=== PATIENT | male | born 1960 | race Caucasian/White ===

== ENCOUNTER 2024-07-09 08:08 | Inpatient (IN) ==
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
[2024-07-09 08:24] LABS: Base Excess VBG -9.4 mEq/L; HCO3 VBG 19 mmol/L; Oxygen Saturation VBG < 60.0 %; PCO2 VBG 50 mmHg (38-50); PO2 VBG 32 mmHg; pH VBG 7.18 (7.36-7.41)
[2024-07-09] MEDS: PIPERACILLIN/TAZOBACTAM 4.5 GM/100 ML BAG IV ONE (08:39)
[2024-07-09] MEDS: SODIUM CHLORIDE 0.9% 1,000 ML IV SCH (08:40)
--- OUTSIDE RECORDS SUMMARY | 2024-07-09 08:41 | External Medical Summary | Continuity of Care Document ---
Author Name Unknown Organization [facility] Address [address] [place] [address] JOSIE ANDERSON [phone] Care Team Providers Care Transformer Maker Name Role Phone Samra Soni Primary Care Physician [phone] Encounter [facility] [id number] Date(s): 07/02/24 - 07/02/24 [facility] [id number], [place] [address]- [phone] Encounter Diagnosis Primary colorectal adenocarcinoma(Discharge Diagnosis) - 07/02/24 Metastasis to liver(Discharge Diagnosis) - 07/02/24 Hypertension(Discharge Diagnosis) - 07/02/24 Metastatic colon cancer to liver(Discharge Diagnosis) - 07/02/24 Discharge Disposition: Home or Self Care Attending Physician: MD Kitchen Raymond J Referring Physician: MD Soni Ravishankar E Encounter Type: [facility] [place] Allergies, Adverse Reactions, Alerts Substance Criticality Severity Reaction Reaction Severity Status Percodan Rash Active Assessment and Plan Extracted from: Title:Oncology Office Visit Note Author:MD Kitchen Raymond J Date:07/02/24 63 y/o male with metastatic colon cancer on palliative chemotherapy with capecitabine and Panitumumab 1. Metastatic colon cancer - Multifocal pulmonary metastasis. Omental metastasis. Hepatic metastasis. Abdominal and retroperitoneal guevara metastasis. - Caris result showed K-joe and NRAS mutation not detected. This suggests that cetuximab or panitumumab may be of use. - On 07/26/22, 1st cycle of bevacizumab ( AVSTIN) was started. - On 12/20/22, 1st cetuximab ( ERBITUX) was started - repeat CT C/A/P in 3 months after starting cetuximab- done on 02/10/23 with mixed response- continue current tx. - On 04/12/23- due to severe hand foot syndrome, the patient has asked for further dose reduction of capecitapine- from 1650 mg to 1000 mg po BID 14 days on/ 1 week off on a 3 week cycle. - On 05/02/23, capecitabine- from 1000 mg to 500 mg po BID 14 days on/ 1 week off on a 3 week cycle. - on 05/23/23 stop Cetuximab completely at patient request due to intolerance ( he had 7 cycles) . - stable to proceed monotherapy bevacizumab. -His restaging CT scans demonstrate enlargement of his right lower lobe subpleural mass which is now measuring 5.6 x 2.7 cm when compared with his last CT which measured 5.2 x 1.6 cm. -His CEA today was 1200, which has continued to rise over the last several months and is his baseline. - 01/05/24 [facility] at [facility]- per patient show disease progression. -Will hold Avastin therapy given elevated protein urea; - Started Panitumumab as additional agent given disease progression. - S/p first dose on 02/06/24, presents for dose #7 today.Tolerating well so far. - CT scan again reviewed with patient. Discussed small increasing pulmonary nodules. Recommend continuing treatment as planned as patient does not wish to have traditional chemotherapy due to side effects. - CEA decreasing - reviewed with patient. Will proceed with treatment today and plan for again in 2 weeks. - 06/18/24: CEA 808.1 - 07/02/24: CEA 607.9 - We will continue treatment with Capecitabine 500 mg BID 2 weeks on, 1 week off and Panitumumab Infusions q2 weeks. - We will assess CEA again at next followup - Willobtain re-imaging in July 2024. 2. Shortness of breath concerning for Pneumonia Patient had an episode of SOB and Fatigue, given Doxycyline (5 days) and Amoxcilllin 7 day course at the ED. First dose was 06/29/24. - Continue Antibiotics as directed. 3. Multifocal pulmonary metastasis/ chronic smoker -Upon review of his CT chest as noted above he will plan to continue with his treatment as planned. -He was encouraged to make efforts in smoking cessation. 4. Hypothyroidism -Continue on Synthroid 125 mcg 5. Anemia -Continue to monitor labs per chemotherapy protocol -His hemoglobin remains stable for him and he remains asymptomatic 6. 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 -He was encouraged to continue with monitoring his blood sugars as he is. 7. Recurrent gross hematuria/ Bilateral hydroureteronephrosis - Cystoscopy, bilateral retrograde pyelograms with radiographic interpretation, bilateral ureteral stent exchange. - f/u urologist, Dr John Matson. Had stents changed 05/04/24. - urine cx on 04/07/23 was negative. - Intermittent bladder spasm in the setting of renal stent-on baclofen prn - FU with Urology as needed. 8. Hand/foot syndrome from chemo- minimal - Dry skin of hand and feet. - rec Goldbond lotion 9.Hypomagnesemia-OTC supplements -Patient does not wish to stay for IV Magnesium infusion. - Continue PO Mag. 10. Hypokalemia and hypocalcemia: -Improving. - Continue PO K+. 11. Proteinuria and BLE edma -Likely secondary to Avastin and amlodipine. Patienthas since d/c Amlodipine andcontinues on the Lisinopril 10 mg Daily - Lisinopril changed to 5 mg BID given concerns for hypotension (lightheadedness). - PT evaluation for lymphedema - Resume lisinopril for HTN and d/c amlodipine per nephro. - 24 hour creatinine clearance results reviewedand improving. 12. Acneform rash to face- stable - Continue with benzyl peroxideointment. - Can consider derm referral if ongoing. Dispo:Patient will return in2 weeks timefor labs, treatment and OV to monitor swelling and rash. Next visit, will move OV to every 4 weeks unless needing to see more frequently [2] Immunizations Given and Recorded Vaccine Date Status Refusal Reason SARS-CoV-2 (COVID-19) mRNA BNT-162b2 vax 12/10/20 Recorded SARS-CoV-2 (COVID-19) mRNA BNT-162b2 vax 11/09/20 Recorded Medications Albuterol (Eqv-ProAir HFA) 90 mcg/inh inhalation aerosol Start: 07/02/24 8:26:00 AM EDT, 2 inh, inhaled, q4h, PRN: as needed for shortness of breath or wheezing Start Date: 07/02/24 Status: Ordered Repeat number: 1 Augmentin 875 mg-125 mg oral tablet Start: 07/02/24 8:26:00 AM EDT, amoxicillin, PO, bid Start Date: 07/02/24 Status: Ordered Repeat number: 1 capecitabine 500 mg oral tablet Start: 05/08/24 2:44:00 PM EST, 1 tab, PO, bid, Disp# 28 tab, Refills: 5, for 14 days, followed by 7days off of each 21 day cycle., Pharmacy: [facility] Start Date: 05/08/24 Status: Ordered Quantity: 28.0 Unit: tab Repeat number: 6 doxycycline Start: 07/02/24 8:26:00 AM EDT, 100 mg =, PO, bid Start Date: 07/02/24 Status: Ordered Repeat number: 1 Gold Gutierrez Medicated Maximum Strength Pain and Itch 4% topical cream Start: 04/07/23 12:16:00 PM EST, See Instructions, Disp# 133 g, Refills: 0, not to exceed 3 applications in 24 hours, Note to Pharmacy: use twice a day for 30 days, Pharmacy: [id number] Start Date: 04/07/23 Status: Ordered Quantity: 133.0 Unit: g Repeat number: 1 lisinopril 5 mg oral tablet Start: 07/02/24 9:16:00 AM EDT, 1 tab, PO, bid, Disp# 60 tab, Refills: 1, Pharmacy: [id number] Start Date: 07/02/24 Status: Ordered Quantity: 60.0 Unit: tab Repeat number: 2 Medical Marijuana Start: 06/28/22 11:57:00 AM EDT, 1 inh, inhaled Start Date: 06/28/22 Status: Ordered Repeat number: 1 morphine Start: 05/18/22 1:26:00 PM EST, 60 mg =, PO, q12h, Refills: 0 Start Date: 05/18/22 Status: Ordered Repeat number: 1 morphine 30 mg (24 HR) oral capsule, extended release Start: 03/07/23 3:42:00 PM EST, 1 cap, PO, bid, Refills: 0, prn, PRN: pain Start Date: 03/07/23 Status: Ordered Repeat number: 1 Normal Saline Flush 0.9% injectable solution Start: 05/28/24 11:15:00 AM EST, See Instructions, Disp# 1 kit, Refills: 3, Use 1 x 10 mL syringe toflush right nephrostomy tube daily and as needed (if decreased drainage is noted), Note to Pharmacy: 1 kit aka box = 60 syringes x refills x 3, Pharmacy: [facility] Start Date: 05/28/24 Status: Ordered Quantity: 1.0 Unit: kit Repeat number: 4 Indication: Other artificial openings of urinary tract status NovoLOG 100 units/mL injectable solution Start: 03/12/24 11:19:00 AM EST, See Instructions, Disp# 30 mL, Refills: 4, USE 1 UNIT PER 15 GRAMS OF CARBS, INJECTING UP TO 6 TIMES PER DAY NEEDED - using 30 units per day - 90 day supply, Pharmacy: [facility] Start Date: 03/12/24 Status: Ordered Quantity: 30.0 Unit: mL Repeat number: 5 One Touch Delica Plus (33G) Lancets Start: 05/07/22 8:18:00 AM EST, See Instructions, Disp# 100 each, Refills: 3, use for blood glucose testing up to 8x/day, Pharmacy: [facility] Start Date: 05/07/22 Status: Ordered Quantity: 100.0 Unit: each Repeat number: 4 Indication: Type 1 diabetes mellitus with unspecified complications One Touch Verio Flex Glucose Monitor Start: 08/24/23 7:58:00 AM EDT, See Instructions, Disp# 1 each, Refills: 0, test up to 8x/daily as directed for Type 1 DM, Note to Pharmacy: Pt aware insurance may not cover since it was replaced 2022. He would pay out of pocket if cheap enough, Pharmacy: [facility] Start Date: 08/24/23 Status: Ordered Quantity: 1.0 Unit: each Repeat number: 1 Indication: Type 1 diabetes mellitus with unspecified complications One Touch Verio Test Strips Start: 03/14/24 8:02:00 AM EST, See Instructions, Disp# 800 each, Refills: 3, test up to 8x/day as needed for Type 1 DM, Pharmacy: [facility] Start Date: 03/14/24 Status: Ordered Quantity: 800.0 Unit: each Repeat number: 4 Indication: Type 1 diabetes mellitus with unspecified complications ONETOUCH VERIO TEST STRIP Start: 06/07/24 8:48:00 AM EST, ONETOUCH VERIO TEST STRIP, See Instructions, Disp# 800 strip, Refills: 0, TEST UP TO 8 TIMES DAILY NEEDED, Pharmacy [facility] Start Date: 06/07/24 Status: Ordered Quantity: 800.0 Unit: Repeat number: 1 ONETOUCH VERIO TEST STRIP Start: 03/14/24 8:05:00 AM EST, ONETOUCH VERIO TEST STRIP, See Instructions, Disp# 800 strip, Refills: 0, TEST UP TO 8 TIMES DAILY NEEDED, Pharmacy [facility] Start Date: 03/14/24 Status: Ordered Quantity: 800.0 Unit: Repeat number: 1 Potassium Chloride (Eqv-K-Tab) 20 mEq oral tablet, extended release Start: 04/16/24 2:24:00 PM EST, 1 tab, PO, Daily, Disp# 30 tab, Refills: 0, Pharmacy: [id number] Start Date: 04/16/24 Status: Ordered Quantity: 30.0 Unit: tab Repeat number: 1 Pyridium 200 mg oral tablet Start: 05/04/24 3:01:00 PM EST, 1 tab, PO, tid, Disp# 6 tab, PRN: as needed for urinary discomfort, Pharmacy: [facility] Start Date: 05/04/24 Stop Date: 05/06/24 Status: Ordered Quantity: 6.0 Unit: tab Repeat number: 1 Semglee (Vial) 100 units/mL subcutaneous solution Start: 03/12/24 11:19:00 AM EST, 20 unit =, subQ, Daily, Disp# 30 mL, Refills: 3, Pharmacy: [facility] Start Date: 03/12/24 Stop Date: 03/07/25 Status: Ordered Quantity: 30.0 Unit: mL Repeat number: 4 Senna Start: 07/26/22 12:43:00 PM EDT, 8.6 mg =, PO, 2 tabs by mouth daily, PRN: as needed for constipation Start Date: 07/26/22 Status: Ordered Repeat number: 1 Slow-Mag 71.5 mg-119 mg oral delayed release tablet Start: 06/28/24 12:57:00 PM EDT, 2 tab, PO, bid, Disp# 120 tab, Refills: 3, Pharmacy: [id number] Start Date: 06/28/24 Stop Date: 10/26/24 Status: Ordered Quantity: 120.0 Unit: tab Repeat number: 4 Synthroid 125 mcg (0.125 mg) oral tablet Start: 03/12/24 11:19:00 AM EST, 1 tab, PO, Daily, Disp# 90 tab, Refills: 3, Pharmacy: [facility] Start Date: 03/12/24 Status: Ordered Quantity: 90.0 Unit: tab Repeat number: 4 Syringe MIS 0.3/31gauge Start: 03/12/24 11:19:00 AM EST, Syringe MIS 0.3/31gauge, eRx Product Type: Supply, See Instructions, Disp# 500 each, Refills: 3, Pt uses 6 syringes daily. E11.9, Pharmacy [facility] Start Date: 03/12/24 Status: Ordered Quantity: 500.0 Unit: each Repeat number: 4 Syringe MIS 0.3/31gauge Start: 01/01/22 10:03:00 AM EDT, Syringe MIS 0.3/31gauge, eRx Product Type: Supply, See Instructions, Disp# 500 each, Refills: 3, Pt uses 6 syringes daily. E11.9, Pharmacy [facility] Start Date: 01/01/22 Status: Ordered Quantity: 500.0 Unit: each Repeat number: 4 Vitamin B12 1000 mcg oral tablet Start: 10/24/23 10:35:00 AM EDT, 1 tab, PO, Daily, Disp# 90 tab, Refills: 0, Pharmacy: [facility] Start Date: 10/24/23 Stop Date: 01/22/24 Status: Ordered Quantity: 90.0 Unit: tab Repeat number: 1 ZyrTEC Start: 02/06/24 8:29:00 AM EDT, PO, Daily Start Date: 02/06/24 Status: Ordered Repeat number: 1 Mental Status 07/02/24 Barriers to Learning one year None evide nt Mandatory Health Literacy Documentation Yes Health Literacy Communication Barriers N ever Primary Language Cuban Problem List Condition Confirmation Course Effective Dates Status H ealth Status Informant Hand foot syndrome Confirmed Active Primary colorectal adenocarcinoma Confirmed Active Colon cancer screening declined Confirmed Active Gross hematuria Confirmed Active Hypertension Confirmed Active Hypothyroidism Confirmed Active Metastasis to liver Confirmed Active Bilateral ureteral obstruction. 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 Confirmed Active Vitamin D deficiency Confirmed Active Weight disorder Confirmed Active Diagnosis Diagnosis Type Effective Dates Health Status Clinical Service Informant Primary colorectal adenocarcinoma Discharge Diagnosis 07/02/24 Metastatic colon cancer to liver Discharge Diagnosis 07/02/24 Non-Specified Hypertension Discharge Diagnosis 07/02/24 Metastasis to liver Discharge Diagnosis 07/02/24 Procedures Procedure Date Related Diagnosis Body Site Status Cystoscopy 1 10/04/22 Completed Stent replacement 10/04/22 Complet ed Cystoscopy 2 04/22/22 Completed Colonoscopy and tattooing 3 02/03/22 Completed Abdominal 4 01/25/22 Completed Shave biopsy and cauterization of skin 04/09/21 Completed Examination of eye 5 05/04/17 Comp leted Amputation finger-complicated 1998 Completed Knee meniscus 1997 Completed Vitrectomy, mechanical, pars plana approach; with endolaser panretinal photocoagulation 1983 Completed Hernia repair 1981 Completed Cystoscopy and retrograde py elography 7 Completed Cystoscopy, bilateral retrog rade pyelograms with radiographic interpretation, bilateral ureteral stent exchange Completed 1Cystoscopy, retrograde pyelogram, ureteral stent exchange, bilateral. 2BIlateral Retrograde Pyelogram, Bilateral Ureteral Stent exchange. 3Impression- malignant partially obstructing tumor at the hepatic flexure. biopsied, tattooed. Three7 to 11 mm polyps in the rectum and in the transverse colon, removed with hot snare. resected and retrieved. Localized moderate inflammation was found in the sigmoid colon secondary to colitis. Biopsied. non bleeding internal hemmorrhoids.. Recommendations- continue with present meds. repeat colonoscopy for surveillance based on pathologyresults. Refer to a surgeon at appointment to be scheduled. 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 7pelvic mass, hydropnephrosis- ureteral stent exchange- bilateral Results Laboratory List Name Date Carcinoembryonic Antigen (CEA) 07/02/24 Complete Blood Count w Differential (CBC ,DIFFH) 07/02/24 Comprehensive Metabolic Panel (COMP META B PANEL) 07/02/24 Magnesium Level (MAGNESIUM) 07/02/24 Most recent to oldest [Reference Range]: 1 eGFR CKD-EPI [>60 mL/min/1.73 m2] 85 mL/ min/1.73 m2 (07/02/24 7:40 AM) Estimated CrCl 66.44 mL/min (07/02/24 8:31 AM) MPV [9.0-12.2 fL] 10.2 fL (07/02/24 7:40 AM) Immature Gran% 0.3 % (07/02/24 7:40 AM) Neut% 75.1 % (07/02/24 7:40 AM) Lymph% 11.1 % (07/02/24 7:40 AM) Rowan% 7.8 % (07/02/24 7:40 AM) Baso% 0.2 % (07/02/24 7:40 AM) Eos% 5.5 % (07/02/24 7:40 AM) Immat Gran, Abs [0-0.4 K/uL] 0.03 K/uL (07/02/24 7:40 AM) Neut, Abs [2.0-7.7 K/uL] 7.99 K/uL *HI* (07/02/24 7:40 AM) Lymph, Abs [1.0-3.4 K/uL] 1.18 K/uL (07/02/24 7:40 AM) Rowan, Abs [0-1.0 K/uL] 0.83 K/uL (07/02/24 7:40 AM) Baso, Abs [0-0.1 K/uL] 0.02 K/uL (07/02/24 7:40 AM) Eos, Abs [0-0.5 K/uL] 0.58 K/uL *HI* (07/02/24 7:40 AM) Type of Diff: AUTO *Unknown* (07/02/24 7:40 AM) RDW [11.5-14.2 %] 15.1 % *HI* (07/02/24 7:40 AM) Anion Gap [5-14 mmol/L] 9 mmol/L (07/02/24 7:40 AM) Alb [3.5-5.2 g/dL] 2.8 g/dL *LOW* (07/02/24 7:40 AM) Alk Phos [40-130 unit/L] 121 unit/L 1 (07/02/24 7:40 AM) ALT [0-41 unit/L] 10 unit/L (07/02/24 7:40 AM) AST [0-40 unit/L] 17 unit/L (07/02/24 7:40 AM) BUN [6-23 mg/dL] 16 mg/dL (07/02/24 7:40 AM) Ca [8.4-10.2 mg/dL] 7.4 mg/dL *LOW* (07/02/24 7:40 AM) CEA [<4.8 ng/mL] 607.9 ng/mL 2 *HI* (07/02/24 7:40 AM) Cl- [98-107 mmol/L] 102 mmol/L (07/02/24 7:40 AM) HCO3 [22-29 mmol/L] 25 mmol/L (07/02/24 7:40 AM) Cret [0.70-1.30 mg/dL] 0.99 mg/dL (07/02/24 7:40 AM) Glu [74-109 mg/dL] 137 mg/dL 3 *HI* (07/02/24 7:40 AM) Hct [39-48 %] 28.3 % *LOW* (07/02/24 7:40 AM) Hgb [13.0-17.0 g/dL] 8.9 g/dL *LOW* (07/02/24 7:40 AM) K [3.5-5.1 mmol/L] 4.5 mmol/L (07/02/24 7:40 AM) MCH [28-33 pg] 26.0 pg *LOW* (07/02/24 7:40 AM) MCHC [32-36 g/dL] 31.4 g/dL *LOW* (07/02/24 7:40 AM) MCV [81-96 fL] 82.7 fL (07/02/24 7:40 AM) Mg [1.6-2.6 mg/dL] 0.6 mg/dL *LOW* (07/02/24 7:40 AM) Na [136-145 mmol/L] 136 mmol/L (07/02/24 7:40 AM) Plts [150-350 K/uL] 304 K/uL (07/02/24 7:40 AM) RBC [4.40-5.60 M/uL] 3.42 M/uL *LOW* (07/02/24 7:40 AM) T Bili [0.0-1.2 mg/dL] 0.5 mg/dL (07/02/24 7:40 AM) Prot [6.4-8.3 g/dL] 6.3 g/dL *LOW* (07/02/24 7:40 AM) WBC [4.0-10.4 K/uL] 10.63 K/uL *HI* (07/02/24 7:40 AM) 1Result Comment: Low levels of ALKP may indicate a deficiency in zinc, magnesium, or malnutritionbutcan also be an indicator of a rare genetic disease hypophosphatasia (HPP). 2Result Comment: NON-SMOKERS (PAST/NEVER SMOKERS) 20-69 (YEARS) 3.8 NG/ML (95TH PERCENTILE) 40-69 (YEARS) 5.0 NG/ML (95TH PERCENTILE) SMOKERS (CURRENT) 20-69 (YEARS) 5.5 NG/ML (95TH PERCENTILE) 40-69 (YEARS) 6.5 NG/ML (95TH PERCENTILE) "Methodology: Jonny Elecsys CEA assay performed on the krystal e 601/602 analyzerutilizing electrochemiluminescence immunoassay technology (ECLIA). Results obtained with different assay methods or kitscannot be used interchangeably." 3Result Comment: ADA recommendation for FASTING Serum/Plasma Glucose: Normal: 70-100 mg/dL Prediabetes: 100-125 mg/dL Diabetes: 126 mg/dL or higher Vital Signs Most recent to oldest [Reference Range]: 1 Patient Weight 61.5 kg 1 (07/02/24 8:28 AM) Temperature [36.5-37.9 DegC] 37.1 DegC (07/02/24 8:28 AM) Heart Rate 70 bpm (07/02/24 8: AM) Respiratory Rate 16 br/min (07/02/24 8:28 AM) Blood Pressure 108/60mmHg (07/02/24 8:28 AM) Mean Blood Pressure 72 mmHg (07/02/24 8:28 AM) Cuff Pulse Pressure 48 mmHg (07/02/24 8:28 AM) BP Location # 1 Left Arm (07/02/24 8:28 AM) 1Result Comment: with shoes-pt refused Social History Social History Type Response Tobacco Cigarettes 1 Smoking Status Current some day lig ht smoker Sex Male Sex Representation Male (finding) 11 ppd Implantable Device List Procedure Provider Procedure Date Device Type Site Unknown Unknown 05/04/24 Unknown Unknown Device Identifier Serial Number Lot or Batch Number Manufacturing Date Expiration Date Distinct Identification Code MRI Safety Implantable Status Assigning Authority Unknown Unknown [id number] Unknown 06/15/26 Unknown Unknown Active Unknown Procedure Provider Procedure Date Device Type Site Unknown Unknown 01/03/24 Unknown Unknown Device Identifier Serial Number Lot or Batch Number Manufacturing Date Expiration Date Distinct Identification Code MRI Safety Implantable Status Assigning Authority Unknown Unknown [id number] Unknown 09/16/26 Unknown Unknown Active Unknown Unknown Unknown [id number] Unknown 09/28/25 Unknown Unknown Active Unknown Procedure Provider Procedure Date Device Type Site Unknown Unknown 09/02/23 Unknown Unknown Device Identifier Serial Number Lot or Batch Number Manufacturing Date Expiration Date Distinct Identification Code MRI Safety Implantable Status Assigning Authority Unknown Unknown [id number] Unknown 10/29/24 Unknown Unknown Active Unknown Unknown Unknown [id number] Unknown 09/28/25 Unknown Unknown Active Unknown Procedure Provider Procedure Date Device Type Site Unknown Unknown 03/16/23 Unknown Unknown Device Identifier Serial Number Lot or Batch Number Manufacturing Date Expiration Date Distinct Identification Code MRI Safety Implantable Status Assigning Authority Unknown Unknown [id number] Unknown 01/14/25 Unknown Unknown Active Unknown Unknown Unknown [id number] Unknown 09/02/25 Unknown Unknown Active Unknown Hematology/Oncology Outpt Note * MD Kitchen Raymond J: PERFORM MD Kitchen Raymond J: PERFORM, MODIFY Delano Mejía: MODIFY Event Display: Hematology/Oncology Outpt Note Authored Date: [id number] Chief Complaint f/u visit History of Present Illness 63-year-old gentleman, chronic smoker, DM-1 since age [address] Kitchen clinic on 04/08/2022 for evaluation of a hepatic flexure mass in the setting of known metastases. He has had escalating symptoms over the summer of right and left-sided abdominal pain as well as some flank pain. He was having fairly liquid bowel movements over the summer during this time without significant bleeding, although now they are more solid and soft in consistency. He was initially presumed to have diverticular disease and treated with antibiotics with some improvement in his symptoms. As part of his evaluation for his pain, he underwent a CT scan of the abdomen and pelvis which showed severalmasses, including a apple core lesion of the hepatic flexure, several liver lesions, and hydronephrosis related to a solid mass within the pelvis. He underwent a colonoscopy which noted a solid tumor at the hepatic flexure which was biopsied. Biopsies were consistent with at least high-grade dys plasia but no definitive cancer. This lesion was tattooed. They were unable to traverse this lesion. Multiple other tubular adenomas were noted in the transverse colon and rectum, 3 in total. A liver biopsy was then obtained which confirmed metastatic adenocarcinoma which was CK20 and CDX2 positive and consistent with colonic origin. No microsatellite instability was noted. 03/18/2022 CT Abdomen and Pelvis Consult Multifocal pulmonary metastasis. Omental metastasis.Hepatic metastasis. Abdominal and retroperitoneal guevara metastasis. Bilateral hydroureteronephrosis, right worse than left, secondary to cul-de-sac metastasis tethering the distal ureters bilaterally. 03/22/2022: Diagnosis(Verified) A.Colon, hepatic flexure, biopsy ([id number] 02/03/22):- Colonic mucosa with focal high-grade dysplasia. B.Colon, transverse, polypectomy ( -[id number] 02/03/22):- Tubular adenoma. C. Colon, sigmoid, biopsy sigmoid colitis ([id number] 02/03/22):- No pathological ulceration. D. Rectum, polypectomy (-9435-[id number] 02/03/22)":- Fragments of tubular adenoma. 2Liver, side unspecified (core needle biopsy) ([id number] 02/18/22): - Metastatic moderately differentiated adenocarcinoma. - Focal dystrophic calcification. COMMENT: Immunostain shows tumor cells positive for CK20, CDX2, Negative for CK7, TTF1 consistentwith colonic origin.MMR intact in part A. 07/19/2022: Interpretation(Verified) 1Liver, Right, Fine Needle Aspiration: Positive for malignant cells consistent with metastatic colorectal adenocarcinoma. 2Liver, Right, Cores: Positive for malignant cells consistent with metastatic colorectal adenocarcinoma. Comment: Immunostains were performed on a prior specimen. Abundant tumor is available in block 2Afor molecular testing if clinically requested. He was initially seen by Dr. Sparks in a [facility] who recommended surgical bypass because of the risk of obstruction. Hewas not interested in standard chemotherapy butwas interested in immunotherapy. Initially, we had recommended the addition of a Avastin to capecitabinehowever the patient was incredibly reluctant chemo treated with a Avastin. He cites multiple cardiovascular events andimmediate family membersandwas concerned of thethrombotic and hemorrhagic complications. We then did discuss the possibility of giving himoxaliplatin himalong with the capecitabine. Hewasagreeable to Avastin along with capecitabine 1800 mg BID 14 days on/ 1 week off ona3 week cycle. On 07/26/22, 1st cycle of bevacizumab ( AVSTIN) was started. On 12/20/22, 1st cetuximab ( ERBITUX) was started Caris resultshowed K-rasand NRAS mutation not detected. This suggests that cetuximab or panitumumab may beof use. 02/10/2023 CT Chest/ Abdomen and Pelvis w/ Contrast: 1. Mixed disease response within the thorax, with some lesions demonstrating enlargement, some interval decrease in size, and some cavitary evolution. 2. Unchanged thoracic guevara disease. 3. Essentially unchanged retroperitoneal disease. 4. Limited assessment for interval change in hepatic metastatic burden given phasicity of timing and poor contrast bolus enhancement. Overall, some of the hepatic lesions have resolved or improved while others demonstrate minimal if any interval decrease in size. 03/16/2023:Cystoscopy, bilateral retrograde pyelograms with radiographic interpretation, bilateralureteral stent exchange. 06/13/23 CT C/A/P CHEST Pleura and Lungs: Innumerable bilateral spiculated pulmonary metastatic nodules, not significantly changed compared to 02/10/2023. Some of the pulmonary nodules straight central cavitation. No pleuraleffusion. Central airways: Clear Lymph nodes: Enlarged bilateral upper paratracheal lymph nodes, right greater than left, with the right measuring 2.1 x 1.9 cm, decreased from 2.3 x 2.3 cm on 02/10/2023 and the left measuring 1.7 x 1.1 cm, decreased from 1.7 x 1.3 cm. Lower paratracheal and subaortic lymph nodes are also minimally decreased in size. Thyroid and Mediastinum: Visualized thyroid is normal. Normal esophagus. Heart and Great vessels: Atherosclerotic calcification of the coronary arteries. Common origin of the innominate and left common carotid arteries. ABDOMEN Liver, Gallbladder \\T\\ bile ducts: Multiple hypodense lesions, some of which are minimally decreased in size compared to 02/10/2023, for example, hepatic segment 8 measuring 1.4 x 1.4 cm, previously 1.7 x 1.9 cm. Partially calcified lesions within the right inferior hepatic lobe, also minimally decreased in size for example, the more superior lesion in hepatic segment 6 measuring 2.8 x 4.4 cm previously measured 2.9 x 5.0 cm. No new lesions. Normal gallbladder. Pancreas: Atrophic Spleen: Normal Adrenals: Normal Kidneys, collecting system and ureters: Bilateral nephroureteral drains. No hydronephrosis. Bilateral periureteral fat stranding, left greater than right, unchanged. Retroperitoneum, lymph nodes, and vessels: Numerous calcified retroperitoneal lymph nodes, mildly decreased in size compared to 06/02/1992. Atherosclerotic calcification of the aorta. Bowel \\T\\ Mesentery: Mild thickening of the peritoneum in the pelvis, decreased. No bowel obstruction. PELVIS Bladder: Normal Reproductive organs: Normal Extraperitoneal, lymph nodes, vessels: Atherosclerotic calcification of the bilateral iliofemoral arteries. Right external iliac lymph node measuring 0.9 cm in short axis, unchanged. Osseous and body wall: Multilevel degenerative changes of the spine. IMPRESSION: 1. Multifocal metastatic lung nodules are unchanged compared to 02/10/2023. 2. Mild decrease in size of thoracic and retroperitoneal lymphadenopathy. 3. Multifocal metastatic hepatic lesions are mildly decreased in size. [1] Interval History 07/02/2024 63 y/o male with metastatic colon cancer on palliative chemotherapy with capecitabine and Panitumumab Capecitabine is starting 2 week on and 1 week off at 500 mg BID, and the Panitumumab every two weeks as well for infusions. Patient has been feeling some side effects from the chemo. He's been getting itching and a rash on his nape. His teeth and hair seem to be falling apart. His symptoms comes and goes. It was worsewhenhe was previously on cristina Avastin with the Cepecitabine (and the cetuximab). THey stopped the cetuximab and eased downon the cepecitabine. 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 He was previously also on Avastin which could contribute to nephrotic syndrome. He is back on Lisinopril 10 mg daily, [facility] he does feel some lightheadedness when he takes it. He requested changing dose to 5 mg BID. Patient continues to feel fatigue, he's frustrated with his lack of ability to be active as he wants. Patient also had a recent infection (flu) around 3 weeks ago and had an episode last week withsommeshortness of breath and fatigue. was sent to the ED for concern of pneumonia. Hes on an antibiotic Amoxicillin, and Doxycycline started , and will be contiuing the course Doxy 5 days and Amoxicillin 7 days. THe antibiotics has been helping with his symptoms. Appetite has not been really good, but feels like its starting to come back. He thinks it might be the antibiotics. Intermittent Diarrhea / Constipation, does not see blood in stool. Does see blood in urine (Ureteric stents Kidneys to Bladder (the edema was closing the veins off and tumor). Urologist. Review of Systems A complete 14 point review of systems was performed and was negative exceptive as noted above in HPI. Physical Exam Vital Signs and Measurements This Visit - Last 24 Hours T:37.1C HR:70(Monitored) RR:16 BP:108/60 WT:61.500kg(Dosing) WT:61.5kg General:Well appearing in no apparent acute distress. HEENT:Head normocephalic, atraumatic, sclera clear, conjunctiva pink. Cardiac:Regular Rate and Rhythm, no murmurs, rubs or gallops. 2+ pulses bilaterally in upper and lower extremity. Lungs:Clear to auscultation bilaterally, no wheezes, rales, or rhonchi, Abdomen:Normoactive bowel sounds,firm, diffusely tender topalpation in all four quadrants. Extremities:2+ Pitting Edema in bilateral lower extremities. Neuro:Alert and oriented to person, time, place and situation. Skin:Warm and dry, with no apparent discoloration or rashes. Performance Scales and Status ECOG Performance Status: 1 (06/18/24) Pain Score:3 Patient Declined Assessment on:05/07/2024 08:29 Distress Inventory Not Completed Reason: [ _ ]Medical Contraindication:_ [ _ ]Functional Capacity [ _ ]Patient Refusal [ _ ]Other:_ Oncology Regimens Oncology Chemo Regimens: Regimen:ONCR panitumumab (2 weeks) Colorectal Adult (</= 165 kg) (Started) Intent of Therapy:Advanced/palliative Line of Therapy:Third Order Dt/Tm:01/16/24 11:54 Assessment/Plan 63 y/o male with metastatic colon cancer on palliative chemotherapy with capecitabine and Panitumumab 1. Metastatic colon cancer - Multifocal pulmonary metastasis. Omental metastasis. Hepatic metastasis. Abdominal and retroperitoneal guevara metastasis. - Caris result showed K-joe and NRAS mutation not detected. This suggests that cetuximab or panitumumab may be of use. - On 07/26/22, 1st cycle of bevacizumab ( AVSTIN) was started. - On 12/20/22, 1st cetuximab ( ERBITUX) was started - repeat CT C/A/P in 3 months after starting cetuximab- done on 02/10/23 with mixed response- continue current tx. - On 04/12/23- due to severe hand foot syndrome, the patient has asked for further dose reduction of capecitapine- from 1650 mg to 1000 mg po BID 14 days on/ 1 week off on a 3 week cycle. - On 05/02/23, capecitabine- from 1000 mg to 500 mg po BID 14 days on/ 1 week off on a 3 week cycle. - on 05/23/23 stop Cetuximab completely at patient request due to intolerance ( he had 7 cycles) . - stable to proceed monotherapy bevacizumab. -His restaging CT scans demonstrate enlargement of his right lower lobe subpleural mass which is now measuring 5.6 x 2.7 cm when compared with his last CT which measured 5.2 x 1.6 cm. -His CEA today was 1200, which has continued to rise over the last several months and is his baseline. - 01/05/24 [facility]- per patient show disease progression. -Will hold Avastin therapy given elevated protein urea; - Started Panitumumab as additional agent given disease progression. - S/p first dose on 02/06/24, presents for dose #7 today.Tolerating well so far. - CT scan again reviewed with patient. Discussed small increasing pulmonary nodules. Recommend continuing treatment as planned as patient does not wish to have traditional chemotherapy due to side effects. - CEA decreasing - reviewed with patient. Will proceed with treatment today and plan for again in 2weeks. - 06/18/24: CEA 808.1 - 07/02/24: CEA 607.9 - We will continue treatment with Capecitabine 500 mg BID 2 weeks on, 1 week off and Panitumumab Infusions q2 weeks. - We will assess CEA again at next followup - Willobtain re-imaging in July 2024. 2. Shortness of breath concerning for Pneumonia Patient had an episode of SOB and Fatigue, given Doxycyline (5 days) and Amoxcilllin 7 day course at the ED. First dose was 06/29/24. - Continue Antibiotics as directed. 3. Multifocal pulmonary metastasis/ chronic smoker -Upon review of his CT chest as noted above he will plan to continue with his treatment as planned. -He was encouraged to make efforts in smoking cessation. 4. Hypothyroidism -Continue on Synthroid 125 mcg 5. Anemia -Continue to monitor labs per chemotherapy protocol -His hemoglobin remains stable for him and he remains asymptomatic 6. 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 -He was encouraged to continue with monitoring his blood sugars as he is. 7. Recurrent gross hematuria/ Bilateral hydroureteronephrosis - Cystoscopy, bilateral retrograde pyelograms with radiographic interpretation, bilateral ureteral stent exchange. - f/u urologist, Dr John Matson. Had stents changed 05/04/24. - urine cx on 04/07/23 was negative. - Intermittent bladder spasm in the setting of renal stent-on baclofen prn - FU with Urology as needed. 8. Hand/foot syndrome from chemo- minimal - Dry skin of hand and feet. - rec Goldbond lotion 9.Hypomagnesemia-OTC supplements -Patient does not wish to stay for IV Magnesium infusion. - Continue PO Mag. 10. Hypokalemia and hypocalcemia: -Improving. - Continue PO K+. 11. Proteinuria and BLE edma -Likely secondary to Avastin and amlodipine. Patienthas since d/c Amlodipine andcontinues on the Lisinopril 10 mg Daily - Lisinopril changed to 5 mg BID given concerns for hypotension (lightheadedness). - PT evaluation for lymphedema - Resume lisinopril for HTN and d/c amlodipine per nephro. - 24 hour creatinine clearance results reviewedand improving. 12. Acneform rash to face- stable - Continue with benzyl peroxideointment. - Can consider derm referral if ongoing. Dispo:Patient will return in2 weeks timefor labs, treatment and OV to monitor swelling andrash. Next visit, will move OV to every 4 weeks unless needing to see more frequently [2] Staging Information No information available Problem List/Past Medical History Ongoing Bilateral ureteral obstruction. 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 Vitamin D deficiency Weight disorder Resolved Routine adult health maintenance Procedure/Surgical History Stent replacement| Service Date: 10/04/2022ystoscopy| Service Date: 10/04/2022ystoscopy|Service Date: 04/22/2022olonoscopy and tattooing| Service Date: 02/03/2022bdominal| ServiceDate: 01/25/2022have biopsy and cauterization of skin| Service Date: 04/09/2021xamination of eye| Service Date: 05/04/2017Amputation finger-complicated| Service Date: 1998Knee meniscus|Service Date: 1997Vitrectomy, mechanical, pars plana approach; with endolaser panretinal photocoagulation| Service Date: 1983Hernia repair| Service Date: 1981Cystoscopy and retrograde pyelographyCystoscopy, bilateral retrograde pyelograms with radiographic interpretation, bilateral ureteral stent exchange Medications albuterol(Albuterol (Eqv-ProAir HFA) 90 mcg/inh inhalation aerosol), 2 inh, inhaled, q4h, PRN amoxicillin-clavulanate(Augmentin 875 mg-125 mg oral tablet), PO, bid calcium carbonate-magnesium chloride(Slow-Mag 71.5 mg-119 mg oral delayed release tablet), 2 tab, PO, bid, 3 refills cannabis(Medical Marijuana), 1 inh, inhaled capecitabine(capecitabine 500 mg oral tablet), 500 mg= 1 tab, PO, bid, 5 refills cetirizine(ZyrTEC), PO, Daily cyanocobalamin(Vitamin B12 1000 mcg oral tablet), 1000 mcg= 1 tab, PO, Daily diabetes supplies(One Touch Verio Test Strips), See Instructions, 3 refills diabetes supplies(One Touch Verio Flex Glucose Monitor), See Instructions diabetes supplies(One Touch Delica Plus (33G) Lancets), See Instructions, 3 refills doxycycline, 100 mg, PO, bid insulin aspart(NovoLOG 100 units/mL injectable solution), See Instructions, 4 refills insulin glargine(Semglee (Vial) 100 units/mL subcutaneous solution), 20 unit, subQ, Daily, 3 refills levothyroxine(Synthroid 125 mcg (0.125 mg) oral tablet), 125 mcg= 1 tab, PO, Daily, 3 refills lidocaine topical(Gold Gutierrez Medicated Maximum Strength Pain and Itch 4% topical cream), See Instructions lisinopril(lisinopril 5 mg oral tablet), 10 mg= 2 tab, PO, Daily, 1 refills morphine, 60 mg, PO, q12h morphine(morphine 30 mg (24 HR) oral capsule, extended release), 30 mg= 1 cap, PO, bid, PRN phenazopyridine(Pyridium 200 mg oral tablet), 200 mg= 1 tab, PO, tid, PRN potassium chloride(Potassium Chloride (Eqv-K-Tab) 20 mEq oral tablet, extended release), 20 mEq= 1 tab, PO, Daily senna(Senna), 8.6 mg, PO, PRN sodium chloride(Normal Saline Flush 0.9% injectable solution), See Instructions, 3 refills unlisted medication(Syringe MIS 0.3/31gauge), See Instructions, 3 refills unlisted medication(Syringe MIS 0.3/31gauge), See Instructions, 3 refills unlisted medication(ONETOUCH VERIO TEST STRIP), See Instructions unlisted medication(ONETOUCH VERIO TEST STRIP), See Instructions Allergies PercodanRash Social History Smoking Status Current some day light smoker Alcohol - Low Risk - Comments: USAUDIT-C score = 6; no interest in changing Employment/School - Medium Risk Status:Retired Substance Abuse - Denies Substance Abuse Tobacco Type:Cigarettes - Comments: 1 ppd Family History Family history is negative Immunizations Vaccine Date Status SARS-CoV-2 (COVID-19) mRNA BNT-162b2 vax 12/10/2020 Recorded SARS-CoV-2 (COVID-19) mRNA BNT-162b2 vax 11/09/2020 Recorded Labs Na: 136 mmol/L (07/02/24 07:40:00) K: 4.5 mmol/L (07/02/24 07:40:00) Cl-: 102 mmol/L (07/02/24 07:40:00) BUN: 16 mg/dL (07/02/24 07:40:00) Cret: 0.99 mg/dL (07/02/24 07:40:00) Glu:137 mg/dLHigh (07/02/24 07:40:00) Ca:7.4 mg/dLLow (07/02/24 07:40:00) M.6 mg/dLLow (07/02/24 07:40:00) WBC:10.63 K/uLHigh (07/02/24 07:40:00) Hgb:8.9 g/dLLow (07/02/24 07:40:00) Hct:28.3 %Low (07/02/24 07:40:00) MCV: 82.7 fL (07/02/24 07:40:00) Plts: 304 K/uL (07/02/24 07:40:00) Neut%: 75.1 % (07/02/24 07:40:00) Baso%: 0.2 % (07/02/24 07:40:00) Neut, Abs:7.99 K/uLHigh (07/02/24 07:40:00) Lymph, Abs: 1.18 K/uL (07/02/24 07:40:00) ALT: 10 unit/L (07/02/24 07:40:00) T Bili: 0.5 mg/dL (07/02/24 07:40:00) Alk Phos: 121 unit/L (07/02/24 07:40:00) AST: 17 unit/L (07/02/24 07:40:00) [1]Oncology Office Visit Note; CASIE Woodall Annie 06/18/2024 07:58 EDT [2]Oncology Office Visit Note; CASIE Woodall Annie 06/18/2024 07:58 EDT Electronic Signature on File Electronically Reviewed/Signed by: Bronson Kitchen MD Author Signature Dt/Tm:07/02/2024 12:40 PM Division of Hematology Oncology [facility] Patient Care team information Care Team Personnel Name: Constantin Del Toro Kimberly Position: Pharmacist BCMA Member Role: Pharmacy - Lifetime Address: [address] [address] [place] Name: MD Kitchen Raymond J Position: Physician - Hem/Onc Member Role: Lifetime Relationship [address]: [address] [place] [id number] [place] Telecom: [phone] Name: Constantin Ferreira Matthew Position: Pharmacist Member Role: Pharmacy - Lifetime Name: Mame Perez RPh, William Position: Pharmacist Member Role: Pharmacy - Lifetime Name: MD Zachariah, Samra Cano Position: Physician Member Role: Primary Care Provider Address: [address] [place] [address] Telecom: [phone] Care Team Related Persons Name: BRUNO YOO Insurance Providers Guarantor name: BERNY Justice RUBIO Health Plan Information #: 1 Payer: [employer] Member Number: [id number] Policy Number: NA Group Number: [id number] Health Plan Information #: 2 Payer: [employer] Member Number: [id number] Policy Number: NA Group Number: NA Health Plan Information #: 3 Payer: [employer] PCP ONLY Member Number: NA Policy Number: NA Group Number: NA
--- OUTSIDE RECORDS SUMMARY | 2024-07-09 08:42 | External Medical Summary | Continuity of Care Document ---
Author Name Unknown Organization [facility] [address] Address [address] [place], [place] [id number] Care Team Providers Care Actuarial Associate Name Role Phone Samra Soni Primary Care Physician [phone] Encounter [facility] [id number] Date(s): 06/27/24 - 06/27/24 [facility] [address] [facility] [address] [place] [address] [phone] Encounter Diagnosis Protein in urine(Discharge Diagnosis) - 06/27/24 Hypomagnesemia(Discharge Diagnosis) - 06/28/24 Hypocalcemia(Discharge Diagnosis) - 06/28/24 CKD (chronic kidney disease)(Discharge Diagnosis) - 06/28/24 Volume overload(Discharge Diagnosis) - 06/28/24 Medication nonadherence due to intolerance(Discharge Diagnosis) - 06/28/24 Discharge Disposition: Home or Self Care Attending Physician: MD Levy, Nilsaqar H Encounter Type: Clinic [place] Allergies, Adverse Reactions, Alerts Substance Criticality Severity Reaction Reaction Severity Status Percodan Rash Active Assessment and Plan Extracted from: Title:Neph Office Visit Note Author:MD Levy, Va qar H Date:06/27/24 Protein in urine 63 y/o M with hx of Type 1 DM withdiabetes retinopathy s/p laser surgery and 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 1) CKD I/A3 with nephrotic range proteinuria ? related to VGEF inh(Avastin) and Diabetes, in the setting of b/l hydronephrosis. - SCr0.7 on 05/28 with most of the reading are 0.9's - UA has 2 + protein and 1+ blood with positive nitrite (Has Rt Neph tube), no symptoms of UTI, will treat onlyif he has symptoms of UTI - UPCR 4.7 g/g (06/18) <--- 3.8 gm/gm (05/28) <--- 4.5 gm/gm -Urine Protein 24 hrs is 4.9 gm on01/20/24 - CT abd/Pelvis with contrast on 04/16/24 revealed mod to severe Rt hydro and Mild left hydro due to malignancy obstruction at the distil ureter b/l, He has b/l internal J stents placed by Urology, concern for malfunctioning s/p Left ureteral exchange and Rt PCN with bag placement on 05/04/24 by Urology. -f/u urologist, Dr John Matson. - US kidney with Doppler's, 9 cm and 11 cm, no JAH noted - last visit, we decided against kidney bx for proteinuria due to limited Rx options given his advance kidney dz, patient agreed with the plan. - He was initially started on Lisinopril 20 mg once daily but did not tolerate well and was reduced down to 5 mg once daily (He has not had any issues with the reduced dose) Plan: - Will increase Lisinopril to 10 mg once daily (BP stable), He agreed to increase the dose and to hold if has any hemodynamic issues. - No SGLT 2 inh at this time due to Rt PCN with bag and increase risk of UTI 2) HTN: BP acceptable. - Edema has improved significantly after stopping Norvasc - As mentioned above, will increase his SHARLA inh 3) NAGMA (improved): ? related to Diarrhea 4) Hypocalcemia likely related to Hypomagnesemia ? due to chemo/immuno - Will give a trial of Slow mag instead of mag ox. (Patient notified) - Has refused to go to ED for IV Mag in the past due to diarrhea - Repeat Serum mag level next week 5) Hypokalemia (improved) He was counselled again about smoking, understand the health risks Follow up in 8-12 weeks Labs next week to assess chemistry following increasing Lisinoprilas well as to follow up on Serum Mag level Immunizations Given and Recorded Vaccine Date Status Refusal Reason SARS-CoV-2 (COVID-19) mRNA BNT-162b2 vax 12/10/20 Recorded SARS-CoV-2 (COVID-19) mRNA BNT-162b2 vax 11/09/20 Recorded Medications capecitabine 500 mg oral tablet Start: 05/08/24 2:44:00 PM EST, 1 tab, PO, bid, Disp# 28 tab, Refills: 5, for 14 days, followed by 7days off of each 21 day cycle., Pharmacy: [facility] Start Date: 05/08/24 Status: Ordered Quantity: 28.0 Unit: tab Repeat number: 6 folic acid 1 mg oral tablet Start: 06/18/24 9:47:00 AM EDT, 1 tab, PO, Daily Start Date: 06/18/24 Status: Ordered Repeat number: 1 Gold Gutierrez Medicated Maximum Strength Pain and Itch 4% topical cream Start: 04/07/23 12:16:00 PM EST, See Instructions, Disp# 133 g, Refills: 0, not to exceed 3 applications in 24 hours, Note to Pharmacy: use twice a day for 30 days, Pharmacy: [id number] Start Date: 04/07/23 Status: Ordered Quantity: 133.0 Unit: g Repeat number: 1 lisinopril 5 mg oral tablet Start: 05/28/24 10:39:00 AM EST, 2 tab, PO, Daily, Disp# 30 tab, Refills: 1, Pharmacy: [id number] Start Date: 05/28/24 Status: Ordered Quantity: 30.0 Unit: tab Repeat number: 2 Medical Marijuana [...] 60 syringes x refills x 3, Pharmacy: [facility] [place] Start Date: 05/28/24 Status: Ordered Quantity: 1.0 [...] per day - 90 day supply, Pharmacy: [facility] Start Date: 03/12/24 Status: Ordered Quantity: 30.0 Unit: mL Repeat number: 5 One Touch Delica Plus (33G) Lancets Start: 05/07/22 8:18:00 AM EST, See Instructions, Disp# 100 each, Refills: 3, use for blood glucose testing up to 8x/day, Pharmacy: [facility] Start Date: 05/07/22 Status: Ordered Quantity: [...] out of pocket if cheap enough, Pharmacy: [facility] Start Date: 08/24/23 Status: Ordered Quantity: 1.0 Unit: each Repeat number: 1 Indication: Type 1 diabetes mellitus with unspecified complications One Touch Verio Test Strips Start: 03/14/24 8:02:00 AM EST, See Instructions, Disp# 800 each, Refills: 3, test up to 8x/day as needed for Type 1 DM, Pharmacy: [facility] Start Date: 03/14/24 Status: Ordered Quantity: 800.0 Unit: each Repeat number: 4 Indication: Type 1 diabetes mellitus with unspecified complications ONETOUCH VERIO TEST STRIP Start: 06/07/24 8:48:00 AM EST, ONETOUCH VERIO TEST STRIP, See Instructions, Disp# 800 strip, Refills: 0, TEST UP TO 8 TIMES DAILY NEEDED, Pharmacy [facility] Start Date: 06/07/24 Status: Ordered Quantity: 800.0 Unit: Repeat number: 1 ONETOUCH VERIO TEST STRIP Start: 03/14/24 8:05:00 AM EST, ONETOUCH VERIO TEST STRIP, See Instructions, Disp# 800 strip, Refills: 0, TEST UP TO 8 TIMES DAILY NEEDED, Pharmacy [facility] Start Date: 03/14/24 Status: Ordered Quantity: 800.0 Unit: Repeat number: 1 Potassium Chloride (Eqv-K-Tab) 20 mEq oral tablet, extended release Start: 04/16/24 2:24:00 PM EST, 1 tab, PO, Daily, Disp# 30 tab, Refills: 0, Pharmacy: [id number] Start Date: 04/16/24 Status: Ordered Quantity: 30.0 Unit: tab Repeat number: 1 Pyridium 200 mg oral tablet Start: 05/04/24 3:01:00 PM EST, 1 tab, PO, tid, Disp# 6 tab, PRN: as needed for urinary discomfort, Pharmacy: [facility] [place] Start Date: 05/04/24 Stop Date: 05/06/24 Status: Ordered Quantity: 6.0 Unit: tab Repeat number: 1 Semglee (Vial) 100 units/mL subcutaneous solution Start: 03/12/24 11:19:00 AM EST, 20 unit =, subQ, Daily, Disp# 30 mL, Refills: 3, Pharmacy: [facility] Start Date: 03/12/24 Stop Date: 03/07/25 [...] bid, Disp# 120 tab, Refills: 3, Pharmacy: [id number] Start Date: 06/28/24 Stop Date: 10/26/24 Status: Ordered Quantity: 120.0 Unit: tab Repeat number: 4 Synthroid 125 mcg (0.125 mg) oral tablet Start: 03/12/24 11:19:00 AM EST, 1 tab, PO, Daily, Disp# 90 tab, Refills: 3, Pharmacy: [facility] Start Date: 03/12/24 Status: Ordered Quantity: 90.0 Unit: tab Repeat number: 4 Syringe MIS 0.3/31gauge Start: 03/12/24 11:19:00 AM EST, Syringe MIS 0.3/31gauge, eRx Product Type: Supply, See Instructions, Disp# 500 each, Refills: 3, Pt uses 6 syringes daily. E11.9, Pharmacy [facility] Start Date: 03/12/24 Status: Ordered Quantity: 500.0 Unit: each Repeat number: 4 Syringe MIS 0.3/31gauge Start: 01/01/22 10:03:00 AM EDT, Syringe MIS 0.3/31gauge, eRx Product Type: Supply, See Instructions, Disp# 500 each, Refills: 3, Pt uses 6 syringes daily. E11.9, Pharmacy [facility] Start Date: 01/01/22 Status: Ordered Quantity: 500.0 Unit: each Repeat number: 4 Vitamin B12 1000 mcg oral tablet Start: 10/24/23 10:35:00 AM EDT, 1 tab, PO, Daily, Disp# 90 tab, Refills: 0, Pharmacy: [facility] Start Date: 10/24/23 Stop Date: 01/22/24 Status: Ordered Quantity: 90.0 Unit: tab Repeat number: 1 ZyrTEC Start: 02/06/24 8:29:00 AM EDT, PO, Daily Start Date: 02/06/24 Status: Ordered Repeat number: 1 Mental Status 06/27/24 Barriers to Learning one year None evide nt Mandatory Health Literacy Documentation Yes Health Literacy Communication Barriers N ever Primary Language Hebrew Problem List Condition Confirmation Course Effective Dates [...] Effective Dates Health Status Clinical Service Informant Protein in urine Discharge Diagnosis 06/27/24 Non-Specified Hypomagnesemia Discharge Diagnosis 06/28/24 Non-Specified Volume overload Discharge Diagnosis 06/28/24 Non-Specified Medication nonadherence due to intolerance Discharge Diagnosis 06/28/24 Non-Specified Hypocalcemia Discharge Diagnosis 06/28/24 Non-Specified CKD (chronic kidney disease) Discharge Diagnosis 06/28/24 Non-Specified Procedures Procedure Date Related Diagnosis Body Site [...] 7pelvic mass, hydropnephrosis- ureteral stent exchange- bilateral Vital Signs Most recent to oldest [Reference Range]: 1 Patient Weight 63.4 kg (06/27/24 2:18 PM) Temperature [36.5-37.9 DegC] 36.7 DegC (06/27/24 2:18 PM) Heart Rate 70 bpm (06/27/24 2:18 PM) Respiratory Rate 16 br/min (06/27/24 2:18 PM) Blood Pressure 139/62mmHg (06/27/24 2:18 PM) Cuff Pulse Pressure 77 mmHg (06/27/24 2:18 PM) Social History Social History Type Response Tobacco Cigarettes 1 Smoking Status Current every day he shay smoker Sex Male Sex Representation Male (finding) 11 ppd Implantable Device List Procedure Provider Procedure Date Device Type Site Unknown Unknown 05/04/24 Unknown Unknown Device Identifier Serial Number Lot or Batch Number Manufacturing Date Expiration Date Distinct Identification Code MRI Safety Implantable Status Assigning Authority Unknown Unknown [id number] Unknown 06/15/26 Unknown Unknown Active Unknown Procedure Provider Procedure Date Device Type Site Unknown Unknown 01/03/24 Unknown Unknown Device Identifier Serial Number Lot or Batch Number Manufacturing Date Expiration Date Distinct Identification Code MRI Safety Implantable Status Assigning Authority Unknown Unknown [id number] Unknown 09/16/26 Unknown Unknown Active Unknown Unknown Unknown [id number] Unknown 09/28/25 Unknown Unknown Active Unknown Procedure Provider Procedure Date Device Type Site Unknown Unknown 09/02/23 Unknown Unknown Device Identifier Serial Number Lot or Batch Number Manufacturing Date Expiration Date Distinct Identification Code MRI Safety Implantable Status Assigning Authority Unknown Unknown [id number] Unknown 10/29/24 Unknown Unknown Active Unknown Unknown Unknown [id number] Unknown 09/28/25 Unknown Unknown Active Unknown Procedure Provider Procedure Date Device Type Site Unknown Unknown 03/16/23 Unknown Unknown Device Identifier Serial Number Lot or Batch Number Manufacturing Date Expiration Date Distinct Identification Code MRI Safety Implantable Status Assigning Authority Unknown Unknown [id number] Unknown 01/14/25 Unknown Unknown Active Unknown Unknown Unknown [id number] Unknown 09/02/25 Unknown Unknown Active Unknown Nephrology Outpatient Note * MD Levy, Vaqar H: PERFORM, MODIFY, MODIFY Event Display: Nephrology Outpt Note Authored Date: [id number] Chief Complaint F/U History of Present Illness 63 y/o M with hx of Type 1 DM and 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 He has been takingLisinopril 5 mg once daily and feeling fineotherthan chronic pain for which he has been started on Dilaudid. Continue to have intermittent diarrhea which is significant but currently denies. Denies nausea or vomiting or fever. Stated he is urinating well without any issues, also has Rt PCN He has not been taking his Magnesium pills but agreed to take it now. He is s/p Left ureteral exchange and Rt PCN with nephrostomy bag (Could not internalize Rt ureteralstent retrograde or anterograde), getting IR PCN exchange, next in July 2024 Colon Cancer hx: Heinitiallypresentedto Dr Kitchen clinic on 04/08/2022 for evaluation of a hepatic flexure mass in the setting of known metastases. CT scan of the abdomen and pelvis which showed several masses,including a apple core lesion of the hepatic flexure, several liver lesions, and hydronephrosis related to a solid mass within the pelvis. He underwent a colonoscopy which noted a solid tumor at the hepatic flexure which was biopsied. Biopsies were consistent with at least high-grade dysplasia.They were unable to traverse this lesion. A liver biopsy was then obtained which confirmed metastatic adenocarcinoma which was CK20 and CDX2 positive and consistent with colonic origin. - Caris result showed K-jah and NRAS mutation not detected. This suggests [...] cycle. - on 05/23/23 stop Cetuximab completely stoppedat patient request due to intolerance ( he had 7 cycles) -His restaging CT scans demonstrate enlargement of his right lower lobe subpleural mass which is now measuring 5.6 x 2.7 cm when compared with his last CT which measured 5.2 x 1.6 cm.. - 01/05/24 scans at [facility]- per patient show disease progression. -Will hold Avastin therapy given elevated protein urea; - Started Panitumumab as additional agent given disease progression. - S/p first dose on .Tolerating well so far. -CT scan from 04/16 again showed worsening of metastatic disease but CEA seems to trending down - CEAfrom 06/18/24 [id number] seems to be rising from prior Physical Exam Vitals & Measurements T:36.7C HR:70(Monitored) RR:16 BP:139/62 WT:63.4kg WT:63.400kg(Dosing) General:Not in acute distress, AT/NC, cachectic HEENT: No JVD, No deformity noted, EOMI Lungs: CTA b/l, no chest tenderness CVS: S1 and S2 normal, RRR, no murmur Abd: Soft, Non tender, Rt flank PCN tube with bag Ext: No gross deformity, trace edema notedb/l legs (chronic), Rt hand fingers amputation Neuro: No FND, Alert and oriented Diagnostic Results labs reviewed Assessment/Plan Protein in urine 63 y/o M with hx of Type 1 DM withdiabetes retinopathy s/p laser surgery and 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 1) CKD I/A3 with nephrotic range proteinuria ? related to VGEF inh(Avastin) and Diabetes, in the setting of b/l hydronephrosis. - SCr0.7 on 05/28 with most of the reading are 0.9's -UA has 2 + protein and 1+ blood with positive nitrite (Has Rt Neph tube), no symptoms of UTI, will treat onlyif he has symptoms of UTI - UPCR 4.7 g/g (06/18) <--- 3.8 gm/gm (05/28) <--- 4.5 gm/gm -Urine Protein 24 hrs is 4.9 gm on01/20/24 - CT abd/Pelvis with contrast on 04/16/24 revealed mod to severe Rt hydro and Mild left hydro due to malignancy obstruction at the distil ureter b/l, He has b/l internal J stents placed by Urology, concern for malfunctioning s/p Left ureteral exchange and Rt PCN with bag placement on 05/04/24 by Urology. -f/u urologist, Dr John Matson. - US kidney with Doppler's, 9 cm and 11 cm, no JAH noted - last visit, we decided against kidney bx for proteinuria due to limited Rx options given his advance kidney dz, patient agreed with the plan. - He was initially started on Lisinopril 20 mg once daily but did not tolerate well and was reduceddown to 5 mg once daily (He has not had any issues with the reduced dose) Plan: - Will increase Lisinopril to 10 mg once daily (BP stable), He agreed to increase the dose and to hold if has any hemodynamic issues. - No SGLT 2 inh at this time due to Rt PCN with bag and increase risk of UTI 2) HTN: BP acceptable. - Edema has improved significantly after stopping Norvasc - As mentioned above, will increase his SHARLA inh 3) NAGMA (improved): ? related to Diarrhea 4) Hypocalcemia likely related to Hypomagnesemia ? due to chemo/immuno - Will give a trial of Slow mag instead of mag ox. (Patient notified) - Has refused to go to ED for IV Mag in the past due to diarrhea - Repeat Serum mag level next week 5) Hypokalemia (improved) He was counselled again about smoking, understand the health risks Follow up in 8-12 weeks Labs next week to assess chemistry following increasing Lisinoprilas well as to follow up on Serum Mag level Problem List/Past Medical History Ongoing Bilateral ureteral [...] radiographic interpretation, bilateral ureteral stent exchange Medications amLODIPine, See Instructions cannabis(Medical Marijuana), 1 inh, inhaled capecitabine(capecitabine 500 mg oral tablet), 500 mg= 1 tab, PO, bid, 5 refills cetirizine(ZyrTEC), PO, Daily cyanocobalamin(Vitamin B12 1000 mcg oral tablet), 1000 mcg= 1 tab, PO, Daily diabetes supplies(One Touch Verio Test Strips), See Instructions, 3 refills diabetes supplies(One Touch Verio Flex Glucose Monitor), See Instructions diabetes supplies(One Touch Delica Plus (33G) Lancets), See Instructions, 3 refills folic acid(folic acid 1 mg oral tablet), 1 mg= 1 tab, PO, Daily insulin aspart(NovoLOG 100 units/mL injectable solution), See Instructions, 4 refills insulin glargine(Semglee (Vial) 100 units/mL subcutaneous solution), 20 unit, subQ, Daily, 3 refills levothyroxine(Synthroid 125 mcg (0.125 mg) oral tablet), 125 mcg= 1 tab, PO, Daily, 3 refills lidocaine topical(Gold Gutierrez Medicated Maximum Strength Pain and Itch 4% topical cream), See Instructions lisinopril(lisinopril 5 mg oral tablet), 5 mg= 1 tab, PO, Daily, 1 refills magnesium oxide(magnesium oxide 500 mg oral capsule), 500 mg= 1 cap, PO, bid, 1 refills morphine, 60 mg, PO, q12h [...] Allergies PercodanRash Social History Smoking Status Current every day heavy smoker Alcohol - Low Risk - Comments: USAUDIT-C score = 6; no interest in changing Employment/School - Medium Risk Status:Retired Substance Abuse - Denies Substance Abuse Tobacco Type:Cigarettes - Comments: 1 ppd Intake (IView) Smoking History Cigarette smoker: Current every day heavy smoker Tobacco Product Use: Never used other tobacco products How many total years have you smoked: 40 Total pack years: 40 What is avg daily use when smokin pk (20 cigarettes) SHX E-Cigarette Use: Never Family History Family history is negative Immunizations Vaccine Date Status SARS-CoV-2 (COVID-19) mRNA BNT-162b2 vax 12/10/2020 Recorded SARS-CoV-2 (COVID-19) mRNA BNT-162b2 vax 11/09/2020 Recorded Recommendations Health Maintenance Pending(in the next year) OverDue Lipid Screening due06/06/18and every 1826day Diabetic Eye Exam due05/12/19and every 366day Diabetes Management A1c due06/15/23and every 366day Adult Influenza Vaccine due10/10/23and every 1year Due Adult Social Determinants of Health Screening due06/28/24Unknown Frequency Adult Tdap/Td Vaccine due06/28/24Unknown Frequency Pneumococcal Vaccine Adults and Adolescents with Chronic Illness due06/28/24One-time only Seasonal COVID 19 Vaccine due06/28/24Unknown Frequency Shingles Vaccine due06/28/24One-time only Satisfied(in the past 1 year) Satisfied Body Mass Index on05/04/24.Satisfied by KARL Roth, [facility] Evaluation on06/18/24.Satisfied by Contributor_system, [employer] Electronic Signature on File CC: Bronson Kitchen MD [address] [facility] [id number] CC: Samra Soni MD [address] [address] Electronically Reviewed/Signed by: Missy Lockett MD Author Signature Dt/Tm:06/28/2024 02:59 PM Division of Nephrology [facility] Patient Care team information Care Team Personnel Name: Constantin Del Toro Kimberly Position: Pharmacist BCMA Member Role: Pharmacy - Lifetime Address: [address] Name: MD Kitchen Raymond J Position: Physician - Hem/Onc Member Role: Lifetime Relationship Address: [address] [place] [address] Telecom: [phone] Name: Constantin Ferreira Matthew Position: Pharmacist Member Role: Pharmacy - Lifetime Name: Mame Perez RPh, William Position: Pharmacist Member Role: Pharmacy - Lifetime Name: MD Zachariah, Samra Cano Position: Physician Member Role: Primary Care Provider Address: [address] [place] [address] Telecom: [phone] Care Team Related Persons Name: BRUNO YOO Insurance Providers Guarantor name: BERNY RUBIO Health Plan Information #: 1 Payer: [employer] Member Number: [id number] Policy Number: NA Group Number: [id number] Health Plan Information #: 2 Payer: [employer] Member Number: [id number] Policy Number: NA Group Number: NA Health Plan Information #: 3 Payer: [employer] PCP ONLY Member Number: NA Policy Number: NA Group Number: NA"
--- OUTSIDE RECORDS SUMMARY | 2024-07-09 08:42 | External Medical Summary | Continuity of Care Document ---
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 Name Role Phone SoniLenoracass Rachael Primary Care Physician [phone] [facility]counter [facility] [id number] Date(s): 05/17/24 - 05/17/[address] [phone] Discharge Disposition: Home or Self Care Attending Physician: MD Lockett Vaqar H Referring Physician: MD Lockett Vaqar H Allergies, Adverse Reactions, Alerts Substance Criticality Severity Reaction Reaction Severity Status Percodan Rash Active Immunizations Given and Recorded Vaccine Date Status Refusal Reason SARS-CoV-2 (COVID-19) mRNA BNT-162b2 vax 12/10/20 Recorded SARS-CoV-2 (COVID-19) mRNA BNT-162b2 vax 11/09/20 Recorded Medications capecitabine 500 mg oral tablet Start: 05/08/24 2:44:00 PM EST, 1 tab, PO, bid, Disp# 28 tab, Refills: 5, for 14 days, followed by 7days off of each 21 day cycle., Pharmacy: [facility] Start Date: 05/08/24 Status: Ordered Gold Gutierrez Medicated Maximum Strength Pain and Itch 4% topical cream Start: 04/07/23 12:16:00 PM EST, See Instructions, Disp# 133 g, Refills: 0, not to exceed 3 applications in 24 hours, Note to Pharmacy: use twice a day for 30 days, Pharmacy: [id number] Start Date: 04/07/23 Status: Ordered lisinopril 20 mg oral tablet Start: 05/07/24 9:23:00 AM EST, 1 tab, PO, Daily, Disp# 30 tab, Refills: 1, Pharmacy: [id number] Start Date: 05/07/24 Stop Date: 07/06/24 Status: Ordered magnesium oxide 500 mg oral capsule Start: 05/02/24 2:46:00 PM EST, 1 cap, PO, bid, Disp# 60 cap, Refills: 1, pt states he takes irregularly, Pharmacy: [id number] Start Date: 05/02/24 Stop Date: 07/01/24 Status: Ordered Medical Marijuana Start: 06/28/22 11:57:00 AM EDT, 1 inh, inhaled Start Date: 06/28/22 Status: Ordered morphine Start: 05/18/22 1:26:00 PM EST, 60 mg =, PO, q12h, Refills: 0 Start Date: 05/18/22 Status: Ordered morphine 30 mg (24 HR) oral capsule, extended release Start: 03/07/23 3:42:00 PM EST, 1 cap, PO, bid, Refills: 0, prn, PRN: pain Start Date: 03/07/23 Status: Ordered Norvasc 10 mg oral tablet Start: 02/20/24 4:19:00 PM EST, 1 tab, PO, Daily, Disp# 90 tab, Refills: 0, Pharmacy: [facility] Start Date: 02/20/24 Stop Date: 05/20/24 Status: Ordered NovoLOG 100 units/mL injectable solution Start: 03/12/24 11:19:00 AM EST, See Instructions, Disp# 30 mL, Refills: 4, USE 1 UNIT PER 15 GRAMS OF CARBS, INJECTING UP TO 6 TIMES PER DAY NEEDED - using 30 units per day - 90 day supply, Pharmacy: [facility] Start Date: 03/12/24 Status: Ordered One Touch Delica Plus (33G) Lancets Start: 05/07/22 8:18:00 AM EST, See Instructions, Disp# 100 each, Refills: 3, use for blood glucose testing up to 8x/day, Pharmacy: [facility] Start Date: 05/07/22 Status: Ordered One Touch Verio Flex Glucose Monitor Start: 08/24/23 7:58:00 AM EDT, See Instructions, Disp# 1 each, Refills: 0, test up to 8x/daily as directed for Type 1 DM, Note to Pharmacy: Pt aware insurance may not cover since it was replaced 2022. He would pay out of pocket if cheap enough, Pharmacy: [facility] Start Date: 08/24/23 Status: Ordered One Touch Verio Test Strips Start: 03/14/24 8:02:00 AM EST, See Instructions, Disp# 800 each, Refills: 3, test up to 8x/day as needed for Type 1 DM, Pharmacy: [facility] Start Date: 03/14/24 Status: Ordered ONETOUCH VERIO TEST STRIP Start: 03/14/24 8:05:00 AM EST, ONETOUCH VERIO TEST STRIP, See Instructions, Disp# 800 strip, Refills: 0, TEST UP TO 8 TIMES DAILY NEEDED, Pharmacy [facility] Start Date: 03/14/24 Status: Ordered Potassium Chloride (Eqv-K-Tab) 20 mEq oral tablet, extended release Start: 04/16/24 2:24:00 PM EST, 1 tab, PO, Daily, Disp# 30 tab, Refills: 0, Pharmacy: [id number] Start Date: 04/16/24 Status: Ordered Pyridium 200 mg oral tablet Start: 05/04/24 3:01:00 PM EST, 1 tab, PO, tid, Disp# 6 tab, PRN: as needed for urinary discomfort, Pharmacy: [facility] [place] Start Date: 05/04/24 Stop Date: 05/06/24 Status: Ordered Semglee (Vial) 100 units/mL subcutaneous solution Start: 03/12/24 11:19:00 AM EST, 20 unit =, subQ, Daily, Disp# 30 mL, Refills: 3, Pharmacy: [facility] Start Date: 03/12/24 Stop Date: 03/07/25 Status: Ordered Senna Start: 07/26/22 12:43:00 PM EDT, 8.6 mg =, PO, 2 tabs by mouth daily, PRN: as needed for constipation Start Date: 07/26/22 Status: Ordered Synthroid 125 mcg (0.125 mg) oral tablet Start: 03/12/24 11:19:00 AM EST, 1 tab, PO, Daily, Disp# 90 tab, Refills: 3, Pharmacy: [facility] Start Date: 03/12/24 Status: Ordered Syringe MIS 0.3/31gauge Start: 03/12/24 11:19:00 AM EST, Syringe MIS 0.3/31gauge, eRx Product Type: Supply, See Instructions, Disp# 500 each, Refills: 3, Pt uses 6 syringes daily. E11.9, Pharmacy [facility] Start Date: 03/12/24 Status: Ordered Syringe MIS 0.3/31gauge Start: 01/01/22 10:03:00 AM EDT, Syringe MIS 0.3/31gauge, eRx Product Type: Supply, See Instructions, Disp# 500 each, Refills: 3, Pt uses 6 syringes daily. E11.9, Pharmacy [facility] Start Date: 01/01/22 Status: Ordered Vitamin B12 1000 mcg oral tablet Start: 10/24/23 10:35:00 AM EDT, 1 tab, PO, Daily, Disp# 90 tab, Refills: 0, Pharmacy: [facility] Start Date: 10/24/23 Stop Date: 01/22/24 Status: Ordered ZyrTEC Start: 02/06/24 8:29:00 AM EDT, PO, Daily Start Date: 02/06/24 Status: Ordered Problem List Condition Confirmation Course Effective Dates [...] deficiency Confirmed Active Weight disorder Confirmed Active Procedures Procedure Date Related Diagnosis Body Site [...] mass, hydropnephrosis- ureteral stent exchange- bilateral Results Radiology Reports * Exam Date Time Procedure Performing Provider Status 05/17/24 10:43 AM VL Renal Artery Duplex Bilateral Rikki Wells; Final Notes: (VL Renal Artery Duplex Bilateral) Reason For Exam: b/l hydronephrosis VL Renal Artery Duplex Bilateral [facility] FINAL REPORT Name: BERNY RUBIO : 1960 Visit: [id number] Date: 17 May 2024 TYPE OF TEST: Visceral Arterial Duplex REASON FOR TEST b/l hydronephrosis INTERPRETATION/FINDINGS Duplex exam of the renovascular system reveals: 1. The suprarenal and juxtarenal abdominal aorta measures within normal limits, no aneurysm or stenosis identified. 2. No significant stenosis identified within the bilateral renal arteries; however, limited visualization of the bilateral renal artery origins due to overlying bowel gas. 3. Patent bilateral renal veins with normal flow. 4. The right kidney measures 9.5cm and the left kidney measures 11.0cm. Limited visualization of the right kidney due to catheter line and patient positioning; measurement may be underestimated. 5. End diastolic ratio suggests intrinsic/medical renal disease in the bilateral kidneys. *No prior exam available for comparison. IMPRESSION/COMMENTS I have personally reviewed the data relevant to the interpretation of this study. TECHNOLOGIST: Rikki Wells, ELOY, RVT PHYSICIAN: Susan Ewing M.D. Signed: 05/17/2024 08:01 PM Final Dictated by:MD Ewing Kristine L Dictated DT/TM:05/17/2024 8:01 Signed by:MD Ewing Kristine L Signed (Electronic Signature):05/17/2024 8:01 p Transcribed by:KLS Social History Social History Type Response Tobacco Cigarettes 1 Smoking Status Current every day he shay smoker Sex Male Sex Representation Male (finding) 11 ppd Implantable Device List Procedure Provider Procedure Date Device Type Site Unknown Unknown 05/04/24 Unknown Unknown Device Identifier Serial Number Lot or Batch Number Manufacturing Date Expiration Date Distinct Identification Code MRI Safety Implantable Status Assigning Authority Unknown Unknown [id number] Unknown 06/15/26 Unknown Unknown Active Unknown Procedure Provider Procedure Date Device Type Site Unknown Unknown 01/03/24 Unknown Unknown Device Identifier Serial Number Lot or Batch Number Manufacturing Date Expiration Date Distinct Identification Code MRI Safety Implantable Status Assigning Authority Unknown Unknown [id number] Unknown 09/16/26 Unknown Unknown Active Unknown Unknown Unknown [id number] Unknown 09/28/25 Unknown Unknown Active Unknown Procedure Provider Procedure Date Device Type Site Unknown Unknown 09/02/23 Unknown Unknown Device Identifier Serial Number Lot or Batch Number Manufacturing Date Expiration Date Distinct Identification Code MRI Safety Implantable Status Assigning Authority Unknown Unknown [id number] Unknown 10/29/24 Unknown Unknown Active Unknown Unknown Unknown [id number] Unknown 09/28/25 Unknown Unknown Active Unknown Procedure Provider Procedure Date Device Type Site Unknown Unknown 03/16/23 Unknown Unknown Device Identifier Serial Number Lot or Batch Number Manufacturing Date Expiration Date Distinct Identification Code MRI Safety Implantable Status Assigning Authority Unknown Unknown [id number] Unknown 01/14/25 Unknown Unknown Active Unknown Unknown Unknown [id number] Unknown 09/02/25 Unknown Unknown Active Unknown Patient Care team information Care Team Personnel Name: Constantin Del Toro Kimberly Position: Pharmacist BCMA Member Role: Pharmacy - Lifetime Address: [place] [address] [place] Name: MD Kitchen Raymond J Position: Physician - Hem/Onc Member Role: Lifetime Relationship Address: [address] [place] [address] [place] Name: Constantin Ferreira Matthew Position: Pharmacist Member Role: Pharmacy - Lifetime Name: Mame Perez RPh, William Position: Pharmacist Member Role: Pharmacy - Lifetime Name: MD Zachariah, Samra Cano Position: Physician Member Role: Primary Care Provider Address: [address] [place] [address] [place] Care Team Related Persons Name: BRUNO YOO
--- OUTSIDE RECORDS SUMMARY | 2024-07-09 08:42 | External Medical Summary | Continuity of Care Document ---
Author Name Unknown Organization [facility] [address] [place] [id number] Care Team Providers Care Roller Staker Name Role Phone Samra Soni Primary Care Physician [phone] Encounter [facility] JERZ[facility] [id number] Date(s): 05/30/24 - 05/30/24 [facility] [address] [facility] [address] [place] [address] [phone] Encounter Diagnosis Proteinuria(Discharge Diagnosis) - 05/30/24 CKD (chronic kidney disease)(Discharge Diagnosis) - 05/30/24 HTN (hypertension)(Discharge Diagnosis) - 05/30/24 Volume excess(Discharge Diagnosis) - 05/30/24 Electrolyte imbalance(Discharge Diagnosis) - 05/30/24 Metastatic colon cancer to liver(Discharge Diagnosis) - 05/30/24 Discharge Disposition: Home or Self Care Attending Physician: MD Levy, Missy Leslie Encounter Type: Clinic Off [place] Allergies, Adverse Reactions, Alerts Substance Criticality Severity Reaction Reaction Severity Status Percodan Rash Active Assessment and Plan Extracted from: Title:Nephro Office Visit Note Author:MD Levy, Missy H Date:05/30/24 Proteinuria 63 y/o M with hx of Type 1 DM withdiabetes retinopathy s/p laser surgery and Metastatic Colon ca to lung, liver, omentum and retroperitoneal currently on palliative chemo with Capecitabine comes to the clinic for follow up on CKD andNephrotic rangeProteinuria. 1) CKD I/A3 with nephrotic range proteinuria ? related to VGEF inh(Avastin) and/or Diabetes and in the setting of b/l hydronephrosis. - SCr0.7 on 05/28 with most of the reading are 0.9's - UPCR down to 3.8 gm/gm (05/28) <--- 4.5 gm/gm and Urine Protein 24 hrs is 4.9 gm on01/20/24 (serum Alb 2.1) - CT abd/Pelvis with contrast on 04/16/24 revealed mod to severe Rt hydro and Mild left hydro due to malignancy obstruction at the distil ureter b/l, He has b/l internal J stents placed by Urology, concern for malfunctioning s/p Left ureteral exchange and Rt PCN with bag placement on 05/04/24 by Urology. -f/u urologist, Dr John Matson. Pendinginterventional radiology for right PCN exchange - US kidney with dopplers, 9 cm and 11 cm, no JAH noted - last visit, we decided against kidney bx for proteinuria due to limited Rx options given his advance kidney dz, patient agreed with the plan. - He was started on Lisinopril 20 mg once daily but did not tolerate well and was reduced down to 5 mg once daily (He has not yet start taking it) Plan: - Will start lisinopril 5 mg once dailyand monitor - Will hold off on SGLT 2 inh at this time due to Rt PCN with bag and increase risk of UTI 2) HTN: BP acceptable. - Edema improved significantly after stopping Norvasc - On Lisinopril 5 mg once daily - Would not start lasix at this time due to Diarrheaand Electrolyte imbalance 3) NAGMA (improved): ? related to Diarrhea 4) Hypocalcemia likely related to Hypomagnesemia ? due to chemo/immuno - Mag ox 500 mg bid (taking intermittently), if diarrhea worsen will switch to Slow mag. He does not want IV mag inf due to diarrhea 5) Hypokalemia better: ? Diarrhea and/or Hypomag - Continue Potassium supplements. would avoid Lasix for now He was counselled again about smoking, he stated he is working on it and is currently bring it down to few cig a day Follow up in 4- 6 weeks Immunizations Given and Recorded Vaccine Date Status Refusal Reason SARS-CoV-2 (COVID-19) mRNA BNT-162b2 vax 12/10/20 Recorded SARS-CoV-2 (COVID-19) mRNA BNT-162b2 vax 11/09/20 Recorded Medications capecitabine 500 mg oral tablet Start: 05/08/24 2:44:00 PM EST, 1 tab, PO, bid, Disp# 28 tab, Refills: 5, for 14 days, followed by 7days off of each 21 day cycle., [facility] Start Date: 05/08/24 Status: Ordered Quantity: 28.0 Unit: tab Repeat number: 6 Gold Gutierrez Medicated Maximum Strength Pain and Itch 4% topical cream Start: 04/07/23 12:16:00 PM EST, See Instructions, Disp# 133 g, Refills: 0, not to exceed 3 applications in 24 hours, Note to Pharmacy: use twice a day for 30 days, Pharmacy: [id number] Start Date: 04/07/23 Status: Ordered Quantity: 133.0 Unit: g Repeat number: 1 lisinopril 5 mg oral tablet Start: 05/28/24 10:39:00 AM EST, 1 tab, PO, Daily, Disp# 30 tab, Refills: 1, Pharmacy: [id number] Start Date: 05/28/24 Status: Ordered Quantity: 30.0 Unit: tab Repeat number: 2 magnesium oxide 500 mg oral capsule Start: 05/02/24 2:46:00 PM EST, 1 cap, PO, bid, Disp# 60 cap, Refills: 1, pt states he takes irregularly, Pharmacy: [id number] Start Date: 05/02/24 Stop Date: 07/01/24 Status: Ordered Quantity: 60.0 Unit: cap Repeat number: 2 Medical Marijuana Start: 06/28/22 [...] 60 syringes x refills x 3, Pharmacy: [facility] [place] Start Date: 05/28/24 Status: Ordered Quantity: 1.0 [...] per day - 90 day supply, Pharmacy: [facility] Start Date: 03/12/24 Status: Ordered Quantity: 30.0 Unit: mL Repeat number: 5 One Touch Delica Plus (33G) Lancets Start: 05/07/22 8:18:00 AM EST, See Instructions, Disp# 100 each, Refills: 3, use for blood glucose testing up to 8x/day, Pharmacy: [facility] Start Date: 05/07/22 Status: Ordered [...] out of pocket if cheap enough, Pharmacy: [facility] Start Date: 08/24/23 Status: Ordered Quantity: 1.0 Unit: each Repeat number: 1 Indication: Type 1 diabetes mellitus with unspecified complications One Touch Verio Test Strips Start: 03/14/24 8:02:00 AM EST, See Instructions, Disp# 800 each, Refills: 3, test up to 8x/day as needed for Type 1 DM, Pharmacy: [facility] Start Date: 03/14/24 Status: Ordered Quantity: 800.0 Unit: each Repeat number: 4 Indication: Type 1 diabetes mellitus with unspecified complications ONETOUCH VERIO TEST STRIP Start: 03/14/24 8:05:00 AM EST, ONETOUCH VERIO TEST STRIP, See Instructions, Disp# 800 strip, Refills: 0, TEST UP TO 8 TIMES DAILY NEEDED, Pharmacy [facility] Start Date: 03/14/24 Status: Ordered Quantity: 800.0 Unit: Repeat number: 1 Potassium Chloride (Eqv-K-Tab) 20 mEq oral tablet, extended release Start: 04/16/24 2:24:00 PM EST, 1 tab, PO, Daily, Disp# 30 tab, Refills: 0, Pharmacy: [id number] Start Date: 04/16/24 Status: Ordered Quantity: 30.0 Unit: tab Repeat number: 1 Pyridium 200 mg oral tablet Start: 05/04/24 3:01:00 PM EST, 1 tab, PO, tid, Disp# 6 tab, PRN: as needed for urinary discomfort, Pharmacy: [facility] [place] Start Date: 05/04/24 Stop Date: 05/06/24 Status: Ordered Quantity: 6.0 Unit: tab Repeat number: 1 Semglee (Vial) 100 units/mL subcutaneous solution Start: 03/12/24 11:19:00 AM EST, 20 unit =, subQ, Daily, Disp# 30 mL, Refills: 3, Pharmacy: [facility] Start Date: 03/12/24 Stop Date: 03/07/25 Status: Ordered Quantity: 30.0 Unit: mL Repeat number: 4 Senna Start: 07/26/22 12:43:00 PM EDT, 8.6 mg =, PO, 2 tabs by mouth daily, PRN: as needed for constipation Start Date: 07/26/22 Status: Ordered Repeat number: 1 Synthroid 125 mcg (0.125 mg) oral tablet Start: 03/12/24 11:19:00 AM EST, 1 tab, PO, Daily, Disp# 90 tab, Refills: 3, Pharmacy: [facility] Start Date: 03/12/24 Status: Ordered Quantity: 90.0 Unit: tab Repeat number: 4 Syringe MIS 0.3/31gauge Start: 03/12/24 11:19:00 AM EST, Syringe MIS 0.3/31gauge, eRx Product Type: Supply, See Instructions, Disp# 500 each, Refills: 3, Pt uses 6 syringes daily. E11.9, Pharmacy [facility] Start Date: 03/12/24 Status: Ordered Quantity: 500.0 Unit: each Repeat number: 4 Syringe MIS 0.3/31gauge Start: 01/01/22 10:03:00 AM EDT, Syringe MIS 0.3/31gauge, eRx Product Type: Supply, See Instructions, Disp# 500 each, Refills: 3, Pt uses 6 syringes daily. E11.9, Pharmacy [facility] Start Date: 01/01/22 Status: Ordered Quantity: 500.0 Unit: each Repeat number: 4 Vitamin B12 1000 mcg oral tablet Start: 10/24/23 10:35:00 AM EDT, 1 tab, PO, Daily, Disp# 90 tab, Refills: 0, Pharmacy: [facility] Start Date: 10/24/23 Stop Date: 01/22/24 Status: Ordered Quantity: 90.0 Unit: tab Repeat number: 1 ZyrTEC Start: 02/06/24 8:29:00 AM EDT, PO, Daily Start Date: 02/06/24 Status: Ordered Repeat number: 1 Mental Status 05/30/24 Barriers to Learning one year None evide nt Mandatory Health Literacy Documentation Yes Health Literacy Communication Barriers N ever Primary Language Georgian Problem List Condition Confirmation Course Effective Dates [...] Effective Dates Health Status Clinical Service Informant Proteinuria Discharge Diagnosis 05/30/24 Non-Specified CKD (chronic kidney disease) Discharge Diagnosis 05/30/24 Non-Specified Electrolyte imbalance Discharge Diagnosis 05/30/24 Non-Specified Metastatic colon cancer to liver Discharge Diagnosis 05/30/24 Non-Specified HTN (hypertension) Discharge Diagnosis 05/30/24 Non-Specified Volume excess Discharge Diagnosis 05/30/24 Non-Specified Procedures Procedure Date Related Diagnosis Body Site Status Cystoscopy 1 10/04/22 Completed Stent replacement 10/04/22 Complet ed Cystoscopy 2 04/22/22 Completed Colonoscopy and tattooing 3 02/03/22 Completed Abdominal 4 01/25/22 Completed Shave biopsy and cauterization of skin 04/09/21 Completed Examination of eye 5 05/04/17 Comp leted Amputation finger-complicated 6 1998 Completed Knee meniscus 1997 Completed Vitrectomy, [...] Most recent to oldest [Reference Range]: 1 Temperature [36.5-37.9 DegC] 36.9 DegC (05/30/24 2:05 PM) Heart Rate 61 bpm (05/30/24 2:05 PM) Respiratory Rate 17 br/min (05/30/24 2:05 PM) Blood Pressure 126/64mmHg (05/30/24 2:05 PM) Cuff Pulse Pressure 62 mmHg (05/30/24 2:05 PM) Social History Social History Type Response [...] Safety Implantable Status Assigning Authority Unknown Unknown [id number] Unknown 06/15/26 Unknown Unknown Active Unknown Procedure Provider Procedure Date Device Type Site Unknown Unknown 01/03/24 Unknown Unknown Device Identifier Serial Number Lot or Batch Number Manufacturing Date Expiration Date Distinct Identification Code MRI Safety Implantable Status Assigning Authority Unknown Unknown [id number] Unknown 09/16/26 Unknown Unknown Active Unknown Unknown Unknown [id number] Unknown 09/28/25 Unknown Unknown Active Unknown Procedure Provider Procedure Date Device Type Site Unknown Unknown 09/02/23 Unknown Unknown Device Identifier Serial Number Lot or Batch Number Manufacturing Date Expiration Date Distinct Identification Code MRI Safety Implantable Status Assigning Authority Unknown Unknown [id number] Unknown 10/29/24 Unknown Unknown Active Unknown Unknown Unknown [id number] Unknown 09/28/25 Unknown Unknown Active Unknown Procedure Provider Procedure Date Device Type Site Unknown Unknown 03/16/23 Unknown Unknown Device Identifier Serial Number Lot or Batch Number Manufacturing Date Expiration Date Distinct Identification Code MRI Safety Implantable Status Assigning Authority Unknown Unknown [id number] Unknown 01/14/25 Unknown Unknown Active Unknown Unknown Unknown [id number] Unknown 09/02/25 Unknown Unknown Active Unknown Nephrology Outpatient Note * MD Levy, Vaqar H: PERFORM, MODIFY Event Display: Nephrology Outpt Note Authored Date: [id number] Chief Complaint 1 month F/U History of Present Illness 63 y/o M with hx of Type 1 DM and Metastatic Colon ca to lung, liver, omentum and retroperitoneal currently on palliative chemo with Capecitabine comes to the clinic for follow up on CKD andNephrotic rangeProteinuria. Interval hx: He s/p Left ureteral exchange and Rt PCN with nephrostomy bag (Could not internalize Rt ureteral stent retrograde or anterograde), He will see IR for PCN exchange. He was seen by his Onc and was started on Lisinopril for proteinuria and Norvasc was discontinued as per our recshowever did not tolerate well lisinopril and was dizzy, therefore dose reduced to 5 mg once daily (has not yet started) He currently feels fine, continue to have intermittent diarrhea which is significant but currently denies. Denies nausea or vomiting or fever. Stated he is urinating well without any issues, also hasRt PCN Colon Cancer hx: Heinitiallypresentedto Dr Kitchen clinic [...] x 1.6 cm.. - 01/05/24 scans at [facility]- per patient show disease progression. -Will hold Avastin therapy given elevated protein urea; - Started Panitumumab as additional agent given disease progression. - S/p first dose on .Tolerating well so far. -CT scan from 04/16 again showed worsening of metastatic disease but CEA seems to trending down Physical Exam Vitals & Measurements T:36.9C HR:61(Monitored) RR:17 BP:126/64 General:Not in acute distress, AT/NC, cachectic HEENT: No JVD, No deformity noted, EOMI Lungs: CTA b/l, no chest tenderness CVS: S1 and S2 normal, RRR, no murmur Abd: Soft, Non tender, Rt flank PCN tube with bag Ext: No gross deformity, trace edema notedb/l legs, Rt hand fingers amputation Neuro: No FND, Alert and oriented Diagnostic Results Labs reviewed from 05/28/24 Images US kidney dopplers reviewed Assessment/Plan Proteinuria 63 y/o M with hx of Type 1 DM withdiabetes retinopathy s/p laser surgery and Metastatic Colon ca to lung, liver, omentum and retroperitoneal currently on palliative chemo with Capecitabine [facility] on CKD andNephrotic rangeProteinuria. 1) CKD I/A3 with nephrotic range proteinuria ? related to VGEF inh(Avastin) and/or Diabetes andin the setting of b/l hydronephrosis. - SCr0.7 on 05/28 with most of the reading are 0.9's - UPCR down to 3.8 gm/gm (05/28) <--- 4.5 gm/gm and Urine Protein 24 hrs is 4.9 gm on01/20/24 (serum Alb 2.1) - CT abd/Pelvis with contrast on 04/16/24 revealed mod to severe Rt hydro and Mild left hydro due to malignancy obstruction at the distil ureter b/l, He has b/l internal J stents placed by Urology, concern for malfunctioning s/p Left ureteral exchange and Rt PCN with bag placement on 05/04/24 by Urology. -f/u urologist, Dr John Matson. Pendinginterventional radiology for right PCN exchange - US kidney with dopplers, 9 cm and 11 cm, no JAH noted - last visit, we decided against kidney bx for proteinuria due to limited Rx options given his advance kidney dz, patient agreed with the plan. - He was started on Lisinopril 20 mg once daily but did not tolerate well and was reduced down to 5mg once daily (He has not yet start taking it) Plan: - Will start lisinopril 5 mg once dailyand monitor - Will hold off on SGLT 2 inh at this time due to Rt PCN with bag and increase risk of UTI 2) HTN: BP acceptable. - Edema improved significantly after stopping Norvasc - On Lisinopril 5 mg once daily - Would not start lasix at this time due to Diarrheaand Electrolyte imbalance 3) NAGMA (improved): ? related to Diarrhea 4) Hypocalcemia likely related to Hypomagnesemia ? due to chemo/immuno - Mag ox 500 mg bid (taking intermittently), if diarrhea worsen will switch to Slow mag. He does not want IV mag inf due to diarrhea 5) Hypokalemia better: ? Diarrhea and/or Hypomag - Continue Potassium supplements. would avoid Lasix for now He was counselled again about smoking, he stated he is working on it and is currently bring it downto few cig a day Follow up in 4- 6 weeks Problem List/Past Medical History Ongoing Bilateral ureteral [...] radiographic interpretation, bilateral ureteral stent exchange Medications amLODIPine(Norvasc 10 mg oral tablet), 10 mg= 1 tab, PO, Daily cannabis(Medical Marijuana), 1 inh, inhaled capecitabine(capecitabine 500 mg oral tablet), 500 mg= 1 tab, PO, bid, 5 refills cetirizine(ZyrTEC), PO, Daily cyanocobalamin(Vitamin B12 1000 mcg oral tablet), 1000 mcg= 1 tab, PO, Daily diabetes supplies(One Touch Verio Test Strips), See Instructions, 3 refills diabetes supplies(One Touch Verio Flex Glucose Monitor), See Instructions diabetes supplies(One Touch Delica Plus (33G) Lancets), See Instructions, 3 refills insulin aspart(NovoLOG 100 units/mL injectable solution), See [...] Influenza Vaccine due10/10/23and every 1year Due Adult COVID-19 Vaccination due05/30/24Unknown Frequency Adult Social Determinants of Health Screening due05/30/24Unknown Frequency Adult Tdap/Td Vaccine due05/30/24Unknown Frequency Pneumococcal Vaccine Adults and Adolescents with Chronic Illness due05/30/24One-time only Shingles Vaccine due05/30/24One-time only Due In Future Body Mass Index not due until05/29/25and every 366day Satisfied(in the past 1 year) Satisfied Body Mass Index on05/04/24.Satisfied by KARL Roth, Luigi Diabetes Nephropathy [facility] on05/04/24.Satisfied by Contributor_system, [employer] Signature on File CC: Bronson Kitchen MD [address] [place] [address] CC: Samra Soni MD [address] [place] [address] Electronically Reviewed/Signed by: Missy Lockett MD Author Signature Dt/Tm:05/30/2024 03:03 PM Division of Nephrology [facility] Patient Care team information Care Team Personnel Name: Constantin Del Toro Kimberly Position: Pharmacist BCMA Member Role: Pharmacy - Lifetime Address: [address] Name: MD Kitchen Raymond J Position: Physician - Hem/Onc Member Role: Lifetime Relationship Address: [address] [place] [address] Telecom: [phone] Name: Constantin Ferreira Matthew Position: Pharmacist Member Role: Pharmacy - Lifetime Name: Mame Perez RPh, William Position: Pharmacist Member Role: Pharmacy - Lifetime Name: MD Zachariah, Samra Cano Position: Physician Member Role: Primary Care Provider Address: [address] [place] [address] Telecom: [phone] Care Team Related Persons Name: BRUNO YOO Insurance Providers Guarantor name: BERNY Justice [facility] Information #: 1 Payer: Standardized [employer] [facility] Member Number: [id number] Policy Number: NA Group Number: [id number] Health Plan Information #: 2 Payer: [employer] [facility] Member Number: [id number] Policy Number: NA Group Number: NA Health Plan Information #: 3 Payer: [employer] PCP ONLY Member Number: NA Policy Number: NA Group Number: NA"
--- OUTSIDE RECORDS SUMMARY | 2024-07-09 08:42 | External Medical Summary | Continuity of Care Document ---
Author Name Unknown Organization [facility] Address [address] [place] [address] JOSIE ANDERSON [phone] Care Team Providers Care Property Management Bookkeeper Name Role Phone Samra Soni Primary Care Physician [phone] Encounter [facility] [id number] Date(s): 05/28/24 - 05/28/24 [facility] [id number], [place] [address]- [phone] Encounter Diagnosis Primary colorectal adenocarcinoma(Discharge Diagnosis) - 05/28/24 Nephrostomy present(Discharge Diagnosis) - 05/28/24 Metastatic colon cancer to liver(Discharge Diagnosis) - 05/28/24 Discharge Disposition: Home or Self Care Attending Physician: MD Kitchen Raymond J Referring Physician: MD Kitchen Raymond J Encounter Type: [facility] Allergies, Adverse Reactions, Alerts Substance Criticality Severity Reaction Reaction Severity Status Percodan Rash Active Assessment and Plan Extracted from: Title:Oncology Office Visit Note Author:Gianni Woodall Annie Date:05/28/24 63 y/o male with metastatic colon cancer on palliative chemotherapy with capecitabine and Panitumumab Metastatic colon cancer - Multifocal pulmonary metastasis. Omental metastasis. Hepatic metastasis. Abdominal and retroperitoneal guevara metastasis. - Caris result showed K-jeo and NRAS mutation not detected. This suggests [...] is his baseline. - 01/05/24 scans at [facility]- per patient show disease progression. [...] and plan for again in 2 weeks. Multifocal pulmonary metastasis/ chronic smoker -Upon review of his CT chest as noted above he will plan to continue with his treatment as planned. -He was encouraged to make efforts in smoking cessation. Hypothyroidism -Continue on Synthroid 125 mcg Anemia -Continue to monitor labs per chemotherapy protocol -His hemoglobin remains stable for him and he remains asymptomatic DM-1/ Diabetic foot neuropathy/ Brittle toenails - patient was told to f/u [facility] for basic diabetic foot care from his PCP, but his said he has not done that. -He was encouraged to continue with monitoring his blood sugars as he is. Recurrent gross hematuria/ Bilateral hydroureteronephrosis - Cystoscopy, bilateral retrograde pyelograms with radiographic interpretation, bilateral ureteral stent exchange. - f/u urologist, Dr John Matson. Had stents changed 05/04/24. - urine cx on 04/07/23 was negative. - Intermittent bladder spasm in the setting of renal stent-on baclofen prn - FU with Urology as needed. Hand/foot syndrome from chemo- minimal - Dry skin of hand and feet. - rec Goldbond lotion Hypomagnesemia-OTC supplements -Patient does not wish to stay for IV Magnesium infusion. - Continue PO Mag. Hypokalemia and hypocalcemia: -Improving. - Continue PO K+. Proteinuria and BLE edma -Likely secondary to Avastin. - PT evaluation for lymphedema - Resume lisinopril for HTN and d/c amlodipine per nephro. -Lisinopril currently on hold as he was feeling lightheaded and hypotensive on medication. - 24 hour creatinine clearance results reviewedand improving. Acneform rash to face - Continue with benzyl peroxideointment. - Can consider derm referral if ongoing. Dispo:Patient will return in2 weeks timefor labs, treatment and OV to monitor swelling and rash. Immunizations Given and Recorded Vaccine Date Status Refusal Reason SARS-CoV-2 (COVID-19) mRNA BNT-162b2 vax 12/10/20 Recorded SARS-CoV-2 (COVID-19) mRNA BNT-162b2 vax 11/09/20 Recorded Medications capecitabine 500 mg oral tablet Start: 05/08/24 2:44:00 PM EST, 1 tab, PO, bid, Disp# 28 tab, Refills: 5, for 14 days, followed by 7days off of each 21 day cycle., Pharmacy: [facility] Start Date: 05/08/24 Status: Ordered Quantity: 28.0 Unit: tab Repeat number: 6 Gold Gutierrez Medicated Maximum Strength Pain and Itch 4% topical cream Start: 04/07/23 12:16:00 PM EST, See Instructions, Disp# 133 g, Refills: 0, not to exceed 3 applications in 24 hours, Note to Pharmacy: use twice a day for 30 days, Pharmacy: [id number] Start Date: 04/07/23 Status: Ordered Quantity: 133.0 Unit: g Repeat number: 1 lisinopril 5 mg oral tablet Start: 05/28/24 10:39:00 AM EST, 1 tab, PO, Daily, Disp# 30 tab, Refills: 1, Pharmacy: [id number] Start Date: 05/28/24 Status: Ordered Quantity: 30.0 Unit: tab Repeat number: 2 magnesium oxide 500 mg oral capsule Start: 05/02/24 2:46:00 PM EST, 1 cap, PO, bid, Disp# 60 cap, Refills: 1, pt states he takes irregularly, Pharmacy: [id number] Start Date: 05/02/24 Stop Date: [...] 60 syringes x refills x 3, Pharmacy: [facility] [place] Start Date: 05/28/24 Status: Ordered Quantity: 1.0 [...] per day - 90 day supply, Pharmacy: [facility] Start Date: 03/12/24 Status: Ordered Quantity: 30.0 Unit: mL Repeat number: 5 One Touch Delica Plus (33G) Lancets Start: 05/07/22 8:18:00 AM EST, See Instructions, Disp# 100 each, Refills: 3, use for blood glucose testing up to 8x/day, Pharmacy: [facility] Start Date: 05/07/22 Status: Ordered [...] out of pocket if cheap enough, Pharmacy: [facility] Start Date: 08/24/23 Status: Ordered Quantity: 1.0 Unit: each Repeat number: 1 Indication: Type 1 diabetes mellitus with unspecified complications One Touch Verio Test Strips Start: 03/14/24 8:02:00 AM EST, See Instructions, Disp# 800 each, Refills: 3, test up to 8x/day as needed for Type 1 DM, Pharmacy: [facility] Start Date: 03/14/24 Status: Ordered Quantity: 800.0 Unit: each Repeat number: 4 Indication: Type 1 diabetes mellitus with unspecified complications ONETOUCH VERIO TEST STRIP Start: 03/14/24 8:05:00 AM EST, ONETOUCH VERIO TEST STRIP, See Instructions, Disp# 800 strip, Refills: 0, TEST UP TO 8 TIMES DAILY NEEDED, Pharmacy [facility] Start Date: 03/14/24 Status: Ordered Quantity: 800.0 Unit: Repeat number: 1 Potassium Chloride (Eqv-K-Tab) 20 mEq oral tablet, extended release Start: 04/16/24 2:24:00 PM EST, 1 tab, PO, Daily, Disp# 30 tab, Refills: 0, Pharmacy: [id number] Start Date: 04/16/24 Status: Ordered Quantity: 30.0 Unit: tab Repeat number: 1 Pyridium 200 mg oral tablet Start: 05/04/24 3:01:00 PM EST, 1 tab, PO, tid, Disp# 6 tab, PRN: as needed for urinary discomfort, Pharmacy: [facility] [place] Start Date: 05/04/24 Stop Date: 05/06/24 Status: Ordered Quantity: 6.0 Unit: tab Repeat number: 1 Semglee (Vial) 100 units/mL subcutaneous solution Start: 03/12/24 11:19:00 AM EST, 20 unit =, subQ, Daily, Disp# 30 mL, Refills: 3, Pharmacy: [facility] Start Date: 03/12/24 Stop Date: [...] Daily, Disp# 90 tab, Refills: 3, Pharmacy: [facility] Start Date: 03/12/24 Status: Ordered Quantity: 90.0 Unit: tab Repeat number: 4 Syringe MIS 0.3/31gauge Start: 03/12/24 11:19:00 AM EST, Syringe MIS 0.3/31gauge, eRx Product Type: Supply, See Instructions, Disp# 500 each, Refills: 3, Pt uses 6 syringes daily. E11.9, Pharmacy [facility] Start Date: 03/12/24 Status: Ordered Quantity: 500.0 Unit: each Repeat number: 4 Syringe MIS 0.3/31gauge Start: 01/01/22 10:03:00 AM EDT, Syringe MIS 0.3/31gauge, eRx Product Type: Supply, See Instructions, Disp# 500 each, Refills: 3, Pt uses 6 syringes daily. E11.9, Pharmacy [facility] Start Date: 01/01/22 Status: Ordered Quantity: 500.0 Unit: each Repeat number: 4 Vitamin B12 1000 mcg oral tablet Start: 10/24/23 10:35:00 AM EDT, 1 tab, PO, Daily, Disp# 90 tab, Refills: 0, Pharmacy: [facility] Start Date: 10/24/23 Stop Date: 01/22/24 Status: Ordered Quantity: 90.0 Unit: tab Repeat number: 1 ZyrTEC Start: 02/06/24 8:29:00 AM EDT, PO, Daily Start Date: 02/06/24 Status: Ordered Repeat number: 1 Mental Status 05/28/24 Barriers to Learning one year None evide nt Mandatory Health Literacy Documentation Yes Health Literacy Communication Barriers N ever Primary Language Albanian Problem List Condition Confirmation Course Effective Dates [...] Service Informant Primary colorectal adenocarcinoma Discharge Diagnosis 05/28/24 Metastatic colon cancer to liver Discharge Diagnosis 05/28/24 Non-Specified Nephrostomy present Discharge Diagnosis 05/28/24 Non-Specified Procedures Procedure Date Related Diagnosis Body [...] Laboratory List Name Date Carcinoembryonic Antigen (CEA) 05/28/24 Complete Blood Count w Differential (CBC ,DIFFH) 05/28/24 Comprehensive Metabolic Panel (COMP META B PANEL) 05/28/24 Most recent to oldest [Reference Range]: 1 eGFR CKD-EPI [>60 mL/min/1.73 m2] >90 mL /min/1.73 m2 (05/28/24 8:48 AM) Estimated CrCl 88.17 mL/min (05/28/24 10:00 AM) MPV [9.0-12.2 fL] 10.0 fL (05/28/24 8:48 AM) Immature Gran% 0.4 % (05/28/24 8:48 AM) Neut% 68.6 % (05/28/24 8:48 AM) Lymph% 11.1 % (05/28/24 8:48 AM) [place]% 10.1 % (05/28/24 8:48 AM) Baso% 0.5 % (05/28/24 8:48 AM) Eos% 9.3 % (05/28/24 8:48 AM) Immat Gran, Abs [0-0.4 K/uL] 0.03 K/uL (05/28/24 8:48 AM) Neut, Abs [2.0-7.7 K/uL] 5.64 K/uL (05/28/24 8:48 AM) Lymph, Abs [1.0-3.4 K/uL] 0.91 K/uL *LOW* (05/28/24 8:48 AM) [place], Abs [0-1.0 K/uL] 0.83 K/uL (05/28/24 8:48 AM) Baso, Abs [0-0.1 K/uL] 0.04 K/uL (05/28/24 8:48 AM) Eos, Abs [0-0.5 K/uL] 0.76 K/uL *HI* (05/28/24 8:48 AM) Type of Diff: AUTO *Unknown* (05/28/24 8:48 AM) RDW [11.5-14.2 %] 15.5 % *HI* (05/28/24 8:48 AM) Anion Gap [5-14 mmol/L] 9 mmol/L (05/28/24 8:48 AM) Alb [3.5-5.2 g/dL] 2.9 g/dL *LOW* (05/28/24 8:48 AM) Alk Phos [40-130 unit/L] 151 unit/L 1 *HI* (05/28/24 8:48 AM) ALT [0-41 unit/L] 10 unit/L (05/28/24 8:48 AM) AST [0-40 unit/L] 15 unit/L (05/28/24 8:48 AM) BUN [6-23 mg/dL] 11 mg/dL (05/28/24 8:48 AM) Ca [8.4-10.2 mg/dL] 7.3 mg/dL *LOW* (05/28/24 8:48 AM) CEA [<4.8 ng/mL] 378.9 ng/mL 2 *HI* (05/28/24 8:48 AM) Cl- [98-107 mmol/L] 103 mmol/L (05/28/24 8:48 AM) HCO3 [22-29 mmol/L] 25 mmol/L (05/28/24 8:48 AM) Cret [0.70-1.30 mg/dL] 0.78 mg/dL (05/28/24 8:48 AM) Glu [74-109 mg/dL] 131 mg/dL 3 *HI* (05/28/24 8:48 AM) Hct [39-48 %] 29.9 % *LOW* (05/28/24 8:48 AM) Hgb [13.0-17.0 g/dL] 9.5 g/dL *LOW* (05/28/24 8:48 AM) K [3.5-5.1 mmol/L] 4.4 mmol/L (05/28/24 8:48 AM) MCH [28-33 pg] 27.3 pg *LOW* (05/28/24 8:48 AM) MCHC [32-36 g/dL] 31.8 g/dL *LOW* (05/28/24 8:48 AM) MCV [81-96 fL] 85.9 fL (05/28/24 8:48 AM) Na [136-145 mmol/L] 137 mmol/L (05/28/24 8:48 AM) Plts [150-350 K/uL] 334 K/uL (05/28/24 8:48 AM) RBC [4.40-5.60 M/uL] 3.48 M/uL *LOW* (05/28/24 8:48 AM) T Bili [0.0-1.2 mg/dL] 0.5 mg/dL (05/28/24 8:48 AM) Prot [6.4-8.3 g/dL] 6.5 g/dL (05/28/24 8:48 AM) WBC [4.0-10.4 K/uL] 8.21 K/uL (05/28/24 8:48 AM) 1Result Comment: Low levels of ALKP [...] to oldest [Reference Range]: 1 Patient Weight 67.8 kg 1 (05/28/24 10:16 AM) Temperature [36.5-37.9 DegC] 36.6 DegC (05/28/24 10:16 AM) Heart Rate 74 bpm (05/28/24 10:16 AM) Respiratory Rate 12 br/min (05/28/24 10:16 AM) Blood Pressure 132/103mmHg (05/28/24 10:16 AM) Cuff Pulse Pressure 29 mmHg (05/28/24 10:16 AM) BP Location # 1 Right Arm (05/28/24 10:16 AM) 1Result Comment: with shoes Social History Social History Type Response Tobacco Cigarettes 1 Smoking Status Current every day he shay smoker Sex Male Sex Representation Male (finding) 11 ppd Implantable Device List Procedure Provider Procedure Date Device Type Site Unknown Unknown 05/04/24 Unknown Unknown Device Identifier Serial Number Lot or Batch Number Manufacturing Date Expiration Date Distinct Identification Code MRI Safety Implantable Status Assigning Authority Unknown Unknown [id number] Unknown 06/15/26 Unknown Unknown Active Unknown Procedure Provider Procedure Date Device Type Site Unknown Unknown 01/03/24 Unknown Unknown Device Identifier Serial Number Lot or Batch Number Manufacturing Date Expiration Date Distinct Identification Code MRI Safety Implantable Status Assigning Authority Unknown Unknown [id number] Unknown 09/16/26 Unknown Unknown Active Unknown Unknown Unknown [id number] Unknown 09/28/25 Unknown Unknown Active Unknown Procedure Provider Procedure Date Device Type Site Unknown Unknown 09/02/23 Unknown Unknown Device Identifier Serial Number Lot or Batch Number Manufacturing Date Expiration Date Distinct Identification Code MRI Safety Implantable Status Assigning Authority Unknown Unknown [id number] Unknown 10/29/24 Unknown Unknown Active Unknown Unknown Unknown [id number] Unknown 09/28/25 Unknown Unknown Active Unknown Procedure Provider Procedure Date Device Type Site Unknown Unknown 03/16/23 Unknown Unknown Device Identifier Serial Number Lot or Batch Number Manufacturing Date Expiration Date Distinct Identification Code MRI Safety Implantable Status Assigning Authority Unknown Unknown [id number] Unknown 01/14/25 Unknown Unknown Active Unknown Unknown Unknown [id number] Unknown 09/02/25 Unknown Unknown Active Unknown Hematology/Oncology Outpt Note * CASIE Woodall Annie: PERFORM, MODIFY, MODIFY, MODIFY, MODIFY, MODIFY Event Display: Hematology/Oncology Outpt Note Authored Date: [id number] Chief Complaint 3 week f/u History of Present Illness 63-year-old gentleman, chronic [...] adenoma. C. Colon, sigmoid, biopsy sigmoid colitis (-[id number] 02/03/22):- No pathological ulceration. D. Rectum, polypectomy [...] initially seen by Dr. Sparks in a [facility] who recommended surgical bypass because of [...] hepatic lesions are mildly decreased in size. INTERVAL HISTORY 05/28/24: Patient presents for FU and palliative treatment with Panitumumab and capecitabine. Overall, he continues to tolerate treatment well. He is due for C8 today. Was taking lisinopril 20 mg per nephrology recommendation. [place] lightheaded and stopped about 1 week ago. Denies dizziness or lightheadedness now. Requesting to resume lisinopril at 5 mg daily. Denies fevers, chills, rash or cough. Continues with looser stool which is his baseline. Denies diarrhea. BLE edema is improving. Denies CP or SOB. Continues taking 125 mcg Synthroid daily. Resumed taking PO magnesium and potassium at home. Skin is still very dry. Does not feel Gold Gutierrez cream is helping any more. Appetite is decreased. Weight is down a few lbs. thinks this is from loss of fluid. Reports heis hydrating well. Review of Systems All other ROS is negative except what is mentioned in HPI. Physical Exam Vital Signs and Measurements This Visit - Last 24 Hours T:36.6C HR:74(Monitored) RR:12 BP:132/103 SpO2:99% WT:67.8kg WT:67.800kg(Dosing) General:Alert, conversant, and answering questions appropriately; in no acute distress. Psych:Normal mood and affect, cooperative. HEENT:Face is symmetrical.Pupils are equal bilaterally and sclera are without icterus or injection.Oral cavity is moist, pink, and without lesions. Cardiac:Heart is regular in rate and rhythm.No murmurs or rubs. Lungs:Lungs are clear to auscultation bilaterally without wheezes, rales, or rhonchi. Abdomen:Soft, non-distended and non-tender to palpation.Normoactive bowel sounds are present. Extremities:+3 bilateral LE edema.No erythema or swelling to joints. Neuro:Alert and oriented x3.No focal deficits noted. Skin:Warm, dry, no rash noted. Performance Scales and Status ECOG Performance Status: 1 (05/07/24) Pain Score:NO PAIN SCORE DOCUMENTED ON THIS VISIT Patient Declined Assessment on:05/07/2024 08:29 Distress Inventory [...] on palliative chemotherapy with capecitabine and Panitumumab Metastatic colon cancer - Multifocal pulmonary metastasis. [...] is his baseline. - 01/05/24 scans at [facility]- per patient show disease progression. [...] today and plan for again in 2weeks. Multifocal pulmonary metastasis/ chronic smoker -Upon review of his CT chest as noted above he will plan to continue with his treatment as planned. -He was encouraged to make efforts in smoking cessation. Hypothyroidism -Continue on Synthroid 125 mcg Anemia -Continue to monitor labs per chemotherapy protocol -His hemoglobin remains stable for him and he remains asymptomatic DM-1/ Diabetic foot neuropathy/ Brittle toenails - patient was told to f/u [facility] for basic diabetic foot care from his PCP, but his said he has not done that. -He was encouraged to continue with monitoring his blood sugars as he is. Recurrent gross hematuria/ Bilateral hydroureteronephrosis - Cystoscopy, bilateral retrograde pyelograms with radiographic interpretation, bilateral ureteral stent exchange. - f/u urologist, Dr John Matson. Had stents changed 05/04/24. - urine cx on 04/07/23 was negative. - Intermittent bladder spasm in the setting of renal stent-on baclofen prn - FU with Urology as needed. Hand/foot syndrome from chemo- minimal - Dry skin of hand and feet. - rec Goldbond lotion Hypomagnesemia-OTC supplements -Patient does not wish to stay for IV Magnesium infusion. - Continue PO Mag. Hypokalemia and hypocalcemia: -Improving. - Continue PO K+. Proteinuria and BLE edma -Likely secondary to Avastin. - PT evaluation for lymphedema - Resume lisinopril for HTN and d/c amlodipine per nephro. -Lisinopril currently on hold as he was feeling lightheaded and hypotensive on medication. - 24 hour creatinine clearance results reviewedand improving. Acneform rash to face - Continue with benzyl peroxideointment. - Can consider derm referral if ongoing. Dispo:Patient will return in2 weeks timefor labs, treatment and OV to monitor swelling andrash. Staging Information No information available Problem List/Past [...] eye| Service Date: 05/04/2017Amputation finger-complicated| Service Date: 1998Kn meniscus|Service Date: 1997Vitrectomy, mechanical, pars plana approach; [...] Itch 4% topical cream), See Instructions lisinopril(lisinopril 20 mg oral tablet), 20 mg= 1 tab, PO, Daily, 1 refills [...] mRNA BNT-162b2 vax 11/09/2020 Recorded Labs Na: 137 mmol/L (05/28/24 08:48:00) K: 4.4 mmol/L (05/28/24 08:48:00) Cl-: 103 mmol/L (05/28/24 08:48:00) BUN: 11 mg/dL (05/28/24 08:48:00) Cret: 0.78 mg/dL (05/28/24 08:48:00) Glu:131 mg/dLHigh (05/28/24 08:48:00) Ca:7.3 mg/dLLow (05/28/24 08:48:00) WBC: 8.21 K/uL (05/28/24 08:48:00) Hgb:9.5 g/dLLow (05/28/24 08:48:00) Hct:29.9 %Low (05/28/24 08:48:00) MCV: 85.9 fL (05/28/24 08:48:00) Plts: 334 K/uL (05/28/24 08:48:00) Neut%: 68.6 % (05/28/24 08:48:00) Baso%: 0.5 % (05/28/24 08:48:00) Neut, Abs: 5.64 K/uL (05/28/24 08:48:00) Lymph, Abs:0.91 K/uLLow (05/28/24 08:48:00) ALT: 10 unit/L (05/28/24 08:48:00) T Bili: 0.5 mg/dL (05/28/24 08:48:00) Alk Phos:151 unit/LHigh (05/28/24 08:48:00) AST: 15 unit/L (05/28/24 08:48:00) [1]Oncology Office Visit Note; CASIE Woodall Annie 05/07/2024 07:35 EST Electronic Signature on File Electronically Reviewed/Signed by: CASIE Loco Author Signature Dt/Tm:05/28/2024 11:08 AM Division of Hematology Oncology Electronically Reviewed/Signed by: Bronson Kitchen MD Division of Hematology Oncology AC Patient Care team information Care Team Personnel Name: Constantin Del Toro Kimberly Position: Pharmacist BCMA Member Role: Pharmacy - Lifetime Address: [address] Name: MD Kitchen Raymond J Position: Physician - Hem/Onc Member Role: Lifetime Relationship Address: [address] [place] [address] Telecom: [phone] Name: Constantin Ferreira Matthew Position: Pharmacist Member Role: Pharmacy - Lifetime Name: Mame Perez RPh, William Position: Pharmacist Member Role: Pharmacy - Lifetime Name: MD Zachariah, Samra Cano Position: Physician Member Role: Primary Care Provider Address: [address] [place] [address] Telecom: [phone] Care Team Related Persons Name: BRUNO YOO Insurance Providers Guarantor name: BERNY RUBIO Health Plan Information #: 1 Payer: [employer] Member Number: [id number] Policy Number: NA Group Number: [id number] Health Plan Information #: 2 Payer: [employer] Member Number: [id number] Policy Number: NA Group Number: NA Health Plan Information #: 3 Payer: [employer] PCP ONLY Member Number: NA Policy Number: NA Group Number: NA
--- OUTSIDE RECORDS SUMMARY | 2024-07-09 08:42 | External Medical Summary | Continuity of Care Document ---
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 Name Role Phone Samra Soni Primary Care Physician [phone] Encounter [facility] [id number] Date(s): 06/29/24 - 06/29/24 [place] [address] [facility] [address] [address] [phone] Discharge Disposition: Home or Self Care Attending Physician: CASIE Prajapati Danielle B Referring Physician: MD Soni Ravishankar E Encounter Type: Clinic Allergies, Adverse Reactions, Alerts Substance Criticality Severity [...] Pharmacy: [facility] Start Date: 05/08/24 Status: Ordered Quantity: 28.0 [...] twice a day for 30 days, Pharmacy: [id number] Start Date: 04/07/23 Status: Ordered Quantity: 133.0 Unit: g Repeat number: 1 lisinopril 5 mg oral tablet Start: 05/28/24 10:39:00 AM EST, 2 tab, PO, Daily, Disp# 30 tab, Refills: 1, Pharmacy: [facility] Start Date: 05/28/24 Status: [...] 60 syringes x refills x 3, Pharmacy: [facility] Start Date: 05/28/24 Status: Ordered Quantity: 1.0 [...] per day - 90 day supply, Pharmacy: [facility] Start Date: 03/12/24 Status: Ordered Quantity: 30.0 Unit: mL Repeat number: 5 One Touch Delica Plus (33G) Lancets Start: 05/07/22 8:18:00 AM EST, See Instructions, Disp# 100 each, Refills: 3, use for blood glucose testing up to 8x/day, Pharmacy: [facility] Start Date: 05/07/22 Status: Ordered [...] out of pocket if cheap enough, Pharmacy: [facility] Start Date: 08/24/23 Status: Ordered Quantity: 1.0 Unit: each Repeat number: 1 Indication: Type 1 diabetes mellitus with unspecified complications One Touch Verio Test Strips Start: 03/14/24 8:02:00 AM EST, See Instructions, Disp# 800 each, Refills: 3, test up to 8x/day as needed for Type 1 DM, Pharmacy: [facility] Start Date: 03/14/24 Status: Ordered Quantity: 800.0 Unit: each Repeat number: 4 Indication: Type 1 diabetes mellitus with unspecified complications ONETOUCH VERIO TEST STRIP Start: 06/07/24 8:48:00 AM EST, ONETOUCH VERIO TEST STRIP, See Instructions, Disp# 800 strip, Refills: 0, TEST UP TO 8 TIMES DAILY NEEDED, Pharmacy [facility] Start Date: 06/07/24 Status: Ordered Quantity: 800.0 Unit: Repeat number: 1 ONETOUCH VERIO TEST STRIP Start: 03/14/24 8:05:00 AM EST, ONETOUCH VERIO TEST STRIP, See Instructions, Disp# 800 strip, Refills: 0, TEST UP TO 8 TIMES DAILY NEEDED, Pharmacy [facility] Start Date: 03/14/24 Status: Ordered Quantity: 800.0 Unit: Repeat number: 1 Potassium Chloride (Eqv-K-Tab) 20 mEq oral tablet, extended release Start: 04/16/24 2:24:00 PM EST, 1 tab, PO, Daily, Disp# 30 tab, Refills: 0, Pharmacy: [id number] Start Date: 04/16/24 Status: Ordered Quantity: 30.0 Unit: tab Repeat number: 1 Pyridium 200 mg oral tablet Start: 05/04/24 3:01:00 PM EST, 1 tab, PO, tid, Disp# 6 tab, PRN: as needed for urinary discomfort, Pharmacy: [facility] Start Date: 05/04/24 Stop Date: 05/06/24 Status: Ordered Quantity: 6.0 Unit: tab Repeat number: 1 Semglee (Vial) 100 units/mL subcutaneous solution Start: 03/12/24 11:19:00 AM EST, 20 unit =, subQ, Daily, Disp# 30 mL, Refills: 3, Pharmacy: [facility] Start Date: 03/12/24 Stop Date: [...] bid, Disp# 120 tab, Refills: 3, Pharmacy: [id number] Start Date: 06/28/24 Stop Date: 10/26/24 Status: Ordered Quantity: 120.0 Unit: tab Repeat number: 4 Synthroid 125 mcg (0.125 mg) oral tablet Start: 03/12/24 11:19:00 AM EST, 1 tab, PO, Daily, Disp# 90 tab, Refills: 3, Pharmacy: [facility] Start Date: 03/12/24 Status: Ordered Quantity: 90.0 Unit: tab Repeat number: 4 Syringe MIS 0.3/31gauge Start: 03/12/24 11:19:00 AM EST, Syringe MIS 0.3/31gauge, eRx Product Type: Supply, See Instructions, Disp# 500 each, Refills: 3, Pt uses 6 syringes daily. E11.9, Pharmacy [facility] Start Date: 03/12/24 Status: Ordered Quantity: 500.0 Unit: each Repeat number: 4 Syringe MIS 0.3/31gauge Start: 01/01/22 10:03:00 AM EDT, Syringe MIS 0.3gauge, eRx Product Type: Supply, See Instructions, Disp# 500 each, Refills: 3, Pt uses 6 syringes daily. E11.9, Pharmacy [facility] Start Date: 01/01/22 Status: Ordered Quantity: 500.0 Unit: each Repeat number: 4 Vitamin B12 1000 mcg oral tablet Start: 10/24/23 10:35:00 AM EDT, 1 tab, PO, Daily, Disp# 90 tab, Refills: 0, Pharmacy: [facility] Start Date: 10/24/23 Stop Date: 01/22/24 Status: Ordered Quantity: 90.0 Unit: tab Repeat number: 1 ZyrTEC Start: 02/06/24 8:29:00 AM EDT, PO, Daily Start Date: 02/06/24 Status: Ordered Repeat number: 1 Problem List Condition Confirmation Course Effective Dates [...] 7pelvic mass, hydropnephrosis- ureteral stent exchange- bilateral Social History Social History Type Response Tobacco Cigarettes 1 Smoking Status Current every day he shay smoker Sex Male Sex Representation Male (finding) 11 ppd Implantable Device List Procedure Provider Procedure Date Device Type Site Unknown Unknown 05/04/24 Unknown Unknown Device Identifier Serial Number Lot or Batch Number Manufacturing Date Expiration Date Distinct Identification Code MRI Safety Implantable Status Assigning Authority Unknown Unknown [id number] Unknown 06/15/26 Unknown Unknown Active Unknown Procedure Provider Procedure Date Device Type Site Unknown Unknown 01/03/24 Unknown Unknown Device Identifier Serial Number Lot or Batch Number Manufacturing Date Expiration Date Distinct Identification Code MRI Safety Implantable Status Assigning Authority Unknown Unknown [id number] Unknown 09/16/26 Unknown Unknown Active Unknown Unknown Unknown [id number] Unknown 09/28/25 Unknown Unknown Active Unknown Procedure Provider Procedure Date Device Type Site Unknown Unknown 09/02/23 Unknown Unknown Device Identifier Serial Number Lot or Batch Number Manufacturing Date Expiration Date Distinct Identification Code MRI Safety Implantable Status Assigning Authority Unknown Unknown [id number] Unknown 10/29/24 Unknown Unknown Active Unknown Unknown Unknown [id number] Unknown 09/28/25 Unknown Unknown Active Unknown Procedure Provider Procedure Date Device Type Site Unknown Unknown 03/16/23 Unknown Unknown Device Identifier Serial Number Lot or Batch Number Manufacturing Date Expiration Date Distinct Identification Code MRI Safety Implantable Status Assigning Authority Unknown Unknown [id number] Unknown 01/14/25 Unknown Unknown Active Unknown Unknown Unknown [id number] Unknown 09/02/25 Unknown Unknown Active Unknown Patient Care team information Care Team Personnel Name: Constantin Del Toro Kimberly Position: Pharmacist BCMA Member Role: Pharmacy - Lifetime Address: [address] [address] [place] Name: MD Fidleina, Bronson Russo Position: Physician - Hem/Onc Member Role: Lifetime Relationship [address]: [address] [place] [address] [place] Telecom: [phone] Name: Constantin Ferreira Matthew Position: Pharmacist Member Role: Pharmacy - Lifetime Name: Mame Perez RPh, William Position: Pharmacist Member Role: Pharmacy - Lifetime Name: MD Soni Ravishankar E Position: Physician Member Role: Primary Care Provider Address: [address] [place] [address] Telecom: [phone] Care Team Related Persons Name: BRUNO YOO Insurance Providers Guarantor name: BERNY Justice [facility] Health Plan Information #: 2 Payer: [employer] PCP ONLY Member Number: [id number] Policy Number: NA Group Number: [id number] Health Plan Information #: 1 Payer: [facility] Member Number: [id number] Policy Number: NA Group Number: [id number]
--- OUTSIDE RECORDS SUMMARY | 2024-07-09 08:42 | External Medical Summary | Continuity of Care Document ---
Author Name Unknown Organization [facility] Address [address] [place] [address] JOSIE ANDERSON [id number] Care Team Providers Care [employer] Name Role Phone Samra Soni Primary Care Physician [phone] Encounter [facility] J[facility] [id number] Date(s): 06/18/24 - 06/18/24 [facility] [address], [place] [address]- [phone] Encounter Diagnosis Primary colorectal adenocarcinoma(Discharge Diagnosis) - 06/14/24 Metastasis to liver(Discharge Diagnosis) - 06/14/24 Encounter for chemotherapy management(Discharge Diagnosis) - 06/14/24 Hypothyroidism(Discharge Diagnosis) - 06/14/24 Discharge Disposition: Home or Self Care Attending Physician: MD Kitchen Raymond J Referring Physician: MD Kitchen Raymond J Encounter Type: [facility] [place] Allergies, Adverse Reactions, Alerts Substance Criticality Severity Reaction Reaction Severity Status Percodan Rash Active Assessment and Plan Extracted from: Title:Oncology Office Visit Note Author:Gianni Woodall Annie Date:06/18/24 63 y/o male with metastatic colon cancer [...] is his baseline. - 01/05/24 scans at [facility]- per patient show disease progression. -Will hold [...] plan for again in 2 weeks. - Treatment was pushed to every [address] Kitchen was away. Resumed treatment at every2 week schedule. - Willobtain re-imaging in July 2024. Multifocal pulmonary metastasis/ chronic smoker -Upon review [...] toenails - patient was told to f/u targeteer for basic diabetic foot care from his [...] for HTN and d/c amlodipine per nephro. -Resumed lisinopril at 5 mg. Will increase today to 10 mg. Aware to watch for s/s of hypotension and monitor BP at home. - 24 hour creatinine clearance results reviewedand improving. Acneform rash to face - Continue with benzyl peroxideointment. - Can consider derm referral if ongoing. Dispo:Patient will return in2 weeks timefor labs, treatment and OV to monitor swelling and rash. Next visit, will move OV to every 4 weeks unless needing to see more frequently Attending: I performed all the medical decision making, which is the substantive portion of this visit. Bronson Kitchen M.D., Ph.D. Immunizations Given and Recorded Vaccine Date Status Refusal Reason SARS-CoV-2 (COVID-19) mRNA BNT-162b2 vax 12/10/20 Recorded SARS-CoV-2 (COVID-19) mRNA BNT-162b2 vax 11/09/20 Recorded Medications amLODIPine Start: 06/18/24 9:45:00 AM EDT, See Instructions, daily Start Date: 06/18/24 Status: Ordered Repeat number: 1 capecitabine 500 [...] a day for 30 days, Pharmacy: [id number] Start Date: 04/07/23 Status: Ordered Quantity: 133.0 Unit: g Repeat number: 1 lisinopril 5 mg oral tablet Start: 05/28/24 10:39:00 AM EST, 1 tab, PO, Daily, Disp# 30 tab, Refills: 1, Pharmacy: [id number] Start Date: 05/28/24 Status: Ordered Quantity: 30.0 Unit: tab Repeat number: 2 magnesium oxide 500 mg oral capsule Start: 05/02/24 2:46:00 PM EST, 1 cap, PO, bid, Disp# 60 cap, Refills: 1, pt states he takes irregularly, Pharmacy: [id number] Start Date: 05/02/24 Stop [...] 60 syringes x refills x 3, Pharmacy: [facility] [place] Start Date: 05/28/24 Status: Ordered Quantity: 1.0 [...] per day - 90 day supply, Pharmacy: [facility] Start Date: 03/12/24 Status: Ordered Quantity: 30.0 Unit: mL Repeat number: 5 One Touch Delica Plus (33G) Lancets Start: 05/07/22 8:18:00 AM EST, See Instructions, Disp# 100 each, Refills: 3, use for blood glucose testing up to 8x/day, Pharmacy: [facility] Start Date: 05/07/22 Status: Ordered Quantity: [...] out of pocket if cheap enough, Pharmacy: [facility] Start Date: 08/24/23 Status: Ordered Quantity: 1.0 Unit: each Repeat number: 1 Indication: Type 1 diabetes mellitus with unspecified complications One Touch Verio Test Strips Start: 03/14/24 8:02:00 AM EST, See Instructions, Disp# 800 each, Refills: 3, test up to 8x/day as needed for Type 1 DM, Pharmacy: [facility] Start Date: 03/14/24 Status: Ordered Quantity: 800.0 Unit: each Repeat number: 4 Indication: Type 1 diabetes mellitus with unspecified complications ONETOUCH VERIO TEST STRIP Start: 06/07/24 8:48:00 AM EST, ONETOUCH VERIO TEST STRIP, See Instructions, Disp# 800 strip, Refills: 0, TEST UP TO 8 TIMES DAILY NEEDED, Pharmacy [facility] Start Date: 06/07/24 Status: Ordered Quantity: 800.0 Unit: Repeat number: 1 ONETOUCH VERIO TEST STRIP Start: 03/14/24 8:05:00 AM EST, ONETOUCH VERIO TEST STRIP, See Instructions, Disp# 800 strip, Refills: 0, TEST UP TO 8 TIMES DAILY NEEDED, Pharmacy [facility] Start Date: 03/14/24 Status: Ordered Quantity: 800.0 Unit: Repeat number: 1 Potassium Chloride (Eqv-K-Tab) 20 mEq oral tablet, extended release Start: 04/16/24 2:24:00 PM EST, 1 tab, PO, Daily, Disp# 30 tab, Refills: 0, Pharmacy: [id number] Start Date: 04/16/24 Status: Ordered Quantity: 30.0 Unit: tab Repeat number: 1 Pyridium 200 mg oral tablet Start: 05/04/24 3:01:00 PM EST, 1 tab, PO, tid, Disp# 6 tab, PRN: as needed for urinary discomfort, Pharmacy: [facility] [place] Start Date: 05/04/24 Stop Date: 05/06/24 Status: Ordered Quantity: 6.0 Unit: tab Repeat number: 1 Semglee (Vial) 100 units/mL subcutaneous solution Start: 03/12/24 11:19:00 AM EST, 20 unit =, subQ, Daily, Disp# 30 mL, Refills: 3, Pharmacy: [facility] Start Date: 03/12/24 Stop Date: 03/07/25 [...] Daily, Disp# 90 tab, Refills: 3, Pharmacy: [facility] Start Date: 03/12/24 Status: Ordered Quantity: 90.0 Unit: tab Repeat number: 4 Syringe MIS 0.3/31gauge Start: 03/12/24 11:19:00 AM EST, Syringe MIS 0.3/31gauge, eRx Product Type: Supply, See Instructions, Disp# 500 each, Refills: 3, Pt uses 6 syringes daily. E11.9, Pharmacy [facility] Start Date: 03/12/24 Status: Ordered Quantity: 500.0 Unit: each Repeat number: 4 Syringe MIS 0.3/31gauge Start: 01/01/22 10:03:00 AM EDT, Syringe MIS 0.3/31gauge, eRx Product Type: Supply, See Instructions, Disp# 500 each, Refills: 3, Pt uses 6 syringes daily. E11.9, Pharmacy [facility] Start Date: 01/01/22 Status: Ordered Quantity: 500.0 Unit: each Repeat number: 4 Vitamin B12 1000 mcg oral tablet Start: 10/24/23 10:35:00 AM EDT, 1 tab, PO, Daily, Disp# 90 tab, Refills: 0, Pharmacy: [facility] Start Date: 10/24/23 Stop Date: 01/22/24 Status: Ordered Quantity: 90.0 Unit: tab Repeat number: 1 ZyrTEC Start: 02/06/24 8:29:00 AM EDT, PO, Daily Start Date: 02/06/24 Status: Ordered Repeat number: 1 Mental Status 06/18/24 Barriers to Learning one year None evide nt Mandatory Health Literacy Documentation Yes Health Literacy Communication Barriers N ever Primary Language Serbian Problem List Condition Confirmation Course Effective Dates [...] Service Informant Primary colorectal adenocarcinoma Discharge Diagnosis 06/14/24 Non-Specified Encounter for chemotherapy management Discharge Diagnosis 06/14/24 Non-Specified Hypothyroidism Discharge Diagnosis 06/14/24 Non-Specified Metastasis to liver Discharge Diagnosis 06/14/24 Non-Specified Procedures Procedure Date Related Diagnosis Body [...] Laboratory List Name Date Carcinoembryonic Antigen (CEA) 06/18/24 Complete Blood Count w Differential (CBC ,DIFFH) 06/18/24 Comprehensive Metabolic Panel (COMP META B PANEL) 06/18/24 Magnesium Level (MAGNESIUM) 06/18/24 Most recent to oldest [Reference Range]: 1 eGFR CKD-EPI [>60 mL/min/1.73 m2] 85 mL/ min/1.73 m2 (06/18/24 9:12 AM) Estimated CrCl 69.47 mL/min (06/18/24 10:09 AM) MPV [9.0-12.2 fL] 10.5 fL (06/18/24 9:12 AM) Immature Gran% 0.6 % (06/18/24 9:12 AM) Neut% 73.1 % (06/18/24 9:12 AM) Lymph% 9.6 % (06/18/24 9:12 AM) [place]% 9.3 % (06/18/24 9:12 AM) Baso% 0.3 % (06/18/24 9:12 AM) Eos% 7.1 % (06/18/24 9:12 AM) Immat Gran, Abs [0-0.4 K/uL] 0.05 K/uL (06/18/24 9:12 AM) Neut, Abs [2.0-7.7 K/uL] 6.31 K/uL (06/18/24 9:12 AM) Lymph, Abs [1.0-3.4 K/uL] 0.83 K/uL *LOW* (06/18/24 912 AM) [place], Abs [0-1.0 K/uL] 0.80 K/uL (06/18/24 9:12 AM) Baso, Abs [0-0.1 K/uL] 0.03 K/uL (06/18/24 9:12 AM) Eos, Abs [0-0.5 K/uL] 0.61 K/uL *HI* (06/18/2412 AM) Type of Diff: AUTO *Unknown* (06/18/24 AM) RDW [11.5-14.2 %] 15.0 % *HI* (06/18/24 9:12 AM) Anion Gap [5-14 mmol/L] 11 mmol/L (06/18/24 9:12 AM) Alb [3.5-5.2 g/dL] 2.9 g/dL *LOW* (06/18/24 9:12 AM) Alk Phos [40-130 unit/L] 144 unit/L 1 *HI* (06/18/24 912 AM) ALT [0-41 unit/L] 9 unit/L (06/18/24 9:12 AM) AST [0-40 unit/L] 14 unit/L (06/18/24 9:12 AM) BUN [6-23 mg/dL] 16 mg/dL (06/18/24 9:12 AM) Ca [8.4-10.2 mg/dL] 7.8 mg/dL *LOW* (06/18/24 912 AM) CEA [<4.8 ng/mL] 808.1 ng/mL 2 *HI* (06/18/24 9:12 AM) Cl- [98-107 mmol/L] 102 mmol/L (06/18/24 9:12 AM) HCO3 [22-29 mmol/L] 22 mmol/L (06/18/24 9:12 AM) Cret [0.70-1.30 mg/dL] 0.99 mg/dL (06/18/24 9:12 AM) Glu [74-109 mg/dL] 211 mg/dL 3 *HI* (06/18/2412 AM) Hct [39-48 %] 30.3 % *LOW* (06/18/2412 AM) Hgb [13.0-17.0 g/dL] 9.6 g/dL *LOW* (06/18/24 AM) K [3.5-5.1 mmol/L] 4.7 mmol/L (06/18/24 9:12 AM) MCH [28-33 pg] 26.5 pg *LOW* (06/18/24:12 AM) MCHC [32-36 g/dL] 31.7 g/dL *LOW* (06/18/24 9:12 AM) MCV [81-96 fL] 83.7 fL (06/18/24 9:12 AM) Mg [1.6-2.6 mg/dL] 0.8 mg/dL *LOW* (06/18/24 912 AM) Na [136-145 mmol/L] 135 mmol/L *LOW* (06/18/2412 AM) Plts [150-350 K/uL] 346 K/uL (06/18/24 9:12 AM) RBC [4.40-5.60 M/uL] 3.62 M/uL *LOW* (06/18/24 9:12 AM) T Bili [0.0-1.2 mg/dL] 0.5 mg/dL (06/18/24 9:12 AM) Prot [6.4-8.3 g/dL] 6.9 g/dL (06/18/24 9:12 AM) WBC [4.0-10.4 K/uL] 8.63 K/uL (06/18/24 9:12 AM) 1Result Comment: Low levels of ALKP [...] to oldest [Reference Range]: 1 Patient Weight 64.7 kg 1 (06/18/24 9:51 AM) Temperature [36.5-37.9 DegC] 37.3 DegC (06/18/24 9:51 AM) Heart Rate 64 bpm (06/18/24 9:51 AM) Respiratory Rate 18 br/min (06/18/24 9:51 AM) Blood Pressure 129/85mmHg (06/18/24 9:51 AM) Cuff Pulse Pressure 44 mmHg (06/18/24 9:51 AM) BP Location # 1 Right Arm (06/18/24 9:51 AM) 1Result Comment: with shoes Social History [...] Safety Implantable Status Assigning Authority Unknown Unknown [id number] Unknown 06/15/26 Unknown Unknown Active Unknown Procedure Provider Procedure Date Device Type Site Unknown Unknown 01/03/24 Unknown Unknown Device Identifier Serial Number Lot or Batch Number Manufacturing Date Expiration Date Distinct Identification Code MRI Safety Implantable Status Assigning Authority Unknown Unknown [id number] Unknown 09/16/26 Unknown Unknown Active Unknown Unknown Unknown [id number] Unknown 09/28/25 Unknown Unknown Active Unknown Procedure Provider Procedure Date Device Type Site Unknown Unknown 09/02/23 Unknown Unknown Device Identifier Serial Number Lot or Batch Number Manufacturing Date Expiration Date Distinct Identification Code MRI Safety Implantable Status Assigning Authority Unknown Unknown [id number] Unknown 10/29/24 Unknown Unknown Active Unknown Unknown Unknown [id number] Unknown 09/28/25 Unknown Unknown Active Unknown Procedure Provider Procedure Date Device Type Site Unknown Unknown 03/16/23 Unknown Unknown Device Identifier Serial Number Lot or Batch Number Manufacturing Date Expiration Date Distinct Identification Code MRI Safety Implantable Status Assigning Authority Unknown Unknown [id number] Unknown 01/14/25 Unknown Unknown Active Unknown Unknown Unknown [id number] Unknown 09/02/25 Unknown Unknown Active Unknown Hematology/Oncology Outpt Note * MD Fidelina, Bronson Russo: MODIFY MD Kitchen Raymond J: MODIFY, MODIFY, PERFORM CASIE Woodall Annie: PERFORM, MODIFY CASIE Woodall Annie: MODIFY, MODIFY CASIE Woodall Annie: MODIFY, MODIFY CASIE Woodall Annie: MODIFY, MODIFY CASIE Woodall Annie: MODIFY Event Display: Hematology/Oncology Outpt Note Authored Date: [id number] Chief Complaint fu appt History of Present Illness 63-year-old gentleman, chronic [...] bilaterally. 03/22/2022: Diagnosis(Verified) A.Colon, hepatic flexure, biopsy (8231-S 02/03/22):- Colonic mucosa with focal high-grade dysplasia. B.Colon, transverse, polypectomy ( 2619-S 02/03/22):- Tubular adenoma. C. Colon, sigmoid, biopsy sigmoid colitis (02-S 02/03/22):- No pathological ulceration. D. Rectum, polypectomy (8179-S 02/03/22)":- Fragments of tubular adenoma. 2Liver, side unspecified (core needle biopsy) (-7998-S 02/18/22): - Metastatic moderately differentiated adenocarcinoma. - [...] initially seen by Dr. Sparks in a [facility] who recommended surgical bypass because of the [...] are mildly decreased in size. INTERVAL HISTORY 06/18/24: Patient presents for FU and palliative treatment with Panitumumab and capecitabine. Overall, he continues to tolerate treatment well. He is due for C9 today. Saw nephrology on 05/30. Recommended lisinopril 5 mg. Denies dizziness or headaches at home. BP today is 129/85. Denies fevers or chills. Reprots he did have flu-like symptoms last week but reports these are mostly resolved. Still has some wheezing. Cough is stable. Continues with looser stool at baseline. Feels BLE edema is gradually improving. Denies CP or SOB. Continues taking 125 mcg Synthroid daily. Resumed taking PO magnesium and potassium at home. Skin is still very dry. Does not feel Gold Gutierrez cream is helping any more. Appetite is decreased.Weight continues to decrease but also notes edema to legs is decreasing. Reports pain to lower abdomen is stable. Uses morphine with relief. Has Dilaudid at home but not needing to take this. Review of Systems 12 point ROS negative outside of above mentioned. Physical Exam Vital Signs and Measurements This Visit - Last 24 Hours T:37.3C HR:64(Monitored) RR:18 BP:129/85 General:Alert, conversant, and answering questions appropriately; in no acute distress. Psych:Normal mood and affect, cooperative. HEENT:Face is symmetrical.Pupils are equal bilaterally and sclera are without icterus or injection.Oral cavity is moist, pink, and without lesions. Cardiac:Heart is regular in rate and rhythm.No murmurs or rubs. Lungs:Inspiratory and expiratory wheezing noted to bilateral lungs. Abdomen:Soft, non-distended and non-tender to palpation.Normoactive bowel sounds are present. Extremities:+3 bilateral LE edema.No erythema or swelling to joints. Neuro:Alert and oriented x3.No focal deficits noted. Skin:Warm, dry, no rash noted. Performance Scales and Status ECOG Performance Status: 0 (05/28/24) Pain Score:5 Patient Declined Assessment on:05/07/2024 08:29 Distress Inventory [...] is his baseline. - 01/05/24 scans at [facility]- per patient show disease progression. -Will hold [...] and plan for again in 2weeks. - Treatment was pushed to every [address] Kitchen was away. Resumed treatment at every2 week schedule. - Willobtain re-imaging in July 2024. Multifocal pulmonary metastasis/ chronic smoker -Upon review [...] toenails - patient was told to f/u targeteer for basic diabetic foot care from his [...] for HTN and d/c amlodipine per nephro. -Resumed lisinopril at 5 mg. Will increase today to 10 mg. Aware to watch for s/s of hypotension and monitor BP at home. - 24 hour creatinine clearance results reviewedand improving. Acneform rash to face - Continue with benzyl peroxideointment. - Can consider derm referral if ongoing. Dispo:Patient will return in2 weeks timefor labs, treatment and OV to monitor swelling andrash. Next visit, will move OV to every 4 weeks unless needing to see more frequently Attending: I performed all the medical decision making, which is the substantive portion of this visit. Bronson Kitchen M.D., Ph.D. Staging Information No information available Problem List/Past [...] radiographic interpretation, bilateral ureteral stent exchange Medications cannabis(Medical Marijuana), 1 inh, inhaled capecitabine(capecitabine 500 [...] (COVID-19) mRNA BNT-162b2 vax 11/09/2020 Recorded Labs Na:135 mmol/LLow (06/18/24 09:12:00) K: 4.7 mmol/L (06/18/24 09:12:00) Cl-: 102 mmol/L (06/18/24 09:12:00) BUN: 16 mg/dL (06/18/24 09:12:00) Cret: 0.99 mg/dL (06/18/24 09:12:00) Glu:211 mg/dLHigh (06/18/24 09:12:00) Ca:7.8 mg/dLLow (06/18/24 09:12:00) M.8 mg/dLLow (06/18/24 09:12:00) WBC: 8.63 K/uL (06/18/24 09:12:00) Hgb:9.6 g/dLLow (06/18/24 09:12:00) Hct:30.3 %Low (06/18/24 09:12:00) MCV: 83.7 fL (06/18/24 09:12:00) Plts: 346 K/uL (06/18/24 09:12:00) Neut%: 73.1 % (06/18/24 09:12:00) Baso%: 0.3 % (06/18/24 09:12:00) Neut, Abs: 6.31 K/uL (06/18/24 09:12:00) Lymph, Abs:0.83 K/uLLow (06/18/24 09:12:00) ALT: 9 unit/L (06/18/24 09:12:00) T Bili: 0.5 mg/dL (06/18/24 09:12:00) Alk Phos:144 unit/LHigh (06/18/24 09:12:00) AST: 14 unit/L (06/18/24 09:12:00) [1]Oncology Office Visit Note; CASIE Woodall Annie 05/28/2024 07:46 EST Electronic Signature on File Electronically Reviewed/Signed by: CASIE Loco Author Signature Dt/Tm:06/18/2024 10:35 AM Division of Hematology Oncology Electronically Reviewed/Signed by: Bronson Kitchen MD Cosigner Signature Dt/Tm: 06/20/2024 07:54 AM Division of Hematology Oncology AC Patient Care team information Care Team Personnel Name: Constantin Del Toro Kimberly Position: Pharmacist BCMA Member Role: Pharmacy - Lifetime Address: [address] Name: MD Fidelina, Bronson Russo Position: Physician - Hem/Onc Member Role: Lifetime Relationship Address: [address] [place] [address] Telecom: [phone] Name: Constantin Ferreira Matthew Position: Pharmacist Member Role: Pharmacy - Lifetime Name: Mame Perez RPh, William Position: Pharmacist Member Role: Pharmacy - Lifetime Name: MD Zachariah, Samra Cano Position: Physician Member Role: Primary Care Provider Address: [address] [place] [address] Telecom: [phone] Care Team Related Persons Name: BRUNO YOO Insurance Providers Guarantor name: BERNY RUBIO Health Plan Information #: 1 Payer: [employer] Member Number: [id number] Policy Number: NA Group Number: [id number] Health Plan Information #: 2 Payer: [employer] Member Number: [id number] Policy Number: NA Group Number: NA Health Plan Information #: 3 Payer: [employer] PCP ONLY Member Number: NA Policy Number: NA Group Number: NA
--- OUTSIDE RECORDS SUMMARY | 2024-07-09 08:42 | External Medical Summary | Continuity of Care Document ---
Author Name Unknown Organization [facility] Address [address] [place] [address] J[place] ANDERSON [id number] Care Team Providers Care Mohs Surgeon/General Dermatologist Name Role Phone Samra Soni Primary Care Physician [phone] [facility]counter [facility] [id number] Date(s): 07/02/24 - 07/02/24 [facility] [place] [facility] [address] [place] Barton [phone] Encounter Diagnosis Primary colorectal adenocarcinoma(Discharge Diagnosis) - 07/02/24 Metastasis to liver(Discharge Diagnosis) - 07/02/24 Metastatic colon cancer to liver(Discharge Diagnosis) - 07/02/24 Discharge Disposition: Home or Self Care Attending Physician: MD Kitchen Raymond J Referring Physician: MD Kitchen Raymond J Encounter Type: [facility] [place] Allergies, Adverse Reactions, Alerts Substance Criticality Severity Reaction Reaction Severity Status Percodan Rash Active Functional Status 07/02/24 Gait Steady Immunizations Given and Recorded Vaccine Date Status [...] off of each 21 day cycle., Pharmacy: [facility] Start Date: 05/08/24 Status: Ordered Quantity: 28.0 [...] twice a day for 30 days, Pharmacy: [id number] Start Date: 04/07/23 Status: Ordered Quantity: 133.0 Unit: g Repeat number: 1 lisinopril 5 mg oral tablet Start: 07/02/24 9:16:00 AM EDT, 1 tab, PO, bid, Disp# 60 tab, Refills: 1, Pharmacy: [id number] Start Date: 07/02/24 Status: [...] 60 syringes x refills x 3, Pharmacy: [facility] [place] Start Date: 05/28/24 Status: Ordered Quantity: 1.0 [...] per day - 90 day supply, Pharmacy: [facility] Start Date: 03/12/24 Status: Ordered Quantity: 30.0 Unit: mL Repeat number: 5 One Touch Delica Plus (33G) Lancets Start: 05/07/22 8:18:00 AM EST, See Instructions, Disp# 100 each, Refills: 3, use for blood glucose testing up to 8x/day, Pharmacy: [facility] Start Date: 05/07/22 Status: Ordered Quantity: [...] out of pocket if cheap enough, Pharmacy: [facility] Start Date: 08/24/23 Status: Ordered Quantity: 1.0 Unit: each Repeat number: 1 Indication: Type 1 diabetes mellitus with unspecified complications One Touch Verio Test Strips Start: 03/14/24 8:02:00 AM EST, See Instructions, Disp# 800 each, Refills: 3, test up to 8x/day as needed for Type 1 DM, Pharmacy: [facility] Start Date: 03/14/24 Status: Ordered Quantity: 800.0 Unit: each Repeat number: 4 Indication: Type 1 diabetes mellitus with unspecified complications ONETOUCH VERIO TEST STRIP Start: 06/07/24 8:48:00 AM EST, ONETOUCH VERIO TEST STRIP, See Instructions, Disp# 800 strip, Refills: 0, TEST UP TO 8 TIMES DAILY NEEDED, Pharmacy [facility] Start Date: 06/07/24 Status: Ordered Quantity: 800.0 Unit: Repeat number: 1 ONETOUCH VERIO TEST STRIP Start: 03/14/24 8:05:00 AM EST, ONETOUCH VERIO TEST STRIP, See Instructions, Disp# 800 strip, Refills: 0, TEST UP TO 8 TIMES DAILY NEEDED, Pharmacy [facility] Start Date: 03/14/24 Status: Ordered Quantity: 800.0 Unit: Repeat number: 1 Potassium Chloride (Eqv-K-Tab) 20 mEq oral tablet, extended release Start: 04/16/24 2:24:00 PM EST, 1 tab, PO, Daily, Disp# 30 tab, Refills: 0, Pharmacy: [id number] Start Date: 04/16/24 Status: Ordered Quantity: 30.0 Unit: tab Repeat number: 1 Pyridium 200 mg oral tablet Start: 05/04/24 3:01:00 PM EST, 1 tab, PO, tid, Disp# 6 tab, PRN: as needed for urinary discomfort, Pharmacy: [facility] [place] Start Date: 05/04/24 Stop Date: 05/06/24 Status: Ordered Quantity: 6.0 Unit: tab Repeat number: 1 Semglee (Vial) 100 units/mL subcutaneous solution Start: 03/12/24 11:19:00 AM EST, 20 unit =, subQ, Daily, Disp# 30 mL, Refills: 3, Pharmacy: [facility] Start Date: 03/12/24 Stop Date: 03/07/25 [...] bid, Disp# 120 tab, Refills: 3, Pharmacy: [facility] Start Date: 06/28/24 Stop Date: 10/26/24 Status: Ordered Quantity: 120.0 Unit: tab Repeat number: 4 Synthroid 125 mcg (0.125 mg) oral tablet Start: 03/12/24 11:19:00 AM EST, 1 tab, PO, Daily, Disp# 90 tab, Refills: 3, Pharmacy: [facility] Start Date: 03/12/24 Status: Ordered Quantity: 90.0 Unit: tab Repeat number: 4 Syringe MIS 0.3/31gauge Start: 03/12/24 11:19:00 AM EST, Syringe MIS 0.3/31gauge, eRx Product Type: Supply, See Instructions, Disp# 500 each, Refills: 3, Pt uses 6 syringes daily. E11.9, Pharmacy [facility] Start Date: 03/12/24 Status: Ordered Quantity: 500.0 Unit: each Repeat number: 4 Syringe MIS 0.3/31gauge Start: 01/01/22 10:03:00 AM EDT, Syringe MIS 0.3/31gauge, eRx Product Type: Supply, See Instructions, Disp# 500 each, Refills: 3, Pt uses 6 syringes daily. E11.9, [facility] Start Date: 01/01/22 Status: Ordered Quantity: 500.0 Unit: each Repeat number: 4 Vitamin B12 1000 mcg oral tablet Start: 10/24/23 10:35:00 AM EDT, 1 tab, PO, Daily, Disp# 90 tab, Refills: 0, Pharmacy: [facility] Start Date: 10/24/23 Stop Date: 01/22/24 [...] Effective Dates Health Status Clinical Service Informant Metastatic colon cancer to liver Discharge Diagnosis 07/02/24 Non-Specified Primary colorectal adenocarcinoma Discharge Diagnosis 07/02/24 Non-Specified Metastasis to liver Discharge Diagnosis 07/02/24 Non-Specified Procedures Procedure Date Related Diagnosis Body [...] oldest [Reference Range]: 1 Temperature [36.5-37.9 DegC] 36.6 DegC (07/02/24 9:51 AM) Heart Rate 54 bpm (07/02/24 9:51 AM) Respiratory Rate 18 br/min (07/02/24 9:51 AM) Blood Pressure 122/53mmHg (07/02/24 9:51 AM) Cuff Pulse Pressure 69 mmHg (07/02/24 9:51 AM) BP Location # 1 Left Arm (07/02/24 9:51 AM) Social History Social History Type Response Tobacco Cigarettes 1 Smoking Status Current some day lig ht smoker Sex Male Sex Representation Male (finding) 11 ppd Implantable Device List Procedure Provider Procedure Date Device Type Site Unknown Unknown 05/04/24 Unknown Unknown Device Identifier Serial Number Lot or Batch Number Manufacturing Date Expiration Date Distinct Identification Code MRI Safety Implantable Status Assigning Authority Unknown Unknown [id number] Unknown 06/15/26 Unknown Unknown Active Unknown Procedure Provider Procedure Date Device Type Site Unknown Unknown 01/03/24 Unknown Unknown Device Identifier Serial Number Lot or Batch Number Manufacturing Date Expiration Date Distinct Identification Code MRI Safety Implantable Status Assigning Authority Unknown Unknown [id number] Unknown 09/16/26 Unknown Unknown Active Unknown Unknown Unknown [id number] Unknown 09/28/25 Unknown Unknown Active Unknown Procedure Provider Procedure Date Device Type Site Unknown Unknown 09/02/23 Unknown Unknown Device Identifier Serial Number Lot or Batch Number Manufacturing Date Expiration Date Distinct Identification Code MRI Safety Implantable Status Assigning Authority Unknown Unknown [id number] Unknown 10/29/24 Unknown Unknown Active Unknown Unknown Unknown [id number] Unknown 09/28/25 Unknown Unknown Active Unknown Procedure Provider Procedure Date Device Type Site Unknown Unknown 03/16/23 Unknown Unknown Device Identifier Serial Number Lot or Batch Number Manufacturing Date Expiration Date Distinct Identification Code MRI Safety Implantable Status Assigning Authority Unknown Unknown [id number] Unknown 01/14/25 Unknown Unknown Active Unknown Unknown Unknown [id number] Unknown 09/02/25 Unknown Unknown Active Unknown Patient Care team information Care Team Personnel Name: Constantin Del Toro Kimberly Position: Pharmacist BCMA Member Role: Pharmacy - [facility] Address: [address] Name: MD Kitchen Raymond J Position: Physician - Hem/Onc Member Role: Lifetime Relationship Address: [address] [place] [address] Telecom: [phone] Name: Constantin Ferreira Matthew Position: Pharmacist Member Role: Pharmacy - Lifetime Name: Mame ePrez RPh, William Position: Pharmacist Member Role: Pharmacy - Lifetime Name: MD Soni Ravishankar E Position: Physician Member Role: Primary Care Provider Address: [address] [place] [address] Telecom: [phone] Care Team Related Persons Name: BRUNO YOO Insurance Providers Guarantor name: [facility] Information #: 1 Payer: [employer] Member Number: [id number] Policy Number: NA Group Number: [id number] Health Plan Information #: 2 Payer: [facility] Member Number: [id number] Policy Number: NA Group Number: NA Health Plan Information #: 3 Payer: [employer] PCP ONLY Member Number: NA Policy Number: NA Group Number: NA
--- OUTSIDE RECORDS SUMMARY | 2024-07-09 08:42 | External Medical Summary | Continuity of Care Document ---
Author Name Unknown Organization [facility] Address [address] [place] [id number] Care Team Providers Care Photographic Aide Name Role Phone Samra Soni Primary Care Physician [phone] Encounter [facility] [id number] Date(s): 06/18/24 - 06/18/24 [facility] [place] [facility] [address] [place] [id number]- [phone] Encounter Diagnosis Primary colorectal adenocarcinoma(Discharge Diagnosis) - 06/18/24 Metastasis to liver(Discharge Diagnosis) - 06/18/24 Metastatic colon cancer to liver(Discharge Diagnosis) - 06/18/24 Discharge Disposition: Home or Self Care Attending Physician: MD Kitchen Raymond J Referring Physician: MD Kitchen Raymond J Encounter Type: [facility] [place] Allergies, Adverse Reactions, Alerts Substance Criticality Severity Reaction Reaction Severity Status Percodan Rash Active Functional Status 06/18/24 Gait Steady Immunizations Given and Recorded Vaccine [...] twice a day for 30 days, Pharmacy: [facility] Start Date: 04/07/23 Status: Ordered Quantity: 133.0 Unit: g Repeat number: 1 lisinopril 5 mg oral tablet Start: 05/28/24 10:39:00 AM EST, 1 tab, PO, Daily, Disp# 30 tab, Refills: 1, Pharmacy: [facility] Start Date: 05/28/24 Status: Ordered Quantity: 30.0 Unit: tab Repeat number: 2 magnesium oxide 500 mg oral capsule Start: 05/02/24 2:46:00 PM EST, 1 cap, PO, bid, Disp# 60 cap, Refills: 1, pt states he takes irregularly, Pharmacy: [facility] Start Date: 05/02/24 Stop [...] Pharmacy: [facility] [place] Start Date: 05/28/24 Status: Ordered Quantity: 1.0 [...] per day - 90 day supply, Pharmacy: [facility] Start Date: 03/12/24 Status: Ordered Quantity: 30.0 Unit: mL Repeat number: 5 One Touch Delica Plus (33G) Lancets Start: 05/07/22 8:18:00 AM EST, See Instructions, Disp# 100 each, Refills: 3, use for blood glucose testing up to 8x/day, Pharmacy: [facility] Start Date: 05/07/22 Status: Ordered [...] out of pocket if cheap enough, Pharmacy: [facility] Start Date: 08/24/23 Status: Ordered Quantity: 1.0 Unit: each Repeat number: 1 Indication: Type 1 diabetes mellitus with unspecified complications One Touch Verio Test Strips Start: 03/14/24 8:02:00 AM EST, See Instructions, Disp# 800 each, Refills: 3, test up to 8x/day as needed for Type 1 DM, Pharmacy: [facility] Start Date: 03/14/24 Status: Ordered Quantity: 800.0 Unit: each Repeat number: 4 Indication: Type 1 diabetes mellitus with unspecified complications ONETOUCH VERIO TEST STRIP Start: 06/07/24 8:48:00 AM EST, ONETOUCH VERIO TEST STRIP, See Instructions, Disp# 800 strip, Refills: 0, TEST UP TO 8 TIMES DAILY NEEDED, Pharmacy [facility] Start Date: 06/07/24 Status: Ordered Quantity: 800.0 Unit: Repeat number: 1 ONETOUCH VERIO TEST STRIP Start: 03/14/24 8:05:00 AM EST, ONETOUCH VERIO TEST STRIP, See Instructions, Disp# 800 strip, Refills: 0, TEST UP TO 8 TIMES DAILY NEEDED, Pharmacy [facility] Start Date: 03/14/24 Status: Ordered Quantity: 800.0 Unit: Repeat number: 1 Potassium Chloride (Eqv-K-Tab) 20 mEq oral tablet, extended release Start: 04/16/24 2:24:00 PM EST, 1 tab, PO, Daily, Disp# 30 tab, Refills: 0, Pharmacy: [facility] Start Date: 04/16/24 Status: Ordered Quantity: 30.0 Unit: tab Repeat number: 1 Pyridium 200 mg oral tablet Start: 05/04/24 3:01:00 PM EST, 1 tab, PO, tid, Disp# 6 tab, PRN: as needed for urinary discomfort, Pharmacy: [facility] [place] Start Date: 05/04/24 Stop Date: 05/06/24 Status: Ordered Quantity: 6.0 Unit: tab Repeat number: 1 Semglee (Vial) 100 units/mL subcutaneous solution Start: 03/12/24 11:19:00 AM EST, 20 unit =, subQ, Daily, Disp# 30 mL, Refills: 3, Pharmacy: [facility] Start Date: 03/12/24 Stop Date: [...] Daily, Disp# 90 tab, Refills: 3, Pharmacy: [facility] Start Date: 03/12/24 Status: Ordered Quantity: 90.0 Unit: tab Repeat number: 4 Syringe MIS 0.3/31gauge Start: 03/12/24 11:19:00 AM EST, Syringe MIS 0.331gauge, eRx Product Type: Supply, See Instructions, Disp# 500 each, Refills: 3, Pt uses 6 syringes daily. E11.9, Pharmacy [facility] Start Date: 03/12/24 Status: Ordered Quantity: 500.0 Unit: each Repeat number: 4 Syringe MIS 0.331gauge Start: 01/01/22 10:03:00 AM EDT, Syringe MIS 0.3/31gauge, eRx Product Type: Supply, See Instructions, Disp# 500 each, Refills: 3, Pt uses 6 syringes daily. E11.9, Pharmacy [facility] Start Date: 01/01/22 Status: Ordered Quantity: 500.0 Unit: each Repeat number: 4 Vitamin B12 1000 mcg oral tablet Start: 10/24/23 10:35:00 AM EDT, 1 tab, PO, Daily, Disp# 90 tab, Refills: 0, Pharmacy: [facility] Start Date: 10/24/23 Stop Date: 01/22/24 Status: Ordered Quantity: 90.0 Unit: tab Repeat number: 1 ZyrTEC Start: 02/06/24 8:29:00 AM EDT, PO, Daily Start Date: 02/06/24 Status: Ordered Repeat number: 1 Mental Status 06/18/24 Barriers to Learning one year None evide nt Problem List Condition Confirmation Course Effective Dates [...] Service Informant Primary colorectal adenocarcinoma Discharge Diagnosis 06/18/24 Non-Specified Metastasis to liver Discharge Diagnosis 06/18/24 Non-Specified Metastatic colon cancer to liver Discharge Diagnosis 06/18/24 Non-Specified Procedures Procedure Date Related Diagnosis Body [...] oldest [Reference Range]: 1 Temperature [36.5-37.9 DegC] 36.3 DegC *LOW* (06/18/24 10:44 AM) Heart Rate 68 bpm (06/18/24 10:44 AM) Respiratory Rate 18 br/min (06/18/24 10:44 AM) Blood Pressure 118/63mmHg (06/18/24 10:44 AM) Cuff Pulse Pressure 55 mmHg (06/18/24 10:44 AM) BP Location # 1 Right Arm (06/18/24 10:44 AM) Social History Social History Type Response [...] Safety Implantable Status Assigning Authority Unknown Unknown [id number] Unknown 06/15/26 Unknown Unknown Active Unknown Procedure Provider Procedure Date Device Type Site Unknown Unknown 01/03/24 Unknown Unknown Device Identifier Serial Number Lot or Batch Number Manufacturing Date Expiration Date Distinct Identification Code MRI Safety Implantable Status Assigning Authority Unknown Unknown [id number] Unknown 09/16/26 Unknown Unknown Active Unknown Unknown Unknown [id number] Unknown 09/28/25 Unknown Unknown Active Unknown Procedure Provider Procedure Date Device Type Site Unknown Unknown 09/02/23 Unknown Unknown Device Identifier Serial Number Lot or Batch Number Manufacturing Date Expiration Date Distinct Identification Code MRI Safety Implantable Status Assigning Authority Unknown Unknown [id number] Unknown 10/29/24 Unknown Unknown Active Unknown Unknown Unknown [id number] 7 Unknown 09/28/25 Unknown Unknown Active Unknown Procedure Provider Procedure Date Device Type Site Unknown Unknown 03/16/23 Unknown Unknown Device Identifier Serial Number Lot or Batch Number Manufacturing Date Expiration Date Distinct Identification Code MRI Safety Implantable Status Assigning Authority Unknown Unknown [id number] Unknown 01/14/25 Unknown Unknown Active Unknown Unknown Unknown [id number] Unknown 09/02/25 Unknown Unknown Active Unknown Patient Care team information Care Team Personnel Name: Constantin Del Toro Kimberly Position: Pharmacist BCMA Member Role: Pharmacy - Lifetime Address: [address] Name: MD Kitchen Raymond J Position: Physician - Hem/Onc Member Role: Lifetime Relationship Address: [address] [place] [address] Telecom: [phone] Name: Constantin Ferreira Matthew Position: Pharmacist Member Role: Pharmacy - Lifetime Name: Mame Perez RPh, William Position: Pharmacist Member Role: Pharmacy - Lifetime Name: MD Soni Ravishankar E Position: Physician Member Role: Primary Care Provider Address: [address] [place] [address] Telecom: [phone] Care Team Related Persons Name: BRUNO YOO Insurance Providers Guarantor name: BERNY RUBIO Health Plan Information #: 1 Payer: [employer] Member Number: [id number] Policy Number: NA Group Number: [id number] Health Plan Information #: 2 Payer: [employer] Member Number: [id number] Policy Number: NA Group Number: NA Health Plan Information #: 3 Payer: [employer] PCP ONLY Member Number: NA Policy Number: NA Group Number: NA
--- OUTSIDE RECORDS SUMMARY | 2024-07-09 08:42 | External Medical Summary | Continuity of Care Document ---
Author Name Unknown Organization [facility] Address [address] [place] [id number] Care Team Providers Care Logistics Tech Name Role Phone Samra Soni Primary Care Physician [phone] Encounter [facility] [id number] Date(s): 05/28/24 - 05/28/24 [facility] [place] [facility] [address] [place] [id number]- [phone] Encounter Diagnosis UTI symptoms(Discharge Diagnosis) - 04/18/24 Primary colorectal adenocarcinoma(Discharge Diagnosis) - 05/28/24 Metastatic colon cancer to liver(Discharge Diagnosis) - 05/28/24 Discharge Disposition: Home or Self Care Attending Physician: MD Kitchen Raymond J Referring Physician: MD Kitchen Raymond J Encounter Type: [facility] [place] Allergies, Adverse Reactions, Alerts Substance Criticality Severity Reaction Reaction Severity Status Percodan Rash Active Functional Status 05/28/24 Gait Steady Immunizations Given and Recorded Vaccine [...] twice a day for 30 days, Pharmacy: [id number] Start Date: 04/07/23 Status: Ordered Quantity: 133.0 Unit: g Repeat number: 1 lisinopril 5 mg oral tablet Start: 05/28/24 10:39:00 AM EST, 1 tab, PO, Daily, Disp# 30 tab, Refills: 1, Pharmacy: [id number] Start Date: 05/28/24 Status: Ordered Quantity: 30.0 Unit: tab Repeat number: 2 magnesium oxide 500 mg oral capsule Start: 05/02/24 2:46:00 PM EST, 1 cap, PO, bid, Disp# 60 cap, Refills: 1, pt states he takes irregularly, Pharmacy: [id number] Start Date: 05/02/24 [...] 60 syringes x refills x 3, Pharmacy: [facility] [place] Start Date: 05/28/24 Status: Ordered Quantity: 1.0 [...] per day - 90 day supply, Pharmacy: [facility] Start Date: 03/12/24 Status: Ordered Quantity: 30.0 Unit: mL Repeat number: 5 One Touch Delica Plus (33G) Lancets Start: 05/07/22 8:18:00 AM EST, See Instructions, Disp# 100 each, Refills: 3, use for blood glucose testing up to 8x/day, Pharmacy: [facility] Start Date: 05/07/22 Status: Ordered Quantity: [...] out of pocket if cheap enough, Pharmacy: [facility] Start Date: 08/24/23 Status: Ordered Quantity: 1.0 Unit: each Repeat number: 1 Indication: Type 1 diabetes mellitus with unspecified complications One Touch Verio Test Strips Start: 03/14/24 8:02:00 AM EST, See Instructions, Disp# 800 each, Refills: 3, test up to 8x/day as needed for Type 1 DM, Pharmacy: [facility] Start Date: 03/14/24 Status: Ordered Quantity: 800.0 Unit: each Repeat number: 4 Indication: Type 1 diabetes mellitus with unspecified complications ONETOUCH VERIO TEST STRIP Start: 03/14/24 8:05:00 AM EST, ONETOUCH VERIO TEST STRIP, See Instructions, Disp# 800 strip, Refills: 0, TEST UP TO 8 TIMES DAILY NEEDED, Pharmacy [facility] Start Date: 03/14/24 Status: Ordered Quantity: 800.0 Unit: Repeat number: 1 Potassium Chloride (Eqv-K-Tab) 20 mEq oral tablet, extended release Start: 04/16/24 2:24:00 PM EST, 1 tab, PO, Daily, Disp# 30 tab, Refills: 0, Pharmacy: [id number] Start Date: 04/16/24 Status: Ordered Quantity: 30.0 Unit: tab Repeat number: 1 Pyridium 200 mg oral tablet Start: 05/04/24 3:01:00 PM EST, 1 tab, PO, tid, Disp# 6 tab, PRN: as needed for urinary discomfort, Pharmacy: [facility] [place] Start Date: 05/04/24 Stop Date: 05/06/24 Status: Ordered Quantity: 6.0 Unit: tab Repeat number: 1 Semglee (Vial) 100 units/mL subcutaneous solution Start: 03/12/24 11:19:00 AM EST, 20 unit =, subQ, Daily, Disp# 30 mL, Refills: 3, Pharmacy: [facility] Start Date: 03/12/24 Stop Date: 03/07/25 [...] Daily, Disp# 90 tab, Refills: 3, Pharmacy: [facility] Start Date: 03/12/24 Status: Ordered Quantity: 90.0 Unit: tab Repeat number: 4 Syringe MIS 0.3/31gauge Start: 03/12/24 11:19:00 AM EST, Syringe MIS 0.3/31gauge, eRx Product Type: Supply, See Instructions, Disp# 500 each, Refills: 3, Pt uses 6 syringes daily. E11.9, Pharmacy [facility] Start Date: 03/12/24 Status: Ordered Quantity: 500.0 Unit: each Repeat number: 4 Syringe MIS 0.3/31gauge Start: 01/01/22 10:03:00 AM EDT, Syringe MIS 0.3/31gauge, eRx Product Type: Supply, See Instructions, Disp# 500 each, Refills: 3, Pt uses 6 syringes daily. E11.9, Pharmacy [facility] Start Date: 01/01/22 Status: Ordered Quantity: 500.0 Unit: each Repeat number: 4 Vitamin B12 1000 mcg oral tablet Start: 10/24/23 10:35:00 AM EDT, 1 tab, PO, Daily, Disp# 90 tab, Refills: 0, Pharmacy: [facility] Start Date: 10/24/23 Stop Date: 01/22/24 [...] Effective Dates Health Status Clinical Service Informant UTI symptoms Discharge Diagnosis 04/18/24 Non-Specified Primary colorectal adenocarcinoma Discharge Diagnosis 05/28/24 Non-Specified Metastatic colon cancer to liver Discharge Diagnosis 05/28/24 Non-Specified Procedures Procedure Date [...] oldest [Reference Range]: 1 Temperature [36.5-37.9 DegC] 36.2 DegC *LOW* (05/28/24 11:59 AM) Heart Rate 84 bpm (05/28/24 11:59 AM) Respiratory Rate 16 br/min (05/28/24 11:59 AM) Blood Pressure 134/64mmHg (05/28/24 11:59 AM) Cuff Pulse Pressure 70 mmHg (05/28/24 11:59 AM) BP Location # 1 Left Arm (05/28/24 11:59 AM) Social History Social History Type Response [...] Safety Implantable Status Assigning Authority Unknown Unknown [id number] Unknown 06/15/26 Unknown Unknown Active Unknown Procedure Provider Procedure Date Device Type Site Unknown Unknown 01/03/24 Unknown Unknown Device Identifier Serial Number Lot or Batch Number Manufacturing Date Expiration Date Distinct Identification Code MRI Safety Implantable Status Assigning Authority Unknown Unknown [id number] Unknown 09/16/26 Unknown Unknown Active Unknown Unknown Unknown [id number] Unknown 09/28/25 Unknown Unknown Active Unknown Procedure Provider Procedure Date Device Type Site Unknown Unknown 09/02/23 Unknown Unknown Device Identifier Serial Number Lot or Batch Number Manufacturing Date Expiration Date Distinct Identification Code MRI Safety Implantable Status Assigning Authority Unknown Unknown [id number] Unknown 10/29/24 Unknown Unknown Active Unknown Unknown Unknown [id number] Unknown 09/28/25 Unknown Unknown Active Unknown Procedure Provider Procedure Date Device Type Site Unknown Unknown 03/16/23 Unknown Unknown Device Identifier Serial Number Lot or Batch Number Manufacturing Date Expiration Date Distinct Identification Code MRI Safety Implantable Status Assigning Authority Unknown Unknown [id number] Unknown 01/14/25 Unknown Unknown Active Unknown Unknown Unknown [id number] Unknown 09/02/25 Unknown Unknown Active Unknown Patient Care team information Care Team Personnel Name: Constantin Del Toro Kimberly Position: Pharmacist [employer] Member Role: Pharmacy - Lifetime Address: [address] Name: MD Kitchen Raymond J Position: Physician - Hem/Onc Member Role: Lifetime Relationship Address: [address] [place] [address] Telecom: [phone] Name: Constantin Ferreira Matthew Position: Pharmacist Member Role: Pharmacy - Lifetime Name: Mame Perez RPh, William Position: Pharmacist Member Role: Pharmacy - Lifetime Name: MD Zachariah, Samra Cano Position: Physician Member Role: Primary Care Provider Address: [address] [place] [address] Telecom: [phone] Care Team Related Persons Name: BRUNO YOO Insurance Providers Guarantor name: BERNY RUBIO Health Plan Information #: 1 Payer: [employer] Member Number: [id number] Policy Number: NA Group Number: [id number] Health Plan Information #: 2 Payer: [employer] Member Number: [id number] Policy Number: NA Group Number: NA Health Plan Information #: 3 Payer: [employer] PCP ONLY Member Number: NA Policy Number: NA Group Number: NA
--- OUTSIDE RECORDS SUMMARY | 2024-07-09 08:42 | External Medical Summary | Continuity of Care Document ---
Author Name Unknown Organization [facility] Address [address] [place] [address] JOSIE ANDERSON [phone] Care Team Providers Care Senior Pensions Administrator Name Role Phone Samra Soni Primary Care Physician [phone] Encounter [facility] [id number] Date(s): 05/07/24 - 05/07/24 [facility] [id number], [place] [address]- [phone] Encounter Diagnosis Primary colorectal adenocarcinoma(Discharge Diagnosis) - 05/07/24 Hypertension(Discharge Diagnosis) - 05/07/24 Ureteral obstruction(Discharge Diagnosis) - 05/07/24 Discharge Disposition: Home or Self Care Attending Physician: MD Kitchen Raymond J Referring Physician: MD Kitchen Raymond J Allergies, Adverse Reactions, Alerts Substance Criticality Severity Reaction Reaction Severity Status Percodan Rash Active Assessment and Plan Extracted from: Title:Oncology Office Visit Note Author:Gianni Woodall Annie Date:05/07/24 63 y/o male with metastatic colon cancer [...] is his baseline. - 01/05/24 scans at [facility]- per patient show disease progression. -Will hold Avastin therapy given elevated protein urea; - Started Panitumumab as additional agent given disease progression. - S/p first dose on 02/06/24, presents for dose #7 today.Tolerating well so far. - CT scan again reviewed with patient today. Discussed small increasing pulmonary nodules. Recommend continuing treatment as planned as patient does not wish to have traditional chemotherapy due to side effects. 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 - Discussed with patient nephrology recommended 40 mg daily. Patient requesting to start at 20 mg daily and titrate upward. Script sent to pharmacy. -Continue following with nephrology. Acneform rash to face - Continue with benzyl peroxideointment. - Can consider derm referral if ongoing. Dispo:Patient will return in3 weeks time (Dr. Kitchen away) for labs, treatment and OV to monitor swelling and rash. Attending: I performed all the medical decision [...] off of each 21 day cycle., Pharmacy: [facility] Start Date: 05/08/24 Status: Ordered Gold Gutierrez Medicated Maximum Strength Pain and Itch 4% topical cream Start: 04/07/23 12:16:00 PM EST, See Instructions, Disp# 133 g, Refills: 0, not to exceed 3 applications in 24 hours, Note to Pharmacy: use twice a day for 30 days, Pharmacy: [id number] Start Date: 04/07/23 Status: Ordered lisinopril 20 mg oral tablet Start: 05/07/24 9:23:00 AM EST, 1 tab, PO, Daily, Disp# 30 tab, Refills: 1, Pharmacy: [id number] Start Date: 05/07/24 Stop Date: 07/06/24 Status: Ordered magnesium oxide 500 mg oral capsule Start: 05/02/24 2:46:00 PM EST, 1 cap, PO, bid, Disp# 60 cap, Refills: 1, pt states he takes irregularly, Pharmacy: [id number] Start Date: 05/02/24 Stop [...] Daily, Disp# 90 tab, Refills: 0, Pharmacy: [facility] Start Date: 02/20/24 Stop Date: 05/20/24 Status: Ordered NovoLOG 100 units/mL injectable solution Start: 03/12/24 11:19:00 AM EST, See Instructions, Disp# 30 mL, Refills: 4, USE 1 UNIT PER 15 GRAMS OF CARBS, INJECTING UP TO 6 TIMES PER DAY NEEDED - using 30 units per day - 90 day supply, Pharmacy: [facility] Start Date: 03/12/24 Status: Ordered One Touch Delica Plus (33G) Lancets Start: 05/07/22 8:18:00 AM EST, See Instructions, Disp# 100 each, Refills: 3, use for blood glucose testing up to 8x/day, Pharmacy: [facility] Start Date: 05/07/22 Status: Ordered One Touch Verio Flex Glucose Monitor Start: 08/24/23 7:58:00 AM EDT, See Instructions, Disp# 1 each, Refills: 0, test up to 8x/daily as directed for Type 1 DM, Note to Pharmacy: Pt aware insurance may not cover since it was replaced 2022. He would pay out of pocket if cheap enough, Pharmacy: [facility] Start Date: 08/24/23 Status: Ordered One Touch Verio Test Strips Start: 03/14/24 8:02:00 AM EST, See Instructions, Disp# 800 each, Refills: 3, test up to 8x/day as needed for Type 1 DM, Pharmacy: [facility] Start Date: 03/14/24 Status: Ordered ONETOUCH VERIO TEST STRIP Start: 03/14/24 8:05:00 AM EST, ONETOUCH VERIO TEST STRIP, See Instructions, Disp# 800 strip, Refills: 0, TEST UP TO 8 TIMES DAILY NEEDED, Pharmacy [facility] Start Date: 03/14/24 Status: Ordered Potassium Chloride (Eqv-K-Tab) 20 mEq oral tablet, extended release Start: 04/16/24 2:24:00 PM EST, 1 tab, PO, Daily, Disp# 30 tab, Refills: 0, Pharmacy: [id number] Start Date: 04/16/24 Status: Ordered Pyridium 200 mg oral tablet Start: 05/04/24 3:01:00 PM EST, 1 tab, PO, tid, Disp# 6 tab, PRN: as needed for urinary discomfort, Pharmacy: [facility] Start Date: 05/04/24 Stop Date: 05/06/24 Status: Ordered Semglee (Vial) 100 units/mL subcutaneous solution Start: 03/12/24 11:19:00 AM EST, 20 unit =, subQ, Daily, Disp# 30 mL, Refills: 3, Pharmacy: [facility] Start Date: 03/12/24 Stop Date: 03/07/25 Status: Ordered Senna Start: 07/26/22 12:43:00 PM EDT, 8.6 mg =, PO, 2 tabs by mouth daily, PRN: as needed for constipation Start Date: 07/26/22 Status: Ordered Synthroid 125 mcg (0.125 mg) oral tablet Start: 03/12/24 11:19:00 AM EST, 1 tab, PO, Daily, Disp# 90 tab, Refills: 3, Pharmacy: [facility] Start Date: 03/12/24 Status: Ordered Syringe MIS 0.3/31gauge Start: 03/12/24 11:19:00 AM EST, Syringe MIS 0.3/31gauge, eRx Product Type: Supply, See Instructions, Disp# 500 each, Refills: 3, Pt uses 6 syringes daily. E11.9, Pharmacy [facility] Start Date: 03/12/24 Status: Ordered Syringe MIS 0.3/31gauge Start: 01/01/22 10:03:00 AM EDT, Syringe MIS 0.3/31gauge, eRx Product Type: Supply, See Instructions, Disp# 500 each, Refills: 3, Pt uses 6 syringes daily. E11.9, Pharmacy [facility] Start Date: 01/01/22 Status: Ordered Vitamin B12 1000 mcg oral tablet Start: 10/24/23 10:35:00 AM EDT, 1 tab, PO, Daily, Disp# 90 tab, Refills: 0, Pharmacy: [facility] Start Date: 10/24/23 Stop Date: 01/22/24 Status: Ordered ZyrTEC Start: 02/06/24 8:29:00 AM EDT, PO, Daily Start Date: 02/06/24 Status: Ordered Mental Status 05/07/24 Barriers to Learning one year None evide nt Mandatory Health Literacy Documentation Yes Communication Barrier Present No Health Literacy Communication Barriers N ever Primary Language [place] Problem List Condition Confirmation Course Effective Dates [...] Service Informant Primary colorectal adenocarcinoma Discharge Diagnosis 05/07/24 Ureteral obstruction Discharge Diagnosis 05/07/24 Hypertension Discharge Diagnosis 05/07/24 Procedures Procedure Date Related Diagnosis Body Site [...] Laboratory List Name Date Carcinoembryonic Antigen (CEA) 05/07/24 Complete Blood Count w Differential (CBC ,DIFFH) 05/07/24 Comprehensive Metabolic Panel (COMP META B PANEL) 05/07/24 Phos, Mg (PHOS, MG) 05/07/24 Most recent to oldest [Reference Range]: 1 eGFR CKD-EPI [>60 mL/min/1.73 m2] >90 mL /min/1.73 m2 (05/07/24 7:42 AM) Estimated CrCl 84.90 mL/min (05/07/24 8:31 AM) MPV [9.0-12.2 fL] 10.9 fL (05/07/24 7:42 AM) Immature Gran% 0.4 % (05/07/24 7:42 AM) Neut% 66.8 % (05/07/24 7:42 AM) Lymph% 12.4 % (05/07/24 7:42 AM) [place]% 9.2 % (05/07/24 7:42 AM) Baso% 0.5 % (05/07/24 7:42 AM) Eos% 10.7 % (05/07/24 7:42 AM) Immat Gran, Abs [0-0.4 K/uL] 0.03 K/uL (05/07/24 7:42 AM) Neut, Abs [2.0-7.7 K/uL] 5.62 K/uL (05/07/24 7:42 AM) Lymph, Abs [1.0-3.4 K/uL] 1.04 K/uL (05/07/24 7:42 AM) [place], Abs [0-1.0 K/uL] 0.77 K/uL (05/07/24 7:42 AM) Baso, Abs [0-0.1 K/uL] 0.04 K/uL (05/07/24 7:42 AM) Eos, Abs [0-0.5 K/uL] 0.90 K/uL *HI* (05/07/24 7:42 AM) Type of Diff: AUTO *Unknown* (05/07/24 7:42 AM) RDW [11.5-14.2 %] 15.8 % *HI* (05/07/24 7:42 AM) Anion Gap [5-14 mmol/L] 10 mmol/L (05/07/24 7:42 AM) Alb [3.5-5.2 g/dL] 2.9 g/dL *LOW* (05/07/24 7:42 AM) Alk Phos [40-130 unit/L] 150 unit/L 1 *HI* (05/07/24 7:42 AM) ALT [0-41 unit/L] 10 unit/L (05/07/24 7:42 AM) AST [0-40 unit/L] 17 unit/L (05/07/24 7:42 AM) BUN [6-23 mg/dL] 16 mg/dL (05/07/24 7:42 AM) Ca [8.4-10.2 mg/dL] 7.3 mg/dL *LOW* (05/07/24 7:42 AM) CEA [<4.8 ng/mL] 419.5 ng/mL 2 *HI* (05/07/24 7:42 AM) Cl- [98-107 mmol/L] 102 mmol/L (05/07/24 7:42 AM) HCO3 [22-29 mmol/L] 26 mmol/L (05/07/24 7:42 AM) Cret [0.70-1.30 mg/dL] 0.81 mg/dL (05/07/24 7:42 AM) Glu [74-109 mg/dL] 118 mg/dL 3 *HI* (05/07/24 7:42 AM) Hct [39-48 %] 31.5 % *LOW* (05/07/24 7:42 AM) Hgb [13.0-17.0 g/dL] 9.6 g/dL *LOW* (05/07/24 7:42 AM) K [3.5-5.1 mmol/L] 4.3 mmol/L (05/07/24 7:42 AM) MCH [28-33 pg] 26.8 pg *LOW* (05/07/24 7:42 AM) MCHC [32-36 g/dL] 30.5 g/dL *LOW* (05/07/24 7:42 AM) MCV [81-96 fL] 88.0 fL (05/07/24 7:42 AM) Mg [1.6-2.6 mg/dL] 1.1 mg/dL *LOW* (05/07/24 7:42 AM) Na [136-145 mmol/L] 138 mmol/L (05/07/24 7:42 AM) PO4 [2.5-4.5 mg/dL] 2.3 mg/dL *LOW* (05/07/24 7:42 AM) Plts [150-350 K/uL] 282 K/uL (05/07/24 7:42 AM) RBC [4.40-5.60 M/uL] 3.58 M/uL *LOW* (05/07/24 7:42 AM) T Bili [0.0-1.2 mg/dL] 0.4 mg/dL (05/07/24 7:42 AM) Prot [6.4-8.3 g/dL] 6.1 g/dL *LOW* (05/07/24 7:42 AM) WBC [4.0-10.4 K/uL] 8.40 K/uL (05/07/24 7:42 AM) 1Result Comment: Low levels of ALKP [...] to oldest [Reference Range]: 1 Patient Weight 70.1 kg 1 (05/07/24 8:31 AM) Temperature [36.5-37.9 DegC] 36.9 DegC (05/07/24 8:31 AM) Heart Rate 73 bpm (05/07/24 8:31 AM) Respiratory Rate 16 br/min (05/07/24 8:31 AM) Blood Pressure 118/65mmHg (05/07/24 8:31 AM) Mean Blood Pressure 90 mmHg (05/07/24 8:31 AM) Cuff Pulse Pressure 53 mmHg (05/07/24 8:31 AM) BP Location # 1 Right Arm (05/07/24 8:31 AM) 1Result Comment: w/ shoes on Social History Social History Type Response Tobacco Cigarettes 1 Smoking Status Current every day he shay smoker Sex Male Sex Representation Male (finding) 11 ppd Implantable Device List Procedure Provider Procedure Date Device Type Site Unknown Unknown 05/04/24 Unknown Unknown Device Identifier Serial Number Lot or Batch Number Manufacturing Date Expiration Date Distinct Identification Code MRI Safety Implantable Status Assigning Authority Unknown Unknown [id number] Unknown 06/15/26 Unknown Unknown Active Unknown Procedure Provider Procedure Date Device Type Site Unknown Unknown 01/03/24 Unknown Unknown Device Identifier Serial Number Lot or Batch Number Manufacturing Date Expiration Date Distinct Identification Code MRI Safety Implantable Status Assigning Authority Unknown Unknown [id number] Unknown 09/16/26 Unknown Unknown Active Unknown Unknown Unknown [id number] Unknown 09/28/25 Unknown Unknown Active Unknown Procedure Provider Procedure Date Device Type Site Unknown Unknown 09/02/23 Unknown Unknown Device Identifier Serial Number Lot or Batch Number Manufacturing Date Expiration Date Distinct Identification Code MRI Safety Implantable Status Assigning Authority Unknown Unknown [id number] Unknown 10/29/24 Unknown Unknown Active Unknown Unknown Unknown [id number] Unknown 09/28/25 Unknown Unknown Active Unknown Procedure Provider Procedure Date Device Type Site Unknown Unknown 03/16/23 Unknown Unknown Device Identifier Serial Number Lot or Batch Number Manufacturing Date Expiration Date Distinct Identification Code MRI Safety Implantable Status Assigning Authority Unknown Unknown [id number] Unknown 01/14/25 Unknown Unknown Active Unknown Unknown Unknown [id number] Unknown 09/02/25 Unknown Unknown Active Unknown Hematology/Oncology Outpt Note * MD Fidelina, Bronson Russo: MODIFY MD Kitchen Raymond J: MODIFY, MODIFY, MODIFY CASIE Woodall Annie: MODIFY, MODIFY CASIE Woodall Annie: MODIFY, MODIFY CASIE Woodall Annie: MODIFY, MODIFY CASIE Woodall Annie: MODIFY Event Display: Hematology/Oncology Outpt Note Authored Date: [id number] Chief Complaint f/u visit History of Present [...] bilaterally. 03/22/2022: Diagnosis(Verified) A.Colon, hepatic flexure, biopsy (-6061-S 02/03/22):- Colonic mucosa with focal high-grade dysplasia. B.Colon, transverse, polypectomy ( -2455-S 02/03/22):- Tubular adenoma. C. Colon, sigmoid, biopsy sigmoid colitis (35-S 02/03/22):- No pathological ulceration. D. Rectum, polypectomy (3031-S 02/03/22)":- Fragments of tubular adenoma. 2Liver, side unspecified (core needle biopsy) (-6574-S 02/18/22): - Metastatic moderately differentiated adenocarcinoma. - [...] initially seen by Dr. Sparks in a [facility] who recommended surgical bypass because of [...] are mildly decreased in size. INTERVAL HISTORY 05/07/24: Patient presents for FU and palliative treatment with Panitumumab and capecitabine. Overall, tolerating treatments well. Due for C7 today. Saw Nephrology last week. Recommend restarting lisinopril and stopping amlodipine. Continues with mild pain to abdomen. Rating it 2/10. Denies need for intervention. Typically repositions. Continues with BLE edema. Reports SOB on exertion. Denies CP. Continues taking 125 mcg synthroid daily. Resumed taking PO magnesium and potassium at home. Continues with looser stools which is his norm. Skin is still very dry. Does not feel goldbond cream is helping any more. Appetite is decreased. Weight is stable. Noted BLE edema again. Takes lasix PRN. Has not used since last visit. Feels swelling is extending up leg into thigh now. Denies fevers, chills, CP, or SOB. Denies bleeding or bruising. Review of Systems All other ROS is negative except what is mentioned in HPI. Physical Exam Vital Signs and Measurements This Visit - Last 24 Hours T:36.9C HR:73(Monitored) RR:16 BP:118/65 SpO2:97% WT:70.100kg(Dosing) WT:70.1kg General:Alert, conversant, and answering questions appropriately; in [...] no rash noted. Performance Scales and Status No documentation within the last 12 months Pain Score:2 Patient Declined Assessment on:05/07/2024 08:29 Distress Inventory [...] is his baseline. - 01/05/24 scans at [facility]- per patient show disease progression. -Will hold Avastin therapy given elevated protein urea; - Started Panitumumab as additional agent given disease progression. - S/p first dose on 02/06/24, presents for dose #7 today.Tolerating well so far. - CT scan again reviewed with patient today. Discussed small increasing pulmonary nodules. Recommend continuing treatment as planned as patient does not wish to have traditional chemotherapy due to side effects. 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 - Discussed with patient nephrology recommended 40 mg daily. Patient requesting to start at 20 mg daily and titrate upward. Script sent to pharmacy. -Continue following with nephrology. Acneform rash to face - Continue with benzyl peroxideointment. - Can consider derm referral if ongoing. Dispo:Patient will return in3 weeks time (Dr. Kitchen away) for labs, treatment and OV to monitor swelling and rash. Attending: I performed all the medical decision [...] and Itch 4% topical cream), See Instructions magnesium oxide(magnesium oxide 500 mg oral capsule), [...] PO, Daily senna(Senna), 8.6 mg, PO, PRN unlisted medication(Syringe MIS 0.3/31gauge), See Instructions, 3 [...] mRNA [id number] vax 11/09/2020 Recorded Labs Na: 138 mmol/L (05/07/24 07:42:00) K: 4.3 mmol/L (05/07/24 07:42:00) Cl-: 102 mmol/L (05/07/24 07:42:00) BUN: 16 mg/dL (05/07/24 07:42:00) Cret: 0.81 mg/dL (05/07/24 07:42:00) Glu:118 mg/dLHigh (05/07/24 07:42:00) Ca:7.3 mg/dLLow (05/07/24 07:42:00) WBC: 8.4 K/uL (05/07/24 07:42:00) Hgb:9.6 g/dLLow (05/07/24 07:42:00) Hct:31.5 %Low (05/07/24 07:42:00) MCV: 88 fL (05/07/24 07:42:00) Plts: 282 K/uL (05/07/24 07:42:00) Neut%: 66.8 % (05/07/24 07:42:00) Baso%: 0.5 % (05/07/24 07:42:00) Neut, Abs: 5.62 K/uL (05/07/24 07:42:00) Lymph, Abs: 1.04 K/uL (05/07/24 07:42:00) ALT: 10 unit/L (05/07/24 07:42:00) T Bili: 0.4 mg/dL (05/07/24 07:42:00) Alk Phos:150 unit/LHigh (05/07/24 07:42:00) AST: 17 unit/L (05/07/24 07:42:00) [1]Oncology Office Visit Note; CASIE Woodall Annie 04/16/2024 07:25 EST Electronic Signature on File CC: CASIE Loco [address] [place] [address] Electronically Reviewed/Signed by: CASIE Loco Author Signature Dt/Tm:05/07/2024 10:04 AM Division of Hematology Oncology Electronically Reviewed/Signed by: Bronson Kitchen MD Cosigner Signature Dt/Tm: 05/08/2024 12:31 PM Division of Hematology Oncology AC Patient Care team information Care Team Personnel Name: Constantin Del Toro Kimberly Position: Pharmacist BCMA Member Role: Pharmacy - Lifetime Address: [place] [address] [place] Name: MD Kitchen Raymond J Position: Physician - Hem/Onc Member Role: Lifetime Relationship Address: [address] [place] [address] [place] Name: Constantin Ferreira Matthew Position: Pharmacist Member Role: Pharmacy - Lifetime Name: Mame Perez RPh, William Position: Pharmacist Member Role: Pharmacy - Lifetime Name: MD Zachariah, Samra Cano Position: Physician Member Role: Primary Care Provider Address: [address] [place] [address] [place] Care Team Related Persons Name: BRUNO YOO
--- OUTSIDE RECORDS SUMMARY | 2024-07-09 08:43 | External Medical Summary | Continuity of Care Document ---
Author Name Unknown Organization [facility] Address [address] [place] [address] JOSIE ANDERSON [phone] Care Team Providers Care Sports Management Professor Name Role Phone SoniRaymondkennediglencass Rachael Primary Care Physician [phone] Encounter [facility] [id number] Date(s): 04/16/24 - 04/16/24 [facility] [address] JOSIE Barton [address]- [phone] Encounter Diagnosis Primary colorectal adenocarcinoma(Discharge Diagnosis) - 04/16/24 Metastatic colon cancer to liver(Discharge Diagnosis) - 04/16/24 Discharge Disposition: Home or Self Care Attending Physician: MD Kitchen Raymond J Referring Physician: MD Kitchen Raymond J Allergies, Adverse Reactions, Alerts Substance Criticality Severity Reaction Reaction Severity Status Percodan Rash Active Functional Status 04/16/24 Gait Steady Medications capecitabine 500 mg oral tablet Start: 01/14/24 5:20:00 PM EDT, 1 tab, PO, bid, Disp# 28 tab, Refills: 5, for 14 days, followed by 7days off of each 21 day cycle., Pharmacy: [facility] Start Date: 01/14/24 Status: Ordered Gold Gutierrez Medicated Maximum Strength Pain and Itch 4% topical cream Start: 04/07/23 12:16:00 PM EST, See Instructions, Disp# 133 g, Refills: 0, not to exceed 3 applications in 24 hours, Note to Pharmacy: use twice a day for 30 days, Pharmacy: [id number] Start Date: 04/07/23 Status: Ordered Lasix 20 mg oral tablet Start: 02/20/24 4:19:00 PM EST, 1 tab, PO, Daily, Disp# 7 tab, Pharm[facility] Start Date: 02/20/24 Stop Date: 02/27/24 Status: Ordered magnesium oxide Start: 04/02/24 11:35:00 AM EST, PO, pt states he takes irregularly Start Date: 04/02/24 Status: Ordered Medical Marijuana Start: 06/28/22 11:57:00 [...] Pharmacy: [facility] Start Date: 02/20/24 Stop Date: [...] UP TO 8 TIMES DAILY NEEDED, Pharmacy [facility] Start Date: 03/14/24 Status: Ordered Potassium Chloride (Eqv-K-Tab) 20 mEq oral tablet, extended release Start: 04/16/24 2:24:00 PM EST, 1 tab, PO, Daily, Disp# 30 tab, Refills: 0, Pharmacy: [id number] Start Date: 04/16/24 Status: Ordered Pyridium 200 mg oral tablet Start: 09/02/23 8:28:00 AM EDT, 1 tab, PO, tid, Disp# 6 tab, PRN: as needed for urinary discomfort, Pharmacy: [facility] Start Date: 09/02/23 Stop Date: 09/04/23 Status: Ordered Pyridium 200 mg oral tablet Start: 01/03/24 4:30:00 PM EDT, 1 tab, PO, tid, Disp# 6 tab, Refills: 0, PRN: as needed for urinary discomfort, Pharmacy: [facility] [place] Start Date: 01/03/24 Stop Date: 01/05/24 Status: Ordered Semglee (Vial) 100 units/mL subcutaneous [...] HOSPITAL PHARMACY Start Date: 01/01/22 Status: Ordered tamsulosin 0.4 mg oral capsule Start: 03/18/23 5:38:00 PM EST, 1 cap, PO, Daily, Disp# 90 cap, Refills: 3, take at night for stent discomfort, Pharmacy: [id number] Start Date: 03/18/23 Stop Date: 03/12/24 Status: Ordered Vitamin B12 1000 mcg oral [...] Service Informant Primary colorectal adenocarcinoma Discharge Diagnosis 04/16/24 Non-Specified Metastatic colon cancer to liver Discharge Diagnosis 04/16/24 Non-Specified Procedures Procedure Date Related Diagnosis Body [...] Laboratory List Name Date Carcinoembryonic Antigen (CEA) 04/16/24 Complete Blood Count w Differential (CBC ,DIFFH) 04/16/24 Comprehensive Metabolic Panel (COMP META B PANEL) 04/16/24 Thyroid Stimulating Hormone (TSH) 04/16/24 Most recent to oldest [Reference Range]: 1 eGFR CKD-EPI [>60 mL/min/1.73 m2] >90 mL /min/1.73 m2 (04/16/24 10:07 AM) Estimated CrCl 116.56 mL/min (04/16/24 12:34 PM) MPV [9.0-12.2 fL] 10.9 fL (04/16/24 10:07 AM) Immature Gran% 1.1 % (04/16/24 10:07 AM) Neut% 71.9 % (04/16/24 10:07 AM) Lymph% 11.3 % (04/16/24 10:07 AM) [place]% 8.9 % (04/16/24 10:07 AM) Baso% 0.5 % (04/16/24 10:07 AM) Eos% 6.3 % (04/16/24 10:07 AM) Immat Gran, Abs [0-0.4 K/uL] 0.10 K/uL (04/16/24 10:07 AM) Neut, Abs [2.0-7.7 K/uL] 6.26 K/uL (04/16/24 10:07 AM) Lymph, Abs [1.0-3.4 K/uL] 0.98 K/uL *LOW* (04/16/24 10:07 AM) [place], Abs [0-1.0 K/uL] 0.77 K/uL (04/16/24 10:07 AM) Baso, Abs [0-0.1 K/uL] 0.04 K/uL (04/16/24 10:07 AM) Eos, Abs [0-0.5 K/uL] 0.55 K/uL *HI* (04/16/24 10:07 AM) Type of Diff: AUTO *Unknown* (04/16/24 10:07 AM) RDW [11.5-14.2 %] 15.8 % *HI* (04/16/24 10:07 AM) Anion Gap [5-14 mmol/L] 11 mmol/L (04/16/24 10:07 AM) Alb [3.5-5.2 g/dL] 2.1 g/dL *LOW* (04/16/24 10:07 AM) Alk Phos [40-130 unit/L] 112 unit/L 1 (04/16/24 10:07 AM) ALT [0-41 unit/L] 7 unit/L (04/16/24 10:07 AM) AST [0-40 unit/L] 18 unit/L (04/16/24 10:07 AM) BUN [6-23 mg/dL] 11 mg/dL (04/16/24 10:07 AM) Ca [8.4-10.2 mg/dL] 5.4 mg/dL 2 *Critical Low* (04/16/24 10:07 AM) CEA [<4.8 ng/mL] 416.2 ng/mL 3 *HI* (04/16/24 10:07 AM) Cl- [98-107 mmol/L] 117 mmol/L 4 *HI* (04/16/24 10:07 AM) HCO3 [22-29 mmol/L] 13 mmol/L 5 *Critical Low* (04/16/24 10:07 AM) Cret [0.70-1.30 mg/dL] 0.59 mg/dL *LOW* (04/16/24 10:07 AM) Glu [74-109 mg/dL] 82 mg/dL 6 (04/16/24 10:07 AM) Hct [39-48 %] 30.2 % *LOW* (04/16/24 10:07 AM) Hgb [13.0-17.0 g/dL] 9.5 g/dL *LOW* (04/16/24 10:07 AM) K [3.5-5.1 mmol/L] 3.0 mmol/L 7 *LOW* (04/16/24 10:07 AM) MCH [28-33 pg] 27.2 pg *LOW* (04/16/24 10:07 AM) MCHC [32-36 g/dL] 31.5 g/dL *LOW* (04/16/24 10:07 AM) MCV [81-96 fL] 86.5 fL (04/16/24 10:07 AM) Na [136-145 mmol/L] 141 mmol/L 8 (04/16/24 10:07 AM) Plts [150-350 K/uL] 253 K/uL (04/16/24 10:07 AM) RBC [4.40-5.60 M/uL] 3.49 M/uL *LOW* (04/16/24 10:07 AM) T Bili [0.0-1.2 mg/dL] 0.3 mg/dL (04/16/24 10:07 AM) Prot [6.4-8.3 g/dL] 5.0 g/dL *LOW* (04/16/24 10:07 AM) TSH [0.30-4.20 uIU/mL] 1.87 uIU/mL (04/16/24 10:07 AM) WBC [4.0-10.4 K/uL] 8.70 K/uL (04/16/24 10:07 AM) 1Result Comment: Low levels of ALKP may indicate a deficiency in zinc, magnesium, or malnutritionbutcan also be an indicator of a rare genetic disease hypophosphatasia (HPP). 2Result Comment: CHECKED QUESTIONABLE RESULT, NEW SPECIMEN REQUESTED RESULTS PHONED READ BACK KARL LOPEZ 04/16/2024 12:34:03 3Result Comment: NON-SMOKERS (PAST/NEVER SMOKERS) 20-69 (YEARS) 3.8 NG/ML (95TH PERCENTILE) 40-69 (YEARS) 5.0 NG/ML (95TH PERCENTILE) SMOKERS (CURRENT) 20-69 (YEARS) 5.5 NG/ML (95TH PERCENTILE) 40-69 (YEARS) 6.5 NG/ML (95TH PERCENTILE) "Methodology: Jonny Elecsys CEA assay performed on the krystal e 601/602 analyzerutilizing electrochemiluminescence immunoassay technology (ECLIA). Results obtained with different assay methods or kitscannot be used interchangeably." 4Result Comment: CHECKED 5Result Comment: CHECKED QUESTIONABLE RESULT, NEW SPECIMEN REQUESTED RESULTS PHONED READ BACK KARL LOPEZ 04/16/2024 12:34:03 6Result Comment: ADA recommendation for FASTING Serum/Plasma Glucose: Normal: 70-100 mg/dL Prediabetes: 100-125 mg/dL Diabetes: 126 mg/dL or higher 7Result Comment: HEMOLYZED SPECIMEN CHECKED 8Result Comment: CHECKED Vital Signs Most recent to oldest [Reference Range]: 1 Height 168.2 cm (04/16/24 9:43 AM) Patient Weight 68.3 kg (04/16/24 9:43 AM) Body Mass Index 24.14 kg/m2 (04/16/24 9:43 AM) Temperature [36.5-37.9 DegC] 36.8 DegC (04/16/24 9:43 AM) Heart Rate 83 bpm (04/16/24 9:43 AM) Respiratory Rate 18 br/min (04/16/24 9:43 AM) Blood Pressure 133/76mmHg (04/16/24 9:43 AM) Cuff Pulse Pressure 57 mmHg (04/16/24 9:43 AM) BP Location # 1 Right Arm (04/16/24 9:43 AM) Social History Social History Type Response [...] Safety Implantable Status Assigning Authority Unknown Unknown [id number] Unknown 09/16/26 Unknown Unknown Active Unknown Unknown Unknown [id number] Unknown 09/28/25 Unknown Unknown Active Unknown Procedure Provider Procedure Date Device Type Site Unknown Unknown 09/02/23 Unknown Unknown Device Identifier Serial Number Lot or Batch Number Manufacturing Date Expiration Date Distinct Identification Code MRI Safety Implantable Status Assigning Authority Unknown Unknown [id number] Unknown 10/29/24 Unknown Unknown Active Unknown Unknown Unknown [id number] Unknown 09/28/25 Unknown Unknown Active Unknown Procedure Provider Procedure Date Device Type Site Unknown Unknown 03/16/23 Unknown Unknown Device Identifier Serial Number Lot or Batch Number Manufacturing Date Expiration Date Distinct Identification Code MRI Safety Implantable Status Assigning Authority Unknown Unknown [id number] Unknown 01/14/25 Unknown Unknown Active Unknown Unknown Unknown [id number] Unknown 09/02/25 Unknown Unknown Active Unknown Patient Care team information Care Team Personnel Name: Constantin Del Toro Kimberly Position: Pharmacist BCMA Member Role: Pharmacy - [facility] Address: [place] [address] [place] Name: MD Kitchen Raymond J Position: Physician - Hem/Onc Member Role: Lifetime Relationship Address: [address] [place] [address] [place] Name: Constantin Ferreira Matthew Position: Pharmacist Member Role: Pharmacy - Lifetime Name: Mame Perez RPh, William Position: Pharmacist Member Role: Pharmacy - Lifetime Name: MD Zachariah, Samra Cano Position: Physician Member Role: Primary Care Provider Address: [address] [place] [address] [place] Care Team Related Persons Name: BRUNO YOO
--- OUTSIDE RECORDS SUMMARY | 2024-07-09 08:43 | External Medical Summary | Continuity of Care Document ---
Author Name Unknown Organization [facility] Address [address] [place] [address] JOSIE ANDERSON [phone] Care Team Providers Care Chick Room Supervisor Name Role Phone Samra Soni Primary Care Physician [phone] [facility] [id number] Date(s): 05/04/24 - 05/04/24 [facility] [address], [place] [address]- [phone] Discharge Disposition: Home or Self Care Attending Physician: CASIE Woodall Annie Referring Physician: CASIE Woodall Annie Allergies, Adverse Reactions, Alerts Substance Criticality Severity Reaction Reaction Severity Status Percodan Rash Active Immunizations Given and Recorded Vaccine Date Status Refusal Reason SARS-CoV-2 (COVID-19) mRNA BNT-162b2 vax 12/10/20 Recorded SARS-CoV-2 (COVID-19) mRNA BNT-162b2 vax 11/09/20 Recorded Medications capecitabine 500 mg oral tablet Start: 05/03/24 9:36:00 AM EST, 1 tab, PO, bid, Disp# 28 tab, Refills: 5, for 14 days, followed by 7days off of each 21 day cycle., Pharmacy: [facility] Start Date: 05/03/24 Status: Ordered Gold Gutierrez Medicated Maximum Strength Pain and Itch 4% topical cream Start: 04/07/23 12:16:00 PM EST, See Instructions, Disp# 133 g, Refills: 0, not to exceed 3 applications in 24 hours, Note to Pharmacy: use twice a day for 30 days, Pharmacy: [id number] Start Date: 04/07/23 Status: Ordered magnesium oxide 500 mg oral capsule Start: 05/02/24 2:46:00 PM EST, 1 cap, PO, bid, Disp# 60 cap, Refills: 1, pt states he takes irregularly, Pharmacy: [id number] Start Date: 05/02/24 [...] Daily, Disp# 90 tab, Refills: 0, Pharmacy: [facility] Start Date: 02/20/24 Stop Date: 05/20/24 Status: Ordered NovoLOG 100 units/mL injectable solution Start: 03/12/24 11:19:00 AM EST, See Instructions, Disp# 30 mL, Refills: 4, USE 1 UNIT PER 15 GRAMS OF CARBS, INJECTING UP TO 6 TIMES PER DAY NEEDED - using 30 units per day - 90 day supply, Pharmacy: [facility] Start Date: 03/12/24 Status: Ordered One Touch Delica Plus (33G) Lancets Start: 05/07/22 8:18:00 AM EST, See Instructions, Disp# 100 each, Refills: 3, use for blood glucose testing up to 8x/day, Pharmacy: [facility] Start Date: 05/07/22 Status: Ordered One Touch Verio Flex Glucose Monitor Start: 08/24/23 7:58:00 AM EDT, See Instructions, Disp# 1 each, Refills: 0, test up to 8x/daily as directed for Type 1 DM, Note to Pharmacy: Pt aware insurance may not cover since it was replaced 2022. He would pay out of pocket if cheap enough, Pharmacy: [facility] Start Date: 08/24/23 Status: Ordered One Touch Verio Test Strips Start: 03/14/24 8:02:00 AM EST, See Instructions, Disp# 800 each, Refills: 3, test up to 8x/day as needed for Type 1 DM, Pharmacy: [facility] Start Date: 03/14/24 Status: Ordered ONETOUCH VERIO TEST STRIP Start: 03/14/24 8:05:00 AM EST, ONETOUCH VERIO TEST STRIP, See Instructions, Disp# 800 strip, Refills: 0, TEST UP TO 8 TIMES DAILY NEEDED, Pharmacy [facility] Start Date: 03/14/24 Status: Ordered Potassium Chloride (Eqv-K-Tab) 20 mEq oral tablet, extended release Start: 04/16/24 2:24:00 PM EST, 1 tab, PO, Daily, Disp# 30 tab, Refills: 0, Pharmacy: [id number] Start Date: 04/16/24 Status: Ordered Pyridium 200 mg oral tablet Start: 05/04/24 3:01:00 PM EST, 1 tab, PO, tid, Disp# 6 tab, PRN: as needed for urinary discomfort, Pharmacy: [facility] [place] Start Date: 05/04/24 Stop Date: 05/06/24 Status: Ordered Semglee (Vial) 100 units/mL subcutaneous solution Start: 03/12/24 11:19:00 AM EST, 20 unit =, subQ, Daily, Disp# 30 mL, Refills: 3, Pharmacy: [facility] Start Date: 03/12/24 Stop Date: 03/07/25 Status: Ordered Senna Start: 07/26/22 12:43:00 PM EDT, 8.6 mg =, PO, 2 tabs by mouth daily, PRN: as needed for constipation Start Date: 07/26/22 Status: Ordered Synthroid 125 mcg (0.125 mg) oral tablet Start: 03/12/24 11:19:00 AM EST, 1 tab, PO, Daily, Disp# 90 tab, Refills: 3, Pharmacy: [facility] Start Date: 03/12/24 Status: Ordered Syringe MIS 0.3/31gauge Start: 03/12/24 11:19:00 AM EST, Syringe MIS 0.3/31gauge, eRx Product Type: Supply, See Instructions, Disp# 500 each, Refills: 3, Pt uses 6 syringes daily. E11.9, Pharmacy [facility] Start Date: 03/12/24 Status: Ordered Syringe MIS 0.3/31gauge Start: 01/01/22 10:03:00 AM EDT, Syringe MIS 0.3/31gauge, eRx Product Type: Supply, See Instructions, Disp# 500 each, Refills: 3, Pt uses 6 syringes daily. E11.9, Pharmacy [facility] Start Date: 01/01/22 Status: Ordered Vitamin B12 1000 mcg oral tablet Start: 10/24/23 10:35:00 AM EDT, 1 tab, PO, Daily, Disp# 90 tab, Refills: 0, Pharmacy: [facility] Start Date: 10/24/23 Stop Date: 01/22/24 [...] exchange- bilateral Results Laboratory List Name Date Urine Analysis, Microscopic Only (URINE MICROSCOPIC) 05/04/24 Protein/Creatinine Ratio, Urine (UR PROT /CREAT RATIO) 05/04/24 Urine Analysis w/ Reflexed Microscopic. (URINE W/REFLEX MICR) 05/04/24 Complete Blood Count w Differential (CBC ,DIFFH) 05/04/24 Magnesium Level (MAGNESIUM) 05/04/24 Nephrology Panel (NEPHROLOGY PANEL) 05/04 Most recent to oldest [Reference Range]: 1 eGFR CKD-EPI [>60 mL/min/1.73 m2] 76 mL/ min/1.73 m2 (05/04/24 11:08 AM) Estimated CrCl 63.09 mL/min (05/04/24 11:47 AM) Prot/Cret (u) 3.85 (05/04/24 11:09 AM) MPV [9.0-12.2 fL] 10.6 fL (05/04/24 11:08 AM) Immature Gran% 1.7 % (05/04/24 11:08 AM) Neut% 80.4 % (05/04/24 11:08 AM) Lymph% 7.9 % (05/04/24 11:08 AM) [place]% 7.3 % (05/04/24 11:08 AM) Baso% 0.4 % (05/04/24 11:08 AM) Eos% 2.3 % (05/04/24 11:08 AM) Immat Gran, Abs [0-0.4 K/uL] 0.18 K/uL (05/04/24 11:08 AM) Neut, Abs [2.0-7.7 K/uL] 8.54 K/uL *HI* (05/04/24 11:08 AM) Lymph, Abs [1.0-3.4 K/uL] 0.84 K/uL *LOW* (05/04/24 11:08 AM) [place], Abs [0-1.0 K/uL] 0.78 K/uL (05/04/24 11:08 AM) Baso, Abs [0-0.1 K/uL] 0.04 K/uL (05/04/24 11:08 AM) Eos, Abs [0-0.5 K/uL] 0.24 K/uL (05/04/24 11:08 AM) Type of Diff: AUTO *Unknown* (05/04/24 11:08 AM) RDW [11.5-14.2 %] 16.1 % *HI* (05/04/24 11:08 AM) Protein (u) ran [<26 mg/dL] 451 mg/dL *HI* (05/04/24 11:09 AM) Squamous Epithelial Cells (u) NONE *Unknown* (05/04/24 11:10 AM) Mucous (u) FEW *Unknown* (05/04/24 11:10 AM) Anion Gap [5-14 mmol/L] 11 mmol/L (05/04/24 11:08 AM) Alb [3.5-5.2 g/dL] 2.8 g/dL *LOW* (05/04/24 11:08 AM) Bact (u) [NONE-NONE] NONE *Unknown* (05/04/24 11:10 AM) Bili (u) [NEG] REQUEST CREDITED 1 *Abnormal* (05/04/24 11:09 AM) BUN [6-23 mg/dL] 18 mg/dL (05/04/24 11:08 AM) Ca [8.4-10.2 mg/dL] 7.3 mg/dL *LOW* (05/04/24 11:08 AM) Cl- [98-107 mmol/L] 103 mmol/L (05/04/24 11:08 AM) HCO3 [22-29 mmol/L] 22 mmol/L (05/04/24 11:08 AM) Cret [0.70-1.30 mg/dL] 1.09 mg/dL (05/04/24 11:08 AM) Glu [74-109 mg/dL] 171 mg/dL 2 *HI* (05/04/24 11:08 AM) Hct [39-48 %] 29.6 % *LOW* (05/04/24 11:08 AM) Hgb [13.0-17.0 g/dL] 9.7 g/dL *LOW* (05/04/24 11:08 AM) K [3.5-5.1 mmol/L] 4.2 mmol/L (05/04/24 11:08 AM) Ketones [NEG mg/dL] REQUEST CREDITED mg/ dL 3 *Abnormal* (05/04/24 1109 AM) Leuk Est [NEG] REQUEST CREDITED 4 *Abnormal* (05/04/24 11:09 AM) MCH [28-33 pg] 27.7 pg *LOW* (05/04/24 11:08 AM) MCHC [32-36 g/dL] 32.8 g/dL (05/04/24 11:08 AM) MCV [81-96 fL] 84.6 fL (05/04/24 11:08 AM) Mg [1.6-2.6 mg/dL] 0.9 mg/dL *LOW* (05/04/24 11:08 AM) Na [136-145 mmol/L] 136 mmol/L (05/04/24 11:08 AM) Nitrite (u) [NEG] REQUEST CREDITED 5 *Abnormal* (05/04/24 11:09 AM) PO4 [2.5-4.5 mg/dL] 3.1 mg/dL (05/04/24 11:08 AM) Plts [150-350 K/uL] 307 K/uL (05/04/24 11:08 AM) RBC [4.40-5.60 M/uL] 3.50 M/uL *LOW* (05/04/24:08 AM) Appear (u) REQUEST CREDITED 6 *Unknown* (05/04/24 11:09 AM) Color (u) REQUEST CREDITED 7 *Unknown* (05/04/24 11:09 AM) Creat (u) 117.02 mg/dL 8 (05/04/24 11:09 AM) Glu (u) [NEG mg/dL] REQUEST CREDITED mg/ dL 9 *Abnormal* (05/04/24 11:09 AM) Hgb (u) [NEG] REQUEST CREDITED 10 *Abnormal* (05/04/24 11:09 AM) pH (u) [5.0-8.0 unit] REQUEST CREDITED u nit 11 (05/04/24 11:09 AM) Prot (u) [NEG mg/dL] REQUEST CREDITED mg /dL 12 *Abnormal* (05/04/24 11:09 AM) RBC (u) [0-4 /HPF] 50+ /HPF (05/04/24 11:10 AM) Urobili [0.1-1.0 EU/dL] REQUEST CREDITED EU/dL 13 (05/04/24 11:09 AM) SG [1.005-1.030] REQUEST CREDITED 14 *Unknown* (05/04/24 11:09 AM) WBC (u) [0-4 /HPF] 50+ /HPF (05/04/24 11:10 AM) WBC [4.0-10.4 K/uL] 10.62 K/uL *HI* (05/04/24 11:08 AM) 1Result Comment: GROSSLY BLOODY. UNABLE TO PERFORM URINE DIPSTICK. URINE MICROSCOPIC TESTING PERFORMED. 2Result Comment: ADA recommendation for FASTING Serum/Plasma Glucose: Normal: 70-100 mg/dL Prediabetes: 100-125 mg/dL Diabetes: 126 mg/dL or higher 3Result Comment: GROSSLY BLOODY. UNABLE TO PERFORM URINE DIPSTICK. URINE MICROSCOPIC TESTING PERFORMED. 4Result Comment: GROSSLY BLOODY. UNABLE TO PERFORM URINE DIPSTICK. URINE MICROSCOPIC TESTING PERFORMED. 5Result Comment: GROSSLY BLOODY. UNABLE TO PERFORM URINE DIPSTICK. URINE MICROSCOPIC TESTING PERFORMED. 6Result Comment: GROSSLY BLOODY. UNABLE TO PERFORM URINE DIPSTICK. URINE MICROSCOPIC TESTING PERFORMED. 7Result Comment: GROSSLY BLOODY. UNABLE TO PERFORM URINE DIPSTICK. URINE MICROSCOPIC TESTING PERFORMED. 8Result Comment: Reference Range for Random Urine Not Established. 9Result Comment: GROSSLY BLOODY. UNABLE TO PERFORM URINE DIPSTICK. URINE MICROSCOPIC TESTING PERFORMED. 10Result Comment: GROSSLY BLOODY. UNABLE TO PERFORM URINE DIPSTICK. URINE MICROSCOPIC TESTING PERFORMED. 11Result Comment: GROSSLY BLOODY. UNABLE TO PERFORM URINE DIPSTICK. URINE MICROSCOPIC TESTING PERFORMED. 12Result Comment: GROSSLY BLOODY. UNABLE TO PERFORM URINE DIPSTICK. URINE MICROSCOPIC TESTING PERFORMED. 13Result Comment: GROSSLY BLOODY. UNABLE TO PERFORM URINE DIPSTICK. URINE MICROSCOPIC TESTING PERFORMED. 14Result Comment: GROSSLY BLOODY. UNABLE TO PERFORM URINE DIPSTICK. URINE MICROSCOPIC TESTING PERFORMED. Social History Social History Type Response Tobacco Cigarettes 1 Smoking Status Current every day he shay smoker Sex Male Sex Representation Male (finding) 11 ppd Implantable Device List Procedure Provider Procedure Date Device Type Site Unknown Unknown 05/04/24 Unknown Unknown Device Identifier Serial Number Lot or Batch Number Manufacturing Date Expiration Date Distinct Identification Code MRI Safety Implantable Status Assigning Authority Unknown Unknown [id number] Unknown 06/15/26 Unknown Unknown Active Unknown Procedure Provider Procedure Date Device Type Site Unknown Unknown 01/03/24 Unknown Unknown Device Identifier Serial Number Lot or Batch Number Manufacturing Date Expiration Date Distinct Identification Code MRI Safety Implantable Status Assigning Authority Unknown Unknown [id number] Unknown 09/16/26 Unknown Unknown Active Unknown Unknown Unknown [id number] Unknown 09/28/25 Unknown Unknown Active Unknown Procedure Provider Procedure Date Device Type Site Unknown Unknown 09/02/23 Unknown Unknown Device Identifier Serial Number Lot or Batch Number Manufacturing Date Expiration Date Distinct Identification Code MRI Safety Implantable Status Assigning Authority Unknown Unknown [id number] Unknown 10/29/24 Unknown Unknown Active Unknown Unknown Unknown [id number] Unknown 09/28/25 Unknown Unknown Active Unknown Procedure Provider Procedure Date Device Type Site Unknown Unknown 03/16/23 Unknown Unknown Device Identifier Serial Number Lot or Batch Number Manufacturing Date Expiration Date Distinct Identification Code MRI Safety Implantable Status Assigning Authority Unknown Unknown [id number] Unknown 01/14/25 Unknown Unknown Active Unknown Unknown Unknown [id number] Unknown 09/02/25 Unknown Unknown Active Unknown Patient Care team information Care Team Personnel Name: Constantin Del Toro Kimberly Position: Pharmacist BCMA Member Role: Pharmacy - [facility]etime Address: [place] [address] [place] Name: MD Kitchen Raymond J Position: Physician - Hem/Onc Member Role: Lifetime Relationship Address: [address] [place] [address] [place] Name: Constantin Ferreira Matthew Position: Pharmacist Member Role: Pharmacy - Lifetime Name: Mame Perez RPh, William Position: Pharmacist Member Role: Pharmacy - Lifetime Name: MD Zachariah, Samra Cano Position: Physician Member Role: Primary Care Provider Address: [address], [address] Care Team Related Persons Name: BRUNO YOO
--- OUTSIDE RECORDS SUMMARY | 2024-07-09 08:43 | External Medical Summary | Continuity of Care Document ---
Author Name Unknown Organization [facility] Address [address] [place] [address] JOSIE ANDERSON [id number] Care Team Providers Care Manager Reading Name Role Phone Lenora Sonicass Rachael Primary Care Physician [phone] Encounter [facility] [id number] Date(s): 04/02/24 - 04/02/24 [facility] [id number], [place] [address] [phone] Discharge Disposition: Home or Self Care Attending Physician: MD Kitchen Raymond J Referring Physician: MD Kitchen Raymond J Allergies, Adverse Reactions, Alerts Substance Criticality Severity Reaction Reaction Severity Status Percodan Rash Active Medications capecitabine 500 mg oral tablet Start: [...] twice a day for 30 days, Pharmacy: [id number] Start Date: 04/07/23 Status: Ordered Lasix 20 mg oral tablet Start: 02/20/24 4:19:00 PM EST, 1 tab, PO, Daily, Disp# 7 tab, Pharmacy: [facility] Start Date: 02/20/24 Stop Date: 02/27/24 Status: [...] Daily, Disp# 90 tab, Refills: 0, Pharmacy: [facility] Start Date: 02/20/24 Stop Date: 05/20/24 Status: Ordered NovoLOG 100 units/mL injectable solution Start: 03/12/24 11:19:00 AM EST, See Instructions, Disp# 30 mL, Refills: 4, USE 1 UNIT PER 15 GRAMS OF CARBS, INJECTING UP TO 6 TIMES PER DAY NEEDED - using 30 units per day - 90 day supply, Pharmacy: [facility] Start Date: 03/12/24 Status: Ordered One Touch Delica Plus (33G) Lancets Start: 05/07/22 8:18:00 AM EST, See Instructions, Disp# 100 each, Refills: 3, use for blood glucose testing up to 8x/day, Pharmacy: [facility] Start Date: 05/07/22 Status: Ordered One Touch Verio Flex Glucose Monitor Start: 08/24/23 7:58:00 AM EDT, See Instructions, Disp# 1 each, Refills: 0, test up to 8x/daily as directed for Type 1 DM, Note to Pharmacy: Pt aware insurance may not cover since it was replaced 2022. He would pay out of pocket if cheap enough, Pharmacy: [facility] Start Date: 08/24/23 Status: Ordered One Touch Verio Test Strips Start: 03/14/24 8:02:00 AM EST, See Instructions, Disp# 800 each, Refills: 3, test up to 8x/day as needed for Type 1 DM, Pharmacy: [facility] Start Date: 03/14/24 Status: Ordered ONETOUCH VERIO TEST STRIP Start: 03/14/24 8:05:00 AM EST, ONETOUCH VERIO TEST STRIP, See Instructions, Disp# 800 strip, Refills: 0, TEST UP TO 8 TIMES DAILY NEEDED, Pharmacy [facility] Start Date: 03/14/24 Status: Ordered Pyridium 200 mg oral tablet Start: 09/02/23 8:28:00 AM EDT, 1 tab, PO, tid, Disp# 6 tab, PRN: as needed for urinary discomfort, Pharmacy: [facility] Start Date: 09/02/23 Stop Date: 09/04/23 Status: Ordered Pyridium 200 mg oral tablet Start: 01/03/24 4:30:00 PM EDT, 1 tab, PO, tid, Disp# 6 tab, Refills: 0, PRN: as needed for urinary discomfort, Pharmacy: [facility] Start Date: 01/03/24 Stop Date: 01/05/24 Status: Ordered Semglee (Vial) 100 units/mL subcutaneous solution Start: 03/12/24 11:19:00 AM EST, 20 unit =, subQ, Daily, Disp# 30 mL, Refills: 3, Pharmacy: [facility] Start Date: 03/12/24 Stop Date: 03/07/25 Status: Ordered Senna Start: 07/26/22 12:43:00 PM EDT, 8.6 mg =, PO, 2 tabs by mouth daily, PRN: as needed for constipation Start Date: 07/26/22 Status: Ordered Synthroid 125 mcg (0.125 mg) oral tablet Start: 03/12/24 11:19:00 AM EST, 1 tab, PO, Daily, Disp# 90 tab, Refills: 3, Pharmacy: [facility] Start Date: 03/12/24 Status: Ordered Syringe MIS 0.3/31gauge Start: 03/12/24 11:19:00 AM EST, Syringe MIS 0.3/31gauge, eRx Product Type: Supply, See Instructions, Disp# 500 each, Refills: 3, Pt uses 6 syringes daily. E11.9, Pharmacy [facility] Start Date: 03/12/24 Status: Ordered Syringe MIS 0.3/31gauge Start: 01/01/22 10:03:00 AM EDT, Syringe MIS 0.3/31gauge, eRx Product Type: Supply, See Instructions, Disp# 500 each, Refills: 3, Pt uses 6 syringes daily. E11.9, Pharmacy [facility] Start Date: 01/01/22 Status: Ordered tamsulosin 0.4 mg oral capsule Start: 03/18/23 5:38:00 PM EST, 1 cap, PO, Daily, Disp# 90 cap, Refills: 3, take at night for stent discomfort, Pharmacy: [id number] Start Date: 03/18/23 Stop Date: 03/12/24 Status: Ordered Vitamin B12 1000 mcg oral tablet Start: 10/24/23 10:35:00 AM EDT, 1 tab, PO, Daily, Disp# 90 tab, Refills: 0, Pharmacy: [facility] Start Date: 10/24/23 Stop Date: 01/22/24 [...] exchange- bilateral Results Laboratory List Name Date Magnesium Level (MAGNESIUM) 04/02/24 Most recent to oldest [Reference Range]: 1 Mg [1.6-2.6 mg/dL] 1.0 mg/dL *LOW* (04/02/24 9:30 AM) Social History Social History Type Response [...] Safety Implantable Status Assigning Authority Unknown Unknown [id number] Unknown 09/16/26 Unknown Unknown Active Unknown Unknown Unknown [id number] Unknown 09/28/25 Unknown Unknown Active Unknown Procedure Provider Procedure Date Device Type Site Unknown Unknown 09/02/23 Unknown Unknown Device Identifier Serial Number Lot or Batch Number Manufacturing Date Expiration Date Distinct Identification Code MRI Safety Implantable Status Assigning Authority Unknown Unknown [id number] Unknown 10/29/24 Unknown Unknown Active Unknown Unknown Unknown [id number] Unknown 09/28/25 Unknown Unknown Active Unknown Procedure Provider Procedure Date Device Type Site Unknown Unknown 03/16/23 Unknown Unknown Device Identifier Serial Number Lot or Batch Number Manufacturing Date Expiration Date Distinct Identification Code MRI Safety Implantable Status Assigning Authority Unknown Unknown [id number] Unknown 01/14/25 Unknown Unknown Active Unknown Unknown Unknown [id number] Unknown 09/02/25 Unknown Unknown Active Unknown Patient Care team information Care Team Personnel Name: Constantin Del Toro Kimberly Position: Pharmacist BCMA Member Role: Pharmacy - [facility] Address: [place] [address] [place] Name: MD Fidelina, Bronson Russo Position: Physician - Hem/Onc Member Role: Lifetime Relationship Address: [address] [place] [address] Name: Constantin Ferreira Matthew Position: Pharmacist Member Role: Pharmacy - Lifetime Name: Mame Perez RPh, William Position: Pharmacist Member Role: Pharmacy - Lifetime Name: MD Zachariah, Samra Cano Position: Physician Member Role: Primary Care Provider Address: [address] [place] [id number] Care Team Related Persons Name: BRUNO YOO
--- OUTSIDE RECORDS SUMMARY | 2024-07-09 08:43 | External Medical Summary | Continuity of Care Document ---
Author Name Unknown Organization [facility] Address [address] [place] [address] [id number] Care Team Providers Care Health Physics Technician Name Role Phone SoniRaymondpro Rachael Primary Care Physician [phone] [id number] Date(s): 04/16/24 - 04/16/[address] [id number] [phone] Discharge Disposition: Home or Self Care Attending Physician: CASIE Woodall Annie Referring Physician: MD Kitchen Raymond J Allergies, [...] Daily, Disp# 7 tab, Pharmacy: [facility] Start Date: 02/20/24 Stop Date: 02/27/24 Status: [...] tab, Refills: 0, Pharmacy: [facility] Start Date: 02/20/24 Stop Date: 05/20/24 Status: Ordered NovoLOG 100 units/mL injectable solution Start: 03/12/24 11:19:00 AM EST, See Instructions, Disp# 30 mL, Refills: 4, USE 1 UNIT PER 15 GRAMS OF CARBS, INJECTING UP TO 6 TIMES PER DAY NEEDED - using 30 units per day - 90 day supply, Pharmacy: [facility] Start Date: 03/12/24 Status: Ordered One Touch Delica Plus (33G) Lancets Start: 05/07/22 8:18:00 AM EST, See Instructions, Disp# 100 each, Refills: 3, use for blood glucose testing up to 8x/day, Pharmacy: [facility] Start Date: 05/07/22 Status: Ordered One Touch Verio Flex Glucose Monitor Start: 08/24/23 7:58:00 AM EDT, See Instructions, Disp# 1 each, Refills: 0, test up to 8x/daily as directed for Type 1 DM, Note to Pharmacy: Pt aware insurance may not cover since it was replaced 2022. He would pay out of pocket if cheap enough, Pharmacy: [facility] Start Date: 08/24/23 Status: Ordered One Touch Verio Test Strips Start: 03/14/24 8:02:00 AM EST, See Instructions, Disp# 800 each, Refills: 3, test up to 8x/day as needed for Type 1 DM, Pharmacy: [facility] Start Date: 03/14/24 Status: Ordered ONETOUCH VERIO TEST STRIP Start: 03/14/24 8:05:00 AM EST, ONETOUCH VERIO TEST STRIP, See Instructions, Disp# 800 strip, Refills: 0, TEST UP TO 8 TIMES DAILY NEEDED, Pharmacy [facility] Start Date: 03/14/24 Status: Ordered Potassium Chloride [...] for urinary discomfort, Pharmacy: [facility] Start Date: 09/02/23 Stop Date: 09/04/23 Status: Ordered Pyridium 200 mg oral tablet Start: 01/03/24 4:30:00 PM EDT, 1 tab, PO, tid, Disp# 6 tab, Refills: 0, PRN: as needed for urinary discomfort, Pharmacy: [facility] Start Date: 01/03/24 Stop Date: 01/05/24 Status: Ordered Semglee (Vial) 100 units/mL subcutaneous solution Start: 03/12/24 11:19:00 AM EST, 20 unit =, subQ, Daily, Disp# 30 mL, Refills: 3, Pharmacy: [facility] Start Date: 03/12/24 Stop Date: 03/07/25 Status: Ordered Senna Start: 07/26/22 12:43:00 PM EDT, 8.6 mg =, PO, 2 tabs by mouth daily, PRN: as needed for constipation Start Date: 07/26/22 Status: Ordered Synthroid 125 mcg (0.125 mg) oral tablet Start: 03/12/24 11:19:00 AM EST, 1 tab, PO, Daily, Disp# 90 tab, Refills: 3, Pharmacy: [facility] Start Date: 03/12/24 Status: Ordered Syringe MIS 0.3/31gauge Start: 03/12/24 11:19:00 AM EST, Syringe MIS 0.3/31gauge, eRx Product Type: Supply, See Instructions, Disp# 500 each, Refills: 3, Pt uses 6 syringes daily. E11.9, Pharmacy [facility] Start Date: 03/12/24 Status: Ordered Syringe MIS 0.3/31gauge Start: 01/01/22 10:03:00 AM EDT, Syringe MIS 0.3/31gauge, eRx Product Type: Supply, See Instructions, Disp# 500 each, Refills: 3, Pt uses 6 syringes daily. E11.9, Pharmacy [facility] Start Date: 01/01/22 Status: Ordered tamsulosin 0.4 mg oral capsule Start: 03/18/23 5:38:00 PM EST, 1 cap, PO, Daily, Disp# 90 cap, Refills: 3, take at night for stent discomfort, Pharmacy: [id number] Start Date: 03/18/23 Stop Date: 03/12/24 Status: Ordered Vitamin B12 1000 mcg oral tablet Start: 10/24/23 10:35:00 AM EDT, 1 tab, PO, Daily, Disp# 90 tab, Refills: 0, Pharmacy: [facility] Start Date: 10/24/23 Stop [...] Exam Date Time Procedure Performing Provider Status 04/16/24 7:[address] Thorax w/ Contrast Colleen May; Final Notes: (CT Thorax w/ Contrast) Reason For Exam: [address] Thorax w/ Contrast EXAMINATION: CT Abdomen and Pelvis w/ Contrast, CT Thorax w/ Contrast CLINICAL HISTORY: C19: Malignant neoplasm of rectosigmoid junction; 3 month restaging COMPARISON: Multiple priors, most recent CT chest abdomen pelvis from 10/03/2023. TECHNIQUE: CT Abdomen and Pelvis w/ Contrast, CT Thorax w/ Contrast CONTRAST: Contrast Type (IV): Omnipaque 350 Contrast Volume (IV) in ml: 100.00 DOSE: Total Reported Dose Length Product (DLP) = 351.55 mGy.cm FINDINGS: CHEST Pleura and Lungs: Increased in size of several of the cavitating metastases . A few lesions now appear confluent. Findings most conspicuous within the left lower lobe with cavitary mass measuring 5.4x 4.6 cm previously reflecting numerous smaller metastases. Similar findings are present within theleft upper lobe with cavitary mass measuring 5.2 x 4.0 cm. Central airways: Patent. Lymph nodes: Unchanged mediastinal lymphadenopathy, for example right paratracheal lymph node measuring 1.5 cm in short axis, previously 1.5 cm. Thyroid and Mediastinum: Normal thyroid. Normal esophagus. Heart and Great vessels: Normal heart size. No pericardial effusion. ABDOMEN Liver, Gallbladder \T\ bile ducts: Multiple hypodense hepatic metastases, not significantly changedfrom immediate prior. No new hepatic metastasis. Normal gallbladder. No biliary duct dilation. Pancreas: No pancreatic duct dilation. Unchanged atrophy. Spleen: Unremarkable. Adrenals: Unremarkable. Kidneys, collecting system and ureters: Left nephroureteral stent with proximal pigtail in the upper pole calyx and distal pigtail in the bladder. Right nephroureteral stent with proximal pigtail in the renal pelvis and distal pigtail in the urinary bladder. New moderate to severe right hydrouretero nephrosis and new mild left hydroureteronephrosis secondary to malignant obstruction. Retroperitoneum, lymph nodes, and vessels: Unchanged retroperitoneal lymphadenopathy, many of whichare partially calcified. Normal caliber aorta. Bowel \T\ Mesentery: Mesenteric edema, increased. Peritoneal deposits about the gastrohepatic ligament, similar to prior. Nonobstructed bowel. No pneumoperitoneum. PELVIS Bladder: As above. Otherwise unremarkable. Reproductive organs: Prostatomegaly. Extraperitoneal, lymph nodes, vessels: Similar size of the pelvic mass at the level of the distal ureter compared to 10/03/2023. Bilateral inguinal lymphadenopathy, slightly increased in size, for example right inguinal lymph node measuring 1.4 cm, previously 1.0 cm. Osseous and body wall: Multilevel degenerative changes of the spine. Chronic left posterior rib fracture deformities. IMPRESSION: 1. New moderate to severe right and mild left hydroureteronephrosis secondary to malignant obstruction at the distal ureter bilaterally. Appropriate position of the bilateral nephroureteral stents. Correlate for stent malfunction. 2. Progression of pulmonary metastatic disease. 3. Worsening bilateral inguinal lymphadenopathy. Essentially unchanged mediastinal lymph nodes, retroperitoneal lymph nodes. 4. Essentially unchanged hepatic and peritoneal metastasis. Dr. Cailin Gonzales discussed findings via Brooks Text with CASIE Woodall at 04/16/2024 1:28 PM EST. [place] Act 112: This study does not meet the requirements of [place] Act 112. Dr. Cailin Gonzales is the dictating resident. Finalized reports status indicates that the attendinghas reviewed the images and report, and agrees with the interpretation. Preliminary report status should be regarded as NOT interpreted by the attending radiologist. Workstation ID: [id number] Final Dictated by:MD Gonzales Janelle Dictated DT/TM:04/16/2024 5:20 Resident:MD Gonzales Janelle Signed by:MD Bush Jacob A Signed (Electronic Signature):04/16/2024 5:19 p * Exam Date Time Procedure Performing Provider Status 04/16/24 7:[address] Abdomen and Pelvis w/ Contrast Behre , ; Final Notes: (CT Abdomen and Pelvis w/ Contrast) Reason For Exam: [address] Abdomen and Pelvis w/ Contrast EXAMINATION: CT Abdomen and Pelvis w/ Contrast, CT Thorax w/ Contrast CLINICAL HISTORY: C19: Malignant neoplasm of rectosigmoid junction; 3 month restaging COMPARISON: Multiple priors, most recent CT chest abdomen pelvis from 10/03/2023. TECHNIQUE: CT Abdomen and Pelvis w/ Contrast, CT Thorax w/ Contrast CONTRAST: Contrast Type (IV): Omnipaque 350 Contrast Volume (IV) in ml: 100.00 DOSE: Total Reported Dose Length Product (DLP) = 351.55 mGy.cm FINDINGS: CHEST Pleura and Lungs: Increased in size of several of the cavitating metastases . A few lesions now appear confluent. Findings most conspicuous within the left lower lobe with cavitary mass measuring 5.4x 4.6 cm previously reflecting numerous smaller metastases. Similar findings are present within theleft upper lobe with cavitary mass measuring 5.2 x 4.0 cm. Central airways: Patent. Lymph nodes: Unchanged mediastinal lymphadenopathy, for example right paratracheal lymph node measuring 1.5 cm in short axis, previously 1.5 cm. Thyroid and Mediastinum: Normal thyroid. Normal esophagus. Heart and Great vessels: Normal heart size. No pericardial effusion. ABDOMEN Liver, Gallbladder \T\ bile ducts: Multiple hypodense hepatic metastases, not significantly changedfrom immediate prior. No new hepatic metastasis. Normal gallbladder. No biliary duct dilation. Pancreas: No pancreatic duct dilation. Unchanged atrophy. Spleen: Unremarkable. Adrenals: Unremarkable. Kidneys, collecting system and ureters: Left nephroureteral stent with proximal pigtail in the upper pole calyx and distal pigtail in the bladder. Right nephroureteral stent with proximal pigtail in the renal pelvis and distal pigtail in the urinary bladder. New moderate to severe right hydrouretero nephrosis and new mild left hydroureteronephrosis secondary to malignant obstruction. Retroperitoneum, lymph nodes, and vessels: Unchanged retroperitoneal lymphadenopathy, many of whichare partially calcified. Normal caliber aorta. Bowel \T\ Mesentery: Mesenteric edema, increased. Peritoneal deposits about the gastrohepatic ligament, similar to prior. Nonobstructed bowel. No pneumoperitoneum. PELVIS Bladder: As above. Otherwise unremarkable. Reproductive organs: Prostatomegaly. Extraperitoneal, lymph nodes, vessels: Similar size of the pelvic mass at the level of the distal ureter compared to 10/03/2023. Bilateral inguinal lymphadenopathy, slightly increased in size, for example right inguinal lymph node measuring 1.4 cm, previously 1.0 cm. Osseous and body wall: Multilevel degenerative changes of the spine. Chronic left posterior rib fracture deformities. IMPRESSION: 1. New moderate to severe right and mild left hydroureteronephrosis secondary to malignant obstruction at the distal ureter bilaterally. Appropriate position of the bilateral nephroureteral stents. Correlate for stent malfunction. 2. Progression of pulmonary metastatic disease. 3. Worsening bilateral inguinal lymphadenopathy. Essentially unchanged mediastinal lymph nodes, retroperitoneal lymph nodes. 4. Essentially unchanged hepatic and peritoneal metastasis. Dr. Cailin Gonzales discussed findings via Brooks Text with CASIE Woodall at 04/16/2024 1:28 PM EST. [place]: This study does not [place] 112. Dr. Cailin Gonzales is the dictating resident. Finalized reports status indicates that the attendinghas reviewed the images and report, and agrees with the interpretation. Preliminary report status should be regarded as NOT interpreted by the attending radiologist. Workstation ID: [id number] Final Dictated by:MD Gonzales Janelle Dictated DT/TM:04/16/2024 5:20 Resident:MD Gonzales Janelle Signed by:MD Bush Jacob A Signed (Electronic Signature):04/16/2024 5:19 p Social History Social History Type Response Tobacco Cigarettes 1 Smoking Status Current every day he shay smoker Sex Male Sex Representation Male (finding) 11 ppd Implantable Device List Procedure Provider Procedure Date Device Type Site Unknown Unknown 01/03/24 Unknown Unknown Device Identifier Serial Number Lot or Batch Number Manufacturing Date Expiration Date Distinct Identification Code MRI Safety Implantable Status Assigning Authority Unknown Unknown [id number] Unknown 09/16/26 Unknown Unknown Active Unknown Unknown Unknown [id number] Unknown 09/28/25 Unknown Unknown Active Unknown Procedure Provider Procedure Date Device Type Site Unknown Unknown 09/02/23 Unknown Unknown Device Identifier Serial Number Lot or Batch Number Manufacturing Date Expiration Date Distinct Identification Code MRI Safety Implantable Status Assigning Authority Unknown Unknown [id number] Unknown 10/29/24 Unknown Unknown Active Unknown Unknown Unknown [id number] Unknown 09/28/25 Unknown Unknown Active Unknown Procedure Provider Procedure Date Device Type Site Unknown Unknown 03/16/23 Unknown Unknown Device Identifier Serial Number Lot or Batch Number Manufacturing Date Expiration Date Distinct Identification Code MRI Safety Implantable Status Assigning Authority Unknown Unknown [id number] Unknown 01/14/25 Unknown Unknown Active Unknown Unknown Unknown [id number] Unknown 09/02/25 Unknown Unknown Active Unknown Patient Care team information Care Team Personnel Name: Constantin Del Toro Kimberly Position: Pharmacist BCMA Member Role: Pharmacy - Lifetime Address: [place] [address] [place] Name: MD Kitchen Raymond J Position: Physician - Hem/Onc Member Role: Lifetime Relationship Address: [address] [place] [address] [place] Name: Constantin Ferreira Matthew Position: Pharmacist Member Role: Pharmacy - Lifetime Name: Mame Perez RPh, William Position: Pharmacist Member Role: Pharmacy - Lifetime Name: MD Soni Ravishankar E Position: Physician Member Role: Primary Care Provider Address: [address] [place] [address] [place] Care Team Related Persons Name: BRUNO YOO
--- OUTSIDE RECORDS SUMMARY | 2024-07-09 08:43 | External Medical Summary | Continuity of Care Document ---
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 Name Role Phone Samra Soni Primary Care Physician [phone] [facility] [id number] Date(s): 05/04/24 - 05/05/[address] [phone] Encounter Diagnosis Bilateral ureteral obstruction.(Discharge Diagnosis) - 05/04/24 Discharge Disposition: Home or Self Care Attending Physician: MD Dano, John Allergies, Adverse Reactions, Alerts Substance Criticality Severity Reaction Reaction Severity Status Percodan Rash Active Functional Status 05/04/24 Gait Steady 05/04/24 Neurological Symptoms None ADLs Minimal assistance Facial Symmetry Symmetric Swallowing Difficulty None Level of Consciousness Neuro Alert Hallucinations Present None History of Fall in Last 3 Months Graves N o Presence of Secondary Diagnosis Grvaes Ye s Use of Ambulatory Aid Graves None/bedrest /nurse assist IV/Heparin Lock Fall Risk Graves Yes Gait/Transferring Fall Risk Graves Normal /bedrest/immobile Mental Status Fall Risk Graves Oriented t o own ability Graves Fall Risk Score 35 Graves Fall Risk Low Risk Speech Pattern Clear Immunizations Given and Recorded Vaccine Date Status Refusal Reason SARS-CoV-2 (COVID-19) mRNA BNT-162b2 vax 12/10/20 Recorded SARS-CoV-2 (COVID-19) mRNA BNT-162b2 vax 11/09/20 Recorded Medications capecitabine 500 mg oral tablet Start: 05/03/24 9:36:00 AM EST, 1 tab, PO, bid, Disp# 28 tab, Refills: 5, for 14 days, followed by 7days off of each 21 day cycle., Pharmacy: [facility] Start Date: 05/03/24 Status: Ordered Gold Gutierrez Medicated Maximum Strength Pain and Itch 4% topical cream Start: 04/07/23 12:16:00 PM EST, See Instructions, Disp# 133 g, Refills: 0, not to exceed 3 applications in 24 hours, Note to Pharmacy: use twice a day for 30 days, Pharmacy: [id number] Start Date: 04/07/23 Status: Ordered lisinopril 20 mg oral tablet Start: 05/07/24 9:23:00 AM EST, 1 tab, PO, Daily, Disp# 30 tab, Refills: 1, Pharmacy: [id number] Start Date: 05/07/24 Stop Date: 07/06/24 Status: Ordered magnesium oxide 500 mg oral capsule Start: 05/02/24 2:46:00 PM EST, 1 cap, PO, bid, Disp# 60 cap, Refills: 1, pt states he takes irregularly, Pharmacy: [id number] Start Date: 05/02/24 Stop Date: [...] Disp# 90 tab, Refills: 0, Pharmacy: [facility] Start Date: 02/20/24 Stop Date: 05/20/24 Status: Ordered NovoLOG 100 units/mL injectable solution Start: 03/12/24 11:19:00 AM EST, See Instructions, Disp# 30 mL, Refills: 4, USE 1 UNIT PER 15 GRAMS OF CARBS, INJECTING UP TO 6 TIMES PER DAY NEEDED - using 30 units per day - 90 day supply, Pharmacy: [facility] Start Date: 03/12/24 Status: Ordered One Touch Delica Plus (33G) Lancets Start: 05/07/22 8:18:00 AM EST, See Instructions, Disp# 100 each, Refills: 3, use for blood glucose testing up to 8x/day, Pharmacy: [facility] Start Date: 05/07/22 Status: Ordered One Touch Verio Flex Glucose Monitor Start: 08/24/23 7:58:00 AM EDT, See Instructions, Disp# 1 each, Refills: 0, test up to 8x/daily as directed for Type 1 DM, Note to Pharmacy: Pt aware insurance may not cover since it was replaced 2022. He would pay out of pocket if cheap enough, Pharmacy: [facility] Start Date: 08/24/23 Status: Ordered One Touch Verio Test Strips Start: 03/14/24 8:02:00 AM EST, See Instructions, Disp# 800 each, Refills: 3, test up to 8x/day as needed for Type 1 DM, Pharmacy: [facility] Start Date: 03/14/24 Status: Ordered ONETOUCH VERIO TEST STRIP Start: 03/14/24 8:05:00 AM EST, ONETOUCH VERIO TEST STRIP, See Instructions, Disp# 800 strip, Refills: 0, TEST UP TO 8 TIMES DAILY NEEDED, Pharmacy [facility] Start Date: 03/14/24 Status: Ordered Potassium Chloride (Eqv-K-Tab) 20 mEq oral tablet, extended release Start: 04/16/24 2:24:00 PM EST, 1 tab, PO, Daily, Disp# 30 tab, Refills: 0, Pharmacy: [id number] Start Date: 04/16/24 Status: Ordered Pyridium 200 mg oral tablet Start: 05/04/24 3:01:00 PM EST, 1 tab, PO, tid, Disp# 6 tab, PRN: as needed for urinary discomfort, Pharmacy: [facility] Start Date: 05/04/24 Stop Date: 05/06/24 Status: Ordered Semglee (Vial) 100 units/mL subcutaneous solution Start: 03/12/24 11:19:00 AM EST, 20 unit =, subQ, Daily, Disp# 30 mL, Refills: 3, Pharmacy: [facility] Start Date: 03/12/24 Stop Date: 03/07/25 Status: Ordered Senna Start: 07/26/22 12:43:00 PM EDT, 8.6 mg =, PO, 2 tabs by mouth daily, PRN: as needed for constipation Start Date: 07/26/22 Status: Ordered Synthroid 125 mcg (0.125 mg) oral tablet Start: 03/12/24 11:19:00 AM EST, 1 tab, PO, Daily, Disp# 90 tab, Refills: 3, Pharmacy: [facility] Start Date: 03/12/24 Status: Ordered Syringe MIS 0.3/31gauge Start: 03/12/24 11:19:00 AM EST, Syringe MIS 0.3/31gauge, eRx Product Type: Supply, See Instructions, Disp# 500 each, Refills: 3, Pt uses 6 syringes daily. E11.9, Pharmacy [facility] Start Date: 03/12/24 Status: Ordered Syringe MIS 0.3/31gauge Start: 01/01/22 10:03:00 AM EDT, Syringe MIS 0.3/31gauge, eRx Product Type: Supply, See Instructions, Disp# 500 each, Refills: 3, Pt uses 6 syringes daily. E11.9, Pharmacy [facility] Start Date: 01/01/22 Status: Ordered Vitamin B12 1000 mcg oral tablet Start: 10/24/23 10:35:00 AM EDT, 1 tab, PO, Daily, Disp# 90 tab, Refills: 0, Pharmacy: [facility] Start Date: 10/24/23 Stop Date: 01/22/24 Status: Ordered ZyrTEC Start: 02/06/24 8:29:00 AM EDT, PO, Daily Start Date: 02/06/24 Status: Ordered Mental Status 05/04/24 Communication Barrier Present No Problem List Condition Confirmation Course Effective Dates [...] Diagnosis Diagnosis Type Effective Dates Health Status inical Service Informant Bilateral ureteral obstruction. Discharge Diagnosis 05/04/24 Procedures Procedure Date Related Diagnosis Body Site [...] exchange- bilateral Results Laboratory List Name Date Glucose Meter (GLUCOSE METER) 05/04/24 Glucose Meter (GLUCOSE METER) 05/04/24 Glucose Meter (GLUCOSE METER) 05/04/24 Prothrombin Time w/ INR 05/04/24 Basic Metabolic Panel (BMP) 05/04/24 Complete Blood Count (CBC w Platelets) Most recent to oldest [Reference Range]: 1 2 3 eGFR CKD-EPI [>60 mL/min/1.73 m2] 80 mL/min/1.73 m2 (05/04/24 12:55 PM) Estimated CrCl 66.13 mL/min (05/04/24 2:09 PM) MPV [9.0-12.2 fL] 10.6 fL (05/04/24 12:55 PM) RDW [11.5-14.2 %] 16.0 % *HI* (05/04/24 12:55 PM) Anion Gap [5-14 mmol/L] 11 mmol/L (05/04/24 12:55 PM) BUN [6-23 mg/dL] 18 mg/dL (05/04/24 12:55 PM) Ca [8.4-10.2 mg/dL] 7.2 mg/dL *LOW* (05/04/24 12:55 PM) Cl- [98-107 mmol/L] 104 mmol/L (05/04/24 12:55 PM) HCO3 [22-29 mmol/L] 24 mmol/L (05/04/24 12:55 PM) Cret [0.70-1.30 mg/dL] 1.04 mg/dL (05/04/24 12:55 PM) Glu [74-109 mg/dL] 111 mg/dL 1 *HI* (05/04/24 12:55 PM) Gluc Meter [74-109 mg/dL] 220 mg/dL *HI* (05/04/24 11:35 PM) 121 mg/dL *HI* (05/04/24 7:00 PM) 77 mg/dL (05/04/24 6:37 PM) Hct [39-48 %] 30.7 % *LOW* (05/04/24 12:55 PM) Hgb [13.0-17.0 g/dL] 9.9 g/dL *LOW* (05/04/24 12:55 PM) INR [0.9-1.1] 1.3 2 *HI* (05/04/24 4:34 PM) K [3.5-5.1 mmol/L] 4.2 mmol/L (05/04/24 12:55 PM) MCH [28-33 pg] 27.6 pg *LOW* (05/04/24 12:55 PM) MCHC [32-36 g/dL] 32.2 g/dL (05/04/24 12:55 PM) MCV [81-96 fL] 85.5 fL (05/04/24 12:55 PM) Na [136-145 mmol/L] 139 mmol/L (05/04/24 12:55 PM) Plts [150-350 K/uL] 290 K/uL (05/04/24 12:55 PM) PT [12.0-14.2 seconds] 16.3 seconds *HI* (05/04/24 4:34 PM) RBC [4.40-5.60 M/uL] 3.59 M/uL *LOW* (05/04/24 12:55 PM) WBC [4.0-10.4 K/uL] 9.25 K/uL (05/04/24 12:55 PM) 1Result Comment: ADA recommendation for FASTING Serum/Plasma Glucose: Normal: 70-100 mg/dL Prediabetes: 100-125 mg/dL Diabetes: 126 mg/dL or higher 2Result Comment: Suggested therapeutic range for low-intensity Coumadin therapy for venous thromboembolism is INR 2.0-3.0 (ex: atrial fibrillation, history of TIA/stroke). For high risk patients, the suggested therapeutic range is INR 2.5-3.5 (ex: mechanical prosthetic valves). Orders for Microbiology Reports Name Date Acid Fast Bacillus Cx/Smear, Aspirate Aspirate Culture w Smear 05/04/24 Anaerobe Culture w Smear, Aspirate Fungus Culture w Smear, Aspirate 05/04/24 Anaerobe Culture w Smear, Aspirate (CULT URE,ANER (ASP) 05/04/24 Aspirate Culture w Smear (CULTURE,ASPIRA TE) 05/04/24 Fungus Culture w Smear, Aspirate (CULTUR E,FUNGUS(ASP)) 05/04/24 Microbiology Reports TEST:AFB.Culture, Aspirate STATUS:Unauthenticated BODY SITE: SOURCE:Aspirate COLLECTED DATE/TIME:05/04/24 7:53 PM AFB Direct Exam NO ACID FAST BACILLI SEEN TEST:Anaerobe.Culture, Aspirate STATUS:Unauthenticated BODY SITE: SOURCE:Aspirate COLLECTED DATE/TIME:05/04/24 7:53 PM Culture NO GROWTH 3 DAYS TEST:Fungus.Culture, Aspirate STATUS:Unauthenticated BODY SITE: SOURCE:Aspirate COLLECTED DATE/TIME:05/04/24 7:53 PM Culture NO FUNGUS ISOLATED AFTER 3 DAYS TEST:Aspirate.Culture STATUS:Unauthenticated BODY SITE: SOURCE:Aspirate COLLECTED DATE/TIME:05/04/24 7:53 PM Culture NO GROWTH 3 DAYS TEST:Anaerobe.Culture, Aspirate STATUS:Unauthenticated BODY SITE: SOURCE:Aspirate COLLECTED DATE/TIME:05/04/24 3:44 PM Culture NO GROWTH 3 DAYS TEST:Aspirate.Culture STATUS:Auth (Verified) BODY SITE: SOURCE:Aspirate COLLECTED DATE/TIME:05/04/24 3:44 PM Status FINAL 05/07/2024 TEST:Fungus.Culture, Aspirate STATUS:Unauthenticated BODY SITE: SOURCE:Aspirate COLLECTED DATE/TIME:05/04/24 3:44 PM Culture NO FUNGUS ISOLATED AFTER 3 DAYS Radiology Reports * Exam Date Time Procedure Performing Provider Status 05/04/24 7:44 PM CVIR Evaluation and Treatment Juany Mcclendon; Final Notes: (CVIR Evaluation and Treatment) Reason For Exam: R ureteral malignant obstruction with hydro, unable to exchange stent, needs neph tube CVIR Evaluation and Treatment EXAMINATION: CVIR Evaluation and Treatment CLINICAL HISTORY: R ureteral malignant obstruction with hydro, unable to exchange stent, needs neph tube PROCEDURES: HISTORY: 63-year-old male with a history of ureteral obstuction, unable to replace right JJ ureteral stent INDICATIONS: drainage of right obstructed kidney PHYSICIANS: MD Faisal Schmitt MD SUPERVISION: The Attending was physically present in the room and supervised the performance of the procedure. SEDATION: The risks and benefits of moderate sedation were discussed with the patient as part of the procedural informed consent process. Provider supervised intra- procedure moderate sedation was performed using a trained independent observer who monitored the patient's level of sedation and physiologic status throughout the procedure. Pre-procedure and post-procedure sedation assessments were performed inaccordance with institutional sedation policy and are documented separately in the medical record. Total Provider Sedation Supervision Time: 25 minutes. MEDICATIONS: Fentanyl 50 mcg Midazolam 1 mg CONTRAST: Omnipaque 350 - 10 ml DOSIMETRY: Fluoroscopy Time: 4.50 min Cumulative Dose: 27 mGy MEASUREMENTS: None. IMPLANTED DEVICES: Cook Multipurpose Drainage Catheter 8.5F 25 cm (Reference # [id number] Lot [id number]) SPECIMENS: None. EST. BLOOD LOSS: None. COMPLICATIONS: None. SUPPORTING DOCUMENTATION: Pre-Procedure Verification (Physician/Provider) [X]: Patient Name and Verified Against Patient ID Band [X]: Written Consent Verified (Patient, Procedure, Site/Side) [ ]: Site Marking Verified (keep unchecked if not applicable) [X]: H \\T\\ P Completed (if required) Documented 05/04/2024 at 19:17:02 By Ilan Ulloa MD Pre-Procedure Verification (Nurse/Technologist) [X]: Patient Name and Verified Against Patient ID Band [X]: Written Consent Verified (Patient, Procedure, Site/Side) [ ]: Site Marking Verified (keep unchecked if not applicable) [X]: H \\T\\ P Verified (if required) Documented 05/04/2024 at 19:17:02 By Flor Palacios RN Time Out [X]: Patient Identified by Name and [X]: Written Consent Verified (Patient,Procedure, Site/Side) [X]: Patient Positioned Correctly [X]: Patient Records Available (Order, Images) [X]: Anticipated Procedure Equipment / Devices Available [ ]: Site / Side Marking Completed (keep unchecked if not applicable) [X]: Preprocedure Medications Administered (Antibiotics,Premedications, or n/a) [X]: All team members are present and are in agreement with Time Out (not documented prior to 08/20/2017). Documented 05/04/2024 at 19:30:48 By Flor Palacios RN TECHNIQUE:Following informed consent and verification of the correct patient identity and planned procedure, the patient was placed in the prone position and the right flank was prepped and draped inthe usual sterile fashion. Puncture of the renal pelvis was performed using a 22G Chiba needle under fluoroscopic guidance using fluoroscopic landmarks. Contrast and air was injected and spot film imaging was performed as a percutaneous antegrade pyelogram. A posterior middle pole calyx was then punctured under fluoroscopic guidance using a 21 G needle. A Rnonell sheath dilator set was placed. Attempts to cross the distal ureteral obstruction were unsuccessful. As such, we placed a 10.2Fr Multipurpose Drain. The pigtail was formed and locked in the renal pelvis. The catheter was sutured tothe skin and placed to external drainage. FINDINGS:Severe hydronephrosis. Attempts to cross the distal ureteral obstruction were not exhaustive, however were unsuccessful INTERPRETATION: 1. Successful right nephrostomy tube placement using 10.2Fr Multipurpose Drain as described above. Plan: PCN should be changed at 3 month intervals Workstation ID: [id number] Final Dictated by:MD Ulloa Benjamin David Dictated DT/TM:05/07/2024 5:12 Signed by:MD Laila, Matthew Green Signed (Electronic Signature):05/07/2024 5:11 p Vital Signs Most recent to oldest [Reference Range]: 1 2 3 Height 168.2 cm (05/04/24 12:58 PM) Patient Weight 67.1 kg (05/04/24 12:58 PM) Body Mass Index 23.72 kg/m2 (05/04/24 5:10 PM) 23.72 kg/m2 (05/04/24 12:58 PM) Temperature [36.5-37.9 DegC] 36.5 DegC (05/05/24 5:37 AM) 36.2 DegC *LOW* (05/04/24 11:38 PM) 36 DegC *LOW* (05/04/24 8:27 PM) Heart Rate 71 bpm (05/05/24 5:37 AM) 64 bpm (05/04/24 11:38 PM) 65 bpm (05/04/24 8:27 PM) Respiratory Rate 16 br/min (05/05/24 5:37 AM) 18 br/min (05/04/24 11:38 PM) 18 br/min (05/04/24 8:27 PM) Blood Pressure 130/74mmHg (05/05/24 5:37 AM) 121/74mmHg (05/04/24 11:38 PM) 116/78mmHg (05/04/24 8:27 PM) Mean Blood Pressure 92 mmHg (05/05/24 5:37 AM) 89 mmHg (05/04/24 11:38 PM) 90 mmHg (05/04/24 8:27 PM) Cuff Pulse Pressure 56 mmHg (05/05/24 5:37 AM) 47 mmHg (05/04/24 11:38 PM) 38 mmHg (05/04/24 8:27 PM) BP Location # 1 Left Arm, Non-invasive (05/05/24 5:37 AM) Left Arm (05/04/24 11:38 PM) Right Arm (05/04/24 8:27 PM) Social History Social History Type Response [...] Safety Implantable Status Assigning Authority Unknown Unknown [id number] Unknown 06/15/26 Unknown Unknown Active Unknown Procedure Provider Procedure Date Device Type Site Unknown Unknown 01/03/24 Unknown Unknown Device Identifier Serial Number Lot or Batch Number Manufacturing Date Expiration Date Distinct Identification Code MRI Safety Implantable Status Assigning Authority Unknown Unknown [id number] Unknown 09/16/26 Unknown Unknown Active Unknown Unknown Unknown [id number] Unknown 09/28/25 Unknown Unknown Active Unknown Procedure Provider Procedure Date Device Type Site Unknown Unknown 09/02/23 Unknown Unknown Device Identifier Serial Number Lot or Batch Number Manufacturing Date Expiration Date Distinct Identification Code MRI Safety Implantable Status Assigning Authority Unknown Unknown [id number] Unknown 10/29/24 Unknown Unknown Active Unknown Unknown Unknown [id number] Unknown 09/28/25 Unknown Unknown Active Unknown Procedure Provider Procedure Date Device Type Site Unknown Unknown 03/16/23 Unknown Unknown Device Identifier Serial Number Lot or Batch Number Manufacturing Date Expiration Date Distinct Identification Code MRI Safety Implantable Status Assigning Authority Unknown Unknown [id number] Unknown 01/14/25 Unknown Unknown Active Unknown Unknown Unknown [id number] Unknown 09/02/25 Unknown Unknown Active Unknown Pre-OP H & P * MD Laila, Matthew Green: PERFORM Event Display: Pre-OP H & P Authored Date: [id number] PRE-OPERATIVE HISTORY AND PHYSICAL Name: BERNY RUBIO Jr. Patient Number: [id number] : 1960 Date of Service: 05/04/2024 Interventional Radiology Pre-procedure History and Physical Patient Name: BERNY RUBIO Date Of : 1960 Medical Record: [id number] Date of Service: 2024-05-04 Planned Procedure: : Nephrostomy Placement Unilateral Reason For Consult: : Nephrostomy Placement Unilateral History of Present Illness: 63yo M with metastatic colorectal cancer causing b/l malignant extrinsic ureteral obstruction managed with bilateral ureteral stents. Urology unable to change right stent, which was removed. Past Medical and Surgical History: 63yo M with metastatic colorectal cancer involving the liver, chest, retroperitoneal lymph node andpelvic lymph node with bilateral malignant extrinsic ureteral obstruction managed with bilateral ureteral stents., Changed on 09/02/23., Today 05/04/24 left ureteral stent successfully changed. 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, Vitamin D deficiency, Weight disorder, Procedure/Surgical History, Stent replacement| Service Date: 10/04/2022, Cystoscopy| Service Date: 10/04/2022, Cystoscopy| Service Date: 04/22/2022, Colonoscopy and tattooing| Service Date: 02/03/2022, Abdominal| Service Date: 01/25/2022, Shave biopsy and cauterization of skin| Service Date: 04/09/2021, Examination of eye| Service Date: 05/04/2017, Amputation finger-complicated| Service Date: 1998, Knee meniscus|Service Date: 1997, Vitrectomy, mechanical, pars plana approach; with endolaser panretinal photocoagulation| Service Date: 1983, Hernia repair| Service Date: 1981, Cystoscopy and retrograde pyelography, Cystoscopy, bilateral retrograde pyelograms with radiographic interpretation, bilateral ureteral stent exchange Allergies: Percodan Medications: Active Inpt Meds: , ceFAZolin (Ancef) 2,000 mg IV To OR, Active PRN Meds: , HYDROmorphone (Dilaudid) 0.5 mg IV Push q10min, lidocaine topical (LMX 4 topical cream) 1 appl topical Pre Event, naloxone (Narcan) 0.04 mg IV Push As indicated, promethazine 6.25 mg IV q6h, One Time Meds: (Completed), acetaminophen (Tylenol) 1,000 mg w/ PO ONCE(Completed), dexAMETHasone (dexAMETHasone (ANES)) w/ IV ONCE(Completed), ePHEDrine (ePHEDrine (ANES)) w/ IV ONCE(Completed), fentaNYL (fentaNYL (ANES)) w/ IV ONCE(Completed), lidocaine (lidocaine (ANES)) w/ IV ONCE(Completed), norepinephrine (norepinephrine (ANES)) w/ IV ONCE(Completed), propofol (propofol (ANES)) w/ IV ONCE, Active IV Meds: , Lactated Ringers Injection 1,000 mL (LR 1,000 mL) 1,000 mL 110 mL/HR Labs: Date: 05/04/2024 Time: 16:51 BUN 18 Cr 1 Hct 30.7 Hgb 9.9 Plats 29 WBC 9.2 Other Studies: CT AP 04/16/23 Physical Exam: LOC / Mental Status: Awake, Alert, Oriented Airway: Mallampati Score: Class 3: Visualization only of the base of the uvula Lungs: Clear Cardiac: Normal Sinus Rhythm Abdomen: soft NTND B flanks c/d/no erythema ASA Classification: Class II: Patient with mild systemic disease Assessment: 63yo M with metastatic colorectal cancer causing b/l malignant extrinsic ureteral obstruction managed with bilateral ureteral stents. Urology unable to change right stent, which was removed. Plan: Right PCN placement Sedation / Anesthesia Plan: Moderate Sedation Consent by Patient's family member Electronic Signature on File Electronically Reviewed/Signed by: Matthew Ulloa MD Author Signature Dt/Tm:05/04/2024 07:16 PM Division of Interventional Cardiology [facility] * MD Dano, Lopez: PERFORM Event Display: . Authored Date: [id number] Name:BERNY RUBIO Jr. Patient Number:[id number] :1960 Date of Service:05/03/2024 Chief Complaint Bilateral ureteral stricture History of Present Illness 63years old gentleman with metastatic colorectal cancer involving the liver,chest,retroperitoneal lymph node and pelvic lymph node with bilateralmalignantextrinsic ureteral obstruction managed with bilateral ureteral stents, last changed on 03/16/23. Berny has significant irritative lower urinary tract symptoms secondary to the ureteral stents including urinary frequency, urgency, occasional dysuria. CT scan on June 13, 2023 showed a bilateralureteral stent in proper locations within the bladder and the upper urinary tract. Berny is currently on tamsulosin. Berny and I previously discussed about anticholinergics to help with stent symptoms but he does not want to take the medication due to risk of constipation which is pertinent to his metastatic colorectal cancer. I also discussed with Berny about bilateral percutaneous nephrostomy tubes. I discussed that thetubes are placed through his back directly into his kidneys to bypass the bladder. The tubes willneed to be changed every 2 to 3 months but it likely can be done under local anesthesia rather thangeneral anesthesia like stent exchange. Given the significant amount of urinary symptoms, I thinkthe bilateral PCN will be beneficial to him. At this point, he would like to continue with bilateral stents understanding that the symptoms likely persist with the new stent placement. : - Flank pain:yesintermittent left flank pain - Hematuria:gross - Flank mass:no -Voidingsymptomsyesurgency, frequency, urethral discomfort with urination - Erectile function - Baseline renal function: Cr 0.8/GFR > 90 (02/07/23) Constitutional: - Weight loss:no - Fatigue:no - Malaise:no Urologichistory: 01/08/22 - CT A/P: Bilateral severe hydroureteronephrosisto thelevel of distal ureter due tometastatic diseasein the pelvic area bilaterally. 10/04/22 - Cysto, B RGP, B stent exchange (Gerry Hahn II DO, [facility]) 02/10/23 - CT A/P with contrast: persistent (some slightly improved) hepatic metastases, multiple calcified retroperitoneal lymph node (2.1 x 1.7cm); bilateral ureteral stents are in place with no hydronephrosis,no overtbladder mass; no renal masses or nephrolithiasis 02/10/23 - CT chest - persistent pulmonary and thoracic guevara diseases 03/16/23 - Bilateral stent exchange - right 6F x 22cm, left 8F x 24cm 06/13/23 - CT A/P: bilateral stents in appropriate positions, no hydro 08/01/23 - LABS: Cr 0.81/GFR>90, Hgb 13.6, Plt 286 09/02/23 - Bilateral stent exchange - Left 8F x 24cm, right 6F x 22cm 12/28/23 - UCx: NG 01/03/24 - Cysto, B RGP, B stent exchange - left 8F x 24cm, right 6F x 22cm 04/16/24 - CT CAP: right severe hydro and left moderate hydro with bilateral stents in place and bladder is only moderately full 05/04/24 - Cysto, B RGP, B stent exchange: scheduled PMH: HTN,DM 1,metastatic colorectal cancerto the liver, lung, retroperitoneal lymph nodes PSH: Eye surgery FH: Maternal grandmother with history of lung cancer in her mid 20'ss/p surgical intervention (life-time non-smoker) SH: Lives with . Endorses 50 years 1 PPD smoking, currently smokes 1 PPD. Used to drink 10 beers/daily, quit in December 2021. 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 Continues to be physically active - does gardening, woodworking, splits wood to heat his house. Anticoagulation: No Baseline functional status: BMI 24,ECOG 0-1 Assessment/Plan 1.Gross hematuria 2.Bilateral ureteral obstruction. 63years old gentleman with metastatic colorectal cancer involving the liver,chest,retroperitoneal lymph node and pelvic lymph node with bilateralmalignantextrinsic ureteral obstruction managed with bilateral ureteral stents, last changed on 09/02/23. Cystoscopy, bilateral retrograde pyelogram, left stent exchange (8F x 24cm), right stent upsizing (to 7F x 22cm)on 05/04/24 Periop plan: - Cefazolin 2g IV - Pyridium 200mg TID PRN x 6 tabs - Stent change on07/31/24 [facility]. Urine culture one week prior to stent change Problem List/Past Medical History Ongoing Bilateral ureteral [...] biopsy and cauterization of skin| Service Date: 12/30/2021Examination of eye| Service Date: 05/04/2017Amputation finger-complicated| Service Date: 1998Knee meniscus|Service Date: 1997Vitrectomy, mechanical, pars plana approach; with endolaser panretinal photocoagulation| Service Date: 1983Hernia repair| Service Date: 1981Cystoscopy and retrograde pyelographyCystoscopy, bilateral retrograde pyelograms with radiographic interpretation, bilateral ureteral stent exchange Medications Inpatient acetaminophen(Tylenol), 1000 mg= 2 tab, PO, ONCE ceFAZolin(Ancef), 2000 mg= 50 mL, IV, To OR lidocaine topical(LMX 4 topical cream), 1 appl, topical, Pre Event, PRN Home amLODIPine(Norvasc 10 mg oral tablet), 10 mg= [...] 200 mg= 1 tab, PO, tid, PRN phenazopyridine(Pyridium 200 mg oral tablet), 200 [...] SARS-CoV-2 (COVID-19) mRNA BNT-162b2 vax 11/09/2020 Recorded Electronic Signature on File Electronically Reviewed/Signed by: John Matson M.D. Author Signature Dt/Tm:05/04/2024 06:55 AM Department of Urology HT * MD Higginbotham Ahmad R: MODIFY, PERFORM, SIGN, VERIFY Event Display: Anes H&P Authored Date: [id number] Patient: BERNY RUBIO Jr. Age: 63 years Sex: Male : 1960 Associated Diagnoses: None Author: MD Higginbotham Ahmad R Preoperative Information Pre-Operative Diagnosis: Hydronephrosis . Anesthiesia Preop Info: Procedure: rigid cystoscopy, bilateral retrograde pyelogram, bilateral stent exchange Date: 05/04/24 14:20 Surgeons: MD Matson Hong Diagnosis: bilateral hydronephrosis . History of Present Illness Patient is a 63 year-old, 67kgMale with aPMH significant for hypertension (on amlodipine), Type 1 Diabetes managed with insulin, hypothyroidism (on levothyroxine), and colon cancer with metastisis to liver, bilateral chest, retroperitoneal lymph nodes, and bilateral uretal obstruction secondary to malignant obstruction. Patient has underwent multiple stent exchanges in the past, and presenttoday for additional exchange. Patient is currently on palliative chemotherapy. NPO status:Adequate >8 hours solid foods, >2 hours clear liquids) IV Access: PIV Allergies:Percodan Anesthesia Hx: - PONV:Denies - Patient Complications: Negative - Family Hx:Negative Airway Hx:Prior LMA Aura 4, Krebs 5 Current infusions: N/A O2 requirement: Room Air Labs: Relevant Imaging: - Echo:None on file CT Thorax, Abdomen and Pelvis- 04/16/2024 IMPRESSION: 1. New moderate to severe right and mild left hydroureteronephrosis secondary to malignant obstruction at the distal ureter bilaterally. Appropriate position of the bilateral nephroureteral stents. Correlate for stent malfunction. 2. Progression of pulmonary metastatic disease. 3. Worsening bilateral inguinal lymphadenopathy. Essentially unchanged mediastinal lymph nodes, retroperitoneal lymph nodes. 4. Essentially unchanged hepatic and peritoneal metastasis. Medical History Medical Devices: Medical Devices: none . Health Status Allergies: Allergic Reactions (Selected) Severity Not Documented Percodan- Rash.. Medications: Medication List (Selected) Prescriptions Prescribed Gold Gutierrez Medicated Maximum Strength Pain and Itch 4% topical cream: See Instructions, not to exceed 3 applications in 24 hours, 133 g, 0 Refill(s) Norvasc 10 mg oral tablet: 1 tab, PO, Daily, for 90 day, 90 tab, 0 Refill(s) NovoLOG 100 units/mL injectable solution: See Instructions, USE 1 UNIT PER 15 GRAMS OF CARBS, INJECTING UP TO 6 TIMES PER DAY NEEDED - using 30 units per day - 90 day supply, 30 mL, 4 Refill(s) ONETOUCH VERIO TEST STRIP: See Instructions, TEST UP TO 8 TIMES DAILY NEEDED, 800 strip, 0 Refill(s) One Touch Delica Plus (33G) Lancets: See Instructions, use for blood glucose testing up to 8x/day, 100 each, 3 Refill(s) One Touch Verio Flex Glucose Monitor: See Instructions, test up to 8x/daily as directed for Type 1 DM, 1 each, 0 Refill(s) One Touch Verio Test Strips: See Instructions, test up to 8x/day as needed for Type 1 DM, 800 each,3 Refill(s) Potassium Chloride (Eqv-K-Tab) 20 mEq oral tablet, extended release: 1 tab, PO, Daily, 30 tab, 0 Refill(s) Pyridium 200 mg oral tablet: 1 tab, PO, tid, for 2 day, PRN: as needed for urinary discomfort, 6 tab Pyridium 200 mg oral tablet: 1 tab, PO, tid, for 2 day, PRN: as needed for urinary discomfort, 6 tab, 0 Refill(s) Semglee (Vial) 100 units/mL subcutaneous solution: 20 unit, subQ, Daily, for 90 day, 30 mL, 3 Refill(s) Synthroid 125 mcg (0.125 mg) oral tablet: 1 tab, PO, Daily, 90 tab, 3 Refill(s) Syringe MIS 0.3/31gauge: See Instructions, Pt uses 6 syringes daily. E11.9, 500 each, 3 Refill(s) Syringe MIS 0.3/31gauge: See Instructions, Pt uses 6 syringes daily. E11.9, 500 each, 3 Refill(s) Vitamin B12 1000 mcg oral tablet: 1 tab, PO, Daily, for 90 day, 90 tab, 0 Refill(s) capecitabine 500 mg oral tablet: 1 tab, PO, bid, for 14 days, followed by 7 days off of each 21 daycycle., 28 tab, 5 Refill(s) magnesium oxide 500 mg oral capsule: 1 cap, PO, bid, for 30 day, pt states he takes irregularly, 60cap, 1 Refill(s) Documented Medications Documented Medical Marijuana: 1 inh, inhaled Senna: 8.6 mg, PO, 2 tabs by mouth daily, PRN: as needed for constipation ZyrTEC: PO, Daily morphine 30 mg (24 HR) oral capsule, extended release: 1 cap, PO, bid, prn, PRN: pain, 0 Refill(s) morphine: 60 mg, PO, q12h, 0 Refill(s). Histories Procedure History: Cystoscopy ([id number]) on 10/04/2022 at 62 Years. Comments: 10/04/2022 14:26 PONCHO Tobar LPN, Angela Cystoscopy, retrograde pyelogram, ureteral stent exchange, bilateral. Stent replacement ([id number]) on 10/04/2022 at 62 Years. Cystoscopy ([id number]) on 04/22/2022 at 61 Years. Comments: 04/22/2022 11:47 CHRIS Gooden MA, Lindsey BIlateral Retrograde Pyelogram, Bilateral Ureteral Stent exchange. Colonoscopy and tattooing ([id number]) on 02/03/2022 at 61 Years. Comments: 02/04/2022 13:26 PONCHO Sparrow LPN, Nevin Impression- malignant partially obstructing tumor at the hepatic [...] to primary care physician as previously scheduled Abdominal ([id number]) on 01/25/2022 at 61 Years. Comments: 01/25/2022 16:08 PONCHO Cuellar RN, Karen pelvic mass, colonic mass, hydronephrosis cystoscopy w/ bilateral retrograde pyelogram, ureteral dilation, and bilateral ureteral stent placement (bilateral) Shave biopsy and cauterization of skin ([id number]) on 04/09/2021 at 60 Years. Examination of eye ([id number]) on 05/04/2017 at 56 Years. Comments: 05/05/2017 16:08 CHRIS Malin LPN, July Proliferative diabetic retinopathy Amputation finger-complicated ([id number]) in 1998 at 38 Years. Comments: 07/03/2013 10:17 PONCHO Mirza MD, Ronnell Leslie Amputated 4 fingers right hand on saw planer Knee meniscus ([id number]) in 1997 at 37 Years. Vitrectomy, mechanical, pars plana approach; with endolaser panretinal photocoagulation ([id number]) in 1983 at 23 Years. Hernia repair ([id number]) in 1981 at 21 Years. Cystoscopy and retrograde pyelography ([id number]). Comments: 2022 11:59 PONCHO Sparrow LPN, Angela pelvic mass, hydropnephrosis- ureteral stent exchange- bilateral Cystoscopy, bilateral retrograde pyelograms with radiographic interpretation, bilateral ureteral stent exchange ([id number]).. Physical Examination VS/Measurements: Vital Signs 05/04/2024 13:05 EST MEWS Score 0 05/04/2024 13:05 EST Temperature 36.7 DegC Temperature Route Temporal Heart Rate 75 bpm Respiratory Rate 18 br/min Systolic Blood Pressure 139 mmHg Diastolic Blood Pressure 72 mmHg BP Location # 1 Right Arm, Non-invasive BP Cuff Size Regular Mean Blood Pressure 91 mmHg Cuff Pulse Pressure 67 mmHg Oxygen Therapy Room Air SpO2 100 % . Airway: Mallampati classification: II (soft palate, fauces, uvula visible). Mouth: Within normal limits, Teeth ( Missing ). Respiratory: Lungs are clear to auscultation. Cardiovascular: Normal rate. Anesthesiologist Assessment and Plan Problems: No previous anesthetic complications, No a/w concerns. ASA Classification: Class III. Anesthetic Plan: Anesthetic technique discussed: General anesthesia. Induction discussed: Intravenously. Airway plan discussed: Laryngeal mask airway. Risks discussed: Nausea-vomiting, Headache, Sore throat, Dental injury, Eye injury, Allergic reaction, Serious complications, Nerve damage, Aspiration. Informed consent: Signed by patient, I, Henri Higginbotham MD, have discussed the risks and benefits pertaining to the anesthetic portion of this case as outlined on the anesthesia consent form with the patient. They voiced agreement and understanding to the plan at this time. Informed and signedconsent was obtained with the patient before the start of surgery.. Special techniques and precautions discussed: Nausea-vomiting, Transfusion of blood or blood products. History, Physical Exam, Assessment and Plan Completed: 05/04/2024 14:55:00, MD Anahy, Henri Arcos Electronic Signature on File Electronically Reviewed/Signed by: Henri Higginbotham MD Author Signature Dt/Tm:05/04/2024 04:59 PM Department of Anesthesia TAMMY Surgical operation note * MD Dano, Lopez: PERFORM Event Display: .Operative Report Authored Date: [id number] Name:BERNY RUBIO Jr. Patient Number:[id number] :1960 Date of Service:05/04/2024 Preoperative Diagnosis Bilateral malignant ureteral obstruction Postoperative Diagnosis Bilateral malignant ureteral obstruction In Room Time 05/04/24 15:05:00 Operation 1. Cystoscopy 2. Bilateral retrograde pyelogram with intraoperative interpretation 3. Left ureteral stent exchange (8 Moroccan x 24cm) 4. Attemptedright ureteral stent exchange 5. Right distalureteroscopy Surgeon(s) MD Dano, John (Physician - Primary) Chief Reservoir Engineering(s) MD Woodall Cassra B (Poultry Cleaner) Anesthesia MD Anahy, Henri Pena (Primary Attending) MD Divya, Juan José Figueroa (Resident) Estimated Blood Loss 5mL Urine Output In field Lines, Tubes, Drains, Tourniquets 8F x 24cm left ureteral stent Specimen(s) Left renal aspirate for culture Implants/Devices: None Findings 1. Normal male urethra with small nonobstructive prostate 2.Bladder: Bullous edema at bilateral ureteral orifice, no papillary bladder tumor 3.10mL of clear caty urine was aspirated from the left kidney 4. Left retrograde pyelogram, there is no filling defect in the left proximalureteror kidney 5. Unable topass a wire into the right ureter beside or through the existing right stent. The wire coiled back at the level of distal ureter. The right stent is mildly encrusted. 6. On right ureteroscopy,there istumor encasing the entire right distal ureter (known metastatic colon cancer with pelvic metastasis involving bilateral distal ureters). Right retrograde pyelogram was performed and the contrast did not opacify past the distal ureteraltumor Complications None Indication for Surgery 63years old gentleman with metastatic colorectal cancer involving the liver,chest,retroperitoneal lymph node and pelvic lymph node with bilateralmalignant ureteral obstruction managed with bilateral ureteral stents, last changed on 01/03/24. He presented today for routine bilateral stent exchange. On his most recent CT scanon April 16, 2024, he had right severe hydronephrosisdespitethe right ureteral stent in properposition. Therefore, I discussed withZhaoorzhao and his about the possibility of not being able toreplacing the right ureteral stent and the need for right PCN. Technique Patient was identified in preoperative holding area. Informed consent was confirmed. Patient was transported to the operating room and placed supine on the table. After anesthesia was induced and preoperative antibiotic was given, patient waspositioned in dorsal lithotomy. Care was taken to pad all pressure points and bony prominences.The perineum was prepped and draped in standard sterile fashion. A preoperative timeout was performed with all members of the operating room. We began with a cystoscopy with 30 degree lens. There was stent associated edemaat bilateral ureteral orifices, there was no evidence of any stoneorpapillary bladder tumor. First, we turnedour attention to the left side. A 0.035 straight sensor wire was advancedto the left kidneyand secured for safety access. The existing left stent was removed intact. Then the wire was backloaded into the cystoscope. A new 8 Frenchby 24 cmureteral stentwas placed under direct visualization. The proximal curl of the stent properly coiled in the left renal pelvis and the distal curl of the stent coil in the bladder. Next,we attempted topass a 0.035 sensor wire beside the right ureteral stents but the wire was unable to be advanced past the distal ureter. We then grasped the stentto the urethral meatus and attempted to pass the wirethrough the stentbut was unsuccessful. Therefore we decided to remove the stentwhich was removed intact. The stent was mildlyencrusted on inspection. Next, we replaced the cystoscope and attempted to pass the wireinto theright kidneybut we were again unable to pass the stent past the distalureter. The wire kept coilingback out of the right ureteral orifice. Next we removed the cystoscope andintroduced a semirigid ureteroscopeto inspect the right ureter. We encountera high volume tumor encasing the entireright distal ureter about 1cm from the right ureteral orifice. We were not able to identify anytruelumento pass the wirepast theureteral tumor. A retrograde pyelogram was performed and the contrast did not make it past the distal ureteral tumor. We initially took a couple biopsy of the tumorwith a Piranha forceps but in reviewing patient'soncologic history, prior imaging, priorbiopsy pathologies, the tumor is most consistent withmetastatic colorectal cancer rather than aupper tract urothelial carcinoma. Therefore we deemed thatit was not necessary toobtain pathology from this distalureteral tumor The ureteroscope was then removed.10 mL of Uro-Jet was placed per urethrafor local anesthetic. A 16 Moroccan catheter was placed into the bladder to empty her bladder. The catheter was subsequently removed. The patient was placed back in supine position. The patient was extubated andtransported to PACUin stable condition. Follow up plan: -Patient will need a right PCN placement Electronic Signature on File Electronically Reviewed/Signed by: John Matson M.D. Author Signature Dt/Tm:05/04/2024 07:19 PM Department of Urology HT Discharge instructions * KARL Garcia Jessica: MODIFY KARL Garcia Jessica: MODIFY, MODIFY, PERFORM MD Jose C, Luiza Waggoner: PERFORM Event Display: Patient Discharge Instructions Authored Date: [id number] BERNY RUBIO Jr. :1960 Visit Date:05/04/[address] [facility] For medical concerns, call: . Date of Admission:05/04/2024 Date of Discharge:05/04/2024 Physician:MD Dano, John Service:Urology Discharge Disposition:Home . Advance Directive:Living will Reason for Hospitalization Your Diagnoses Bilateral ureteral obstruction. SCHEDit Patient Portal: [employer] makes it easy for you to manage your health information online. [employer] is a free service that provides you instant, secure access to your medical information anytime, anywhere. Sign in or set up your account today at [email or web address] Thank you for allowing us to assist you with your healthcare needs. If you need additional community resources, [facility] [employer] can help at https://www.pa211.org. 211 can assist you in connecting with social programs based on your unique needs and locations. 211 is an anonymous search that can help you locate resources for: Food, Housing, Transportation, Goods, Education and Healthcare. Medications What How Much When Why Instructions Next Dose Changed phenazopyridine (Pyridium 200 mg oral tablet) 1 tab(s) by mouth 3 times daily as needed for as needed for urinary discomfort Duration: 2 Days Pickup at [facility] Unchanged amLODIPine (Norvasc 10 mg oral tablet) 1 tab(s) by mouth Once daily Duration: 90 Days 05/06/24 6am Unchanged cannabis (Medical Marijuana) 1 inh Inhalation Unchanged capecitabine (capecitabine 500 mg oral tablet) 1 tab(s) by mouth 2 times daily for 14 days, followed by 7 days off of each 21 day cycle. Unchanged cetirizine (ZyrTEC) by mouth Once daily 05/06/24 6am Unchanged cyanocobalamin (Vitamin B12 1000 mcg oral tablet) 1 tab(s) by mouth Once daily Duration: 90 Days Unchanged diabetes supplies (One Touch Delica Plus (33G) Lancets) See instructions 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 use for blood glucose testing up to 8x/ day Unchanged diabetes supplies (One Touch Verio Flex Glucose Monitor) See instructions 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 test up to 8x/ daily as directed for Type 1 DM Unchanged diabetes supplies (One Touch Verio Test Strips) See instructions 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 test up to 8x/ day as needed for Type 1 DM Unchanged insulin aspart (NovoLOG 100 units/ mL injectable solution) See instructions USE 1 UNIT PER 15 GRAMS OF CARBS, INJECTING UP TO 6 TIMES PER DAY NEEDED - using 30 units per day - 90 day supply Unchanged insulin glargine (Semglee (Vial) 100 units/ mL subcutaneous solution) 20 unit(s) subcutaneously Once daily Duration: 90 Days Unchanged levothyroxine (Synthroid 125 mcg (0.125 mg) oral tablet) 1 tab(s) by mouth Once daily Unchanged lidocaine topical (Gold Gutierrez Medicated Maximum Strength Pain and Itch 4% topical cream) See instructions not to exceed 3 applications in 24 hours Unchanged magnesium oxide (magnesium oxide 500 mg oral capsule) 1 cap by mouth 2 times daily Duration: 30 Days pt states he takes irregularly Unchanged morphine 60 Milligram by mouth Every 12 hours 05/05/24 6pm Unchanged morphine (morphine 30 mg (24 HR) oral capsule, extended release) 1 cap by mouth 2 times daily as needed for pain prn Unchanged potassium chloride (Potassium Chloride (Eqv-K-Tab) 20 mEq oral tablet, extended release) 1 tab(s) by mouth Once daily Unchanged senna (Senna) 8.6 Milligram by mouth As needed for as needed for constipation 2 tabs by mouth daily Unchanged unlisted medication (ONETOUCH VERIO TEST STRIP) See instructions TEST UP TO 8 TIMES DAILY NEEDED Unchanged unlisted medication (Syringe MIS 0.3/ 31gauge) See instructions Pt uses 6 syringes daily. E11.9 Unchanged unlisted medication (Syringe MIS 0.3/ 31gauge) See instructions Pt uses 6 syringes daily. E11.9 Pharmacy Information [facility]: [facility] [place] Lopez [phone] Allergies PercodanRash What to do next Instructions From Your Doctor UROLOGY CYSTOSCOPY POST-OP INSTRUCTIONS PROCEDURE: Cystoscopy, Ureteroscopy, diagnostic Catheters/Stents: Leftureteral stentexchange, Right Ureteral Stent Removal, Right Percutaneous Nephrostomy TubePlacement ACTIVITY: Resume regular activity as tolerated DIET: Resume your regular diet. Drink plenty of fluids to stay well-hydrated. MEDICATIONS: Resume home medications as above Pain Control:UhtxQedl-Nig-Spoeaat Tylenol 1000mg every 6 hours as needed for pain relief. Do not exceed 4000mg of Tylenol in a 24 hour period. Anti-biotics:You have not been prescribed anti-biotics. Bladder Medication:Pyridium - 200 mg up to three times a day as needed for bladder spasms/urinarydiscomfort. This medication will turn your urine orange STENT/CATHETER PLAN: The ureteral stent/neph tube will remain in place until your next procedure/clinic visit PATIENT EDUCATION: Itis normal to seesome blood in the urine, especially with increased activity.Staying well-hydrated willhelp improve blood in the urine.If you notice persistent blood clots in the urine or the catheter stops draining urine, call immediately. CALL IF: Fever greater than 100.4 F, intractable nausea or vomiting, or bleeding more than what is to be expected Catheter or stent dislodged Catheter clogged or not draining; If you don't have a catheter, call if you can't urinate Increasing or uncontrolled pain Lightheadedness For non-emergent questions, you may call the Urology Office at during weekdays, between the hours of 8 AM to 4 PM Forurgenturologic problems that require immediate attention, you may call the hospital operatorat and ask to speak with the Urology resident on-call If you are unable to contact your physician and you feel it is an emergency, call [phone] or go to the nearest Emergency Room Foremergent or very serious health-related issues, such as chest pain, shortness of breath, or sudden onset of the symptoms that brought you to the hospital, call 911 or go to the nearest EmergencyRoom FOLLOW UP: Your urology follow up will be arranged. If you do not hear from us in 3-5 business days, please give our office a call. OUR ADDRESS IS: [facility] ([facility]) [address] (3rd Floor) [address] , [address] [place] [address] If you notice the following symptoms Contact the [facility] Careline at . If unable to contact your physician and you feel it is an emergency, go to the nearest Emergency Room or call 911 Diet Instructions Activity Instructions Follow-Up Appointments Scheduled Follow-Up Appointments Date/Time:Provider/Resource: Apr 07:45 amLab/Specimen Location/Instructions:[facility], [address], 1st floor, [address], [place] [address] Date/Time:Provider/Resource: Apr 08:25 MD Del Rosario Raymond J Location/Instructions:[facility], [address], 1st floor, [address], [place] [address] Date/Time:Provider/Resource: Apr 09:30 amInf C 15 Location/Instructions:[facility], [address], Infusion 1st floor, [address], [place] [address] Date/Time:Provider/Resource: May 08:45 amLab/Specimen Location/Instructions:[facility], [address], 1st floor, [address], [place] [address] Date/Time:Provider/Resource: May 09:30 amInf A 4 Location/Instructions:[facility], [address], [facility] 1st floor, [address], [place] [address] Date/Time:Provider/Resource: May 07:00 [facility] Location/Instructions:1. For this exam you may have nothing to eat or drink 10 hours prior to your exam. 2. No smoking, nicotine, or tobacco the night before and/or the morning of the exam. 3. Please contact the physician that provides your medications for any instructions on how to handle dosing prior to the test. If you are on insulin or take medications for diabetes, consult your physician as to how to handle dosing of this medication prior to the test. Date/Time:Provider/Resource: May 02:05 MD Mccauley Vaqar H Location/Instructions:[facility],[address] [place] [address], [place] [id number] The Following Services Have Been Arranged for You No Post-Acute Placement(s) Listed No Post-Acute Service(s) Listed Tests Pending None Special Instructions Common Emergency Awareness Tips Call 911 immediately if: experiencing any of the warning signs and symptoms of stroke: B.E. F.A.S.T. Balance: is there trouble with walking or coordination Eyes: is there double vision or visual loss Face: Smile, do both sides of face move equally Arm: Raise arms, do both arms move equally Speech: Is speech slurred or inappropriate Time: Time is critical, call 911 immediately Heart Attack Signs Chest discomfort: Most heart attacks involve discomfort in the center of the chest and lasts more than a few minutes, or goes away and comes back. It can feel like uncomfortable pressure, squeezing, fullness or pain. Discomfort in upper body: Symptoms can include pain or discomfort in one or both arms, back, neck, jaw or stomach. Shortness of breath: With or without discomfort. Other signs: Breaking out in a cold sweat, nausea, or lightheaded. Remember, MINUTES DO MATTER. If you experience any of these heart attack warning signs, call to get immediate medical attention! Note * MD Jose C, Luiza Waggoner: PERFORM, MODIFY Event Display: Brief Operative Note Authored Date: [id number] BRIEF OPERATIVE NOTE Name: BERNY RUBIO Jr. 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, unable to exchange right ureteralstent Check one x Pharmacologic VTE prophylaxis not indicated _ Standard VTE prophylactic regimen ordered _ Pharmacologic VTE prophylaxis contraindicated due to increased risk of intraoperative and / or postoperative bleeding Check one _ No antibiotics indicated x Standard prophylactic antibiotic regimen ordered _ Antibiotic regimen changed due to concern for infection Electronic Signature on File Electronically Reviewed/Signed by: Luiza Woodall MD Author Signature Dt/Tm:05/04/2024 04:43 PM Resident Department of Urology Electronically Reviewed/Signed by: Luiza Woodall MD Cosigner Signature Dt/Tm: 05/04/2024 05:28 PM Resident Department of Urology CBC Anesthesia records * Services, CPDI: PERFORM Event Display: Sedation & Analgesia Record Authored Date: [id number] Patient Care team information Care Team Personnel Name: Constantin Del Toro Kimberly Position: Pharmacist BCMA Member Role: Pharmacy - Lifetime Address: [address] Name: MD Kitchen Raymond J Position: Physician - Hem/Onc Member Role: Lifetime Relationship Address: [address] [place] [address] [place] Name: Constantin Ferreira Matthew Position: Pharmacist Member Role: Pharmacy - Lifetime Name: Mame Perez RPh, William Position: Pharmacist Member Role: Pharmacy - Lifetime Name: MD Zachariha, Samra Cano Position: Physician Member Role: Primary Care Provider Address: [address] Care Team Related Persons Name: BRUNO YOO"
--- OUTSIDE RECORDS SUMMARY | 2024-07-09 08:43 | External Medical Summary | Continuity of Care Document ---
Author Name Unknown Organization [facility] Address [address] [place] [address] JOSIE ANDERSON [phone] Care Team Providers Care Controller Mechanic Name Role Phone Samra Soni Primary Care Physician [phone] En[id number] Date(s): 04/02/24 - 04/02/24 [facility] [address] JOSIE Barton [address]- [phone] Encounter Diagnosis Primary colorectal adenocarcinoma(Discharge Diagnosis) - 04/02/24 Metastatic colon cancer to liver(Discharge Diagnosis) - 04/02/24 Discharge Disposition: Home or Self Care Attending Physician: MD Kitchen Raymond J Referring Physician: MD Soni Ravishankar E Allergies, Adverse Reactions, Alerts Substance Criticality Severity [...] a day for 30 days, Pharmacy: [id number] Start Date: 04/07/23 Status: Ordered Lasix 20 mg oral tablet Start: 02/20/24 4:19:00 PM EST, 1 tab, PO, Daily, Disp# 7 tab, [facility] Start Date: 02/20/24 Stop Date: 02/27/24 Status: [...] Daily, Disp# 90 tab, Refills: 0, Pharmacy: [facility] Start Date: 02/20/24 Stop Date: 05/20/24 Status: Ordered NovoLOG 100 units/mL injectable solution Start: 03/12/24 11:19:00 AM EST, See Instructions, Disp# 30 mL, Refills: 4, USE 1 UNIT PER 15 GRAMS OF CARBS, INJECTING UP TO 6 TIMES PER DAY NEEDED - using 30 units per day - 90 day supply, Pharmacy: [facility] Start Date: 03/12/24 Status: Ordered One Touch Delica Plus (33G) Lancets Start: 05/07/22 8:18:00 AM EST, See Instructions, Disp# 100 each, Refills: 3, use for blood glucose testing up to 8x/day, Pharmacy: [facility] Start Date: 05/07/22 Status: Ordered One Touch Verio Flex Glucose Monitor Start: 08/24/23 7:58:00 AM EDT, See Instructions, Disp# 1 each, Refills: 0, test up to 8x/daily as directed for Type 1 DM, Note to Pharmacy: Pt aware insurance may not cover since it was replaced 2022. He would pay out of pocket if cheap enough, Pharmacy: [facility] Start Date: 08/24/23 Status: Ordered One Touch Verio Test Strips Start: 03/14/24 8:02:00 AM EST, See Instructions, Disp# 800 each, Refills: 3, test up to 8x/day as needed for Type 1 DM, Pharmacy: [facility] Start Date: 03/14/24 Status: Ordered ONETOUCH VERIO TEST STRIP Start: 03/14/24 8:05:00 AM EST, ONETOUCH VERIO TEST STRIP, See Instructions, Disp# 800 strip, Refills: 0, TEST UP TO 8 TIMES DAILY NEEDED, Pharmacy [facility] Start Date: 03/14/24 Status: Ordered Pyridium 200 mg oral tablet Start: 09/02/23 8:28:00 AM EDT, 1 tab, PO, tid, Disp# 6 tab, PRN: as needed for urinary discomfort, Pharmacy: [facility] Start Date: 09/02/23 Stop Date: 09/04/23 Status: Ordered Pyridium 200 mg oral tablet Start: 01/03/24 4:30:00 PM EDT, 1 tab, PO, tid, Disp# 6 tab, Refills: 0, PRN: as needed for urinary discomfort, Pharmacy: [facility] [place] Start Date: 01/03/24 Stop Date: 01/05/24 Status: Ordered Semglee (Vial) 100 units/mL subcutaneous solution Start: 03/12/24 11:19:00 AM EST, 20 unit =, subQ, Daily, Disp# 30 mL, Refills: 3, Pharmacy: [facility] Start Date: 03/12/24 Stop Date: 03/07/25 Status: Ordered Senna Start: 07/26/22 12:43:00 PM EDT, 8.6 mg =, PO, 2 tabs by mouth daily, PRN: as needed for constipation Start Date: 07/26/22 Status: Ordered Synthroid 125 mcg (0.125 mg) oral tablet Start: 03/12/24 11:19:00 AM EST, 1 tab, PO, Daily, Disp# 90 tab, Refills: 3, Pharmacy: [facility] Start Date: 03/12/24 Status: Ordered Syringe MIS 0.3/31gauge Start: 03/12/24 11:19:00 AM EST, Syringe MIS 0.3/31gauge, eRx Product Type: Supply, See Instructions, Disp# 500 each, Refills: 3, Pt uses 6 syringes daily. E11.9, Pharmacy [facility] Start Date: 03/12/24 Status: Ordered Syringe MIS 0.3/31gauge Start: 01/01/22 10:03:00 AM EDT, Syringe MIS 0.3/31gauge, eRx Product Type: Supply, See Instructions, Disp# 500 each, Refills: 3, Pt uses 6 syringes daily. E11.9, Pharmacy [facility] Start Date: 01/01/22 Status: Ordered tamsulosin 0.4 mg oral capsule Start: 03/18/23 5:38:00 PM EST, 1 cap, PO, Daily, Disp# 90 cap, Refills: 3, take at night for stent discomfort, Pharmacy: [id number] Start Date: 03/18/23 Stop Date: 03/12/24 Status: Ordered Vitamin B12 1000 mcg oral tablet Start: 10/24/23 10:35:00 AM EDT, 1 tab, PO, Daily, Disp# 90 tab, Refills: 0, Pharmacy: [facility] Start Date: 10/24/23 Stop Date: 01/22/24 [...] Service Informant Primary colorectal adenocarcinoma Discharge Diagnosis 04/02/24 Non-Specified Metastatic colon cancer to liver Discharge Diagnosis 04/02/24 Non-Specified Procedures Procedure Date Related Diagnosis Body [...] Safety Implantable Status Assigning Authority Unknown Unknown [id number] Unknown 09/16/26 Unknown Unknown Active Unknown Unknown Unknown [id number] Unknown 09/28/25 Unknown Unknown Active Unknown Procedure Provider Procedure Date Device Type Site Unknown Unknown 09/02/23 Unknown Unknown Device Identifier Serial Number Lot or Batch Number Manufacturing Date Expiration Date Distinct Identification Code MRI Safety Implantable Status Assigning Authority Unknown Unknown [id number] Unknown 10/29/24 Unknown Unknown Active Unknown Unknown Unknown [id number] Unknown 09/28/25 Unknown Unknown Active Unknown Procedure Provider Procedure Date Device Type Site Unknown Unknown 03/16/23 Unknown Unknown Device Identifier Serial Number Lot or Batch Number Manufacturing Date Expiration Date Distinct Identification Code MRI Safety Implantable Status Assigning Authority Unknown Unknown [id number] Unknown 01/14/25 Unknown Unknown Active Unknown Unknown Unknown [id number] Unknown 09/02/25 Unknown Unknown Active Unknown Patient Care team information Care Team Personnel Name: Constantin Del Toro Kimberly Position: Pharmacist BCMA Member Role: Pharmacy - Lifetime Address: [address] Name: MD Fidelina, Bronson Russo Position: Physician - Hem/Onc Member Role: Lifetime Relationship Address: [address] [place] [address] [place] Name: Constantin Ferreira Matthew Position: Pharmacist Member Role: Pharmacy - Lifetime Name: Mame Perez RPh, William Position: Pharmacist Member Role: Pharmacy - Lifetime Name: MD Zachariah, Samra Cano Position: Physician Member Role: Primary Care Provider Address: [address] [address] [place] Care Team Related Persons Name: BRUNO YOO
--- OUTSIDE RECORDS SUMMARY | 2024-07-09 08:43 | External Medical Summary | Continuity of Care Document ---
Author Name Unknown Organization [facility] Address [address] [place] [address] JOSIE ANDERSON [phone] Care Team Providers Care Sign Hanger Name Role Phone Samra Soni Primary Care Physician [phone] Encounter [facility] [id number] Date(s): 05/07/24 - 05/07/24 [facility] [place] [facility] [address] JOSIE Barton [id number]- [phone] Encounter Diagnosis Metastatic colon cancer to liver(Discharge Diagnosis) - 05/07/24 Discharge Disposition: Home or Self Care Attending Physician: MD Kitchen Raymond J Referring Physician: MD Kitchen Raymond J Allergies, Adverse Reactions, Alerts Substance Criticality Severity Reaction Reaction Severity Status Percodan Rash Active Functional Status 05/07/24 Gait Steady Immunizations Given and Recorded Vaccine [...] twice a day for 30 days, Pharmacy: [facility] Start Date: 04/07/23 Status: Ordered lisinopril 20 mg oral tablet Start: 05/07/24 9:23:00 AM EST, 1 tab, PO, Daily, Disp# 30 tab, Refills: 1, Pharmacy: [facility] Start Date: 05/07/24 Stop Date: 07/06/24 Status: Ordered magnesium oxide 500 mg oral capsule Start: 05/02/24 2:46:00 PM EST, 1 cap, PO, bid, Disp# 60 cap, Refills: 1, pt states he takes irregularly, Pharmacy: [facility] Start Date: 05/02/24 [...] Daily, Disp# 90 tab, Refills: 0, Pharmacy: [facility] Start Date: 02/20/24 Stop Date: 05/20/24 Status: Ordered NovoLOG 100 units/mL injectable solution Start: 03/12/24 11:19:00 AM EST, See Instructions, Disp# 30 mL, Refills: 4, USE 1 UNIT PER 15 GRAMS OF CARBS, INJECTING UP TO 6 TIMES PER DAY NEEDED - using 30 units per day - 90 day supply, Pharmacy: [facility] Start Date: 03/12/24 Status: Ordered One Touch Delica Plus (33G) Lancets Start: 05/07/22 8:18:00 AM EST, See Instructions, Disp# 100 each, Refills: 3, use for blood glucose testing up to 8x/day, Pharmacy: [facility] Start Date: 05/07/22 Status: Ordered One Touch Verio Flex Glucose Monitor Start: 08/24/23 7:58:00 AM EDT, See Instructions, Disp# 1 each, Refills: 0, test up to 8x/daily as directed for Type 1 DM, Note to Pharmacy: Pt aware insurance may not cover since it was replaced 2022. He would pay out of pocket if cheap enough, Pharmacy: [facility] Start Date: 08/24/23 Status: Ordered One Touch Verio Test Strips Start: 03/14/24 8:02:00 AM EST, See Instructions, Disp# 800 each, Refills: 3, test up to 8x/day as needed for Type 1 DM, Pharmacy: [facility] Start Date: 03/14/24 Status: Ordered ONETOUCH VERIO TEST STRIP Start: 03/14/24 8:05:00 AM EST, ONETOUCH VERIO TEST STRIP, See Instructions, Disp# 800 strip, Refills: 0, TEST UP TO 8 TIMES DAILY NEEDED, Pharmacy [facility] Start Date: 03/14/24 Status: Ordered Potassium Chloride (Eqv-K-Tab) 20 mEq oral tablet, extended release Start: 04/16/24 2:24:00 PM EST, 1 tab, PO, Daily, Disp# 30 tab, Refills: 0, Pharmacy: [id number] Start Date: 04/16/24 Status: Ordered Pyridium 200 mg oral tablet Start: 05/04/24 3:01:00 PM EST, 1 tab, PO, tid, Disp# 6 tab, PRN: as needed for urinary discomfort, Pharmacy: [facility] [place] Start Date: 05/04/24 Stop Date: 05/06/24 Status: Ordered Semglee (Vial) 100 units/mL subcutaneous solution Start: 03/12/24 11:19:00 AM EST, 20 unit =, subQ, Daily, Disp# 30 mL, Refills: 3, Pharmacy: [facility] Start Date: 03/12/24 Stop Date: 03/07/25 Status: Ordered Senna Start: 07/26/22 12:43:00 PM EDT, 8.6 mg =, PO, 2 tabs by mouth daily, PRN: as needed for constipation Start Date: 07/26/22 Status: Ordered Synthroid 125 mcg (0.125 mg) oral tablet Start: 03/12/24 11:19:00 AM EST, 1 tab, PO, Daily, Disp# 90 tab, Refills: 3, Pharmacy: [facility] Start Date: 03/12/24 Status: Ordered Syringe MIS 0.3/31gauge Start: 03/12/24 11:19:00 AM EST, Syringe MIS 0.3/31gauge, eRx Product Type: Supply, See Instructions, Disp# 500 each, Refills: 3, Pt uses 6 syringes daily. E11.9, Pharmacy [facility] Start Date: 03/12/24 Status: Ordered Syringe MIS 0.3/31gauge Start: 01/01/22 10:03:00 AM EDT, Syringe MIS 0.3/31gauge, eRx Product Type: Supply, See Instructions, Disp# 500 each, Refills: 3, Pt uses 6 syringes daily. E11.9, Pharmacy [facility] Start Date: 01/01/22 Status: Ordered Vitamin B12 1000 mcg oral tablet Start: 10/24/23 10:35:00 AM EDT, 1 tab, PO, Daily, Disp# 90 tab, Refills: 0, Pharmacy: [facility] Start Date: 10/24/23 Stop Date: 01/22/24 [...] Metastatic colon cancer to liver Discharge Diagnosis 05/07/24 Non-Specified Procedures Procedure Date Related Diagnosis Body [...] Range]: 1 Temperature [36.5-37.9 DegC] 36.6 DegC (05/07/24 9:43 AM) Heart Rate 68 bpm (05/07/24 9:43 AM) Respiratory Rate 20 br/min (05/07/24 9:43 AM) Blood Pressure 126/61mmHg (05/07/24 9:43 AM) Cuff Pulse Pressure 65 mmHg (05/07/24 9:43 AM) BP Location # 1 Right Arm (05/07/24 9:43 AM) Social History Social History Type [...] Safety Implantable Status Assigning Authority Unknown Unknown [id number] Unknown 06/15/26 Unknown Unknown Active Unknown Procedure Provider Procedure Date Device Type Site Unknown Unknown 01/03/24 Unknown Unknown Device Identifier Serial Number Lot or Batch Number Manufacturing Date Expiration Date Distinct Identification Code MRI Safety Implantable Status Assigning Authority Unknown Unknown [id number] Unknown 09/16/26 Unknown Unknown Active Unknown Unknown Unknown [id number] Unknown 09/28/25 Unknown Unknown Active Unknown Procedure Provider Procedure Date Device Type Site Unknown Unknown 09/02/23 Unknown Unknown Device Identifier Serial Number Lot or Batch Number Manufacturing Date Expiration Date Distinct Identification Code MRI Safety Implantable Status Assigning Authority Unknown Unknown [id number] Unknown 10/29/24 Unknown Unknown Active Unknown Unknown Unknown [id number] Unknown 09/28/25 Unknown Unknown Active Unknown Procedure Provider Procedure Date Device Type Site Unknown Unknown 03/16/23 Unknown Unknown Device Identifier Serial Number Lot or Batch Number Manufacturing Date Expiration Date Distinct Identification Code MRI Safety Implantable Status Assigning Authority Unknown Unknown [id number] Unknown 01/14/25 Unknown Unknown Active Unknown Unknown Unknown [id number] Unknown 09/02/25 Unknown Unknown Active Unknown Patient Care team information Care Team Personnel Name: Constantin Del Toro Kimberly Position: Pharmacist BCMA Member Role: Pharmacy - Lifetime Address: [place] [address] [place] Name: MD Kitchen Raymond J Position: Physician - Hem/Onc Member Role: Lifetime Relationship Address: [address] [place] [address] [place] Name: Constantin Ferreira Matthew Position: Pharmacist Member Role: Pharmacy - Lifetime Name: Mame Perez RPh, William Position: Pharmacist Member Role: Pharmacy - Lifetime Name: MD Soni Ravishankar E Position: Physician Member Role: Primary Care Provider Address: [address] [place] [address] [place] Care Team Related Persons Name: BRUNO YOO
--- OUTSIDE RECORDS SUMMARY | 2024-07-09 08:43 | External Medical Summary | Continuity of Care Document ---
Author Name Unknown Organization [facility] Address [address] [place] [address] JOSIE ANDERSON [phone] Care Team Providers Care Engine Testing Supervisor Name Role Phone SoniLenoracass Rachael Primary Care Physician [phone] Encounter [facility] [id number] Date(s): 03/19/24 - 03/19/24 [facility] [place] [facility] [address] JOSIE Barton [id number]- [phone] Encounter Diagnosis Primary colorectal adenocarcinoma(Discharge Diagnosis) - 03/19/24 Metastatic colon cancer to liver(Discharge Diagnosis) - 03/19/24 Discharge Disposition: Home or Self Care Attending Physician: MD Kitchen Raymond J Referring Physician: MD Kitchen Raymond J Allergies, Adverse Reactions, Alerts Substance Criticality Severity Reaction Reaction Severity Status Percodan Rash Active Functional Status 03/19/24 Gait Steady Medications amLODIPine 10 mg oral tablet Start: 02/20/24 3:47:00 PM EST, 1 tab, PO, Daily Start Date: 02/20/24 Status: Ordered Avastin 25 mg/mL intravenous solution Start: 01/21/23 9:33:00 AM EDT, infused over 30 minutes every 3 weeks Start Date: 01/21/23 Status: Ordered capecitabine 500 mg oral tablet Start: 01/14/24 [...] twice a day for 30 days, Pharmacy: [facility] Start Date: 04/07/23 Status: Ordered Lasix 20 mg oral tablet Start: 02/20/24 4:19:00 PM EST, 1 tab, PO, Daily, Disp# 7 tab, [facility] Start Date: 02/20/24 Stop Date: 02/27/24 Status: Ordered Medical Marijuana Start: 06/28/22 11:57:00 [...] UP TO 8 TIMES DAILY NEEDED, Pharmacy [facility] Start Date: 03/14/24 Status: Ordered Pyridium 200 mg oral tablet Start: 09/02/23 8:28:00 AM EDT, 1 tab, PO, tid, Disp# 6 tab, PRN: as needed for urinary discomfort, Pharmacy: [facility] Start Date: 09/02/23 Stop Date: 09/04/23 Status: Ordered Pyridium 200 mg oral tablet Start: 01/03/24 4:30:00 PM EDT, 1 tab, PO, tid, Disp# 6 tab, Refills: 0, PRN: as needed for urinary discomfort, Pharmacy: [facility] [place] Start Date: 01/03/24 Stop Date: 01/05/24 Status: [...] [facility] Start Date: 01/01/22 Status: Ordered tamsulosin 0.4 mg oral capsule Start: 03/18/23 5:38:00 PM EST, 1 cap, PO, Daily, Disp# 90 cap, Refills: 3, take at night for stent discomfort, Pharmacy: [facility] Start Date: 03/18/23 Stop [...] Service Informant Primary colorectal adenocarcinoma Discharge Diagnosis 03/19/24 Non-Specified Metastatic colon cancer to liver Discharge Diagnosis 03/19/24 Non-Specified Procedures Procedure Date Related Diagnosis Body [...] recent to oldest [Reference Range]: 1 2 Patient Weight 67.2 kg (03/19/24 9:06 AM) 67.2 kg (03/19/24 9:05 AM) Temperature [36.5-37.9 DegC] 36.1 DegC *LOW* (03/19/24 9:05 AM) Heart Rate 76 bpm (03/19/24 9:05 AM) Respiratory Rate 18 br/min (03/19/24 9:05 AM) Blood Pressure 122/71mmHg (03/19/24 9:05 AM) Cuff Pulse Pressure 51 mmHg (03/19/24 9:05 AM) BP Location # 1 Right Arm (03/19/24 9:05 AM) Social History Social History Type Response [...] Safety Implantable Status Assigning Authority Unknown Unknown [id number] Unknown 09/16/26 Unknown Unknown Active Unknown Unknown Unknown [id number] Unknown 09/28/25 Unknown Unknown Active Unknown Procedure Provider Procedure Date Device Type Site Unknown Unknown 09/02/23 Unknown Unknown Device Identifier Serial Number Lot or Batch Number Manufacturing Date Expiration Date Distinct Identification Code MRI Safety Implantable Status Assigning Authority Unknown Unknown [id number] Unknown 10/29/24 Unknown Unknown Active Unknown Unknown Unknown [id number] Unknown 09/28/25 Unknown Unknown Active Unknown Procedure Provider Procedure Date Device Type Site Unknown Unknown 03/16/23 Unknown Unknown Device Identifier Serial Number Lot or Batch Number Manufacturing Date Expiration Date Distinct Identification Code MRI Safety Implantable Status Assigning Authority Unknown Unknown [id number] Unknown 01/14/25 Unknown Unknown Active Unknown Unknown Unknown [id number] Unknown 09/02/25 Unknown Unknown Active Unknown Patient Care team information Care Team Personnel Name: Constantin Del Toro Kimberly Position: Pharmacist BCMA Member Role: Pharmacy - Lifetime Address: [place] [address] [place] Name: MD Kitchen Raymond J Position: Physician - Hem/Onc Member Role: Lifetime Relationship Address: [address] [place] [address] [place] Name: Constantin Ferreira Matthew Position: Pharmacist Member Role: Pharmacy - Lifetime Name: Mame Perez RPh, William Position: Pharmacist Member Role: Pharmacy - Lifetime Name: MD Soni Ravishankar E Position: Physician Member Role: Primary Care Provider Address: [address] [place] [address] [place] Care Team Related Persons Name: BRUNO YOO
--- OUTSIDE RECORDS SUMMARY | 2024-07-09 08:43 | External Medical Summary | Continuity of Care Document ---
Author Name Unknown Organization [facility] Address [address] [place] [address] JOSIE ANDERSON [phone] Care Team Providers Care Belting Inspector Name Role Phone Samra Soni Primary Care Physician [phone] Encounter [facility] [id number] Date(s): 04/16/24 - 04/16/24 [facility] [id number], [place] [address]- [phone] Encounter Diagnosis Primary colorectal adenocarcinoma(Discharge Diagnosis) - 04/16/24 Hand foot syndrome(Discharge Diagnosis) - 04/16/24 Proteinuria(Discharge Diagnosis) - 04/16/24 Discharge Disposition: Home or Self Care Attending Physician: MD Kitchen Raymond J Referring Physician: MD Soni Ravishankar E Allergies, Adverse Reactions, Alerts Substance Criticality Severity Reaction Reaction Severity Status Percodan Rash Active Assessment and Plan Extracted from: Title:Oncology Office Visit Note Author:Gianni Woodall Annie Date:04/16/24 63 y/o male with metastatic colon cancer on palliative chemotherapy with capecitabine and Panitumumab Metastatic colon cancer - Multifocal pulmonary metastasis. Omental metastasis. Hepatic metastasis. Abdominal and retroperitoneal guevaar metastasis. - Caris result showed K-joe and [...] is his baseline. - 01/05/24 scans at [facility]- per patient show disease progression. -Will hold Avastin therapy given elevated protein urea; - Started Panitumumab as additional agent given disease progression. - S/p first dose on 02/06/24, presents for dose #6 today.Tolerating well so far. - Will proceed with treatment today and plan for again in 2 weeks. -CT scan from this morning is pending. Multifocal pulmonary metastasis/ chronic smoker -Upon review [...] toenails - patient was told to f/u model and mold maker plaster for basic diabetic foot care from his PCP, but his said he has not done that. -He was encouraged to continue with monitoring his blood sugars as he is. Recurrent gross hematuria/ Bilateral hydroureteronephrosis - Cystoscopy, bilateral retrograde pyelograms with radiographic interpretation, bilateral ureteral stent exchange. - f/u urologist, Dr John Matson. - urine cx on 04/07/23 was negative. - Intermittent bladder spasm in the setting of renal stent-on baclofen prn Hand/foot syndrome from chemo- minimal - Dry skin of hand and feet. - rec Goldbond lotion Hypomagnesemia-OTC supplements -Patient does not wish to stay for IV Magnesium infusion. - Discussed need toresume PO Mag. Hypokalemia and hypocalcemia: -Reviewed with Dr. Kitchen - Will send PO K to pharmacy - Hypocalcemia noted. Protein low but OK. Will continue to monitor both. Proteinuria and BLE edma -Likely secondary to Avastin. - PT evaluation for lymphedema - Lasix 20 mg dailyPRN. Discussed need to check BP prior to administering and if hypotensive, hold Lasix. -Nephrology referral placed to evaluate if any therapeutic options available. Patient to see Dr. Del Angeliper Dr. Kitchen's discussion with him. Acneform rash to face - Continue with benzyl peroxideointment. - Can consider derm referral if ongoing. Dispo:Patient will return in3 weeks time for labs, treatment and OV to monitor swelling and rash. Attending: I performed all the medical decision making, which is the substantive portion of this visit. Bronson Kitchen M.D., Ph.D. Medications capecitabine 500 mg oral tablet Start: 01/14/24 5:20:00 PM EDT, 1 tab, PO, bid, Disp# 28 tab, Refills: 5, for 14 days, followed by 7days off of each 21 day cycle., [facility] Start Date: 01/14/24 Status: Ordered Gold Gutierrez Medicated Maximum Strength Pain and Itch 4% topical cream Start: 04/07/23 12:16:00 PM EST, See Instructions, Disp# 133 g, Refills: 0, not to exceed 3 applications in 24 hours, Note to Pharmacy: use twice a day for 30 days, Pharmacy: [id number] Start Date: 04/07/23 Status: Ordered Lasix 20 mg oral tablet Start: 02/20/24 4:19:00 PM EST, 1 tab, PO, Daily, Disp# 7 tab, [facility] Start Date: 02/20/24 Stop Date: 02/27/24 Status: [...] Daily, Disp# 90 tab, Refills: 0, Pharmacy: [facility] Start Date: 02/20/24 Stop Date: 05/20/24 Status: Ordered NovoLOG 100 units/mL injectable solution Start: 03/12/24 11:19:00 AM EST, See Instructions, Disp# 30 mL, Refills: 4, USE 1 UNIT PER 15 GRAMS OF CARBS, INJECTING UP TO 6 TIMES PER DAY NEEDED - using 30 units per day - 90 day supply, Pharmacy: [facility] Start Date: 03/12/24 Status: Ordered One Touch Delica Plus (33G) Lancets Start: 05/07/22 8:18:00 AM EST, See Instructions, Disp# 100 each, Refills: 3, use for blood glucose testing up to 8x/day, Pharmacy: [facility] Start Date: 05/07/22 Status: Ordered One Touch Verio Flex Glucose Monitor Start: 08/24/23 7:58:00 AM EDT, See Instructions, Disp# 1 each, Refills: 0, test up to 8x/daily as directed for Type 1 DM, Note to Pharmacy: Pt aware insurance may not cover since it was replaced 2022. He would pay out of pocket if cheap enough, Pharmacy: [facility] Start Date: 08/24/23 Status: Ordered One Touch Verio Test Strips Start: 03/14/24 8:02:00 AM EST, See Instructions, Disp# 800 each, Refills: 3, test up to 8x/day as needed for Type 1 DM, Pharmacy: [facility] Start Date: 03/14/24 Status: Ordered ONETOUCH VERIO TEST STRIP Start: 03/14/24 8:05:00 AM EST, ONETOUCH VERIO TEST STRIP, See Instructions, Disp# 800 strip, Refills: 0, TEST UP TO 8 TIMES DAILY NEEDED, Pharmacy [facility] Start Date: 03/14/24 Status: Ordered Potassium Chloride (Eqv-K-Tab) 20 mEq oral tablet, extended release Start: 04/16/24 2:24:00 PM EST, 1 tab, PO, Daily, Disp# 30 tab, Refills: 0, Pharmacy: [id number] Start Date: 04/16/24 Status: Ordered Pyridium 200 mg oral tablet Start: 09/02/23 8:28:00 AM EDT, 1 tab, PO, tid, Disp# 6 tab, PRN: as needed for urinary discomfort, Pharmacy: [facility] Start Date: 09/02/23 Stop Date: 09/04/23 Status: Ordered Pyridium 200 mg oral tablet Start: 01/03/24 4:30:00 PM EDT, 1 tab, PO, tid, Disp# 6 tab, Refills: 0, PRN: as needed for urinary discomfort, Pharmacy: [facility] Start Date: 01/03/24 Stop Date: 01/05/24 Status: Ordered Semglee (Vial) 100 units/mL subcutaneous solution Start: 03/12/24 11:19:00 AM EST, 20 unit =, subQ, Daily, Disp# 30 mL, Refills: 3, Pharmacy: [facility] Start Date: 03/12/24 Stop Date: 03/07/25 Status: Ordered Senna Start: 07/26/22 12:43:00 PM EDT, 8.6 mg =, PO, 2 tabs by mouth daily, PRN: as needed for constipation Start Date: 07/26/22 Status: Ordered Synthroid 125 mcg (0.125 mg) oral tablet Start: 03/12/24 11:19:00 AM EST, 1 tab, PO, Daily, Disp# 90 tab, Refills: 3, Pharmacy: [facility] Start Date: 03/12/24 Status: Ordered Syringe MIS 0.3/31gauge Start: 03/12/24 11:19:00 AM EST, Syringe MIS 0.3/31gauge, eRx Product Type: Supply, See Instructions, Disp# 500 each, Refills: 3, Pt uses 6 syringes daily. E11.9, Pharmacy [facility] Start Date: 03/12/24 Status: Ordered Syringe MIS 0.3/31gauge Start: 01/01/22 10:03:00 AM EDT, Syringe MIS 0.3/31gauge, eRx Product Type: Supply, See Instructions, Disp# 500 each, Refills: 3, Pt uses 6 syringes daily. E11.9, Pharmacy [facility] Start Date: 01/01/22 Status: Ordered tamsulosin 0.4 mg oral capsule Start: 03/18/23 5:38:00 PM EST, 1 cap, PO, Daily, Disp# 90 cap, Refills: 3, take at night for stent discomfort, Pharmacy: [id number] Start Date: 03/18/23 Stop Date: 03/12/24 Status: Ordered Vitamin B12 1000 mcg oral tablet Start: 10/24/23 10:35:00 AM EDT, 1 tab, PO, Daily, Disp# 90 tab, Refills: 0, Pharmacy: [facility] Start Date: 10/24/23 Stop Date: 01/22/24 Status: Ordered ZyrTEC Start: 02/06/24 8:29:00 AM EDT, PO, Daily Start Date: 02/06/24 Status: Ordered Mental Status 04/16/24 Barriers to Learning one year None evide nt Mandatory Health Literacy Documentation Yes Health Literacy Communication Barriers N ever Primary Language Italian Problem List Condition Confirmation Course Effective Dates [...] Informant Primary colorectal adenocarcinoma Discharge Diagnosis 04/16/24 Hand foot syndrome Discharge Diagnosis 04/16/24 Proteinuria Discharge Diagnosis 04/16/24 Non-Specified Procedures Procedure Date [...] [Reference Range]: 1 Height 168.2 cm (04/16/24 8:05 AM) Patient Weight 68.3 kg (04/16/24 8:05 AM) Body Mass Index 24.14 kg/m2 (04/16/24 8:05 AM) Temperature [36.5-37.9 DegC] 36.8 DegC (04/16/24 8:05 AM) Heart Rate 81 bpm (04/16/24 8:05 AM) Respiratory Rate 18 br/min (04/16/24 8:05 AM) Blood Pressure 140/66mmHg (04/16/24 8:05 AM) Cuff Pulse Pressure 74 mmHg (04/16/24 8:05 AM) BP Location # 1 Right Arm (04/16/24 8:05 AM) Social History Social History Type Response [...] Safety Implantable Status Assigning Authority Unknown Unknown [id number] Unknown 09/16/26 Unknown Unknown Active Unknown Unknown Unknown [id number] Unknown 09/28/25 Unknown Unknown Active Unknown Procedure Provider Procedure Date Device Type Site Unknown Unknown 09/02/23 Unknown Unknown Device Identifier Serial Number Lot or Batch Number Manufacturing Date Expiration Date Distinct Identification Code MRI Safety Implantable Status Assigning Authority Unknown Unknown [id number] Unknown 10/29/24 Unknown Unknown Active Unknown Unknown Unknown [id number] Unknown 09/28/25 Unknown Unknown Active Unknown Procedure Provider Procedure Date Device Type Site Unknown Unknown 03/16/23 Unknown Unknown Device Identifier Serial Number Lot or Batch Number Manufacturing Date Expiration Date Distinct Identification Code MRI Safety Implantable Status Assigning Authority Unknown Unknown [id number] Unknown 01/14/25 Unknown Unknown Active Unknown Unknown Unknown [id number] Unknown 09/02/25 Unknown Unknown Active Unknown Hematology/Oncology Outpt Note * MD Fidelina, Bronson Russo: MODIFY MD Fidelina, Bronson Russo: MODIFY, PERFORM CASIE Woodall Annie: PERFORM, MODIFY CASIE Woodall, Madai: MODIFY, MODIFY CASIE Woodall, Madai: MODIFY, MODIFY CASIE Woodall Annie: MODIFY, MODIFY CASIE Woodall Annie: MODIFY, MODIFY CASIE Woodall, Madai: MODIFY Event Display: Hematology/Oncology Outpt Note Authored Date: [id number] Chief Complaint f/u History of Present Illness 63-year-old gentleman, [...] bilaterally. 03/22/2022: Diagnosis(Verified) A.Colon, hepatic flexure, biopsy (-7635-S 02/03/22):- Colonic mucosa with focal high-grade dysplasia. B.Colon, transverse, polypectomy ( -2603-S 02/03/22):- Tubular adenoma. C. Colon, sigmoid, biopsy sigmoid colitis (-3348-S 02/03/22):- No pathological ulceration. D. Rectum, polypectomy (-7883-S 02/03/22)":- Fragments of tubular adenoma. 2Liver, side unspecified (core needle biopsy) (22-2319-S 02/18/22): - Metastatic moderately differentiated adenocarcinoma. - [...] initially seen by Dr. Sparks in a [facility] who recommended surgical bypass because of [...] are mildly decreased in size. INTERVAL HISTORY 04/16/24: Patient presents for FU and palliative treatment with Panitumumab and capecitabine. Overall, tolerating treatments well. Reports "air filled pocket" to RUQ of abdomen. Reports it feels like gas. Relieved with bowel movements. states she noticed increased flatulence. Skin is still very dry. Does not feel goldbond cream is helping any more. Appetite is decreased. Weight is stable. Noted BLE edema again. Takes lasix PRN. Has not used since last visit. Feels swelling is extending up leg into thigh now. Denies fevers, chills, CP, or SOB. Denies bleeding or bruising. He is taking amlodipine daily. Continues to closely monitor BP at home. Taking synthroid [address] scan this AM. Has diarrhea following treatment. Reports a few times in the AM and then again a few times before bed. Not taking any anti-diarrheas as he is concerned for constipation. Has not been taking PO magnesium at home. Review of Systems All other ROS is negative except what is mentioned in HPI. Physical Exam Vital Signs and Measurements This Visit - Last 24 Hours T:36.8C HR:81(Monitored) RR:18 BP:140/66 SpO2:100% HT:168.2cm WT:68.300kg(Dosing) WT:68.3kg BMI:24.14 General:Alert, conversant, and answering questions appropriately; in [...] and oriented x3.No focal deficits noted. Skin:Warm, dry,+ acne form rash to faceand neck Performance Scales and Status ECOG Performance Status: 0 (04/02/24) ECOG Performance Status: 1 (03/19/24) Pain Score:NO PAIN SCORE DOCUMENTED ON THIS VISIT Patient Declined Assessment on:03/19/2024 09:04 Distress Inventory Not Completed Reason: [ _ [...] is his baseline. - 01/05/24 scans at [facility]- per patient show disease progression. -Will hold Avastin therapy given elevated protein urea; - Started Panitumumab as additional agent given disease progression. - S/p first dose on 02/06/24, presents for dose #6 today.Tolerating well so far. - Will proceed with treatment today and plan for again in 2 weeks. -CT scan from this morning is pending. Multifocal pulmonary metastasis/ chronic smoker -Upon review [...] toenails - patient was told to f/u model and mold maker plaster for basic diabetic foot care from his PCP, but his said he has not done that. -He was encouraged to continue with monitoring his blood sugars as he is. Recurrent gross hematuria/ Bilateral hydroureteronephrosis - Cystoscopy, bilateral retrograde pyelograms with radiographic interpretation, bilateral ureteral stent exchange. - f/u urologist, Dr John Matson. - urine cx on 04/07/23 was negative. - Intermittent bladder spasm in the setting of renal stent-on baclofen prn Hand/foot syndrome from chemo- minimal - Dry skin of hand and feet. - rec Goldbond lotion Hypomagnesemia-OTC supplements -Patient does not wish to stay for IV Magnesium infusion. - Discussed need toresume PO Mag. Hypokalemia and hypocalcemia: -Reviewed with Dr. Kitchen - Will send PO K to pharmacy - Hypocalcemia noted. Protein low but OK. Will continue to monitor both. Proteinuria and BLE edma -Likely secondary to Avastin. - PT evaluation for lymphedema - Lasix 20 mg dailyPRN. Discussed need to check BP prior to administering and if hypotensive, hold Lasix. -Nephrology referral placed to evaluate if any therapeutic options available. Patient to see Dr. Del Angeliper Dr. Kitchen's discussion with him. Acneform rash to face - Continue with benzyl peroxideointment. - Can consider derm referral if ongoing. Dispo:Patient will return in3 weeks time for labs, treatment and OV to monitor [...] Plus (33G) Lancets), See Instructions, 3 refills furosemide(Lasix 20 mg oral tablet), 20 mg= 1 tab, PO, Daily insulin aspart(NovoLOG 100 units/mL injectable solution), See Instructions, 4 refills insulin glargine(Semglee (Vial) 100 units/mL subcutaneous solution), 20 unit, subQ, Daily, 3 refills levothyroxine(Synthroid 125 mcg (0.125 mg) oral tablet), 125 mcg= 1 tab, PO, Daily, 3 refills lidocaine topical(Gold Gutierrez Medicated Maximum Strength Pain and Itch 4% topical cream), See Instructions magnesium oxide, PO morphine, 60 mg, PO, q12h morphine(morphine 30 mg (24 HR) oral capsule, extended release), 30 mg= 1 cap, PO, bid, PRN phenazopyridine(Pyridium 200 mg oral tablet), 200 mg= 1 tab, PO, tid, PRN phenazopyridine(Pyridium 200 mg oral tablet), 200 mg= 1 tab, PO, tid, PRN senna(Senna), 8.6 mg, PO, PRN tamSULOsin(tamsulosin 0.4 mg oral capsule), 0.4 mg= 1 cap, PO, Daily, 3 refills unlisted medication(Syringe MIS 0.3/31gauge), See [...] ppd Family History Family history is negative Labs Na: 141 mmol/L (04/16/24 10:07:00) K:3 mmol/LLow (04/16/24 10:07:00) Cl-:117 mmol/LHigh (04/16/24 10:07:00) BUN: 11 mg/dL (04/16/24 10:07:00) Cret:0.59 mg/dLLow (04/16/24 10:07:00) Glu: 82 mg/dL (04/16/24 10:07:00) Ca:5.4 mg/dLCritical (04/16/24 10:07:00) M mg/dLLow (04/16/24 07:14:00) WBC: 8.7 K/uL (04/16/24 10:07:00) Hgb:9.5 g/dLLow (04/16/24 10:07:00) Hct:30.2 %Low (04/16/24 10:07:00) MCV: 86.5 fL (04/16/24 10:07:00) Plts: 253 K/uL (04/16/24 10:07:00) Neut%: 71.9 % (04/16/24 10:07:00) Baso%: 0.5 % (04/16/24 10:07:00) Neut, Abs: 6.26 K/uL (04/16/24 10:07:00) Lymph, Abs:0.98 K/uLLow (04/16/24 10:07:00) ALT: 7 unit/L (04/16/24 10:07:00) T Bili: 0.3 mg/dL (04/16/24 10:07:00) Alk Phos: 112 unit/L (04/16/24 10:07:00) AST: 18 unit/L (04/16/24 10:07:00) [1]Oncology Office Visit Note; CASIE Woodall Annie 04/02/2024 08:38 EST Electronic Signature on File CC: CASIE Loco [address] [place] [id number] Electronically Reviewed/Signed by: CASIE Loco Author Signature Dt/Tm:04/17/2024 08:29 AM Division of Hematology Oncology Electronically Reviewed/Signed by: Bronson Kitchen MD Cosigner Signature Dt/Tm: 04/17/2024 12:14 PM Division of Hematology Oncology AC Patient Care team information Care Team Personnel Name: Constantin Del Toro Kimberly Position: Pharmacist BCMA Member Role: Pharmacy - Lifetime Address: [facility] [address] [address] Name: MD Fidelina, Bronson Russo Position: Physician - Hem/Onc Member Role: Lifetime Relationship Address: [address] [place] [id number] [place] Name: Constantin Ferreira Matthew Position: Pharmacist Member Role: Pharmacy - Lifetime Name: Mame Perez RPh, William Position: Pharmacist Member Role: Pharmacy - Lifetime Name: MD Zachariah, Samra Cano Position: Physician Member Role: Primary Care Provider Address: [address] [place] [id number] Care Team Related Persons Name: BRUNO YOO
--- OUTSIDE RECORDS SUMMARY | 2024-07-09 08:43 | External Medical Summary | Continuity of Care Document ---
Author Name Unknown Organization [facility] Address [address] [place] [address] JOSIE ANDERSON [phone] Care Team Providers Care Process Development Manager Name Role Phone Samra Soni Primary Care Physician [phone] Encounter [facility] [id number] Date(s): 03/19/24 - 03/19/24 [facility] [id number], [place] [address]- [phone] Encounter Diagnosis Primary colorectal adenocarcinoma(Discharge Diagnosis) - 03/19/24 Proteinuria(Discharge Diagnosis) - 03/19/24 Edema(Discharge Diagnosis) - 03/19/24 SOB (shortness of breath) on exertion(Discharge Diagnosis) - 03/19/24 Discharge Disposition: Home or Self Care Attending Physician: MD Kitchen Raymond J Referring Physician: MD Soni Ravishankar E Allergies, Adverse Reactions, Alerts Substance Criticality Severity Reaction Reaction Severity Status Percodan Rash Active Assessment and Plan Extracted from: Title:Oncology Office Visit Note Author:Gianni Woodall Annie Date:03/19/24 63 y/o male with metastatic colon cancer [...] is his baseline. - 01/05/24 scans at [facility]- per patient show disease progression. -Will hold Avastin therapy given elevated protein urea; - Started Panitumumab as additional agent given disease progression. - S/p first dose on 02/06/24, presents for dose #4 today.Tolerating well so far. - Will proceed with treatment today and plan for again in 2 weeks. - Next scans due in end of March/early April. Ordered today. Multifocal pulmonary metastasis/ chronic smoker -Upon review of his CT chest as noted above he will plan to continue with his treatment as planned. -He was encouraged to make efforts in smoking cessation. 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 - Discussed need toresume PO Mag. Proteinuria and BLE edma -Likely secondary to Avastin. - PT evaluation for lymphedema - Lasix 20 mg dailyPRN. Discussed need to check BP prior to administering and if hypotensive, hold Lasix. -Nephrology referral placed to evaluate if any therapeutic options available. Acneform rash to face - Continue with benzyl peroxideointment. - Can consider derm referral if ongoing. Dispo:Patient will return in 2 weeks time for labs, treatment and OV to monitor swelling and rash. Medications amLODIPine 10 mg oral tablet Start: [...] tab, PO, Daily, Disp# 7 tab, [facility]: [facility] Start Date: 02/20/24 Stop Date: [...] Daily, Disp# 90 tab, Refills: 0, Pharmacy: [facility] Start Date: 02/20/24 Stop Date: 05/20/24 Status: Ordered NovoLOG 100 units/mL injectable solution Start: 03/12/24 11:19:00 AM EST, See Instructions, Disp# 30 mL, Refills: 4, USE 1 UNIT PER 15 GRAMS OF CARBS, INJECTING UP TO 6 TIMES PER DAY NEEDED - using 30 units per day - 90 day supply, Pharmacy: [facility] Start Date: 03/12/24 Status: Ordered One Touch Delica Plus (33G) Lancets Start: 05/07/22 8:18:00 AM EST, See Instructions, Disp# 100 each, Refills: 3, use for blood glucose testing up to 8x/day, Pharmacy: [facility] Start Date: 05/07/22 Status: Ordered One Touch Verio Flex Glucose Monitor Start: 08/24/23 7:58:00 AM EDT, See Instructions, Disp# 1 each, Refills: 0, test up to 8x/daily as directed for Type 1 DM, Note to Pharmacy: Pt aware insurance may not cover since it was replaced 2022. He would pay out of pocket if cheap enough, Pharmacy: [facility] Start Date: 08/24/23 Status: Ordered One Touch Verio Test Strips Start: 03/14/24 8:02:00 AM EST, See Instructions, Disp# 800 each, Refills: 3, test up to 8x/day as needed for Type 1 DM, Pharmacy: [facility] Start Date: 03/14/24 Status: Ordered ONETOUCH VERIO TEST STRIP Start: 03/14/24 8:05:00 AM EST, ONETOUCH VERIO TEST STRIP, See Instructions, Disp# 800 strip, Refills: 0, TEST UP TO 8 TIMES DAILY NEEDED, Pharmacy [facility] Start Date: 03/14/24 Status: Ordered Pyridium 200 mg oral tablet Start: 09/02/23 8:28:00 AM EDT, 1 tab, PO, tid, Disp# 6 tab, PRN: as needed for urinary discomfort, Pharmacy: [facility] Start Date: 09/02/23 Stop Date: 09/04/23 Status: Ordered Pyridium 200 mg oral tablet Start: 01/03/24 4:30:00 PM EDT, 1 tab, PO, tid, Disp# 6 tab, Refills: 0, PRN: as needed for urinary discomfort, Pharmacy: [facility] [place] Start Date: 01/03/24 Stop Date: 01/05/24 Status: Ordered Semglee (Vial) 100 units/mL subcutaneous solution Start: 03/12/24 11:19:00 AM EST, 20 unit =, subQ, Daily, Disp# 30 mL, Refills: 3, Pharmacy: [facility] Start Date: 03/12/24 Stop Date: 03/07/25 Status: Ordered Senna Start: 07/26/22 12:43:00 PM EDT, 8.6 mg =, PO, 2 tabs by mouth daily, PRN: as needed for constipation Start Date: 07/26/22 Status: Ordered Synthroid 125 mcg (0.125 mg) oral tablet Start: 03/12/24 11:19:00 AM EST, 1 tab, PO, Daily, Disp# 90 tab, Refills: 3, Pharmacy: [facility] Start Date: 03/12/24 Status: Ordered Syringe MIS 0.3/31gauge Start: 03/12/24 11:19:00 AM EST, Syringe MIS 0.3/31gauge, eRx Product Type: Supply, See Instructions, Disp# 500 each, Refills: 3, Pt uses 6 syringes daily. E11.9, Pharmacy [facility] Start Date: 03/12/24 Status: Ordered Syringe MIS 0.3/31gauge Start: 01/01/22 10:03:00 AM EDT, Syringe MIS 0.3/31gauge, eRx Product Type: Supply, See Instructions, Disp# 500 each, Refills: 3, Pt uses 6 syringes daily. E11.9, [facility] Start Date: 01/01/22 Status: Ordered tamsulosin 0.4 mg oral capsule Start: 03/18/23 5:38:00 PM EST, 1 cap, PO, Daily, Disp# 90 cap, Refills: 3, take at night for stent discomfort, Pharmacy: [id number] Start Date: 03/18/23 Stop Date: 03/12/24 Status: Ordered Vitamin B12 1000 mcg oral tablet Start: 10/24/23 10:35:00 AM EDT, 1 tab, PO, Daily, Disp# 90 tab, Refills: 0, Pharmacy: [facility] Start Date: 10/24/23 Stop [...] Status Clinical Service Informant Proteinuria Discharge Diagnosis 03/19/24 Non-Specified Edema Discharge Diagnosis 03/19/24 Non-Specified SOB (shortness of breath) on exertion Discharge Diagnosis 03/19/24 Non-Specified Primary colorectal adenocarcinoma Discharge Diagnosis 03/19/24 Procedures Procedure Date Related Diagnosis Body Site [...] Safety Implantable Status Assigning Authority Unknown Unknown [id number] Unknown 09/16/26 Unknown Unknown Active Unknown Unknown Unknown [id number] Unknown 09/28/25 Unknown Unknown Active Unknown Procedure Provider Procedure Date Device Type Site Unknown Unknown 09/02/23 Unknown Unknown Device Identifier Serial Number Lot or Batch Number Manufacturing Date Expiration Date Distinct Identification Code MRI Safety Implantable Status Assigning Authority Unknown Unknown [id number] Unknown 10/29/24 Unknown Unknown Active Unknown Unknown Unknown [id number] Unknown 09/28/25 Unknown Unknown Active Unknown Procedure Provider Procedure Date Device Type Site Unknown Unknown 03/16/23 Unknown Unknown Device Identifier Serial Number Lot or Batch Number Manufacturing Date Expiration Date Distinct Identification Code MRI Safety Implantable Status Assigning Authority Unknown Unknown [id number] Unknown 01/14/25 Unknown Unknown Active Unknown Unknown Unknown [id number] Unknown 09/02/25 Unknown Unknown Active Unknown Hematology/Oncology Outpt Note * CASIE Woodall Annie: PERFORM, MODIFY, MODIFY, MODIFY, MODIFY Event Display: Hematology/Oncology Outpt Note Authored Date: [id number] Chief Complaint 2 week follow-up for rash and leg swelling, seen in [facility]. History of Present Illness 63-year-old gentleman, chronic [...] bilaterally. 03/22/2022: Diagnosis(Verified) A.Colon, hepatic flexure, biopsy (1980-S 02/03/22):- Colonic mucosa with focal high-grade dysplasia. B.Colon, transverse, polypectomy ( 5188-S 02/03/22):- Tubular adenoma. C. Colon, sigmoid, biopsy sigmoid colitis (74-S 02/03/22):- No pathological ulceration. D. Rectum, polypectomy (6054-S 02/03/22)":- Fragments of tubular adenoma. 2Liver, side unspecified (core needle biopsy) (-1400-S 02/18/22): - Metastatic moderately differentiated adenocarcinoma. - [...] initially seen by Dr. Sparks in a [facility] who recommended surgical bypass because of [...] are mildly decreased in size. INTERVAL HISTORY 03/19/24: Patient presents for FU and palliative treatment with Panitumumab and capecitabine. Overall, patient reports he is stable. Continues with rash to face, upper neck and chest from panitumumab. Feels this is stable. Using cream with relief. Reports it is tolerable. Denies fevers, chills, or cough. Has diarrhea following treatment. Reports a few times in the AM and then again a few times before bed. Not taking any anti-diarrheas as he is concerned for constipation. BLE worse now - about +2 bilaterally. Has Lasix at home but was not taking as he was concerned about electrolytes. Does report +SOB on exertion. Denies bleeding or bruising. Has not been taking PO magnesium at home. Continues on Synthroid 125 mcg daily. Review of Systems All other ROS is negative except what is mentioned in HPI. Physical Exam General:Alert, conversant, and answering questions appropriately; in [...] non-tender to palpation.Normoactive bowel sounds are present. Extremities:+2 bilateral LE peripheral edema.No erythema or swelling to joints. Neuro:Alert and oriented x3.No focal deficits noted. Skin:Warm, dry,+ acne form rash to faceand neck Performance Scales and Status ECOG Performance Status: 1 (03/19/24) ECOG Performance Status: 0 (03/05/24) ECOG Performance Status: 0 (02/20/24) Pain Score:NO PAIN SCORE DOCUMENTED ON THIS [...] is his baseline. - 01/05/24 scans at [facility]- per patient show disease progression. -Will hold Avastin therapy given elevated protein urea; - Started Panitumumab as additional agent given disease progression. - S/p first dose on 02/06/24, presents for dose #4 today.Tolerating well so far. - Will proceed with treatment today and plan for again in 2 weeks. - Next scans due in end of March/early April. Ordered today. Multifocal pulmonary metastasis/ chronic smoker -Upon review of his CT chest as noted above he will plan to continue with his treatment as planned. -He was encouraged to make efforts in smoking cessation. 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 - Discussed need toresume PO Mag. Proteinuria and BLE edma -Likely secondary to Avastin. - PT evaluation for lymphedema - Lasix 20 mg dailyPRN. Discussed need to check BP prior to administering and if hypotensive, hold Lasix. -Nephrology referral placed to evaluate if any therapeutic options available. Acneform rash to face - Continue with benzyl peroxideointment. - Can consider derm referral if ongoing. Dispo:Patient will return in 2 weeks time for labs, treatment and OV to monitor swelling and rash. Staging Information No information available Problem List/Past [...] radiographic interpretation, bilateral ureteral stent exchange Medications amLODIPine(amLODIPine 10 mg oral tablet), 10 mg= 1 tab, PO, Daily amLODIPine(Norvasc 10 mg oral tablet), 10 mg= 1 tab, PO, Daily bevacizumab(Avastin 25 mg/mL intravenous solution) cannabis(Medical Marijuana), 1 inh, inhaled capecitabine(capecitabine 500 [...] and Itch 4% topical cream), See Instructions morphine, 60 mg, PO, q12h morphine(morphine 30 [...] History Family history is negative Labs Na: 139 mmol/L (03/19/24 08:18:00) K: 3.7 mmol/L (03/19/24 08:18:00) Cl-: 107 mmol/L (03/19/24 08:18:00) BUN: 14 mg/dL (03/19/24 08:18:00) Cret: 0.98 mg/dL (03/19/24 08:18:00) Glu:125 mg/dLHigh (03/19/24 08:18:00) Ca:7.7 mg/dLLow (03/19/24 08:18:00) M.1 mg/dLLow (03/19/24 08:18:00) WBC:10.48 K/uLHigh (03/19/24 08:18:00) Hgb:10.2 g/dLLow (03/19/24 08:18:00) Hct:32.5 %Low (03/19/24 08:18:00) MCV: 85.1 fL (03/19/24 08:18:00) Plts: 294 K/uL (03/19/24 08:18:00) Neut%: 76.7 % (03/19/24 08:18:00) Baso%: 0.3 % (03/19/24 08:18:00) Neut, Abs:8.05 K/uLHigh (03/19/24 08:18:00) Lymph, Abs:0.75 K/uLLow (03/19/24 08:18:00) ALT: 7 unit/L (03/19/24 08:18:00) T Bili: 0.4 mg/dL (03/19/24 08:18:00) Alk Phos:136 unit/LHigh (03/19/24 08:18:00) AST: 12 unit/L (03/19/24 08:18:00) [1]Oncology Office Visit Note; CASIE Woodall Annie 03/05/2024 07:27 EST Electronic Signature on File Electronically Reviewed/Signed by: CASIE Loco Author Signature Dt/Tm:03/19/2024 09:57 AM Division of Hematology Oncology Electronically Reviewed/Signed by: Bronson Kitchen MD Division of Hematology Oncology [facility] Patient Care team information Care Team Personnel Name: Constantin Del Toro Kimberly Position: Pharmacist BCMA Member Role: Pharmacy - Lifetime Address: [address] [address] Name: MD Fidelina, Bronson Russo Position: Physician - Hem/Onc Member Role: Lifetime Relationship Address: [address] [place] [address] Name: Constantin Ferreira Matthew Position: Pharmacist Member Role: Pharmacy - Lifetime Name: Mame Perez RPh, William Position: Pharmacist Member Role: Pharmacy - Lifetime Name: MD Zachariah, Samra Cano Position: Physician Member Role: Primary Care Provider Address: [address] [place] [id number] [place] Care Team Related Persons Name: BRUNO YOO
--- OUTSIDE RECORDS SUMMARY | 2024-07-09 08:43 | External Medical Summary | Continuity of Care Document ---
Author Name Unknown Organization [facility] [address] Address [address] [place], [place] [id number] Care Team Providers Care Barrel Maker Name Role Phone Samra Soni Primary Care Physician [phone] Encounter [facility] [id number] Date(s): 05/02/24 - 05/02/24 [facility] [address] [facility] [address] [place] [address] [phone] Encounter Diagnosis Acidosis(Discharge Diagnosis) - 05/02/24 Electrolyte disorder(Discharge Diagnosis) - 05/02/24 Protein in urine(Discharge Diagnosis) - 05/03/24 HTN (hypertension)(Discharge Diagnosis) - 05/03/24 Colon carcinoma metastatic to multiple sites(Discharge Diagnosis) - 05/03/24 Chemotherapy induced diarrhea(Discharge Diagnosis) - 05/03/24 Discharge Disposition: Home or Self Care Attending Physician: MD Levy, Missy Leslie Referring Physician: CASIE Woodall Annie Allergies, Adverse Reactions, Alerts Substance Criticality Severity Reaction Reaction Severity Status Percodan Rash Active Assessment and Plan Extracted from: Title:Nephrology Office Visit Note Author:MD Levy, Missy H Date:05/02/24 Acidosis Electrolyte disorder 63 y/o M with hx of Type 1 DM and Metastatic Colon ca to lung, liver, omentum and retroperitoneal currently on palliative chemo with Capecitabine and Panitumumab was referred by Primary team for Proteinuria. He has diabetes as well as diabetes retinopathy s/p laser surgery, No recent HbA1C noted 1) CKD I/A3 with nephrotic range proteinuria ? related to VGEF inh(Avastin) and/or Diabetes and in the setting of b/l hydronephrosis. - SCr0.5 with most of the reading are 0.9's - UPCR 4.5 gm/gm and Urine Protein 24 hrs is 4.9 gm on01/20/24 (serum Alb 2.1) - CT abd/Pelvis with contrast on 04/16/24 revealed mod to severe Rt hydro and Mild left hydro due to malignancy obstruction at the distil ureter b/l, He has b/l internal J stents placed by Urology, concern for malfunctioning Recs: - I do not see the benefit of getting a kidney biopsy as his treatment options are very limited due to worsening metastatic colon cancer. Despite the cause of proteinuria, SHARLA inh orARB's as well as SGLT 2 inh will likely be beneficial. - Will obtain HbA1c, will repeat labs EMILIE (patient verbalize understating), will decide further based on repeat labs. will also get renal US with dopplers - He stated he was on lisinopril in the past however was discontinued due to drug interference with chemotherapy (Capecitabine) and has been off since starting Capecitabine (as It can reduce excretion of Capecitabine in the urine). Will recommend to restart Lisinopril 40 mg Q daily if cleared by Oncology (possibly by lowering dose orstoppingCapecitabine)butif remains contraindicated then recommend starting Jardiance 10 mg once daily for Proteinuria and not for diabetes type 1. He is seeing oncologist 05/07/24 and will discuss with the oncologist. will follow up - He has an appointment with urology on 05/04 (per patient) for possible Internal J stent exchange or positioning. will follow up on him post exchange. He may likely need nephroureteral stent but will let urology manage it.f/u urologist, Dr John Matson. hasIntermittent bladder spasm in the setting of renal stent-on baclofen prn 2) HTN: BP acceptable, has mild volume on exam - Once started on Lisinopril, will titrate off norvasc due tolower ext edema - Would not start lasix at this time due to Diarrheaand hypokalemia 3) NAGMA: ? related to Diarrhea - Will start bicarb if remains low on repeat labs, he was normal prior 4) Hypocalcemia likely related to Hypomagnesemia ? due to Panitumumab(EGFR mark) - Corrected SCa~ 7 - Restart Mag ox 500 mg bid (Prescription sent), if diarrhea worsen will switch to Slow mag. He does not want IV mag inf due to diarrhea 5) Hypokalemia: ? Diarrhea and/orPanitumumab/Hypomag - Restart Potassium supplements. would avoid Lasix until serum Potassium > 3.5 Labs 1-2 days (Patient agreed to get it done As soon as possible likely 05/04) Follow up in 4 weeks Immunizations Given and Recorded Vaccine Date Status Refusal Reason SARS-CoV-2 (COVID-19) mRNA BNT-162b2 vax 12/10/20 Recorded SARS-CoV-2 (COVID-19) mRNA BNT-162b2 vax 11/09/20 Recorded Medications capecitabine 500 mg oral tablet Start: 05/03/24 9:36:00 AM EST, 1 tab, PO, bid, Disp# 28 tab, Refills: 5, for 14 days, followed by 7days off of each 21 day cycle., Pharmacy: [facility] Start Date: 05/03/24 Status: Ordered Gold [...] Daily, Disp# 90 tab, Refills: 0, Pharmacy: [facility] Start Date: 02/20/24 Stop Date: 05/20/24 Status: Ordered NovoLOG 100 units/mL injectable solution Start: 03/12/24 11:19:00 AM EST, See Instructions, Disp# 30 mL, Refills: 4, USE 1 UNIT PER 15 GRAMS OF CARBS, INJECTING UP TO 6 TIMES PER DAY NEEDED - using 30 units per day - 90 day supply, Pharmacy: [facility] Start Date: 03/12/24 Status: Ordered One Touch Delica Plus (33G) Lancets Start: 05/07/22 8:18:00 AM EST, See Instructions, Disp# 100 each, Refills: 3, use for blood glucose testing up to 8x/day, Pharmacy: [facility] Start Date: 05/07/22 Status: Ordered One Touch Verio Flex Glucose Monitor Start: 08/24/23 7:58:00 AM EDT, See Instructions, Disp# 1 each, Refills: 0, test up to 8x/daily as directed for Type 1 DM, Note to Pharmacy: Pt aware insurance may not cover since it was replaced 2022. He would pay out of pocket if cheap enough, Pharmacy: [facility] Start Date: 08/24/23 Status: Ordered One Touch Verio Test Strips Start: 03/14/24 8:02:00 AM EST, See Instructions, Disp# 800 each, Refills: 3, test up to 8x/day as needed for Type 1 DM, Pharmacy: [facility] Start Date: 03/14/24 Status: Ordered ONETOUCH [...] urinary discomfort, Pharmacy: [facility] Start Date: 05/04/24 Stop Date: 05/06/24 Status: Ordered Semglee (Vial) 100 units/mL subcutaneous solution Start: 03/12/24 11:19:00 AM EST, 20 unit =, subQ, Daily, Disp# 30 mL, Refills: 3, Pharmacy: [facility] Start Date: 03/12/24 Stop Date: 03/07/25 Status: Ordered Senna Start: 07/26/22 12:43:00 PM EDT, 8.6 mg =, PO, 2 tabs by mouth daily, PRN: as needed for constipation Start Date: 07/26/22 Status: Ordered Synthroid 125 mcg (0.125 mg) oral tablet Start: 03/12/24 11:19:00 AM EST, 1 tab, PO, Daily, Disp# 90 tab, Refills: 3, Pharmacy: [facility] Start Date: 03/12/24 Status: Ordered Syringe MIS 0.3/31gauge Start: 03/12/24 11:19:00 AM EST, Syringe MIS 0.3/31gauge, eRx Product Type: Supply, See Instructions, Disp# 500 each, Refills: 3, Pt uses 6 syringes daily. E11.9, Pharmacy [facility] Start Date: 03/12/24 Status: Ordered Syringe MIS 0.3/31gauge Start: 01/01/22 10:03:00 AM EDT, Syringe MIS 0.3/31gauge, eRx Product Type: Supply, See Instructions, Disp# 500 each, Refills: 3, Pt uses 6 syringes daily. E11.9, Pharmacy [facility] Start Date: 01/01/22 Status: Ordered Vitamin B12 1000 mcg oral tablet Start: 10/24/23 10:35:00 AM EDT, 1 tab, PO, Daily, Disp# 90 tab, Refills: 0, Pharmacy: [facility] Start Date: 10/24/23 Stop Date: 01/22/24 Status: Ordered ZyrTEC Start: 02/06/24 8:29:00 AM EDT, PO, Daily Start Date: 02/06/24 Status: Ordered Mental Status 05/02/24 Barriers to Learning one year None evide nt Mandatory Health Literacy Documentation Yes Health Literacy Communication Barriers N ever Primary Language Tuvaluan Problem List Condition Confirmation Course Effective Dates [...] Effective Dates Health Status Clinical Service Informant Acidosis Discharge Diagnosis 05/02/24 Non-Specified Electrolyte disorder Discharge Diagnosis 05/02/24 Non-Specified Protein in urine Discharge Diagnosis 05/03/24 Non-Specified Chemotherapy induced diarrhea Discharge Diagnosis 05/03/24 Non-Specified HTN (hypertension) Discharge Diagnosis 05/03/24 Non-Specified Colon carcinoma metastatic to multiple sites Discharge Diagnosis 05/03/24 Non-Specified Procedures Procedure Date Related Diagnosis Body [...] to oldest [Reference Range]: 1 Patient Weight 67.2 kg (05/02/24 2:32 PM) Temperature [36.5-37.9 DegC] 36.4 DegC *LOW* (05/02/24 2:32 PM) Heart Rate 66 bpm (05/02/24 2:32 PM) Respiratory Rate 16 br/min (05/02/24 2:32 PM) Blood Pressure 138/72mmHg (05/02/24 2:32 PM) Cuff Pulse Pressure 66 mmHg (05/02/24 2:32 PM) Social History Social History Type Response [...] Safety Implantable Status Assigning Authority Unknown Unknown [id number] Unknown 06/15/26 Unknown Unknown Active Unknown Procedure Provider Procedure Date Device Type Site Unknown Unknown 01/03/24 Unknown Unknown Device Identifier Serial Number Lot or Batch Number Manufacturing Date Expiration Date Distinct Identification Code MRI Safety Implantable Status Assigning Authority Unknown Unknown [id number] Unknown 09/16/26 Unknown Unknown Active Unknown Unknown Unknown [id number] Unknown 09/28/25 Unknown Unknown Active Unknown Procedure Provider Procedure Date Device Type Site Unknown Unknown 09/02/23 Unknown Unknown Device Identifier Serial Number Lot or Batch Number Manufacturing Date Expiration Date Distinct Identification Code MRI Safety Implantable Status Assigning Authority Unknown Unknown [id number] Unknown 10/29/24 Unknown Unknown Active Unknown Unknown Unknown [id number] Unknown 09/28/25 Unknown Unknown Active Unknown Procedure Provider Procedure Date Device Type Site Unknown Unknown 03/16/23 Unknown Unknown Device Identifier Serial Number Lot or Batch Number Manufacturing Date Expiration Date Distinct Identification Code MRI Safety Implantable Status Assigning Authority Unknown Unknown [id number] Unknown 01/14/25 Unknown Unknown Active Unknown Unknown Unknown [id number] Unknown 09/02/25 Unknown Unknown Active Unknown Nephrology Outpatient Note * MD Levy, Vaar H: PERFORM, MODIFY Event Display: Nephrology Outpt Note Authored Date: [id number] Chief Complaint proteinuria History of Present Illness 63 y/o M with hx of Type 1 DM and Metastatic Colon ca to lung, liver, omentum and retroperitoneal currently on palliative chemo with Capecitabine and Panitumumab was referred by Primary team for Nephrotic rangeProteinuria. He has diabetes as well as diabetes retinopathy s/p laser surgery, No recent HbA1C noted He currently feels fine, stated he gets intermittent diarrhea which is significant but currently getting better. Denies nausea or vomiting or fever. Stated he is urinating well without any issues reported. He stated he is not taking his Lasix as well as Potassium and Magnesiumsupplements. Colon Cancer: [facility]init[facility]to Dr [facility] on 04/08/2022 for [...] with colonic origin. - Caris result showed K-joe and NRAS [...] cycle. - on 05/23/23 stop Cetuximab completely stopedat patient request due to intolerance ( he had 7 cycles) - stable to proceed monotherapy bevacizumab. -His restaging CT scans demonstrate enlargement of his right lower lobe subpleural mass which is now measuring 5.6 x 2.7 cm when compared with his last CT which measured 5.2 x 1.6 cm. -His CEA today was 1200, which has continued to rise over the last several months and is his baseline. - 01/05/24 [facility]- per patient show disease progression. -Will hold Avastin therapy given elevated protein urea; - Started Panitumumab as additional agent given disease progression. - S/p first dose on 02/06/24, presents for dose #6 today.Tolerating well so far. - Will proceed with treatment today and plan for again in 2 weeks. -CT scan from 04/16 again showed worsening of metastatic disease Review of Systems 10 points ROS reviewed, negative other mention in HPI Physical Exam Vitals & Measurements T:36.4C HR:66(Monitored) RR:16 BP:138/72 WT:67.200kg(Dosing) WT:67.2kg General:Not in acute distress, AT/NC, cachectic HEENT: No JVD, No deformity noted, EOMI Lungs: CTA b/l, no chest tenderness CVS: S1 and S2 normal, RRR, no murmur Abd: Soft, Non tender, Ext: No gross deformity noted, Non pitting edema 1 + b/l, Rt hand fingers amputation Neuro: No FND, Alert and oriented Diagnostic Results labs reviewed from Apr 16, [address] reviewed from 04/16/24 Assessment/Plan Acidosis Electrolyte disorder 63 y/o M with hx of Type 1 DM and Metastatic Colon ca to lung, liver, omentum and retroperitoneal currently on palliative chemo with Capecitabine and Panitumumab was referred by Primary team for Proteinuria. He has diabetes as well as diabetes retinopathy s/p laser surgery, No recent HbA1C noted 1) CKD I/A3 with nephrotic range proteinuria ? related to VGEF inh(Avastin) and/or Diabetes andin the setting of b/l hydronephrosis. - SCr0.5 with most of the reading are 0.9's - UPCR 4.5 gm/gm and Urine Protein 24 hrs is 4.9 gm on01/20/24 (serum Alb 2.1) - CT abd/Pelvis with contrast on 04/16/24 revealed mod to severe Rt hydro and Mild left hydro due to malignancy obstruction at the distil ureter b/l, He has b/l internal J stents placed by Urology, concern for malfunctioning Recs: - I do not see the benefit of getting a kidney biopsy as his treatment options are very limited dueto worsening metastatic colon cancer. Despite the cause of proteinuria, SHARLA inh orARB's as well as SGLT 2 inh will likely be beneficial. - Will obtain HbA1c, will repeat labs EMILIE (patient verbalize understating), will decide further based on repeat labs. will also get renal US with dopplers - He stated he was on lisinopril in the past however was discontinued due to drug interference withchemotherapy (Capecitabine) and has been off since starting Capecitabine (as It can reduce excretion of Capecitabine in the urine). Will recommend to restart Lisinopril 40 mg Q daily if cleared by Oncology (possibly by lowering dose orstoppingCapecitabine)butif remains contraindicated then recommend starting Jardiance 10 mg once daily for Proteinuria and not for diabetes type 1. He is seeing oncologist 05/07/24 and will discuss with the oncologist. will follow up - He has an appointment with urology on 05/04 (per patient) for possible Internal J stent exchange or positioning. will follow up on him post exchange. He may likely need nephroureteral stent but willlet urology manage it.f/u urologist, Dr John Matson. hasIntermittent bladder spasm in the setting of renal stent-on baclofen prn 2) HTN: BP acceptable, has mild volume on exam - Once started on Lisinopril, will titrate off norvasc due tolower ext edema - Would not start lasix at this time due to Diarrheaand hypokalemia 3) NAGMA: ? related to Diarrhea - Will start bicarb if remains low on repeat labs, he was normal prior 4) Hypocalcemia likely related to Hypomagnesemia ? due to Panitumumab(EGFR mark) - Corrected SCa~ 7 - Restart Mag ox 500 mg bid (Prescription sent), if diarrhea worsen will switch to Slow mag. He does not want IV mag inf due to diarrhea 5) Hypokalemia: ? Diarrhea and/orPanitumumab/Hypomag - Restart Potassium supplements. would avoid Lasix until serum Potassium > 3.5 Labs 1-2 days (Patient agreed to get it done As soon as possible likely 05/04) Follow up in 4 weeks Problem List/Past Medical History Ongoing Bilateral [...] mg= 1 tab, PO, bid, 5 refills ceFAZolin(Ancef), 2000 mg= 50 mL, IV, To OR cetirizine(ZyrTEC), PO, Daily cyanocobalamin(Vitamin B12 1000 mcg [...] and Itch 4% topical cream), See Instructions lidocaine topical(LMX 4 topical cream), 1 appl, topical, Pre Event, PRN magnesium oxide(magnesium oxide 500 mg oral capsule), [...] due10/10/23and every 1year Due Adult COVID-19 Vaccination due05/03/24Unknown Frequency Adult Social Determinants of Health Screening due05/03/24Unknown Frequency Adult Tdap/Td Vaccine due05/03/24Unknown Frequency Pneumococcal Vaccine Adults and Adolescents with Chronic Illness due05/03/24One-time only Shingles Vaccine due05/03/24One-time only Satisfied(in the past 1 year) Satisfied Body Mass Index on04/16/24.Satisfied by JAZMIN Wilson Jeffrey Electronic Signature on File CC: CASIE Loco [address] [place] [address] CC: Samra Soni MD [address] [place] [id number] Electronically Reviewed/Signed by: Missy Lockett MD Author Signature Dt/Tm:05/03/2024 01:53 PM Division of Nephrology [facility] Patient Care team information Care Team Personnel Name: Constantin Del Toro Kimberly Position: Pharmacist BCMA Member Role: Pharmacy - Lifetime Address: [place] [address] [place] Name: MD Fidelina, Bronson Russo Position: Physician - Hem/Onc Member Role: Lifetime Relationship Address: [address] [place] [address] [place] Name: Constantin Ferreira Matthew Position: Pharmacist Member Role: Pharmacy - Lifetime Name: Mame Perez RPh, William Position: Pharmacist Member Role: Pharmacy - Lifetime Name: MD Zachariah, Samra Cano Position: Physician Member Role: Primary Care Provider Address: [address] [place] [address] Care Team Related Persons Name: BRUNO YOO"
--- OUTSIDE RECORDS SUMMARY | 2024-07-09 08:43 | External Medical Summary | Continuity of Care Document ---
Author Name Unknown Organization [facility] Address [address] [place] [address] JOSIE ANDERSON [phone] Care Team Providers Care Director Insurance Name Role Phone Samra Soni Primary Care Physician [phone] Encounter [facility] [id number] Date(s): 04/02/24 - 04/02/24 [facility] [id number], [place] [address]- [phone] Encounter Diagnosis Primary colorectal adenocarcinoma(Discharge Diagnosis) - 04/02/24 Nephrotic syndrome(Discharge Diagnosis) - 04/02/24 Discharge Disposition: Home or Self Care Attending Physician: MD Kitchen Raymond J Referring Physician: MD Soni Ravishankar E Allergies, Adverse Reactions, Alerts Substance Criticality Severity Reaction Reaction Severity Status Percodan Rash Active Assessment and Plan Extracted from: Title:Oncology Office Visit Note Author:Gianni Woodall Annie Date:04/02/24 63 y/o male with metastatic colon cancer [...] is his baseline. - 01/05/24 scans at [facility]- per patient show disease progression. -Will hold Avastin therapy given elevated protein urea; - Started Panitumumab as additional agent given disease progression. - S/p first dose on 02/06/24, presents for dose #5 today.Tolerating well so far. - Will proceed with treatment today and plan for again in 2 weeks. - Next scans due in end of March/early April.Scheduled for Apr 16, 2024. Multifocal pulmonary metastasis/ chronic smoker -Upon [...] toenails - patient was told to f/u memory care program resident for basic diabetic foot care from his [...] to see Dr. Del Angeliper Dr. Kitchen's discussing with him. Acneform rash to face - Continue with benzyl peroxideointment. - Can consider derm referral if ongoing. Dispo:Patient will return in 2 weeks time for labs, treatment and OV to monitor swelling and rash. Medications capecitabine 500 mg oral tablet Start: 01/14/24 5:20:00 PM EDT, 1 tab, PO, bid, Disp# 28 tab, Refills: 5, for 14 days, followed by 7days off of each 21 day cycle., [facility] Start Date: 01/14/24 Status: Ordered Gold Gutierrez Medicated Maximum Strength Pain and Itch 4% topical cream Start: 04/07/23 12:16:00 PM EST, See Instructions, Disp# 133 g, Refills: 0, not to exceed 3 applications in 24 hours, Note to Pharmacy: use twice a day for 30 days, Pharmacy: [id number] Start Date: 04/07/23 Status: Ordered Lasix 20 mg oral tablet Start: 02/20/24 4:19:00 PM EST, 1 tab, PO, Daily, Disp# 7 tab, [facility] Start Date: 02/20/24 Stop Date: 02/27/24 [...] Daily, Disp# 90 tab, Refills: 0, Pharmacy: [facility] Start Date: 02/20/24 Stop Date: 05/20/24 Status: Ordered NovoLOG 100 units/mL injectable solution Start: 03/12/24 11:19:00 AM EST, See Instructions, Disp# 30 mL, Refills: 4, USE 1 UNIT PER 15 GRAMS OF CARBS, INJECTING UP TO 6 TIMES PER DAY NEEDED - using 30 units per day - 90 day supply, Pharmacy: [facility] Start Date: 03/12/24 Status: Ordered One Touch Delica Plus (33G) Lancets Start: 05/07/22 8:18:00 AM EST, See Instructions, Disp# 100 each, Refills: 3, use for blood glucose testing up to 8x/day, Pharmacy: [facility] Start Date: 05/07/22 Status: Ordered One Touch Verio Flex Glucose Monitor Start: 08/24/23 7:58:00 AM EDT, See Instructions, Disp# 1 each, Refills: 0, test up to 8x/daily as directed for Type 1 DM, Note to Pharmacy: Pt aware insurance may not cover since it was replaced 2022. He would pay out of pocket if cheap enough, Pharmacy: [facility] Start Date: 08/24/23 Status: Ordered One Touch Verio Test Strips Start: 03/14/24 8:02:00 AM EST, See Instructions, Disp# 800 each, Refills: 3, test up to 8x/day as needed for Type 1 DM, Pharmacy: [facility] Start Date: 03/14/24 Status: Ordered ONETOUCH VERIO TEST STRIP Start: 03/14/24 8:05:00 AM EST, ONETOUCH VERIO TEST STRIP, See Instructions, Disp# 800 strip, Refills: 0, TEST UP TO 8 TIMES DAILY NEEDED, Pharmacy [facility] Start Date: 03/14/24 Status: Ordered Pyridium 200 mg oral tablet Start: 09/02/23 8:28:00 AM EDT, 1 tab, PO, tid, Disp# 6 tab, PRN: as needed for urinary discomfort, Pharmacy: [facility] Start Date: 09/02/23 Stop Date: 09/04/23 Status: Ordered Pyridium 200 mg oral tablet Start: 01/03/24 4:30:00 PM EDT, 1 tab, PO, tid, Disp# 6 tab, Refills: 0, PRN: as needed for urinary discomfort, Pharmacy: [facility] Start Date: 01/03/24 Stop Date: 01/05/24 Status: Ordered Semglee (Vial) 100 units/mL subcutaneous solution Start: 03/12/24 11:19:00 AM EST, 20 unit =, subQ, Daily, Disp# 30 mL, Refills: 3, Pharmacy: [facility] Start Date: 03/12/24 Stop Date: 03/07/25 Status: Ordered Senna Start: 07/26/22 12:43:00 PM EDT, 8.6 mg =, PO, 2 tabs by mouth daily, PRN: as needed for constipation Start Date: 07/26/22 Status: Ordered Synthroid 125 mcg (0.125 mg) oral tablet Start: 03/12/24 11:19:00 AM EST, 1 tab, PO, Daily, Disp# 90 tab, Refills: 3, Pharmacy: [facility] Start Date: 03/12/24 Status: Ordered Syringe MIS 0.3/31gauge Start: 03/12/24 11:19:00 AM EST, Syringe MIS 0.3/31gauge, eRx Product Type: Supply, See Instructions, Disp# 500 each, Refills: 3, Pt uses 6 syringes daily. E11.9, Pharmacy [facility] Start Date: 03/12/24 Status: Ordered Syringe MIS 0.3/31gauge Start: 01/01/22 10:03:00 AM EDT, Syringe MIS 0.3/31gauge, eRx Product Type: Supply, See Instructions, Disp# 500 each, Refills: 3, Pt uses 6 syringes daily. E11.9, Pharmacy [facility] Start Date: 01/01/22 Status: Ordered tamsulosin 0.4 mg oral capsule Start: 03/18/23 5:38:00 PM EST, 1 cap, PO, Daily, Disp# 90 cap, Refills: 3, take at night for stent discomfort, Pharmacy: [id number] Start Date: 03/18/23 Stop Date: 03/12/24 Status: Ordered Vitamin B12 1000 mcg oral tablet Start: 10/24/23 10:35:00 AM EDT, 1 tab, PO, Daily, Disp# 90 tab, Refills: 0, Pharmacy: [facility] Start Date: 10/24/23 Stop Date: 01/22/24 Status: Ordered ZyrTEC Start: 02/06/24 8:29:00 AM EDT, PO, Daily Start Date: 02/06/24 Status: Ordered Mental Status 04/02/24 Barriers to Learning one year None evide nt Mandatory Health Literacy Documentation Yes Health Literacy Communication Barriers N ever Primary Language Bolivian Problem List Condition Confirmation Course Effective Dates [...] Informant Primary colorectal adenocarcinoma Discharge Diagnosis 04/02/24 Nephrotic syndrome Discharge Diagnosis 04/02/24 Non-Specified Procedures Procedure Date [...] to oldest [Reference Range]: 1 Patient Weight 65.8 kg 1 (04/02/24 11:36 AM) Temperature [36.5-37.9 DegC] 35.9 DegC *LOW* (04/02/24 11:36 AM) Heart Rate 62 bpm (04/02/24 11:36 AM) Respiratory Rate 16 br/min (04/02/24 11:36 AM) Blood Pressure 129/69mmHg (04/02/24 11:36 AM) Mean Blood Pressure 85 mmHg (04/02/24 11:36 AM) Cuff Pulse Pressure 60 mmHg (04/02/24 11:36 AM) BP Location # 1 Right Arm (04/02/24 11:36 AM) 1Result Comment: with shoes-pt refused Social [...] Safety Implantable Status Assigning Authority Unknown Unknown [id number] Unknown 09/16/26 Unknown Unknown Active Unknown Unknown Unknown [id number] Unknown 09/28/25 Unknown Unknown Active Unknown Procedure Provider Procedure Date Device Type Site Unknown Unknown 09/02/23 Unknown Unknown Device Identifier Serial Number Lot or Batch Number Manufacturing Date Expiration Date Distinct Identification Code MRI Safety Implantable Status Assigning Authority Unknown Unknown [id number] Unknown 10/29/24 Unknown Unknown Active Unknown Unknown Unknown [id number] Unknown 09/28/25 Unknown Unknown Active Unknown Procedure Provider Procedure Date Device Type Site Unknown Unknown 03/16/23 Unknown Unknown Device Identifier Serial Number Lot or Batch Number Manufacturing Date Expiration Date Distinct Identification Code MRI Safety Implantable Status Assigning Authority Unknown Unknown [id number] Unknown 01/14/25 Unknown Unknown Active Unknown Unknown Unknown [id number] Unknown 09/02/25 Unknown Unknown Active Unknown Hematology/Oncology Outpt Note * CASIE Woodall Annie: PERFORM, MODIFY, MODIFY, MODIFY Event Display: Hematology/Oncology Outpt Note Authored Date: [id number] Chief Complaint f/u visit History of Present Illness 63-year-old gentleman, chronic smoker, DM-1 since age 5 y[address] Fidelina campos on 04/08/2022 for evaluation of a hepatic [...] bilaterally. 03/22/2022: Diagnosis(Verified) A.Colon, hepatic flexure, biopsy (35-S 02/03/22):- Colonic mucosa with focal high-grade dysplasia. B.Colon, transverse, polypectomy ( -S 02/03/22):- Tubular adenoma. C. Colon, sigmoid, biopsy sigmoid colitis (-S 02/03/22):- No pathological ulceration. D. Rectum, polypectomy (-S 02/03/22)":- Fragments of tubular adenoma. 2Liver, side unspecified (core needle biopsy) ([id number] 02/18/22): - Metastatic moderately differentiated adenocarcinoma. - [...] initially seen by Dr. Sparks in a [facility] who recommended surgical bypass because of [...] are mildly decreased in size. INTERVAL HISTORY 04/02/24: Patient presents for FU and palliative treatment with Panitumumab and capecitabine. Continues with rash to face, upper neck and chest from panitumumab which appears to be slightly improved. Denies fevers or recent illnesses. Feels appetite is decreased. Weight noted to be down 2 kgs. Has diarrhea following treatment. Reports a few times in the AM and then again a few times before bed. Not taking any anti-diarrheas as he is concerned for constipation. BLE improved now - about +1 bilaterally. Has Lasix and took x 4 days. Closely monitoring BP. Denies SOB on exertion. Denies bleeding or bruising. Has not been taking PO magnesium at home. Continues on Synthroid 125 mcg daily. Review of Systems All other ROS is negative except what is mentioned in HPI. Physical Exam Vital Signs and Measurements This Visit - Last 24 Hours T:35.9C HR:62(Monitored) RR:16 BP:129/69 WT:65.800kg(Dosing) WT:65.8kg General:Alert, conversant, and answering questions appropriately; in [...] non-tender to palpation.Normoactive bowel sounds are present. Extremities:+1 bilateral LE edema.No erythema or swelling to joints. Neuro:Alert and oriented x3.No focal deficits noted. Skin:Warm, dry,+ acne form rash to faceand neck Performance Scales and Status ECOG Performance Status: 1 (03/19/24) ECOG Performance Status: 0 (03/05/24) Pain Score:NO PAIN SCORE DOCUMENTED ON THIS [...] is his baseline. - 01/05/24 scans at [facility]- per patient show disease progression. -Will hold Avastin therapy given elevated protein urea; - Started Panitumumab as additional agent given disease progression. - S/p first dose on 02/06/24, presents for dose #5 today.Tolerating well so far. - Will proceed with treatment today and plan for again in 2 weeks. - Next scans due in end of March/early April.Scheduled for Apr 16, 2024. Multifocal pulmonary metastasis/ chronic smoker -Upon [...] toenails - patient was told to f/u memory care program resident for basic diabetic foot care from his [...] to see Dr. Del Angeliper Dr. Kitchen's discussing with him. Acneform rash to face - [...] Family History Family history is negative Labs M mg/dLLow (04/02/24 09:30:00) [1]Oncology Office Visit Note; CASIE Woodall Annie 03/19/2024 07:59 EST Electronic Signature on File Electronically Reviewed/Signed by: CASIE Loco Author Signature Dt/Tm:04/02/2024 04:21 PM Division of Hematology Oncology Electronically Reviewed/Signed by: Bronson Kitchen MD Division of Hematology Oncology AC Patient Care team information Care Team Personnel Name: Constantin Del Toro Kimberly Position: Pharmacist BCMA Member Role: Pharmacy - [facility] Address: [place] [address] [place] Name: MD Fidelina, Bronson Russo Position: Physician - Hem/Onc Member Role: Lifetime Relationship Address: [address] [place] [address] [place] Name: Constantin Ferreira Matthew Position: Pharmacist Member Role: Pharmacy - [facility] Name: Mame Perez RPh, William Position: Pharmacist Member Role: Pharmacy - Lifetime Name: MD Soni Ravishankar E Position: Physician Member Role: Primary Care Provider Address: [address] [place] [address] [place] Care Team Related Persons Name: BRUNO YOO
--- OUTSIDE RECORDS SUMMARY | 2024-07-09 08:43 | External Medical Summary | Continuity of Care Document ---
Author Name Unknown Organization [facility] Address [address] [place] [address] JOSIE ANDERSON [phone] Care Team Providers Care Mobile Product Manager Name Role Phone Samra Soni Primary Care Physician [phone] [facility] [id number] Date(s): 04/16/24 - 04/16/24 [facility] [id number], [place] [address]- [phone] Discharge Disposition: Home or Self Care Attending [...] tab, PO, Daily, Disp# 7 tab, [facility] Start Date: 02/20/24 Stop Date: 02/27/24 [...] Daily, Disp# 90 tab, Refills: 0, Pharmacy: [facility] Start Date: 02/20/24 Stop Date: 05/20/24 Status: Ordered NovoLOG 100 units/mL injectable solution Start: 03/12/24 11:19:00 AM EST, See Instructions, Disp# 30 mL, Refills: 4, USE 1 UNIT PER 15 GRAMS OF CARBS, INJECTING UP TO 6 TIMES PER DAY NEEDED - using 30 units per day - 90 day supply, Pharmacy: [facility] Start Date: 03/12/24 Status: Ordered One Touch Delica Plus (33G) Lancets Start: 05/07/22 8:18:00 AM EST, See Instructions, Disp# 100 each, Refills: 3, use for blood glucose testing up to 8x/day, Pharmacy: [facility] Start Date: 05/07/22 Status: Ordered One Touch Verio Flex Glucose Monitor Start: 08/24/23 7:58:00 AM EDT, See Instructions, Disp# 1 each, Refills: 0, test up to 8x/daily as directed for Type 1 DM, Note to Pharmacy: Pt aware insurance may not cover since it was replaced 2022. He would pay out of pocket if cheap enough, Pharmacy: [facility] Start Date: 08/24/23 Status: Ordered One Touch Verio Test Strips Start: 03/14/24 8:02:00 AM EST, See Instructions, Disp# 800 each, Refills: 3, test up to 8x/day as needed for Type 1 DM, Pharmacy: [facility] Start Date: 03/14/24 Status: Ordered ONETOUCH VERIO TEST STRIP Start: 03/14/24 8:05:00 AM EST, ONETOUCH VERIO TEST STRIP, See Instructions, Disp# 800 strip, Refills: 0, TEST UP TO 8 TIMES DAILY NEEDED, Pharmacy [facility] Start Date: 03/14/24 Status: Ordered Potassium [...] as needed for urinary discomfort, Pharmacy: [facility] Start Date: 09/02/23 Stop Date: 09/04/23 Status: Ordered Pyridium 200 mg oral tablet Start: 01/03/24 4:30:00 PM EDT, 1 tab, PO, tid, Disp# 6 tab, Refills: 0, PRN: as needed for urinary discomfort, Pharmacy: [facility] Start Date: 01/03/24 Stop Date: 01/05/24 Status: Ordered Semglee (Vial) 100 units/mL subcutaneous solution Start: 03/12/24 11:19:00 AM EST, 20 unit =, subQ, Daily, Disp# 30 mL, Refills: 3, Pharmacy: [facility] Start Date: 03/12/24 Stop Date: 03/07/25 Status: Ordered Senna Start: 07/26/22 12:43:00 PM EDT, 8.6 mg =, PO, 2 tabs by mouth daily, PRN: as needed for constipation Start Date: 07/26/22 Status: Ordered Synthroid 125 mcg (0.125 mg) oral tablet Start: 03/12/24 11:19:00 AM EST, 1 tab, PO, Daily, Disp# 90 tab, Refills: 3, Pharmacy: [facility] Start Date: 03/12/24 Status: Ordered Syringe MIS 0.3/31gauge Start: 03/12/24 11:19:00 AM EST, Syringe MIS 0.3/31gauge, eRx Product Type: Supply, See Instructions, Disp# 500 each, Refills: 3, Pt uses 6 syringes daily. E11.9, Pharmacy [facility] Start Date: 03/12/24 Status: Ordered Syringe MIS 0.3/31gauge Start: 01/01/22 10:03:00 AM EDT, Syringe MIS 0.3/31gauge, eRx Product Type: Supply, See Instructions, Disp# 500 each, Refills: 3, Pt uses 6 syringes daily. E11.9, Pharmacy [facility] Start Date: 01/01/22 Status: Ordered tamsulosin 0.4 mg oral capsule Start: 03/18/23 5:38:00 PM EST, 1 cap, PO, Daily, Disp# 90 cap, Refills: 3, take at night for stent discomfort, Pharmacy: [id number] Start Date: 03/18/23 Stop Date: 03/12/24 Status: Ordered Vitamin B12 1000 mcg oral tablet Start: 10/24/23 10:35:00 AM EDT, 1 tab, PO, Daily, Disp# 90 tab, Refills: 0, Pharmacy: [facility] Start Date: 10/24/23 Stop [...] Laboratory List Name Date Magnesium Level (MAGNESIUM) 04/16/24 Most recent to oldest [Reference Range]: 1 Mg [1.6-2.6 mg/dL] 1.0 mg/dL *LOW* (04/16/24 7:14 AM) Social History Social History Type Response [...] Safety Implantable Status Assigning Authority Unknown Unknown [id number] Unknown 09/16/26 Unknown Unknown Active Unknown Unknown Unknown [id number] Unknown 09/28/25 Unknown Unknown Active Unknown Procedure Provider Procedure Date Device Type Site Unknown Unknown 09/02/23 Unknown Unknown Device Identifier Serial Number Lot or Batch Number Manufacturing Date Expiration Date Distinct Identification Code MRI Safety Implantable Status Assigning Authority Unknown Unknown [id number] Unknown 10/29/24 Unknown Unknown Active Unknown Unknown Unknown [id number] Unknown 09/28/25 Unknown Unknown Active Unknown Procedure Provider Procedure Date Device Type Site Unknown Unknown 03/16/23 Unknown Unknown Device Identifier Serial Number Lot or Batch Number Manufacturing Date Expiration Date Distinct Identification Code MRI Safety Implantable Status Assigning Authority Unknown Unknown [id number] Unknown 01/14/25 Unknown Unknown Active Unknown Unknown Unknown [id number] Unknown 09/02/25 Unknown Unknown Active Unknown Patient Care team information Care Team Personnel Name: Constantin Del Toro Kimberly Position: Pharmacist BCMA Member Role: Pharmacy - [facility] Address: [place] [address] [place] Name: MD Fdielina, Bronson Russo Position: Physician - Hem/Onc Member Role: Lifetime Relationship Address: [address] [place] [address] [place] Name: Constantin Ferreira Matthew Position: Pharmacist Member Role: Pharmacy - Lifetime Name: Mame Perez RPh, William Position: Pharmacist Member Role: Pharmacy - Lifetime Name: MD Zachariah, Samra Cano Position: Physician Member Role: Primary Care Provider Address: [address] [place] [id number] [place] Care Team Related Persons Name: BRUNO YOO
--- OUTSIDE RECORDS SUMMARY | 2024-07-09 08:44 | External Medical Summary | Continuity of Care Document ---
Author Name Unknown Organization [facility] Address [address] [place] [address] JOSIE ANDERSON [phone] Care Team Providers Care Car Wash Attendant Name Role Phone Samra Soni Primary Care Physician [phone] Encounter [facility] [id number] Date(s): 02/20/24 - 02/20/24 [facility] [id number], [place] [address] [phone] Encounter Diagnosis Metastatic colon cancer to liver(Discharge Diagnosis) - 02/20/24 Encounter for chemotherapy management(Discharge Diagnosis) - 02/20/24 Hand foot syndrome(Discharge Diagnosis) - 02/20/24 Discharge Disposition: Home or Self Care Attending Physician: MD Kitchen Raymond J Referring Physician: MD Snoi Ravishankar E Allergies, Adverse Reactions, Alerts Substance Criticality Severity Reaction Reaction Severity Status Percodan Rash Active Assessment and Plan Extracted from: Title:Clinical Document Author:CASIE Sorenson Peter V Date:02/20/24 HEMATOLOGY ONCOLOGY OUTPATIENT NOTE Name: BERNY RUBIO Jr. Patient Number: [id number] : 1960 Date of Service: 02/20/2024 Chief Complaint: follow up OV for metastatic colon cancer, currently on palliative therapy currently Panitumumab was previously on Bevacizumab but had increased protein in the urine, presents for treatment. History of Present Illness: Patient presents for palliative Panitumumab and capecitabine. Since we saw patient last he had stent exchange completed for bilateral extrinsic ureteral obstruction. CEA has been up trending. Most recent imaging in [place] showed disease progression per patient. First dose of recent Panitumumab was 02/06/24. Patient denies any fever, chills, SOB, chest pain, palpiations, abdominal pain, nausea, vomiting, dysuria, abnormal bleeding, hematochezia, melena, headache, dizziness, or neurological changes. Patient has + acne form rash to face, recommend Benzoyl peroxide cream to face. Hand are dry and cracking, recommend utter cream to hands and feet. Continue the capcitabine. Patient has bilateral LE edema, recommend trialing lasix, SLY stockings, and PT evaluation for lymphedema. Review of Systems All other ROS is negative except what is mentioned in HPI. Current Home Meds: (Last Updated 02/05 10:13) amLODIPine (Norvasc 10 mg oral tablet) 10 mg PO Daily bevacizumab (Avastin 25 mg/mL intravenous solution) infused over 30 minutesevery 3 weeks cannabis (Medical Marijuana) 1 inh inhaled capecitabine (capecitabine 500 mg oral tablet) 500 mg PO bid for 14 days, followed by 7 days off of each 21 day cycle. cetirizine (ZyrTEC) PO Daily cyanocobalamin (Vitamin B12 1000 mcg oral tablet) 1,000 mcg PO Daily diabetes supplies (One Touch Verio Flex Glucose Monitor) test up to 8x/daily as directed for Type 1 DM diabetes supplies (One Touch Verio Test Strips) test up to 8x/day as needed for Type 1 DM diabetes supplies (One Touch Delica Plus (33G) Lancets) use for blood glucose testing up to 8x/day insulin aspart (NovoLOG 100 units/mL injectable solution) USE 1 UNIT PER 15 GRAMS OF CARBS, INJECTING UP TO 6 TIMES PER DAY NEEDED - using 30 units per day - 90 day supply insulin glargine (Semglee (Vial) 100 units/mL subcutaneous solution) 20 unit subQ Daily levothyroxine (Synthroid 125 mcg (0.125 mg) oral tablet) 125 mcg PO Daily lidocaine topical (Gold Gutierrez Medicated Maximum Strength Pain and Itch 4% topical cream) not to exceed 3 applications in 24 hours morphine (morphine 30 mg (24 HR) oral capsule, extended release) 30 mg PO bid PRN: pain prn morphine 60 mg PO q12h phenazopyridine (Pyridium 200 mg oral tablet) 200 mg PO tid PRN: as needed for urinary discomfort phenazopyridine (Pyridium 200 mg oral tablet) 200 mg PO tid PRN: as needed for urinary discomfort senna (Senna) 8.6 mg PO PRN: as needed for constipation 2 tabs by mouth daily tamSULOsin (tamsulosin 0.4 mg oral capsule) 0.4 mg PO Daily take at night for stent discomfort unlisted medication (Syringe MIS 0.3/31gauge) Pt uses 6 syringes daily. E11.9 unlisted medication (Syringe MIS 0.3/31gauge) Pt uses 6 syringes daily. E11.9 Allergies and Sensitivities: Percodan(Rash) Past Medical History: Problems: Bilateral ureteral obstruction. 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 No Orthostatic Data Available Height and Weight: Last Updated 02/06/24 08:31 Date BMI Wt(kg) Wt(lb) Method Ht(cm) (ft-in) Method 02/06/24 65.3 144 Standing Scale 01/16/24 65 143 Standing Scale 01/03/24 19.72 57 125 Standing Scale 170 5-7 Patient stated Heights and Weights are the last 3 documented. Physical Exam General:Alert, conversant, and answering questions appropriately; in no acute distress. Psych:Normal mood and affect, cooperative. HEENT:Face is symmetrical. Pupils are equal bilaterally and sclera are without icterus or injection. Oral cavity is moist, pink, and without lesions. Cardiac:Heart is regular in rate and rhythm. No murmurs or rubs. Lungs:Lungs are clear to auscultation bilaterally without wheezes, rales, or rhonchi. Abdomen:Soft, non-distended and non-tender to palpation. Normoactive bowel sounds are present. Extremities:Bilateral LE peripheral edema. No erythema or swelling to joints. Neuro:Alert and oriented x3. No focal deficits noted. Skin:Warm, dry,+ acne form rash to face 30 Day Labs: 02/06/24 0800 Estimated CrCl 77.24 02/06/24 0716 Hct 34.4 L Hgb 11.2 L MCH 28.0 MCHC 32.6 MCV 86.0 Plts 383 H RBC 4.00 L WBC 9.28 MPV 9.7 Immature Gran% 0.3 Neut% 71.5 Lymph% 8.2 [place]% 9.6 Baso% 0.4 Eos% 10.0 Immat Gran, Abs 0.03 Neut, Abs 6.63 Lymph, Abs 0.76 L [place], Abs 0.89 Baso, Abs 0.04 Eos, Abs 0.93 H Type of Diff: AUTO RDW 14.5 H Anion Gap 9 BUN 14 Ca 8.3 L Cl- 99 HCO3 26 Cret 0.90 Glu 174 H K 4.0 Mg 1.6 Na 134 L eGFR CKD-EPI >90 Alk Phos 174 H ALT 6 AST 12 T Bili 0.5 Alb 3.1 L Prot 6.6 Assessment: 63 y/o male with metastatic colon cancer on palliative chemotherapy with capecitabine and Panitumumab Plan Metastatic colon cancer - Multifocal pulmonary metastasis. [...] is his baseline. - 01/05/24 scans at [facility]- per patient show disease progression. -Will hold Avastin therapy given elevated protein urea; - Started Panitumumab as additional agent given disease progression s/p first dose on 02/06/24, presents for dose #2 today. -Next scans due in end of March Multifocal pulmonary metastasis/ chronic smoker -Upon review of his CT chest as noted above he will plan to continue with his treatment as planned. -He was encouraged to make efforts in smoking cessation. 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 Dispo: Patient will return in 2 weeks time for OV, labs, and treatment. The patient was seen and examined with Dr. Bronson Kitchen, the attending of record, is in agreement with the above assessment and plan. Attending: I performed all the medical decision making, which is the substantive portion of this visit. Bronson Kitchen M.D., Ph.D. Medications amLODIPine 10 mg oral tablet Start: [...] off of each 21 day cycle., Pharmacy: [facility] Start Date: 01/14/24 Status: Ordered Gold Gutierrez Medicated Maximum Strength Pain and Itch 4% topical cream Start: 04/07/23 12:16:00 PM EST, See Instructions, Disp# 133 g, Refills: 0, not to exceed 3 applications in 24 hours, Note to Pharmacy: use twice a day for 30 days, Pharmacy: [id number] Start Date: 04/07/23 Status: Ordered Lasix 20 mg oral tablet Start: 02/20/24 4:19:00 PM EST, 1 tab, PO, Daily, Disp# 7 tab, [facility] Start Date: 02/20/24 Stop Date: 02/27/24 [...] Daily, Disp# 90 tab, Refills: 0, Pharmacy: [facility] Start Date: 02/20/24 Stop Date: 05/20/24 Status: Ordered NovoLOG 100 units/mL injectable solution Start: 03/31/23 9:41:00 AM EST, See Instructions, Disp# 30 mL, Refills: 4, USE 1 UNIT PER 15 GRAMS OF CARBS, INJECTING UP TO 6 TIMES PER DAY NEEDED - using 30 units per day - 90 day supply, Pharmacy: [facility] Start Date: 03/31/23 Status: Ordered One Touch Delica Plus (33G) Lancets Start: 05/07/22 8:18:00 AM EST, See Instructions, Disp# 100 each, Refills: 3, use for blood glucose testing up to 8x/day, Pharmacy: [facility] Start Date: 05/07/22 Status: Ordered One Touch Verio Flex Glucose Monitor Start: 08/24/23 7:58:00 AM EDT, See Instructions, Disp# 1 each, Refills: 0, test up to 8x/daily as directed for Type 1 DM, Note to Pharmacy: Pt aware insurance may not cover since it was replaced 2022. He would pay out of pocket if cheap enough, Pharmacy: [facility] Start Date: 08/24/23 Status: Ordered One Touch Verio Test Strips Start: 05/07/22 8:16:00 AM EST, See Instructions, Disp# 800 each, Refills: 3, test up to 8x/day as needed for Type 1 DM, Pharmacy: [facility] Start Date: 05/07/22 Status: Ordered Pyridium 200 mg oral tablet Start: 09/02/23 8:28:00 AM EDT, 1 tab, PO, tid, Disp# 6 tab, PRN: as needed for urinary discomfort, Pharmacy: [facility] Start Date: 09/02/23 Stop Date: 09/04/23 Status: Ordered Pyridium 200 mg oral tablet Start: 01/03/24 4:30:00 PM EDT, 1 tab, PO, tid, Disp# 6 tab, Refills: 0, PRN: as needed for urinary discomfort, Pharmacy: [facility] [place] Start Date: 01/03/24 Stop Date: 01/05/24 Status: Ordered Semglee (Vial) 100 units/mL subcutaneous solution Start: 05/09/23 1:53:00 PM EST, 20 unit =, subQ, Daily, Disp# 30 mL, Refills: 3, Pharmacy: [facility] Start Date: 05/09/23 Stop Date: 05/03/24 Status: Ordered Senna Start: 07/26/22 12:43:00 PM EDT, 8.6 mg =, PO, 2 tabs by mouth daily, PRN: as needed for constipation Start Date: 07/26/22 Status: Ordered Synthroid 125 mcg (0.125 mg) oral tablet Start: 12/24/22 8:01:00 AM EDT, 1 tab, PO, Daily, Disp# 90 tab, Refills: 3, Pharmacy: [facility] Start Date: 12/24/22 Status: Ordered Syringe MIS 0.3/31gauge Start: 01/01/22 10:03:00 AM EDT, Syringe MIS 0.3/31gauge, eRx Product Type: Supply, See Instructions, Disp# 500 each, Refills: 3, Pt uses 6 syringes daily. E11.9, Pharmacy [facility] Start Date: 01/01/22 Status: Ordered Syringe MIS 0.3/31gauge Start: 12/24/22 8:02:00 AM EDT, Syringe MIS 0.3/31gauge, eRx Product Type: Supply, See Instructions,Disp# 500 each, Refills: 3, Pt uses 6 syringes daily. E11.9, Pharmacy [facility] Start Date: 12/24/22 Status: Ordered tamsulosin 0.4 mg oral capsule Start: 03/18/23 5:38:00 PM EST, 1 cap, PO, Daily, Disp# 90 cap, Refills: 3, take at night for stent discomfort, Pharmacy: [id number] Start Date: 03/18/23 Stop Date: 03/12/24 Status: Ordered Vitamin B12 1000 mcg oral tablet Start: 10/24/23 10:35:00 AM EDT, 1 tab, PO, Daily, Disp# 90 tab, Refills: 0, Pharmacy: [facility] Start Date: 10/24/23 Stop Date: 01/22/24 Status: Ordered ZyrTEC Start: 02/06/24 8:29:00 AM EDT, PO, Daily Start Date: 02/06/24 Status: Ordered Mental Status 02/20/24 Barriers to Learning one year None evide nt Mandatory Health Literacy Documentation Yes Health Literacy Communication Barriers N ever Primary Language Dutch Problem List Condition Confirmation Course Effective Dates [...] Metastatic colon cancer to liver Discharge Diagnosis 02/20/24 Non-Specified Hand foot syndrome Discharge Diagnosis 02/20/24 Non-Specified Encounter for chemotherapy management Discharge Diagnosis 02/20/24 Non-Specified Procedures Procedure Date Related Diagnosis Body [...] Laboratory List Name Date Carcinoembryonic Antigen (CEA) 02/20/24 Complete Blood Count w Differential (CBC ,DIFFH) 02/20/24 Comprehensive Metabolic Panel (COMP META B PANEL) 02/20/24 Magnesium Level (MAGNESIUM) 02/20/24 Most recent to oldest [Reference Range]: 1 eGFR CKD-EPI [>60 mL/min/1.73 m2] >90 mL /min/1.73 m2 (02/20/24 8:44 AM) Estimated CrCl 82.16 mL/min (02/20/24 9:40 AM) MPV [9.0-12.2 fL] 9.3 fL (02/20/24 8:44 AM) Immature Gran% 0.3 % (02/20/24 8:44 AM) Neut% 71.2 % (02/20/24 8:44 AM) Lymph% 10.0 % (02/20/24 8:44 AM) [place]% 9.6 % (02/20/24 8:44 AM) Baso% 0.4 % (02/20/24 8:44 AM) Eos% 8.5 % (02/20/24 8:44 AM) Immat Gran, Abs [0-0.4 K/uL] 0.03 K/uL (02/20/24 8:44 AM) Neut, Abs [2.0-7.7 K/uL] 6.94 K/uL (02/20/24 8:44 AM) Lymph, Abs [1.0-3.4 K/uL] 0.98 K/uL *LOW* (02/20/24 8:44 AM) [place], Abs [0-1.0 K/uL] 0.94 K/uL (02/20/24 8:44 AM) Baso, Abs [0-0.1 K/uL] 0.04 K/uL (02/20/24 8:44 AM) Eos, Abs [0-0.5 K/uL] 0.83 K/uL *HI* (02/20/24 8:44 AM) Type of Diff: AUTO *Unknown* (02/20/24 8:44 AM) RDW [11.5-14.2 %] 14.8 % *HI* (02/20/24 8:44 AM) Anion Gap [5-14 mmol/L] 8 mmol/L (02/20/24 8:44 AM) Alb [3.5-5.2 g/dL] 3.2 g/dL *LOW* (02/20/24 8:44 AM) Alk Phos [40-130 unit/L] 145 unit/L 1 *HI* (02/20/24 8:44 AM) ALT [0-41 unit/L] 6 unit/L (02/20/24 8:44 AM) AST [0-40 unit/L] 12 unit/L (02/20/24 8:44 AM) BUN [6-23 mg/dL] 10 mg/dL (02/20/24 8:44 AM) Ca [8.4-10.2 mg/dL] 8.1 mg/dL *LOW* (02/20/24 8:44 AM) CEA [<4.8 ng/mL] 2541.0 ng/mL 2 *HI* (02/20/24 8:44 AM) Cl- [98-107 mmol/L] 102 mmol/L (02/20/24 8:44 AM) HCO3 [22-29 mmol/L] 26 mmol/L (02/20/24 8:44 AM) Cret [0.70-1.30 mg/dL] 0.85 mg/dL (02/20/24 8:44 AM) Glu [74-109 mg/dL] 130 mg/dL 3 *HI* (02/20/24 8:44 AM) Hct [39-48 %] 36.3 % *LOW* (02/20/24 8:44 AM) Hgb [13.0-17.0 g/dL] 11.6 g/dL *LOW* (02/20/24 8:44 AM) K [3.5-5.1 mmol/L] 3.9 mmol/L (02/20/24 8:44 AM) MCH [28-33 pg] 27.2 pg *LOW* (02/20/24 8:44 AM) MCHC [32-36 g/dL] 32.0 g/dL (02/20/24 8:44 AM) MCV [81-96 fL] 85.2 fL (02/20/24 8:44 AM) Mg [1.6-2.6 mg/dL] 1.5 mg/dL *LOW* (02/20/24 8:44 AM) Na [136-145 mmol/L] 136 mmol/L (02/20/24 8:44 AM) Plts [150-350 K/uL] 338 K/uL (02/20/24 8:44 AM) RBC [4.40-5.60 M/uL] 4.26 M/uL *LOW* (02/20/24 8:44 AM) T Bili [0.0-1.2 mg/dL] 0.4 mg/dL (02/20/24 8:44 AM) Prot [6.4-8.3 g/dL] 6.6 g/dL (02/20/24 8:44 AM) WBC [4.0-10.4 K/uL] 9.76 K/uL (02/20/24 8:44 AM) 1Result Comment: Low levels of ALKP [...] recent to oldest [Reference Range]: 1 Height 167.0 cm (02/20/24 3:49 PM) Patient Weight 66.1 kg (02/20/24 3:49 PM) Body Mass Index 23.7 kg/m2 (02/20/24 3:49 PM) Temperature [36.5-37.9 DegC] 37.2 DegC (02/20/24 3:49 PM) Heart Rate 80 bpm (02/20/24 3:49 PM) Respiratory Rate 19 br/min (02/20/24 3:49 PM) Blood Pressure 144/86mmHg (02/20/24 3:49 PM) Cuff Pulse Pressure 58 mmHg (02/20/24 3:49 PM) BP Location # 1 Right Arm (02/20/24 3:49 PM) Social History Social History Type Response [...] Safety Implantable Status Assigning Authority Unknown Unknown [id number] Unknown 09/16/26 Unknown Unknown Active Unknown Unknown Unknown [id number] Unknown 09/28/25 Unknown Unknown Active Unknown Procedure Provider Procedure Date Device Type Site Unknown Unknown 09/02/23 Unknown Unknown Device Identifier Serial Number Lot or Batch Number Manufacturing Date Expiration Date Distinct Identification Code MRI Safety Implantable Status Assigning Authority Unknown Unknown [id number] Unknown 10/29/24 Unknown Unknown Active Unknown Unknown Unknown [id number] Unknown 09/28/25 Unknown Unknown Active Unknown Procedure Provider Procedure Date Device Type Site Unknown Unknown 03/16/23 Unknown Unknown Device Identifier Serial Number Lot or Batch Number Manufacturing Date Expiration Date Distinct Identification Code MRI Safety Implantable Status Assigning Authority Unknown Unknown [id number] Unknown 01/14/25 Unknown Unknown Active Unknown Unknown Unknown [id number] Unknown 09/02/25 Unknown Unknown Active Unknown Hematology/Oncology Outpt Note * CASIE Sorenson, Ken V: PERFORM, MODIFY MD Fidelina, Bronson Russo: MODIFY Event Display: Hematology/Oncology Outpt Note Authored Date: [id number] HEMATOLOGY ONCOLOGY OUTPATIENT NOTE Name: BERNY RUBIO Jr. Patient Number: [id number] : 1960 Date of Service: 02/20/2024 Chief Complaint: follow up OV for metastatic colon cancer, currently on palliative therapy currently Panitumumab was previously on Bevacizumab but had increased protein in the urine, presents for treatment. History of Present Illness: Patient presents for palliative Panitumumab and capecitabine. Since we saw patient last he had stent exchange completed for bilateral extrinsic ureteral obstruction. CEA has been up trending. Most recent imaging in [place] showed disease progression per patient. First dose of recent Panitumumab was 02/06/24. Patient denies any fever, chills, SOB, chest pain, palpiations, abdominal pain, nausea, vomiting, dysuria, abnormal bleeding, hematochezia, melena, headache, dizziness, or neurological changes. Patient has + acne form rash to face, recommend Benzoyl peroxide cream to face. Hand are dry and cracking, recommend utter cream to hands and feet. Continue the capcitabine. Patient has bilateral LE edema, recommend trialing lasix, SYL stockings, and PT evaluation for lymphedema. Review of Systems All other ROS is negative except what is mentioned in HPI. Current Home Meds: (Last Updated 02/05 10:13) amLODIPine (Norvasc 10 mg oral tablet) 10 mg PO Daily bevacizumab (Avastin 25 mg/mL intravenous solution) infused over 30 minutesevery 3 weeks cannabis (Medical Marijuana) 1 inh inhaled capecitabine (capecitabine 500 mg oral tablet) 500 mg PO bid for 14 days, followed by 7 days off ofeach 21 day cycle. cetirizine (ZyrTEC) PO Daily cyanocobalamin (Vitamin B12 1000 mcg oral tablet) 1,000 mcg PO Daily diabetes supplies (One Touch Verio Flex Glucose Monitor) test up to 8x/daily as directed for Type 1DM diabetes supplies (One Touch Verio Test Strips) test up to 8x/day as needed for Type 1 DM diabetes supplies (One Touch Delica Plus (33G) Lancets) use for blood glucose testing up to 8x/day insulin aspart (NovoLOG 100 units/mL injectable solution) USE 1 UNIT PER 15 GRAMS OF CARBS, INJECTING UP TO 6 TIMES PER DAY NEEDED - using 30 units per day - 90 day supply insulin glargine (Semglee (Vial) 100 units/mL subcutaneous solution) 20 unit subQ Daily levothyroxine (Synthroid 125 mcg (0.125 mg) oral tablet) 125 mcg PO Daily lidocaine topical (Gold Gutierrez Medicated Maximum Strength Pain and Itch 4% topical cream) not to exceed 3 applications in 24 hours morphine (morphine 30 mg (24 HR) oral capsule, extended release) 30 mg PO bid PRN: pain prn morphine 60 mg PO q12h phenazopyridine (Pyridium 200 mg oral tablet) 200 mg PO tid PRN: as needed for urinary discomfort phenazopyridine (Pyridium 200 mg oral tablet) 200 mg PO tid PRN: as needed for urinary discomfort senna (Senna) 8.6 mg PO PRN: as needed for constipation 2 tabs by mouth daily tamSULOsin (tamsulosin 0.4 mg oral capsule) 0.4 mg PO Daily take at night for stent discomfort unlisted medication (Syringe MIS 0.3/31gauge) Pt uses 6 syringes daily. E11.9 unlisted medication (Syringe MIS 0.3/31gauge) Pt uses 6 syringes daily. E11.9 Allergies and Sensitivities: Percodan(Rash) Past Medical History: Problems: Bilateral ureteral obstruction. 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 No Orthostatic Data Available Height and Weight: Last Updated 02/06/24 08:31 Date BMI Wt(kg) Wt(lb) Method Ht(cm) (ft-in) Method 02/06/24 65.3 144 Standing Scale 01/16/24 65 143 Standing Scale 01/03/24 19.72 57 125 Standing Scale 170 5-7 Patient stated Heights and Weights are the last 3 documented. Physical Exam General:Alert, conversant, and answering questions appropriately; in no acute distress. Psych:Normal mood and affect, cooperative. HEENT:Face is symmetrical. Pupils are equal bilaterally and sclera are without icterus or injection. Oral cavity is moist, pink, and without lesions. Cardiac:Heart is regular in rate and rhythm. No murmurs or rubs. Lungs:Lungs are clear to auscultation bilaterally without wheezes, rales, or rhonchi. Abdomen:Soft, non-distended and non-tender to palpation. Normoactive bowel sounds are present. Extremities:Bilateral LE peripheral edema. No erythema or swelling to joints. Neuro:Alert and oriented x3. No focal deficits noted. Skin:Warm, dry,+ acne form rash to face 30 Day Labs: 02/06/24 0800 Estimated CrCl 77.24 02/06/24 0716 Hct 34.4 L Hgb 11.2 L MCH 28.0 MCHC 32.6 MCV 86.0 Plts 383 H RBC 4.00 L WBC 9.28 MPV 9.7 Immature Gran% 0.3 Neut% 71.5 Lymph% 8.2 [place]% 9.6 Baso% 0.4 Eos% 10.0 Immat Gran, Abs 0.03 Neut, Abs 6.63 Lymph, Abs 0.76 L [place], Abs 0.89 Baso, Abs 0.04 Eos, Abs 0.93 H Type of Diff: AUTO RDW 14.5 H Anion Gap 9 BUN 14 Ca 8.3 L Cl- 99 HCO3 26 Cret 0.90 Glu 174 H K 4.0 Mg 1.6 Na 134 L eGFR CKD-EPI >90 Alk Phos 174 H ALT 6 AST 12 T Bili 0.5 Alb 3.1 L Prot 6.6 Assessment: 63 y/o male with metastatic colon cancer on palliative chemotherapy with capecitabine and Panitumumab Plan Metastatic colon cancer - Multifocal pulmonary metastasis. [...] is his baseline. - 01/05/24 scans at [facility]- per patient show disease progression. -Will hold Avastin therapy given elevated protein urea; - Started Panitumumab as additional agent given disease progression s/p first dose on 02/06/24, presents for dose #2 today. -Next scans due in end of March Multifocal pulmonary metastasis/ chronic smoker -Upon review of his CT chest as noted above he will plan to continue with his treatment as planned. -He was encouraged to make efforts in smoking cessation. 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 Dispo: Patient will return in 2 weeks time for OV, labs, and treatment. The patient was seen and examined with Dr. Bronson Kitchen, the attending of record, is in agreement with the above assessment and plan. Attending: I performed all the medical decision making, which is the substantive portion of this visit. Bronson Kitchen M.D., Ph.D. Electronic Signature on File Electronically Reviewed/Signed by: CASIE Hunt DIV OF HEMATOLOGY ONCOLOGY Electronically Reviewed/Signed by: Bronson Kitchen MD Cosigner Signature Dt/Tm: 02/20/2024 05:12 PM Division of Hematology Oncology [facility] Patient Care team information Care Team Personnel Name: Constantin Del Toro Kimberly Position: Pharmacist BCMA Member Role: Pharmacy - Lifetime Address: [place] [address] [place] Name: MD Fidelina, Bronson Russo Position: Physician - Hem/Onc Member Role: Lifetime Relationship Address: [address] [place] [address] [place] Name: Constantin Ferreira Matthew Position: Pharmacist Member Role: Pharmacy - Lifetime Name: JOHN Winslow Judy Position: Provider - Terminated Member Role: Lifetime Relationship Address: [address] [place] [address] [place] Name: Mame Perez RPh, William Position: Pharmacist Member Role: Pharmacy - Lifetime Name: MD Zachariah, Samra Cano Position: Physician Member Role: Primary Care Provider Address: [address] [place] [address] Care Team Related Persons Name: BRUNO YOO
--- OUTSIDE RECORDS SUMMARY | 2024-07-09 08:44 | External Medical Summary | Continuity of Care Document ---
Author Name Unknown Organization [facility] Address [address] [place] [address] JOSIE ANDERSON [phone] Care Team Providers Care Hair Or Beauty Salon Manager Name Role Phone Samra Soni Primary Care Physician [phone] Encounter [facility] [id number] Date(s): 03/05/24 - 03/05/24 [facility] [address], [place] [address]- [phone] Encounter Diagnosis Primary colorectal adenocarcinoma(Discharge Diagnosis) - 03/05/24 Rash(Discharge Diagnosis) - 03/05/24 Discharge Disposition: Home or Self Care Attending Physician: MD Kitchen Raymond J Referring Physician: MD Soni Ravishankar E Allergies, Adverse Reactions, Alerts Substance Criticality Severity Reaction Reaction Severity Status Percodan Rash Active Assessment and Plan Extracted from: Title:Oncology Office Visit Note Author:Gianni Woodall Annie Date:03/05/24 63 y/o male with metastatic colon cancer [...] first dose on 02/06/24, presents for dose #3 today.Tolerating well so far. - Will proceed with treatment today and again in 2 weeks. -Next scans due in end of March Multifocal pulmonary metastasis/ chronic smoker -Upon review of his CT chest as noted above he will plan to continue with his treatment as planned. -He was encouraged to make efforts in smoking cessation. Hypothyroidism -Continue on Synthroid 125 mcg Anemia -Continue to monitor labs per chemotherapy protocol -His hemoglobin remains 11.2 g/dLwhich is stable for him and he remains asymptomatic DM-1/ Diabetic foot neuropathy/ Brittle toenails - patient was told to f/u senior clinical project manager for basic diabetic foot care from his [...] of hand and feet.- rec Goldbond lotion Hypomagnesemia-OTC supplements Bilateral LE edema - PT evaluation for lymphedema -Lasix 20 mg dailyPRN. Discussed need to check BP prior to administering and if hypotensive, hold Lasix. -SYL stockings Acneform rash to face - Continue with benzyl peroxideointment. - Can consider derm referral if ongoing. Dispo:Patient will return in 2 weeks time for labs and treatment and again in 4 weeks for OV, labs, and treatment. Attending: I performed all the medical decision [...] twice a day for 30 days, Pharmacy: [id number] Start Date: 04/07/23 Status: Ordered Lasix 20 mg oral tablet Start: 02/20/24 4:19:00 PM EST, 1 tab, PO, Daily, Disp# 7 tab, Pharmacy: [facility] Start Date: 02/20/24 Stop Date: 02/27/24 [...] Daily, Disp# 90 tab, Refills: 0, Pharmacy: [facility] Start Date: 02/20/24 Stop Date: 05/20/24 Status: Ordered NovoLOG 100 units/mL injectable solution Start: 03/31/23 9:41:00 AM EST, See Instructions, Disp# 30 mL, Refills: 4, USE 1 UNIT PER 15 GRAMS OF CARBS, INJECTING UP TO 6 TIMES PER DAY NEEDED - using 30 units per day - 90 day supply, Pharmacy: [facility] Start Date: 03/31/23 Status: Ordered One Touch Delica Plus (33G) Lancets Start: 05/07/22 8:18:00 AM EST, See Instructions, Disp# 100 each, Refills: 3, use for blood glucose testing up to 8x/day, Pharmacy: [facility] Start Date: 05/07/22 Status: Ordered One Touch Verio Flex Glucose Monitor Start: 08/24/23 7:58:00 AM EDT, See Instructions, Disp# 1 each, Refills: 0, test up to 8x/daily as directed for Type 1 DM, Note to Pharmacy: Pt aware insurance may not cover since it was replaced 2022. He would pay out of pocket if cheap enough, Pharmacy: [facility] Start Date: 08/24/23 Status: Ordered One Touch Verio Test Strips Start: 05/07/22 8:16:00 AM EST, See Instructions, Disp# 800 each, Refills: 3, test up to 8x/day as needed for Type 1 DM, Pharmacy: [facility] Start Date: 05/07/22 Status: Ordered Pyridium 200 mg oral tablet Start: 09/02/23 8:28:00 AM EDT, 1 tab, PO, tid, Disp# 6 tab, PRN: as needed for urinary discomfort, Pharmacy: [facility] Start Date: 09/02/23 Stop Date: 09/04/23 Status: Ordered Pyridium 200 mg oral tablet Start: 01/03/24 4:30:00 PM EDT, 1 tab, PO, tid, Disp# 6 tab, Refills: 0, PRN: as needed for urinary discomfort, Pharmacy: [facility] [place] Start Date: 01/03/24 Stop Date: 01/05/24 Status: Ordered Semglee (Vial) 100 units/mL subcutaneous solution Start: 05/09/23 1:53:00 PM EST, 20 unit =, subQ, Daily, Disp# 30 mL, Refills: 3, Pharmacy: [facility] Start Date: 05/09/23 Stop Date: 05/03/24 Status: Ordered Senna Start: 07/26/22 12:43:00 PM EDT, 8.6 mg =, PO, 2 tabs by mouth daily, PRN: as needed for constipation Start Date: 07/26/22 Status: Ordered Synthroid 125 mcg (0.125 mg) oral tablet Start: 12/24/22 8:01:00 AM EDT, 1 tab, PO, Daily, Disp# 90 tab, Refills: 3, Pharmacy: [facility] Start Date: 12/24/22 Status: Ordered Syringe MIS 0.3/31gauge Start: 01/01/22 10:03:00 AM EDT, Syringe MIS 0.3/31gauge, eRx Product Type: Supply, See Instructions, Disp# 500 each, Refills: 3, Pt uses 6 syringes daily. E11.9, Pharmacy [facility] Start Date: 01/01/22 Status: Ordered Syringe MIS 0.3/31gauge Start: 12/24/22 8:02:00 AM EDT, Syringe MIS 0.3/31gauge, eRx Product Type: Supply, See Instructions,Disp# 500 each, Refills: 3, Pt uses 6 syringes daily. E11.9, Pharmacy [facility] Start Date: 12/24/22 Status: Ordered tamsulosin 0.4 mg oral capsule Start: 03/18/23 5:38:00 PM EST, 1 cap, PO, Daily, Disp# 90 cap, Refills: 3, take at night for stent discomfort, Pharmacy: [id number] Start Date: 03/18/23 Stop Date: 03/12/24 Status: Ordered Vitamin B12 1000 mcg oral tablet Start: 10/24/23 10:35:00 AM EDT, 1 tab, PO, Daily, Disp# 90 tab, Refills: 0, Pharmacy: [facility] Start Date: 10/24/23 Stop Date: 01/22/24 Status: Ordered ZyrTEC Start: 02/06/24 8:29:00 AM EDT, PO, Daily Start Date: 02/06/24 Status: Ordered Mental Status 03/05/24 Barriers to Learning one year None evide nt Mandatory Health Literacy Documentation Yes Communication Barrier Present No Health Literacy Communication Barriers N ever Primary Language German Problem List Condition Confirmation Course Effective Dates [...] Service Informant Primary colorectal adenocarcinoma Discharge Diagnosis 03/05/24 Rash Discharge Diagnosis 03/05/24 Procedures Procedure Date Related Diagnosis Body Site [...] Laboratory List Name Date Carcinoembryonic Antigen (CEA) 03/05/24 Complete Blood Count w Differential (CBC ,DIFFH) 03/05/24 Comprehensive Metabolic Panel (COMP META B PANEL) 03/05/24 Most recent to oldest [Reference Range]: 1 eGFR CKD-EPI [>60 mL/min/1.73 m2] >90 mL /min/1.73 m2 (03/05/24 8:00 AM) Estimated CrCl 73.49 mL/min (03/05/24 9:07 AM) MPV [9.0-12.2 fL] 9.7 fL (03/05/24 8:00 AM) Immature Gran% 0.3 % (03/05/24 8:00 AM) Neut% 74.7 % (03/05/24 8:00 AM) Lymph% 9.3 % (03/05/24 8:00 AM) Carter% 8.2 % (03/05/24 8:00 AM) Baso% 0.6 % (03/05/24 8:00 AM) Eos% 6.9 % (03/05/24 8:00 AM) Immat Gran, Abs [0-0.4 K/uL] 0.03 K/uL (03/05/24 8:00 AM) Neut, Abs [2.0-7.7 K/uL] 7.81 K/uL *HI* (03/05/24 8:00 AM) Lymph, Abs [1.0-3.4 K/uL] 0.97 K/uL *LOW* (03/05/24 8:00 AM) Carter, Abs [0-1.0 K/uL] 0.86 K/uL (03/05/24 8:00 AM) Baso, Abs [0-0.1 K/uL] 0.06 K/uL (03/05/24 8:00 AM) Eos, Abs [0-0.5 K/uL] 0.72 K/uL *HI* (03/05/24 8:00 AM) Type of Diff: AUTO *Unknown* (03/05/24 8:00 AM) RDW [11.5-14.2 %] 15.0 % *HI* (03/05/24 8:00 AM) Anion Gap [5-14 mmol/L] 9 mmol/L (03/05/24 8:00 AM) Alb [3.5-5.2 g/dL] 2.9 g/dL *LOW* (03/05/24 8:00 AM) Alk Phos [40-130 unit/L] 131 unit/L 1 *HI* (03/05/24 8:00 AM) ALT [0-41 unit/L] 6 unit/L (03/05/24 8:00 AM) AST [0-40 unit/L] 12 unit/L (03/05/24 8:00 AM) BUN [6-23 mg/dL] 12 mg/dL (03/05/24 8:00 AM) Ca [8.4-10.2 mg/dL] 7.8 mg/dL *LOW* (03/05/24 8:00 AM) CEA [<4.8 ng/mL] 1853.0 ng/mL 2 *HI* (03/05/24 8:00 AM) Cl- [98-107 mmol/L] 102 mmol/L (03/05/24 8:00 AM) HCO3 [22-29 mmol/L] 27 mmol/L (03/05/24 8:00 AM) Cret [0.70-1.30 mg/dL] 0.92 mg/dL (03/05/24 8:00 AM) Glu [74-109 mg/dL] 130 mg/dL 3 *HI* (03/05/24 8:00 AM) Hct [39-48 %] 35.0 % *LOW* (03/05/24 8:00 AM) Hgb [13.0-17.0 g/dL] 11.2 g/dL *LOW* (03/05/24 8:00 AM) K [3.5-5.1 mmol/L] 4.3 mmol/L (03/05/24 8:00 AM) MCH [28-33 pg] 27.4 pg *LOW* (03/05/24 8:00 AM) MCHC [32-36 g/dL] 32.0 g/dL (03/05/24 8:00 AM) MCV [81-96 fL] 85.6 fL (03/05/24 8:00 AM) Na [136-145 mmol/L] 138 mmol/L (03/05/24 8:00 AM) Plts [150-350 K/uL] 356 K/uL *HI* (03/05/24 8:00 AM) RBC [4.40-5.60 M/uL] 4.09 M/uL *LOW* (03/05/24 8:00 AM) T Bili [0.0-1.2 mg/dL] 0.5 mg/dL (03/05/24 8:00 AM) Prot [6.4-8.3 g/dL] 6.2 g/dL *LOW* (03/05/24 8:00 AM) WBC [4.0-10.4 K/uL] 10.45 K/uL *HI* (03/05/24 8:00 AM) 1Result Comment: Low levels of ALKP [...] to oldest [Reference Range]: 1 Patient Weight 66 kg 1 (03/05/24 8:28 AM) Temperature [36.5-37.9 DegC] 36.8 DegC (03/05/24 8:28 AM) Heart Rate 67 bpm (03/05/24 8:28 AM) Respiratory Rate 16 br/min (03/05/24 8:28 AM) Blood Pressure 112/66mmHg (03/05/24 8:28 AM) Mean Blood Pressure 82 mmHg (03/05/24 8:28 AM) Cuff Pulse Pressure 46 mmHg (03/05/24 8:28 AM) BP Location # 1 Left Arm (03/05/24 8:28 AM) 1Result Comment: w/ shoes on Social [...] Safety Implantable Status Assigning Authority Unknown Unknown [id number] Unknown 09/16/26 Unknown Unknown Active Unknown Unknown Unknown [id number] Unknown 09/28/25 Unknown Unknown Active Unknown Procedure Provider Procedure Date Device Type Site Unknown Unknown 09/02/23 Unknown Unknown Device Identifier Serial Number Lot or Batch Number Manufacturing Date Expiration Date Distinct Identification Code MRI Safety Implantable Status Assigning Authority Unknown Unknown [id number] Unknown 10/29/24 Unknown Unknown Active Unknown Unknown Unknown [id number] Unknown 09/28/25 Unknown Unknown Active Unknown Procedure Provider Procedure Date Device Type Site Unknown Unknown 03/16/23 Unknown Unknown Device Identifier Serial Number Lot or Batch Number Manufacturing Date Expiration Date Distinct Identification Code MRI Safety Implantable Status Assigning Authority Unknown Unknown [id number] Unknown 01/14/25 Unknown Unknown Active Unknown Unknown Unknown [id number] Unknown 09/02/25 Unknown Unknown Active Unknown Hematology/Oncology Outpt Note * MD Fidelina, Bronson Russo: MODIFY MD Kitchen Raymond J: MODIFY, MODIFY, MODIFY, MODIFY, MODIFY, MODIFY Event Display: Hematology/Oncology Outpt Note Authored Date: [id number] Chief Complaint 2 week f/u History of Present Illness 63-year-old [...] focal high-grade dysplasia. B.Colon, transverse, polypectomy ( [id number]-S 02/03/22):- Tubular adenoma. C. Colon, sigmoid, biopsy sigmoid colitis ([id number]-[id number] 02/03/22):- No pathological ulceration. D. Rectum, polypectomy ([id number]-[id number] 02/03/22)":- Fragments of tubular adenoma. 2Liver, side [...] initially seen by Dr. Sparks in a [facility] who recommended surgical bypass because of [...] are mildly decreased in size. INTERVAL HISTORY 03/05/24: Patient presents for palliative Panitumumab and capecitabine. Overall, patient reports he is doing well. Has acneiform rash to face, upper neck and chest from panitumumab but reports this isstable. Usesointment at home which he reports helps.Denies pruritus. Denies cough. Has diarrhea for a few days following treatment but this resolves after 2-3 days. Not using any antidiarrheals. Deniesfevers, chills, or recent infection. Denies CP or SOB. Didnot take lasix after last visit andBLE edema and BP now both improved. Review of Systems All other ROS is negative except what is mentioned in HPI. Physical Exam Vital Signs and Measurements This Visit - Last 24 Hours T:36.8C HR:67(Monitored) RR:16 BP:112/66 SpO2:98% WT:66.000kg(Dosing) WT:66kg General:Alert, conversant, and answering questions appropriately; in [...] non-tender to palpation.Normoactive bowel sounds are present. Extremities:Trace bilateral LE peripheral edema.No erythema or swelling to joints. Neuro:Alert and oriented x3.No focal deficits noted. Skin:Warm, dry,+ acne form rash to faceand neck Performance Scales and Status ECOG Performance Status: 0 (02/20/24) ECOG Performance Status: 1 (02/06/24) Pain Score:NO PAIN SCORE DOCUMENTED ON THIS VISIT Distress Scores/Interview Data Documented on:02/20/2024 17:03 Distress Practical Problems:0 Distress Family Problems:0 Distress Emotional Problems:0 Distress Spiritual/Taoism Concerns:0 Distress Physical Problems:3 Oncology Regimens Oncology Chemo Regimens: Regimen:ONCR panitumumab [...] first dose on 02/06/24, presents for dose #3 today.Tolerating well so far. - Will proceed with treatment today and again in 2 weeks. -Next scans due in end of March Multifocal pulmonary metastasis/ chronic smoker -Upon review of his CT chest as noted above he will plan to continue with his treatment as planned. -He was encouraged to make efforts in smoking cessation. Hypothyroidism -Continue on Synthroid 125 mcg Anemia -Continue to monitor labs per chemotherapy protocol -His hemoglobin remains 11.2 g/dLwhich is stable for him and he remains asymptomatic DM-1/ Diabetic foot neuropathy/ Brittle toenails - patient was told to f/u senior clinical project manager for basic diabetic foot care from his [...] of hand and feet.- rec Goldbond lotion Hypomagnesemia-OTC supplements Bilateral LE edema - PT evaluation for lymphedema -Lasix 20 mg dailyPRN. Discussed need to check BP prior to administering and if hypotensive, holdLasix. -SYL catalanings Acneform rash to face - Continue with benzyl peroxideointment. - Can consider derm referral if ongoing. Dispo:Patient will return in 2 weeks time for labs and treatment and again in 4 weeks for OV, labs, and treatment. Attending: I performed all the medical decision [...] tab, PO, Daily diabetes supplies(One Touch Verio Flex Glucose Monitor), See Instructions diabetes supplies(One Touch Verio Test Strips), See Instructions, 3 refills diabetes supplies(One Touch Delica Plus (33G) Lancets), [...] medication(Syringe MIS 0.3/31gauge), See Instructions, 3 refills Allergies PercodanRash Social History Smoking Status Current every day heavy smoker Alcohol - Low Risk - Comments: USAUDIT-C score = 6; no interest in changing Employment/School - Medium Risk Status:Retired Substance Abuse - Denies Substance Abuse Tobacco Type:Cigarettes - Comments: 1 ppd Family History Family history is negative Labs No qualifying data available. [1]Oncology Office Visit Note; JOHN Winslow Judy 09/13/2023 09:54 EDT Electronic Signature on File CC: CASIE Loco [address] [place] [id number] Electronically Reviewed/Signed by: CASIE Loco Author Signature Dt/Tm:03/06/2024 09:14 AM Division of Hematology Oncology Electronically Reviewed/Signed by: CASIE Loco Cosigner Signature Dt/Tm: 03/06/2024 09:36 AM Division of Hematology Oncology Electronically Reviewed/Signed by: Bronson Kitchen MD Cosigner Signature Dt/Tm: 03/06/2024 09:47 AM Division of Hematology Oncology AC Patient Care team information Care Team Personnel Name: Constantin Del Toro Kimberly Position: Pharmacist BCMA Member Role: Pharmacy - Lifetime Address: [place] [address] [place] Name: MD Kitchen Raymond J Position: Physician - Hem/Onc Member Role: Lifetime Relationship Address: [address] [place] [address] [place] Name: Constantin Ferreira Matthew Position: Pharmacist Member Role: Pharmacy - Lifetime Name: Mame Perez RPh, William Position: Pharmacist Member Role: Pharmacy - Lifetime Name: MD Zachariah, Samra Cano Position: Physician Member Role: Primary Care Provider Address: [address] [place] [address] [place] Care Team Related Persons Name: BRUNO YOO
--- OUTSIDE RECORDS SUMMARY | 2024-07-09 08:44 | External Medical Summary | Continuity of Care Document ---
Author Name Unknown Organization [facility] Address [address] [place] [address] JOSIE ANDERSON [phone] Care Team Providers Care Client Services Analyst Name Role Phone Lenora Sonicass Rachael Primary Care Physician [phone] Encounter [facility] [id number] Date(s): 02/06/24 - 02/06/24 [facility] [address] JOSIE Barton [address]- [phone] Encounter Diagnosis Primary colorectal adenocarcinoma(Discharge Diagnosis) - 02/06/24 Discharge Disposition: Home or Self Care Attending Physician: MD Kitchen Raymond J Referring Physician: MD Kitchen Raymond J Allergies, Adverse Reactions, Alerts Substance Criticality Severity Reaction Reaction Severity Status Percodan Rash Active Functional Status 02/06/24 Gait Steady Medications Avastin 25 mg/mL intravenous solution Start: 01/21/23 [...] twice a day for 30 days, Pharmacy: [id number] Start Date: 04/07/23 Status: Ordered Medical Marijuana Start: 06/28/22 11:57:00 [...] Ordered Norvasc 10 mg oral tablet Start: 10/24/23 10:35:00 AM EDT, 1 tab, PO, Daily, Disp# 90 tab, Refills: 0, Pharmacy: [facility] Start Date: 10/24/23 Stop Date: 01/22/24 Status: Ordered NovoLOG 100 units/mL injectable solution Start: 03/31/23 9:41:00 AM EST, See Instructions, Disp# 30 mL, Refills: 4, USE 1 UNIT PER 15 GRAMS OF CARBS, INJECTING UP TO 6 TIMES PER DAY NEEDED - using 30 units per day - 90 day supply, Pharmacy: [facility] Start Date: 03/31/23 Status: Ordered One Touch Delica Plus (33G) Lancets Start: 05/07/22 8:18:00 AM EST, See Instructions, Disp# 100 each, Refills: 3, use for blood glucose testing up to 8x/day, Pharmacy: [facility] Start Date: 05/07/22 Status: Ordered One Touch Verio Flex Glucose Monitor Start: 08/24/23 7:58:00 AM EDT, See Instructions, Disp# 1 each, Refills: 0, test up to 8x/daily as directed for Type 1 DM, Note to Pharmacy: Pt aware insurance may not cover since it was replaced 2022. He would pay out of pocket if cheap enough, Pharmacy: [facility] Start Date: 08/24/23 Status: Ordered One Touch Verio Test Strips Start: 05/07/22 8:16:00 AM EST, See Instructions, Disp# 800 each, Refills: 3, test up to 8x/day as needed for Type 1 DM, Pharmacy: [facility] Start Date: 05/07/22 Status: Ordered Pyridium 200 mg oral tablet Start: 09/02/23 8:28:00 AM EDT, 1 tab, PO, tid, Disp# 6 tab, PRN: as needed for urinary discomfort, Pharmacy: [facility] Start Date: 09/02/23 Stop Date: 09/04/23 Status: Ordered Pyridium 200 mg oral tablet Start: 01/03/24 4:30:00 PM EDT, 1 tab, PO, tid, Disp# 6 tab, Refills: 0, PRN: as needed for urinary discomfort, Pharmacy: [facility] [place] Start Date: 01/03/24 Stop Date: 01/05/24 Status: Ordered Semglee (Vial) 100 units/mL subcutaneous solution Start: 05/09/23 1:53:00 PM EST, 20 unit =, subQ, Daily, Disp# 30 mL, Refills: 3, Pharmacy: [facility] Start Date: 05/09/23 Stop Date: 05/03/24 Status: Ordered Senna Start: 07/26/22 12:43:00 PM EDT, 8.6 mg =, PO, 2 tabs by mouth daily, PRN: as needed for constipation Start Date: 07/26/22 Status: Ordered Synthroid 125 mcg (0.125 mg) oral tablet Start: 12/24/22 8:01:00 AM EDT, 1 tab, PO, Daily, Disp# 90 tab, Refills: 3, Pharmacy: [facility] Start Date: 12/24/22 Status: Ordered Syringe MIS 0.3/31gauge Start: 01/01/22 10:03:00 AM EDT, Syringe MIS 0.3/31gauge, eRx Product Type: Supply, See Instructions, Disp# 500 each, Refills: 3, Pt uses 6 syringes daily. E11.9, Pharmacy [facility] Start Date: 01/01/22 Status: Ordered Syringe MIS 0.3/31gauge Start: 12/24/22 8:02:00 AM EDT, Syringe MIS 0.3/31gauge, eRx Product Type: Supply, See Instructions,Disp# 500 each, Refills: 3, Pt uses 6 syringes daily. E11.9, Pharmacy [facility] Start Date: 12/24/22 Status: Ordered tamsulosin 0.4 mg oral capsule Start: 03/18/23 5:38:00 PM EST, 1 cap, PO, Daily, Disp# 90 cap, Refills: 3, take at night for stent discomfort, Pharmacy: [id number] Start Date: 03/18/23 Stop Date: 03/12/24 Status: Ordered Vitamin B12 1000 mcg oral tablet Start: 10/24/23 10:35:00 AM EDT, 1 tab, PO, Daily, Disp# 90 tab, Refills: 0, Pharmacy: [facility] Start Date: 10/24/23 Stop Date: [...] Service Informant Primary colorectal adenocarcinoma Discharge Diagnosis 02/06/24 Non-Specified Procedures Procedure Date Related Diagnosis Body [...] Range]: 1 Temperature [36.5-37.9 DegC] 36.6 DegC (02/06/24 10:14 AM) Heart Rate 71 bpm (02/06/24 10:14 AM) Respiratory Rate 16 br/min (02/06/24 10:14 AM) Blood Pressure 132/66mmHg (02/06/24 10:14 AM) Cuff Pulse Pressure 66 mmHg (02/06/24 10:14 AM) BP Location # 1 Left Arm (02/06/24 10:14 AM) Social History Social History Type Response [...] Safety Implantable Status Assigning Authority Unknown Unknown [id number] Unknown 09/16/26 Unknown Unknown Active Unknown Unknown Unknown [id number] Unknown 09/28/25 Unknown Unknown Active Unknown Procedure Provider Procedure Date Device Type Site Unknown Unknown 09/02/23 Unknown Unknown Device Identifier Serial Number Lot or Batch Number Manufacturing Date Expiration Date Distinct Identification Code MRI Safety Implantable Status Assigning Authority Unknown Unknown [id number] Unknown 10/29/24 Unknown Unknown Active Unknown Unknown Unknown [id number] Unknown 09/28/25 Unknown Unknown Active Unknown Procedure Provider Procedure Date Device Type Site Unknown Unknown 03/16/23 Unknown Unknown Device Identifier Serial Number Lot or Batch Number Manufacturing Date Expiration Date Distinct Identification Code MRI Safety Implantable Status Assigning Authority Unknown Unknown [id number] Unknown 01/14/25 Unknown Unknown Active Unknown Unknown Unknown [id number] Unknown 09/02/25 Unknown Unknown Active Unknown Patient Care team information Care Team Personnel Name: Constantin Del Toro Kimberly Position: Pharmacist BCMA Member Role: Pharmacy - Lifetime Address: [address] [address] [place] Name: MD Kitchen Raymond J Position: Physician - Hem/Onc Member Role: Lifetime Relationship Address: [address] [place] [address] [place] Name: Constantin Ferreira Matthew Position: Pharmacist Member Role: Pharmacy - Lifetime Name: JOHN Winslow Judy Position: Provider - Terminated Member Role: Lifetime Relationship Address: [address] [place] [address] [place] Name: Mame Perez RPh, William Position: Pharmacist Member Role: Pharmacy - Lifetime Name: MD Zachariah, Samra Cano Position: Physician Member Role: Primary Care Provider Address: [address] [address] Care Team Related Persons Name: BRUNO YOO
--- OUTSIDE RECORDS SUMMARY | 2024-07-09 08:44 | External Medical Summary | Continuity of Care Document ---
Author Name Unknown Organization [facility] Address [address] [place] [address] JOSIE ANDERSON [phone] Care Team Providers Care Reading Assistant Name Role Phone Samra Soni Primary Care Physician [phone] Encounter [facility] [id number] Date(s): 03/19/24 - 03/19/24 [facility] [id number], [place] [address]- [phone] Encounter Diagnosis Primary colorectal adenocarcinoma(Discharge Diagnosis) - [...] is his baseline. - 01/05/24 scans at [facility]- per patient show disease progression. 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 [...] twice a day for 30 days, Pharmacy: [id number] Start Date: 04/07/23 Status: Ordered Lasix 20 mg oral tablet Start: 02/20/24 4:19:00 PM EST, 1 tab, PO, Daily, Disp# 7 tab, [facility] Start Date: 02/20/24 Stop Date: 02/27/24 Status: [...] Daily, Disp# 90 tab, Refills: 0, Pharmacy: [facility] Start Date: 02/20/24 Stop Date: 05/20/24 Status: Ordered NovoLOG 100 units/mL injectable solution Start: 03/12/24 11:19:00 AM EST, See Instructions, Disp# 30 mL, Refills: 4, USE 1 UNIT PER 15 GRAMS OF CARBS, INJECTING UP TO 6 TIMES PER DAY NEEDED - using 30 units per day - 90 day supply, Pharmacy: [facility] Start Date: 03/12/24 Status: Ordered One Touch Delica Plus (33G) Lancets Start: 05/07/22 8:18:00 AM EST, See Instructions, Disp# 100 each, Refills: 3, use for blood glucose testing up to 8x/day, Pharmacy: [facility] Start Date: 05/07/22 Status: Ordered One Touch Verio Flex Glucose Monitor Start: 08/24/23 7:58:00 AM EDT, See Instructions, Disp# 1 each, Refills: 0, test up to 8x/daily as directed for Type 1 DM, Note to Pharmacy: Pt aware insurance may not cover since it was replaced 2022. He would pay out of pocket if cheap enough, Pharmacy: [facility] Start Date: 08/24/23 Status: Ordered One Touch Verio Test Strips Start: 03/14/24 8:02:00 AM EST, See Instructions, Disp# 800 each, Refills: 3, test up to 8x/day as needed for Type 1 DM, Pharmacy: [facility] Start Date: 03/14/24 Status: Ordered ONETOUCH VERIO TEST STRIP Start: 03/14/24 8:05:00 AM EST, ONETOUCH VERIO TEST STRIP, See Instructions, Disp# 800 strip, Refills: 0, TEST UP TO 8 TIMES DAILY NEEDED, Pharmacy [facility] Start Date: 03/14/24 Status: Ordered Pyridium 200 mg oral tablet Start: 09/02/23 8:28:00 AM EDT, 1 tab, PO, tid, Disp# 6 tab, PRN: as needed for urinary discomfort, Pharmacy: [facility] Start Date: 09/02/23 Stop Date: 09/04/23 Status: Ordered Pyridium 200 mg oral tablet Start: 01/03/24 4:30:00 PM EDT, 1 tab, PO, tid, Disp# 6 tab, Refills: 0, PRN: as needed for urinary discomfort, Pharmacy: [facility] Start Date: 01/03/24 Stop Date: 01/05/24 Status: Ordered Semglee (Vial) 100 units/mL subcutaneous solution Start: 03/12/24 11:19:00 AM EST, 20 unit =, subQ, Daily, Disp# 30 mL, Refills: 3, Pharmacy: [facility] Start Date: 03/12/24 Stop Date: 03/07/25 Status: Ordered Senna Start: 07/26/22 12:43:00 PM EDT, 8.6 mg =, PO, 2 tabs by mouth daily, PRN: as needed for constipation Start Date: 07/26/22 Status: Ordered Synthroid 125 mcg (0.125 mg) oral tablet Start: 03/12/24 11:19:00 AM EST, 1 tab, PO, Daily, Disp# 90 tab, Refills: 3, Pharmacy: [facility] Start Date: 03/12/24 Status: Ordered Syringe MIS 0.3/31gauge Start: 03/12/24 11:19:00 AM EST, Syringe MIS 0.3/31gauge, eRx Product Type: Supply, See Instructions, Disp# 500 each, Refills: 3, Pt uses 6 syringes daily. E11.9, Pharmacy [facility] Start Date: 03/12/24 Status: Ordered Syringe MIS 0.3/31gauge Start: 01/01/22 10:03:00 AM EDT, Syringe MIS 0.3/31gauge, eRx Product Type: Supply, See Instructions, Disp# 500 each, Refills: 3, Pt uses 6 syringes daily. E11.9, [facility] Start Date: 01/01/22 Status: Ordered tamsulosin 0.4 mg oral capsule Start: 03/18/23 5:38:00 PM EST, 1 cap, PO, Daily, Disp# 90 cap, Refills: 3, take at night for stent discomfort, Pharmacy: [id number] Start Date: 03/18/23 Stop Date: 03/12/24 Status: Ordered Vitamin B12 1000 mcg oral tablet Start: 10/24/23 10:35:00 AM EDT, 1 tab, PO, Daily, Disp# 90 tab, Refills: 0, Pharmacy: [facility] Start Date: 10/24/23 Stop Date: 01/22/24 [...] Safety Implantable Status Assigning Authority Unknown Unknown [id number] Unknown 09/16/26 Unknown Unknown Active Unknown Unknown Unknown [id number] Unknown 09/28/25 Unknown Unknown Active Unknown Procedure Provider Procedure Date Device Type Site Unknown Unknown 09/02/23 Unknown Unknown Device Identifier Serial Number Lot or Batch Number Manufacturing Date Expiration Date Distinct Identification Code MRI Safety Implantable Status Assigning Authority Unknown Unknown [id number] Unknown 10/29/24 Unknown Unknown Active Unknown Unknown Unknown [id number] Unknown 09/28/25 Unknown Unknown Active Unknown Procedure Provider Procedure Date Device Type Site Unknown Unknown 03/16/23 Unknown Unknown Device Identifier Serial Number Lot or Batch Number Manufacturing Date Expiration Date Distinct Identification Code MRI Safety Implantable Status Assigning Authority Unknown Unknown [id number] Unknown 01/14/25 Unknown Unknown Active Unknown Unknown Unknown [id number] Unknown 09/02/25 Unknown Unknown Active Unknown Hematology/Oncology Outpt Note * CASIE Woodall Annie: PERFORM, MODIFY, MODIFY, MODIFY, MODIFY Event Display: Hematology/Oncology Outpt Note Authored Date: [id number] Chief Complaint 2 week follow-up for rash [...] bilaterally. 03/22/2022: Diagnosis(Verified) A.Colon, hepatic flexure, biopsy ([id number] 02/03/22):- Colonic mucosa with focal high-grade dysplasia. B.Colon, transverse, polypectomy ( 4357-S 02/03/22):- Tubular adenoma. C. Colon, sigmoid, biopsy sigmoid colitis (53-S 02/03/22):- No pathological ulceration. D. Rectum, polypectomy (4077-S 02/03/22)":- Fragments of tubular adenoma. 2Liver, side unspecified (core needle biopsy) (-1115-S 02/18/22): - Metastatic moderately differentiated adenocarcinoma. - [...] initially seen by Dr. Sparks in a [facility] who recommended surgical bypass because of [...] is his baseline. - 01/05/24 scans at [facility]- per patient show disease progression. 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
--- OUTSIDE RECORDS SUMMARY | 2024-07-09 08:44 | External Medical Summary | Continuity of Care Document ---
Author Name Unknown Organization [facility] Address [address] [place] [address] JOSIE ANDERSON [phone] Care Team Providers Care Deli Slicer Name Role Phone Lenora Sonicass Rachael Primary Care Physician [phone] Encounter [facility] [id number] Date(s): 02/20/24 - 02/20/24 [facility] [address] [place] [address]- [phone] Encounter Diagnosis Metastatic colon cancer to liver(Discharge Diagnosis) - 02/20/24 Discharge Disposition: Home or Self Care Attending Physician: MD Kitchen Raymond J Referring Physician: MD Kitchen Raymond J Allergies, Adverse Reactions, Alerts Substance Criticality Severity Reaction Reaction Severity Status Percodan Rash Active Functional Status 02/20/24 Gait Steady Medications amLODIPine 10 mg oral [...] twice a day for 30 days, Pharmacy: [id number] Start Date: 04/07/23 Status: Ordered Lasix 20 mg oral tablet Start: 02/20/24 4:19:00 PM EST, 1 tab, PO, Daily, Disp# 7 tab, [facility] Start Date: 02/20/24 Stop Date: 02/27/24 [...] Daily, Disp# 90 tab, Refills: 0, Pharmacy: [facility] Start Date: 02/20/24 Stop Date: 05/20/24 Status: Ordered NovoLOG 100 units/mL injectable solution Start: 03/31/23 9:41:00 AM EST, See Instructions, Disp# 30 mL, Refills: 4, USE 1 UNIT PER 15 GRAMS OF CARBS, INJECTING UP TO 6 TIMES PER DAY NEEDED - using 30 units per day - 90 day supply, Pharmacy: [facility] Start Date: 03/31/23 Status: Ordered One Touch Delica Plus (33G) Lancets Start: 05/07/22 8:18:00 AM EST, See Instructions, Disp# 100 each, Refills: 3, use for blood glucose testing up to 8x/day, Pharmacy: [facility] Start Date: 05/07/22 Status: Ordered One Touch Verio Flex Glucose Monitor Start: 08/24/23 7:58:00 AM EDT, See Instructions, Disp# 1 each, Refills: 0, test up to 8x/daily as directed for Type 1 DM, Note to Pharmacy: Pt aware insurance may not cover since it was replaced 2022. He would pay out of pocket if cheap enough, Pharmacy: [facility] Start Date: 08/24/23 Status: Ordered One Touch Verio Test Strips Start: 05/07/22 8:16:00 AM EST, See Instructions, Disp# 800 each, Refills: 3, test up to 8x/day as needed for Type 1 DM, Pharmacy: [facility] Start Date: 05/07/22 Status: Ordered Pyridium 200 mg oral tablet Start: 09/02/23 8:28:00 AM EDT, 1 tab, PO, tid, Disp# 6 tab, PRN: as needed for urinary discomfort, Pharmacy: [facility] Start Date: 09/02/23 Stop Date: 09/04/23 Status: Ordered Pyridium 200 mg oral tablet Start: 01/03/24 4:30:00 PM EDT, 1 tab, PO, tid, Disp# 6 tab, Refills: 0, PRN: as needed for urinary discomfort, Pharmacy: [facility] Start Date: 01/03/24 Stop Date: 01/05/24 Status: Ordered Semglee (Vial) 100 units/mL subcutaneous solution Start: 05/09/23 1:53:00 PM EST, 20 unit =, subQ, Daily, Disp# 30 mL, Refills: 3, Pharmacy: [facility] Start Date: 05/09/23 Stop Date: 05/03/24 Status: Ordered Senna Start: 07/26/22 12:43:00 PM EDT, 8.6 mg =, PO, 2 tabs by mouth daily, PRN: as needed for constipation Start Date: 07/26/22 Status: Ordered Synthroid 125 mcg (0.125 mg) oral tablet Start: 12/24/22 8:01:00 AM EDT, 1 tab, PO, Daily, Disp# 90 tab, Refills: 3, Pharmacy: [facility] Start Date: 12/24/22 Status: Ordered Syringe MIS 0.3/31gauge Start: 01/01/22 10:03:00 AM EDT, Syringe MIS 0.3/31gauge, eRx Product Type: Supply, See Instructions, Disp# 500 each, Refills: 3, Pt uses 6 syringes daily. E11.9, Pharmacy [facility] Start Date: 01/01/22 Status: Ordered Syringe MIS 0.3/31gauge Start: 12/24/22 8:02:00 AM EDT, Syringe MIS 0.3/31gauge, eRx Product Type: Supply, See Instructions,Disp# 500 each, Refills: 3, Pt uses 6 syringes daily. E11.9, Pharmacy [facility] Start Date: 12/24/22 Status: Ordered tamsulosin 0.4 mg oral capsule Start: 03/18/23 5:38:00 PM EST, 1 cap, PO, Daily, Disp# 90 cap, Refills: 3, take at night for stent discomfort, Pharmacy: [id number] Start Date: 03/18/23 Stop Date: 03/12/24 Status: Ordered Vitamin B12 1000 mcg oral tablet Start: 10/24/23 10:35:00 AM EDT, 1 tab, PO, Daily, Disp# 90 tab, Refills: 0, Pharmacy: [facility] Start Date: 10/24/23 Stop Date: [...] cancer to liver Discharge Diagnosis 02/20/24 Non-Specified Procedures Procedure Date [...] Range]: 1 Temperature [36.5-37.9 DegC] 36.9 DegC (02/20/24 5:09 PM) Heart Rate 79 bpm (02/20/24 5:09 PM) Respiratory Rate 20 br/min (02/20/24 5:09 PM) Blood Pressure 157/87mmHg (02/20/24 5:09 PM) Cuff Pulse Pressure 70 mmHg (02/20/24 5:09 PM) BP Location # 1 Left Arm (02/20/24 5:09 PM) Social History Social History Type Response [...] Safety Implantable Status Assigning Authority Unknown Unknown [id number] Unknown 09/16/26 Unknown Unknown Active Unknown Unknown Unknown [id number] Unknown 09/28/25 Unknown Unknown Active Unknown Procedure Provider Procedure Date Device Type Site Unknown Unknown 09/02/23 Unknown Unknown Device Identifier Serial Number Lot or Batch Number Manufacturing Date Expiration Date Distinct Identification Code MRI Safety Implantable Status Assigning Authority Unknown Unknown [id number] Unknown 10/29/24 Unknown Unknown Active Unknown Unknown Unknown [id number] Unknown 09/28/25 Unknown Unknown Active Unknown Procedure Provider Procedure Date Device Type Site Unknown Unknown 03/16/23 Unknown Unknown Device Identifier Serial Number Lot or Batch Number Manufacturing Date Expiration Date Distinct Identification Code MRI Safety Implantable Status Assigning Authority Unknown Unknown [id number] Unknown 01/14/25 Unknown Unknown Active Unknown Unknown Unknown [id number] Unknown 09/02/25 Unknown Unknown Active Unknown Patient Care team information Care Team Personnel Name: Constantin Del Toro Kimberly Position: Pharmacist BCMA Member Role: Pharmacy - Lifetime Address: [place] [address] [place] Name: MD Kitchen Raymond J Position: Physician - Hem/Onc Member Role: Lifetime Relationship Address: [address] [place] [address] [place] Name: Constantin Ferreira Matthew Position: Pharmacist Member Role: Pharmacy - Lifetime Name: JOHN Winslow Judy Position: Provider - Terminated Member Role: Lifetime Relationship Address: [address] [place] [address] [place] Name: Mame Perez RPh, William Position: Pharmacist Member Role: Pharmacy - Lifetime Name: MD Zachariah, Samra Cano Position: Physician Member Role: Primary Care Provider Address: [address] [place] [address] [place] Care Team Related Persons Name: BRUNO YOO
--- OUTSIDE RECORDS SUMMARY | 2024-07-09 08:44 | External Medical Summary | Continuity of Care Document ---
Author Name Unknown Organization [facility] Address [address] [place] [address] JOSIE ANDERSON [phone] Care Team Providers Care Branch Manager Trainee Name Role Phone Samra Soni Primary Care Physician [phone] Encounter [facility] [id number] Date(s): 03/19/24 - 03/19/24 [facility] [id number], [place] [address]- [phone] Discharge Disposition: Home or Self Care Attending Physician: MD Kitchen Raymond J Referring Physician: MD Kitchen Raymond J Allergies, Adverse Reactions, Alerts Substance Criticality Severity Reaction Reaction Severity Status Percodan Rash Active Medications amLODIPine 10 mg oral tablet Start: [...] tab, PO, Daily, Disp# 7 tab, Pharmacy: [facility] Start Date: 02/20/24 Stop Date: 02/27/24 [...] Daily, Disp# 90 tab, Refills: 0, Pharmacy: [facility] Start Date: 02/20/24 Stop Date: 05/20/24 Status: Ordered NovoLOG 100 units/mL injectable solution Start: 03/12/24 11:19:00 AM EST, See Instructions, Disp# 30 mL, Refills: 4, USE 1 UNIT PER 15 GRAMS OF CARBS, INJECTING UP TO 6 TIMES PER DAY NEEDED - using 30 units per day - 90 day supply, Pharmacy: [facility] Start Date: 03/12/24 Status: Ordered One Touch Delica Plus (33G) Lancets Start: 05/07/22 8:18:00 AM EST, See Instructions, Disp# 100 each, Refills: 3, use for blood glucose testing up to 8x/day, Pharmacy: [facility] Start Date: 05/07/22 Status: Ordered One Touch Verio Flex Glucose Monitor Start: 08/24/23 7:58:00 AM EDT, See Instructions, Disp# 1 each, Refills: 0, test up to 8x/daily as directed for Type 1 DM, Note to Pharmacy: Pt aware insurance may not cover since it was replaced 2022. He would pay out of pocket if cheap enough, Pharmacy: [facility] Start Date: 08/24/23 Status: Ordered One Touch Verio Test Strips Start: 03/14/24 8:02:00 AM EST, See Instructions, Disp# 800 each, Refills: 3, test up to 8x/day as needed for Type 1 DM, Pharmacy: [facility] Start Date: 03/14/24 Status: Ordered ONETOUCH VERIO TEST STRIP Start: 03/14/24 8:05:00 AM EST, ONETOUCH VERIO TEST STRIP, See Instructions, Disp# 800 strip, Refills: 0, TEST UP TO 8 TIMES DAILY NEEDED, Pharmacy [facility] Start Date: 03/14/24 Status: Ordered Pyridium 200 mg oral tablet Start: 09/02/23 8:28:00 AM EDT, 1 tab, PO, tid, Disp# 6 tab, PRN: as needed for urinary discomfort, Pharmacy: [facility] Start Date: 09/02/23 Stop Date: 09/04/23 Status: Ordered Pyridium 200 mg oral tablet Start: 01/03/24 4:30:00 PM EDT, 1 tab, PO, tid, Disp# 6 tab, Refills: 0, PRN: as needed for urinary discomfort, Pharmacy: [facility] [place] Start Date: 01/03/24 Stop Date: 01/05/24 Status: Ordered Semglee (Vial) 100 units/mL subcutaneous solution Start: 03/12/24 11:19:00 AM EST, 20 unit =, subQ, Daily, Disp# 30 mL, Refills: 3, Pharmacy: [facility] Start Date: 03/12/24 Stop Date: 03/07/25 Status: Ordered Senna Start: 07/26/22 12:43:00 PM EDT, 8.6 mg =, PO, 2 tabs by mouth daily, PRN: as needed for constipation Start Date: 07/26/22 Status: Ordered Synthroid 125 mcg (0.125 mg) oral tablet Start: 03/12/24 11:19:00 AM EST, 1 tab, PO, Daily, Disp# 90 tab, Refills: 3, Pharmacy: [facility] Start Date: 03/12/24 Status: Ordered Syringe MIS 0.3/31gauge Start: 03/12/24 11:19:00 AM EST, Syringe MIS 0.3/31gauge, eRx Product Type: Supply, See Instructions, Disp# 500 each, Refills: 3, Pt uses 6 syringes daily. E11.9, Pharmacy [facility] Start Date: 03/12/24 Status: Ordered Syringe MIS 0.3/31gauge Start: 01/01/22 10:03:00 AM EDT, Syringe MIS 0.3/31gauge, eRx Product Type: Supply, See Instructions, Disp# 500 each, Refills: 3, Pt uses 6 syringes daily. E11.9, Pharmacy [facility] Start Date: 01/01/22 Status: Ordered tamsulosin 0.4 mg oral capsule Start: 03/18/23 5:38:00 PM EST, 1 cap, PO, Daily, Disp# 90 cap, Refills: 3, take at night for stent discomfort, Pharmacy: [id number] Start Date: 03/18/23 Stop Date: 03/12/24 Status: Ordered Vitamin B12 1000 mcg oral tablet Start: 10/24/23 10:35:00 AM EDT, 1 tab, PO, Daily, Disp# 90 tab, Refills: 0, Pharmacy: [facility] Start Date: 10/24/23 Stop Date: [...] exchange- bilateral Results Laboratory List Name Date Complete Blood Count w Differential (CBC ,DIFFH) 03/19/24 Comprehensive Metabolic Panel (COMP META B PANEL) 03/19/24 Magnesium Level (MAGNESIUM) 03/19/24 Most recent to oldest [Reference Range]: 1 eGFR CKD-EPI [>60 mL/min/1.73 m2] 86 mL/ min/1.73 m2 (03/19/24 8:18 AM) Estimated CrCl 68.99 mL/min (03/19/24 8:54 AM) MPV [9.0-12.2 fL] 10.0 fL (03/19/24 8:18 AM) Immature Gran% 0.4 % (03/19/24 8:18 AM) Neut% 76.7 % (03/19/24 8:18 AM) Lymph% 7.2 % (03/19/24 8:18 AM) Andrew% 8.9 % (03/19/24 8:18 AM) Baso% 0.3 % (03/19/24 8:18 AM) Eos% 6.5 % (03/19/24 8:18 AM) Immat Gran, Abs [0-0.4 K/uL] 0.04 K/uL (03/19/24 8:18 AM) Neut, Abs [2.0-7.7 K/uL] 8.05 K/uL *HI* (03/19/24 8:18 AM) Lymph, Abs [1.0-3.4 K/uL] 0.75 K/uL *LOW* (03/19/24 8:18 AM) Andrew, Abs [0-1.0 K/uL] 0.93 K/uL (03/19/24 8:18 AM) Baso, Abs [0-0.1 K/uL] 0.03 K/uL (03/19/24 8:18 AM) Eos, Abs [0-0.5 K/uL] 0.68 K/uL *HI* (03/19/24 8:18 AM) Type of Diff: AUTO *Unknown* (03/19/24 8:18 AM) RDW [11.5-14.2 %] 15.5 % *HI* (03/19/24 8:18 AM) Anion Gap [5-14 mmol/L] 9 mmol/L (03/19/24 8:18 AM) Alb [3.5-5.2 g/dL] 2.6 g/dL *LOW* (03/19/24 8:18 AM) Alk Phos [40-130 unit/L] 136 unit/L 1 *HI* (03/19/24 8:18 AM) ALT [0-41 unit/L] 7 unit/L (03/19/24 8:18 AM) AST [0-40 unit/L] 12 unit/L (03/19/24 8:18 AM) BUN [6-23 mg/dL] 14 mg/dL (03/19/24 8:18 AM) Ca [8.4-10.2 mg/dL] 7.7 mg/dL *LOW* (03/19/24 8:18 AM) Cl- [98-107 mmol/L] 107 mmol/L (03/19/24 8:18 AM) HCO3 [22-29 mmol/L] 23 mmol/L (03/19/24 8:18 AM) Cret [0.70-1.30 mg/dL] 0.98 mg/dL (03/19/24 8:18 AM) Glu [74-109 mg/dL] 125 mg/dL 2 *HI* (03/19/24 8:18 AM) Hct [39-48 %] 32.5 % *LOW* (03/19/24 8:18 AM) Hgb [13.0-17.0 g/dL] 10.2 g/dL *LOW* (03/19/24 8:18 AM) K [3.5-5.1 mmol/L] 3.7 mmol/L (03/19/24 8:18 AM) MCH [28-33 pg] 26.7 pg *LOW* (03/19/24 8:18 AM) MCHC [32-36 g/dL] 31.4 g/dL *LOW* (03/19/24 8:18 AM) MCV [81-96 fL] 85.1 fL (03/19/24 8:18 AM) Mg [1.6-2.6 mg/dL] 1.1 mg/dL *LOW* (03/19/24 8:18 AM) Na [136-145 mmol/L] 139 mmol/L (03/19/24 8:18 AM) Plts [150-350 K/uL] 294 K/uL (03/19/24 8:18 AM) RBC [4.40-5.60 M/uL] 3.82 M/uL *LOW* (03/19/24 8:18 AM) T Bili [0.0-1.2 mg/dL] 0.4 mg/dL (03/19/24 8:18 AM) Prot [6.4-8.3 g/dL] 6.0 g/dL *LOW* (03/19/24 8:18 AM) WBC [4.0-10.4 K/uL] 10.48 K/uL *HI* (03/19/24 8:18 AM) 1Result Comment: Low levels of ALKP may indicate a deficiency in zinc, magnesium, or malnutritionbutcan also be an indicator of a rare genetic disease hypophosphatasia (HPP). 2Result Comment: ADA recommendation for FASTING Serum/Plasma Glucose: Normal: 70-100 mg/dL Prediabetes: 100-125 mg/dL Diabetes: 126 mg/dL or higher Social History Social History Type Response Tobacco Cigarettes 1 Smoking Status Current every day he shay smoker Sex Male Sex Representation Male (finding) 11 ppd Implantable Device List Procedure Provider Procedure Date Device Type Site Unknown Unknown 01/03/24 Unknown Unknown Device Identifier Serial Number Lot or Batch Number Manufacturing Date Expiration Date Distinct Identification Code MRI Safety Implantable Status Assigning Authority Unknown Unknown [id number] Unknown 09/16/26 Unknown Unknown Active Unknown Unknown Unknown [id number] Unknown 09/28/25 Unknown Unknown Active Unknown Procedure Provider Procedure Date Device Type Site Unknown Unknown 09/02/23 Unknown Unknown Device Identifier Serial Number Lot or Batch Number Manufacturing Date Expiration Date Distinct Identification Code MRI Safety Implantable Status Assigning Authority Unknown Unknown [id number] Unknown 10/29/24 Unknown Unknown Active Unknown Unknown Unknown [id number] Unknown 09/28/25 Unknown Unknown Active Unknown Procedure Provider Procedure Date Device Type Site Unknown Unknown 03/16/23 Unknown Unknown Device Identifier Serial Number Lot or Batch Number Manufacturing Date Expiration Date Distinct Identification Code MRI Safety Implantable Status Assigning Authority Unknown Unknown [id number] Unknown 01/14/25 Unknown Unknown Active Unknown Unknown Unknown [id number] Unknown 09/02/25 Unknown Unknown Active Unknown Patient Care team information Care Team Personnel Name: Constantin Del Toro Kimberly Position: Pharmacist BCMA Member Role: Pharmacy - Lifetime Address: [place] [address] [place] Name: MD Kitchen Raymond J Position: Physician - Hem/Onc Member Role: Lifetime Relationship Address: [address] [place] [address] [place] Name: Constantin Ferreira Matthew Position: Pharmacist Member Role: Pharmacy - Lifetime Name: Mame Perez RPh, William Position: Pharmacist Member Role: Pharmacy - Lifetime Name: MD Zachariah, Samra Cano Position: Physician Member Role: Primary Care Provider Address: [address] [place] [id number] [place] Care Team Related Persons Name: BRUNO YOO
--- OUTSIDE RECORDS SUMMARY | 2024-07-09 08:44 | External Medical Summary | Continuity of Care Document ---
Author Name Unknown Organization [facility] Address [address] [place] [address] JOSIE ANDERSON [id number] Care Team Providers Care Senior Sql Developer Name Role Phone SoniLenoracass Rachael Primary Care Physician [phone] Encounter [facility] [id number] Date(s): 02/06/24 - 02/06/24 [facility] [id number], [place] [address] [phone] Encounter Diagnosis Primary colorectal adenocarcinoma(Discharge Diagnosis) - 02/06/24 Proteinuria(Discharge Diagnosis) - 02/06/24 Discharge Disposition: Home or Self Care Attending Physician: MD Kitchen Raymond J Referring Physician: MD Kitchen Raymond J Allergies, Adverse Reactions, Alerts Substance Criticality Severity Reaction Reaction Severity Status Percodan Rash Active Assessment and Plan Extracted from: Title:Oncology Office Visit Note Author:Gianni Woodall Annie Date:02/06/24 Assessment:63 y/o male with metastatic colon cancer on palliative chemotherapy with capecitabine and Avastin. Now with proteinuria. Plan Metastatic colon cancer - Multifocal pulmonary [...] is his baseline. - 01/05/24 scans at [facility]- per patient show disease progression. -02/06/24 Coninues with proteinuria. Will stop avastin and begin panitumumab. Side effects reviewed and consent obtained by Dr. Kitchen. Multifocal pulmonary metastasis/ chronic smoker -Upon review of his CT chest as noted above he will plan to continue with his treatment as planned. -Again reviewed need for smoking cessation. Agents offered to assist patient declined. Hypothyroidism -Continue on Synthroid 125 mcg Anemia -His hemoglobin improved today to 11.2 which is stable for him and he remains asymptomatic. -Continue to monitor labs per chemotherapy protocol DM-1/ Diabetic foot neuropathy/ Brittle toenails - patient was told to f/u regulator pin inserter for basic diabetic foot care from his [...] hand and feet.- rec Goldbond lotion Hypomagnesemia-OTC supplements. Patient reports he takes these on and off. Refusing IV Mag. Dispo:Patient will return in 2 weeks for OV, labs, and treatment. The patient was seen and examined with Dr. Bronson Kitchen, the attending of record, is in agreement with the above assessment and plan. Attending: I performed all the medical decision making, which is the substantive portion of this visit. Bronson Kithcen M.D., Ph.D. Medications Avastin 25 mg/mL intravenous solution Start: [...] twice a day for 30 days, Pharmacy: [id number] Start Date: [...] Daily, Disp# 90 tab, Refills: 0, Pharmacy: [facility] Start Date: 10/24/23 Stop Date: 01/22/24 Status: Ordered NovoLOG 100 units/mL injectable solution Start: 03/31/23 9:41:00 AM EST, See Instructions, Disp# 30 mL, Refills: 4, USE 1 UNIT PER 15 GRAMS OF CARBS, INJECTING UP TO 6 TIMES PER DAY NEEDED - using 30 units per day - 90 day supply, Pharmacy: [facility] Start Date: 03/31/23 Status: Ordered One Touch Delica Plus (33G) Lancets Start: 05/07/22 8:18:00 AM EST, See Instructions, Disp# 100 each, Refills: 3, use for blood glucose testing up to 8x/day, Pharmacy: [facility] Start Date: 05/07/22 Status: Ordered One Touch Verio Flex Glucose Monitor Start: 08/24/23 7:58:00 AM EDT, See Instructions, Disp# 1 each, Refills: 0, test up to 8x/daily as directed for Type 1 DM, Note to Pharmacy: Pt aware insurance may not cover since it was replaced 2022. He would pay out of pocket if cheap enough, Pharmacy: [facility] Start Date: 08/24/23 Status: Ordered One Touch Verio Test Strips Start: 05/07/22 8:16:00 AM EST, See Instructions, Disp# 800 each, Refills: 3, test up to 8x/day as needed for Type 1 DM, Pharmacy: [facility] Start Date: 05/07/22 Status: Ordered Pyridium 200 mg oral tablet Start: 09/02/23 8:28:00 AM EDT, 1 tab, PO, tid, Disp# 6 tab, PRN: as needed for urinary discomfort, Pharmacy: [facility] Start Date: 09/02/23 Stop Date: 09/04/23 Status: Ordered Pyridium 200 mg oral tablet Start: 01/03/24 4:30:00 PM EDT, 1 tab, PO, tid, Disp# 6 tab, Refills: 0, PRN: as needed for urinary discomfort, Pharmacy: [facility] Start Date: 01/03/24 Stop Date: 01/05/24 Status: Ordered Semglee (Vial) 100 units/mL subcutaneous solution Start: 05/09/23 1:53:00 PM EST, 20 unit =, subQ, Daily, Disp# 30 mL, Refills: 3, Pharmacy: [facility] Start Date: 05/09/23 Stop Date: 05/03/24 Status: Ordered Senna Start: 07/26/22 12:43:00 PM EDT, 8.6 mg =, PO, 2 tabs by mouth daily, PRN: as needed for constipation Start Date: 07/26/22 Status: Ordered Synthroid 125 mcg (0.125 mg) oral tablet Start: 12/24/22 8:01:00 AM EDT, 1 tab, PO, Daily, Disp# 90 tab, Refills: 3, Pharmacy: [facility] Start Date: 12/24/22 Status: Ordered Syringe MIS 0.3/31gauge Start: 01/01/22 10:03:00 AM EDT, Syringe MIS 0.3/31gauge, eRx Product Type: Supply, See Instructions, Disp# 500 each, Refills: 3, Pt uses 6 syringes daily. E11.9, Pharmacy [facility] Start Date: 01/01/22 Status: Ordered Syringe MIS 0.3/31gauge Start: 12/24/22 8:02:00 AM EDT, Syringe MIS 0.3/31gauge, eRx Product Type: Supply, See Instructions,Disp# 500 each, Refills: 3, Pt uses 6 syringes daily. E11.9, Pharmacy [facility] Start Date: 12/24/22 Status: Ordered tamsulosin 0.4 mg oral capsule Start: 03/18/23 5:38:00 PM EST, 1 cap, PO, Daily, Disp# 90 cap, Refills: 3, take at night for stent discomfort, Pharmacy: [id number] Start Date: 03/18/23 Stop Date: 03/12/24 Status: Ordered Vitamin B12 1000 mcg oral tablet Start: 10/24/23 10:35:00 AM EDT, 1 tab, PO, Daily, Disp# 90 tab, Refills: 0, Pharmacy: [facility] Start Date: 10/24/23 Stop Date: 01/22/24 Status: Ordered ZyrTEC Start: 02/06/24 8:29:00 AM EDT, PO, Daily Start Date: 02/06/24 Status: Ordered Mental Status 02/06/24 Barriers to Learning one year None evide nt Mandatory Health Literacy Documentation Yes Health Literacy Communication Barriers N ever Primary Language Kazakh Problem List Condition Confirmation Course Effective Dates [...] Informant Primary colorectal adenocarcinoma Discharge Diagnosis 02/06/24 Proteinuria Discharge Diagnosis 02/06/24 Procedures Procedure Date Related Diagnosis Body Site [...] Complete Blood Count w Differential (CBC ,DIFFH) 02/06/24 Comprehensive Metabolic Panel (COMP META B PANEL) 02/06/24 Magnesium Level (MAGNESIUM) 02/06/24 Most recent to oldest [Reference Range]: 1 eGFR CKD-EPI [>60 mL/min/1.73 m2] >90 mL /min/1.73 m2 (02/06/24 7:16 AM) Estimated CrCl 77.24 mL/min (02/06/24 8:00 AM) MPV [9.0-12.2 fL] 9.7 fL (02/06/24 7:16 AM) Immature Gran% 0.3 % (02/06/24 7:16 AM) Neut% 71.5 % (02/06/24 7:16 AM) Lymph% 8.2 % (02/06/24 7:16 AM) Jack% 9.6 % (02/06/24 7:16 AM) Baso% 0.4 % (02/06/24 7:16 AM) Eos% 10.0 % (02/06/24 7:16 AM) Immat Gran, Abs [0-0.4 K/uL] 0.03 K/uL (02/06/24 7:16 AM) Neut, Abs [2.0-7.7 K/uL] 6.63 K/uL (02/06/24 7:16 AM) Lymph, Abs [1.0-3.4 K/uL] 0.76 K/uL *LOW* (02/06/24 7:16 AM) Jack, Abs [0-1.0 K/uL] 0.89 K/uL (02/06/24 7:16 AM) Baso, Abs [0-0.1 K/uL] 0.04 K/uL (02/06/24 7:16 AM) Eos, Abs [0-0.5 K/uL] 0.93 K/uL *HI* (02/06/24 7:16 AM) Type of Diff: AUTO *Unknown* (02/06/24 7:16 AM) RDW [11.5-14.2 %] 14.5 % *HI* (02/06/24 7:16 AM) Anion Gap [5-14 mmol/L] 9 mmol/L (02/06/24 7:16 AM) Alb [3.5-5.2 g/dL] 3.1 g/dL *LOW* (02/06/24 7:16 AM) Alk Phos [40-130 unit/L] 174 unit/L 1 *HI* (02/06/24 7:16 AM) ALT [0-41 unit/L] 6 unit/L (02/06/24 7:16 AM) AST [0-40 unit/L] 12 unit/L (02/06/24 7:16 AM) BUN [6-23 mg/dL] 14 mg/dL (02/06/24 7:16 AM) Ca [8.4-10.2 mg/dL] 8.3 mg/dL *LOW* (02/06/24 7:16 AM) Cl- [98-107 mmol/L] 99 mmol/L (02/06/24 7:16 AM) HCO3 [22-29 mmol/L] 26 mmol/L (02/06/24:16 AM) Cret [0.70-1.30 mg/dL] 0.90 mg/dL (02/06/24 7:16 AM) Glu [74-109 mg/dL] 174 mg/dL 2 *HI* (02/06/2416 AM) Hct [39-48 %] 34.4 % *LOW* (02/06/24:16 AM) Hgb [13.0-17.0 g/dL] 11.2 g/dL *LOW* (02/06/2416 AM) K [3.5-5.1 mmol/L] 4.0 mmol/L (02/06/24 7:16 AM) MCH [28-33 pg] 28.0 pg (02/06/24:16 AM) MCHC [32-36 g/dL] 32.6 g/dL (02/06/24 7:16 AM) MCV [81-96 fL] 86.0 fL (02/06/24:16 AM) Mg [1.6-2.6 mg/dL] 1.6 mg/dL (02/06/24:16 AM) Na [136-145 mmol/L] 134 mmol/L *LOW* (02/06/24 7:16 AM) Plts [150-350 K/uL] 383 K/uL *HI* (02/06/2416 AM) RBC [4.40-5.60 M/uL] 4.00 M/uL *LOW* (02/06/24 7:16 AM) T Bili [0.0-1.2 mg/dL] 0.5 mg/dL (02/06/24 7:16 AM) Prot [6.4-8.3 g/dL] 6.6 g/dL (02/06/24 7:16 AM) WBC [4.0-10.4 K/uL] 9.28 K/uL (02/06/24 7:16 AM) 1Result Comment: Low levels of ALKP may indicate a deficiency in zinc, magnesium, or malnutritionbutcan also be an indicator of a rare genetic disease hypophosphatasia (HPP). 2Result Comment: ADA recommendation for FASTING Serum/Plasma Glucose: Normal: 70-100 mg/dL Prediabetes: 100-125 mg/dL Diabetes: 126 mg/dL or higher Vital Signs Most recent to oldest [Reference Range]: 1 Patient Weight 65.3 kg 1 (02/06/24 8:31 AM) Temperature [36.5-37.9 DegC] 36.7 DegC (02/06/24 8:31 AM) Heart Rate 71 bpm (02/06/24 8:31 AM) Respiratory Rate 16 br/min (02/06/24 8:31 AM) Blood Pressure 139/68mmHg (02/06/24 8:31 AM) Mean Blood Pressure 87 mmHg (02/06/24 8:31 AM) Cuff Pulse Pressure 71 mmHg (02/06/24 8:31 AM) BP Location # 1 Right Arm (02/06/24 8:31 AM) 1Result Comment: with shoes-pt declined Social History Social History Type Response Tobacco Cigarettes 1 Smoking Status Current every day he shay smoker Sex Male Sex Representation Male (finding) 11 ppd Implantable Device List Procedure Provider Procedure Date Device Type Site Unknown Unknown 01/03/24 Unknown Unknown Device Identifier Serial Number Lot or Batch Number Manufacturing Date Expiration Date Distinct Identification Code MRI Safety Implantable Status Assigning Authority Unknown Unknown [id number] Unknown 09/16/26 Unknown Unknown Active Unknown Unknown Unknown [id number] Unknown 09/28/25 Unknown Unknown Active Unknown Procedure Provider Procedure Date Device Type Site Unknown Unknown 09/02/23 Unknown Unknown Device Identifier Serial Number Lot or Batch Number Manufacturing Date Expiration Date Distinct Identification Code MRI Safety Implantable Status Assigning Authority Unknown Unknown [id number] Unknown 10/29/24 Unknown Unknown Active Unknown Unknown Unknown [id number] Unknown 09/28/25 Unknown Unknown Active Unknown Procedure Provider Procedure Date Device Type Site Unknown Unknown 03/16/23 Unknown Unknown Device Identifier Serial Number Lot or Batch Number Manufacturing Date Expiration Date Distinct Identification Code MRI Safety Implantable Status Assigning Authority Unknown Unknown [id number] Unknown 01/14/25 Unknown Unknown Active Unknown Unknown Unknown [id number] Unknown 09/02/25 Unknown Unknown Active Unknown Hematology/Oncology Outpt Note * MD Kitchen Raymond J: MODIFY MD Kitchen Raymond J: MODIFY, MODIFY, PERFORM CASIE Woodall Annie: PERFORM, MODIFY CASIE Woodall Annie: MODIFY Event Display: Hematology/Oncology Outpt Note Authored Date: [id number] Chief Complaint f/u visit follow up OV for metastatic colon cancer, currently on palliative bevacizumab/ proteinuria warrantschanging therapy. Today is day one of panitumumab. treatment. History of Present Illness Today Berny is scheduled to receive bevacizumab and capecitabine. Since last visit, continues withprotein in urine. He does report occasioanl SOB but attributes this to smoking. No interested in using any cessation agents.His appetite is stable.Patient denies any fever, chills, chest pain, palpations, abdominal pain, nausea, vomiting, dysuria, abnormal bleeding, hematochezia, melena, headache, dizziness, neurological changes, or skin changes. Review of Systems All other ROS is negative except what is mentioned in HPI. Physical Exam Vital Signs and Measurements This Visit - Last 24 Hours T:36.7C HR:71(Monitored) RR:16 BP:139/68 WT:65.3kg WT:65.300kg(Dosing) Performance Scales and Status No documentation within the last 12 months Pain Score:3 Patient Declined Assessment on:01/16/2024 11:20 Distress Inventory Not Completed Reason: [ _ ]Medical Contraindication:_ [ _ ]Functional Capacity [ _ ]Patient Refusal [ _ ]Other:_ Oncology Regimens Oncology Chemo Regimens: Regimen:ONCR panitumumab (2 weeks) Colorectal Adult (</= 165 kg) (Started) Intent of Therapy:Advanced/palliative Line of Therapy:Third Order Dt/Tm:01/16/24 11:54 Regimen:ONCR bevacizumab (3 weeks) Colorectal Adult (Started) Intent of Therapy:Advanced/palliative Line of Therapy:First Order Dt/Tm:07/20/22 11:13 Assessment/Plan Assessment:63 y/o male with metastatic colon cancer on palliative chemotherapy with capecitabine and Avastin. Now with proteinuria. Plan Metastatic colon cancer - Multifocal pulmonary [...] is his baseline. - 01/05/24 scans at [facility]- per patient show disease progression. -02/06/24 Coninues with proteinuria. Will stop avastin and begin panitumumab. Side effects reviewedand consent obtained by Dr. Kitchen. Multifocal pulmonary metastasis/ chronic smoker -Upon review of his CT chest as noted above he will plan to continue with his treatment as planned. -Again reviewed need for smoking cessation. Agents offered to assistpatient declined. Hypothyroidism -Continue on Synthroid 125 mcg Anemia -His hemoglobin improved today to 11.2 which is stable for him and he remains asymptomatic. -Continue to monitor labs per chemotherapy protocol DM-1/ Diabetic foot neuropathy/ Brittle toenails - patient was told to f/u regulator pin inserter for basic diabetic foot care from his [...] hand and feet.- rec Goldbond lotion Hypomagnesemia-OTC supplements. Patient reports he takes these on and off. Refusing IV Mag. Dispo:Patient will return in 2 weeks for OV, labs, and treatment. The patient [...] Family History Family history is negative Labs Na:134 mmol/LLow (02/06/24 07:16:00) K: 4 mmol/L (02/06/24 07:16:00) Cl-: 99 mmol/L (02/06/24 07:16:00) BUN: 14 mg/dL (02/06/24 07:16:00) Cret: 0.9 mg/dL (02/06/24 07:16:00) Glu:174 mg/dLHigh (02/06/24 07:16:00) Ca:8.3 mg/dLLow (02/06/24 07:16:00) WBC: 9.28 K/uL (02/06/24 07:16:00) Hgb:11.2 g/dLLow (02/06/24 07:16:00) Hct:34.4 %Low (02/06/24 07:16:00) MCV: 86 fL (02/06/24 07:16:00) Plts:383 K/uLHigh (02/06/24 07:16:00) Neut%: 71.5 % (02/06/24 07:16:00) Baso%: 0.4 % (02/06/24 07:16:00) Neut, Abs: 6.63 K/uL (02/06/24 07:16:00) Lymph, Abs:0.76 K/uLLow (02/06/24 07:16:00) ALT: 6 unit/L (02/06/24 07:16:00) T Bili: 0.5 mg/dL (02/06/24 07:16:00) Alk Phos:174 unit/LHigh (02/06/24 07:16:00) AST: 12 unit/L (02/06/24 07:16:00) [1]Hematology/Oncology Outpt Note; CASIE Sorenson Peter V 01/16/2024 07:17 EDT Electronic Signature on File CC: CASIE Loco [address] [facility] [id number] CC: Bronson Kitchen MD [address] [facility] [id number] Electronically Reviewed/Signed by: CASIE Loco Author Signature Dt/Tm:02/06/2024 06:28 PM Division of Hematology Oncology Electronically Reviewed/Signed by: Bronson Kitchen MD Cosigner Signature Dt/Tm: 02/07/2024 03:06 PM Division of Hematology Oncology AC Patient Care team information Care Team Personnel Name: Constantin Del Toro Kimberly Position: Pharmacist BCMA Member Role: Pharmacy - Lifetime Address: [address] [address] [place] Name: MD Fidelina, Bronson Russo Position: Physician - Hem/Onc Member Role: Lifetime Relationship Address: [address] [place] [address] Name: Constantin Ferreira Matthew Position: Pharmacist Member Role: Pharmacy - Lifetime Name: JOHN Winslow Judy Position: Provider - Terminated Member Role: Lifetime Relationship Address: [address] [place] [address] [place] Name: Mame Perez RPh, William Position: Pharmacist Member Role: Pharmacy - Lifetime Name: MD Zachariah, Samra Cano Position: Physician Member Role: Primary Care Provider Address: [address] [place] [address], [place] [address] Care Team Related Persons Name: BRUNO YOO"
--- OUTSIDE RECORDS SUMMARY | 2024-07-09 08:44 | External Medical Summary | Continuity of Care Document ---
Author Name Unknown Organization [facility] Address [address] [place] [address] JOSIE ANDERSON [id number] Care Team Providers Care Service Learning Coordinator Name Role Phone SoniRaymondpro Rachael Primary Care Physician [phone] Encounter [facility] [id number] Date(s): 03/05/24 - 03/05/24 [facility] [address] [place] [address]- [phone] Encounter Diagnosis Rash(Discharge Diagnosis) - 03/05/24 Metastatic colon cancer to liver(Discharge Diagnosis) - 03/05/24 Discharge Disposition: Home or Self Care Attending Physician: MD Kitchen Raymond J Referring Physician: MD Kitchen Raymond J Allergies, Adverse Reactions, Alerts Substance Criticality Severity Reaction Reaction Severity Status Percodan Rash Active Functional Status 03/05/24 Gait Steady Medications amLODIPine 10 mg oral [...] tab, PO, Daily, Disp# 7 tab, [facility] Start Date: 02/20/24 Stop Date: 02/27/24 [...] Disp# 90 tab, Refills: 0, Pharmacy: [facility] Start Date: 02/20/24 Stop Date: 05/20/24 Status: Ordered NovoLOG 100 units/mL injectable solution Start: 03/31/23 9:41:00 AM EST, See Instructions, Disp# 30 mL, Refills: 4, USE 1 UNIT PER 15 GRAMS OF CARBS, INJECTING UP TO 6 TIMES PER DAY NEEDED - using 30 units per day - 90 day supply, Pharmacy: [facility] Start Date: 03/31/23 Status: Ordered One Touch Delica Plus (33G) Lancets Start: 05/07/22 8:18:00 AM EST, See Instructions, Disp# 100 each, Refills: 3, use for blood glucose testing up to 8x/day, Pharmacy: [facility] Start Date: 05/07/22 Status: Ordered One Touch Verio Flex Glucose Monitor Start: 08/24/23 7:58:00 AM EDT, See Instructions, Disp# 1 each, Refills: 0, test up to 8x/daily as directed for Type 1 DM, Note to Pharmacy: Pt aware insurance may not cover since it was replaced 2022. He would pay out of pocket if cheap enough, Pharmacy: [facility] Start Date: 08/24/23 Status: Ordered One Touch Verio Test Strips Start: 05/07/22 8:16:00 AM EST, See Instructions, Disp# 800 each, Refills: 3, test up to 8x/day as needed for Type 1 DM, Pharmacy: [facility] Start Date: 05/07/22 Status: Ordered Pyridium 200 mg oral tablet Start: 09/02/23 8:28:00 AM EDT, 1 tab, PO, tid, Disp# 6 tab, PRN: as needed for urinary discomfort, Pharmacy: [facility] Start Date: 09/02/23 Stop Date: 09/04/23 Status: Ordered Pyridium 200 mg oral tablet Start: 01/03/24 4:30:00 PM EDT, 1 tab, PO, tid, Disp# 6 tab, Refills: 0, PRN: as needed for urinary discomfort, Pharmacy: [facility] [place] Start Date: 01/03/24 Stop Date: 01/05/24 Status: Ordered Semglee (Vial) 100 units/mL subcutaneous solution Start: 05/09/23 1:53:00 PM EST, 20 unit =, subQ, Daily, Disp# 30 mL, Refills: 3, Pharmacy: [facility] Start Date: 05/09/23 Stop Date: 05/03/24 Status: Ordered Senna Start: 07/26/22 12:43:00 PM EDT, 8.6 mg =, PO, 2 tabs by mouth daily, PRN: as needed for constipation Start Date: 07/26/22 Status: Ordered Synthroid 125 mcg (0.125 mg) oral tablet Start: 12/24/22 8:01:00 AM EDT, 1 tab, PO, Daily, Disp# 90 tab, Refills: 3, Pharmacy: [facility] Start Date: 12/24/22 Status: Ordered Syringe MIS 0.3/31gauge Start: 01/01/22 10:03:00 AM EDT, Syringe MIS 0.3/31gauge, eRx Product Type: Supply, See Instructions, Disp# 500 each, Refills: 3, Pt uses 6 syringes daily. E11.9, Pharmacy [facility] Start Date: 01/01/22 Status: Ordered Syringe MIS 0.3/31gauge Start: 12/24/22 8:02:00 AM EDT, Syringe MIS 0.3/31gauge, eRx Product Type: Supply, See Instructions,Disp# 500 each, Refills: 3, Pt uses 6 syringes daily. E11.9, Pharmacy [facility] Start Date: 12/24/22 Status: Ordered [...] Disp# 90 tab, Refills: 0, Pharmacy: [facility] Start Date: 10/24/23 Stop Date: [...] Effective Dates Health Status Clinical Service Informant Rash Discharge Diagnosis 03/05/24 Non-Specified Metastatic colon cancer to liver Discharge Diagnosis 03/05/24 Non-Specified Procedures Procedure Date Related Diagnosis Body [...] oldest [Reference Range]: 1 Temperature [36.5-37.9 DegC] 36.1 DegC *LOW* (03/05/24 12:06 PM) Heart Rate 75 bpm (03/05/24 12:06 PM) Respiratory Rate 16 br/min (03/05/24 12:06 PM) Blood Pressure 126/72mmHg (03/05/24 12:06 PM) Cuff Pulse Pressure 54 mmHg (03/05/24 12:06 PM) BP Location # 1 Left Arm (03/05/24 12:06 PM) Social History Social History Type Response [...] Safety Implantable Status Assigning Authority Unknown Unknown [id number] Unknown 09/16/26 Unknown Unknown Active Unknown Unknown Unknown [id number] Unknown 09/28/25 Unknown Unknown Active Unknown Procedure Provider Procedure Date Device Type Site Unknown Unknown 09/02/23 Unknown Unknown Device Identifier Serial Number Lot or Batch Number Manufacturing Date Expiration Date Distinct Identification Code MRI Safety Implantable Status Assigning Authority Unknown Unknown [id number] Unknown 10/29/24 Unknown Unknown Active Unknown Unknown Unknown [id number] Unknown 09/28/25 Unknown Unknown Active Unknown Procedure Provider Procedure Date Device Type Site Unknown Unknown 03/16/23 Unknown Unknown Device Identifier Serial Number Lot or Batch Number Manufacturing Date Expiration Date Distinct Identification Code MRI Safety Implantable Status Assigning Authority Unknown Unknown [id number] Unknown 01/14/25 Unknown Unknown Active Unknown Unknown Unknown [id number] Unknown 09/02/25 Unknown Unknown Active Unknown Patient Care team information Care Team Personnel Name: Constantin Del Toro Kimberly Position: Pharmacist BCMA Member Role: Pharmacy - Lifetime Address: [place] [address] [place] Name: MD Fidelina, Bronson Russo Position: Physician - Hem/Onc Member Role: Lifetime Relationship Address: [address] [place] [address] [place] Name: Constantin Ferreira Matthew Position: Pharmacist Member Role: Pharmacy - Lifetime Name: Mame Perez RPh, William Position: Pharmacist Member Role: Pharmacy - Lifetime Name: MD Zachariah, Samra Cano Position: Physician Member Role: Primary Care Provider Address: [address] [place] [address] Care Team Related Persons Name: BRUNO YOO
--- OUTSIDE RECORDS SUMMARY | 2024-07-09 08:44 | External Medical Summary | Continuity of Care Document ---
Author Name Unknown Organization [facility] Address [address] [place] [address] JOSIE ANDERSON [id number] Care Team Providers Care Brazer Helper Induction Name Role Phone SoniLenoracass Rachael Primary Care Physician [phone] Encounter [facility] [id number] Date(s): 03/19/24 - 03/19/24 [facility] [place] [facility] [address] JOSIE Barton [phone] Encounter Diagnosis Primary colorectal adenocarcinoma(Discharge Diagnosis) - [...] twice a day for 30 days, Pharmacy: [id number] Start Date: 04/07/23 Status: Ordered Lasix 20 mg oral tablet Start: 02/20/24 4:19:00 PM EST, 1 tab, PO, Daily, Disp# 7 tab, Pharmacy: [facility] Start Date: 02/20/24 Stop Date: [...] Daily, Disp# 90 tab, Refills: 0, Pharmacy: [facility] Start Date: 02/20/24 Stop Date: 05/20/24 Status: Ordered NovoLOG 100 units/mL injectable solution Start: 03/12/24 11:19:00 AM EST, See Instructions, Disp# 30 mL, Refills: 4, USE 1 UNIT PER 15 GRAMS OF CARBS, INJECTING UP TO 6 TIMES PER DAY NEEDED - using 30 units per day - 90 day supply, Pharmacy: [facility] Start Date: 03/12/24 Status: Ordered One Touch Delica Plus (33G) Lancets Start: 05/07/22 8:18:00 AM EST, See Instructions, Disp# 100 each, Refills: 3, use for blood glucose testing up to 8x/day, Pharmacy: [facility] Start Date: 05/07/22 Status: Ordered One Touch Verio Flex Glucose Monitor Start: 08/24/23 7:58:00 AM EDT, See Instructions, Disp# 1 each, Refills: 0, test up to 8x/daily as directed for Type 1 DM, Note to Pharmacy: Pt aware insurance may not cover since it was replaced 2022. He would pay out of pocket if cheap enough, Pharmacy: [facility] Start Date: 08/24/23 Status: Ordered One Touch Verio Test Strips Start: 03/14/24 8:02:00 AM EST, See Instructions, Disp# 800 each, Refills: 3, test up to 8x/day as needed for Type 1 DM, Pharmacy: [facility] Start Date: 03/14/24 Status: Ordered [...] PRN: as needed for urinary discomfort, Pharmacy: [facility] Start Date: 09/02/23 Stop Date: 09/04/23 Status: Ordered Pyridium 200 mg oral tablet Start: 01/03/24 4:30:00 PM EDT, 1 tab, PO, tid, Disp# 6 tab, Refills: 0, PRN: as needed for urinary discomfort, Pharmacy: [facility] [place] Start Date: 01/03/24 Stop Date: 01/05/24 Status: Ordered Semglee (Vial) 100 units/mL subcutaneous solution Start: 03/12/24 11:19:00 AM EST, 20 unit =, subQ, Daily, Disp# 30 mL, Refills: 3, Pharmacy: [facility] Start Date: 03/12/24 Stop Date: 03/07/25 Status: Ordered Senna Start: 07/26/22 12:43:00 PM EDT, 8.6 mg =, PO, 2 tabs by mouth daily, PRN: as needed for constipation Start Date: 07/26/22 Status: Ordered Synthroid 125 mcg (0.125 mg) oral tablet Start: 03/12/24 11:19:00 AM EST, 1 tab, PO, Daily, Disp# 90 tab, Refills: 3, Pharmacy: [facility] Start Date: 03/12/24 Status: Ordered Syringe MIS 0.3/31gauge Start: 03/12/24 11:19:00 AM EST, Syringe MIS 0.3/31gauge, eRx Product Type: Supply, See Instructions, Disp# 500 each, Refills: 3, Pt uses 6 syringes daily. E11.9, Pharmacy [facility] Start Date: 03/12/24 Status: Ordered Syringe MIS 0.3/31gauge Start: 01/01/22 10:03:00 AM EDT, Syringe MIS 0.3/31gauge, eRx Product Type: Supply, See Instructions, Disp# 500 each, Refills: 3, Pt uses 6 syringes daily. E11.9, Pharmacy [facility] Start Date: 01/01/22 Status: Ordered tamsulosin 0.4 mg oral capsule Start: 03/18/23 5:38:00 PM EST, 1 cap, PO, Daily, Disp# 90 cap, Refills: 3, take at night for stent discomfort, Pharmacy: [id number] Start Date: 03/18/23 Stop Date: 03/12/24 Status: Ordered Vitamin B12 1000 mcg oral tablet Start: 10/24/23 10:35:00 AM EDT, 1 tab, PO, Daily, Disp# 90 tab, Refills: 0, Pharmacy: [facility] Start Date: 10/24/23 Stop [...] Safety Implantable Status Assigning Authority Unknown Unknown [id number] Unknown 09/16/26 Unknown Unknown Active Unknown Unknown Unknown [id number] Unknown 09/28/25 Unknown Unknown Active Unknown Procedure Provider Procedure Date Device Type Site Unknown Unknown 09/02/23 Unknown Unknown Device Identifier Serial Number Lot or Batch Number Manufacturing Date Expiration Date Distinct Identification Code MRI Safety Implantable Status Assigning Authority Unknown Unknown [id number] Unknown 10/29/24 Unknown Unknown Active Unknown Unknown Unknown [id number] Unknown 09/28/25 Unknown Unknown Active Unknown Procedure Provider Procedure Date Device Type Site Unknown Unknown 03/16/23 Unknown Unknown Device Identifier Serial Number Lot or Batch Number Manufacturing Date Expiration Date Distinct Identification Code MRI Safety Implantable Status Assigning Authority Unknown Unknown [id number] Unknown 01/14/25 Unknown Unknown Active Unknown Unknown Unknown [id number] Unknown 09/02/25 Unknown Unknown Active Unknown Patient Care team information Care Team Personnel Name: Constantin Del Toro Kimberly Position: Pharmacist BCMA Member Role: Pharmacy - Lifetime Address: [place] [address] [place] Name: MD Kitchen Raymond J Position: Physician - Hem/Onc Member Role: Lifetime Relationship Address: [address] [place] [address] [place] Name: Constantin Ferreira Matthew Position: Pharmacist Member Role: Pharmacy - Lifetime Name: Mame Perez RPh, William Position: Pharmacist Member Role: Pharmacy - Lifetime Name: MD Soni Ravishankar E Position: Physician Member Role: Primary Care Provider Address: [address] [place] [address] [place] Care Team Related Persons Name: BRUNO YOO
--- OUTSIDE RECORDS SUMMARY | 2024-07-09 08:44 | External Medical Summary | Continuity of Care Document ---
Author Name Unknown Organization [facility] Address [address] [place] [address] JOSIE ANDERSON [id number] Care Team Providers Care Edge Sander Name Role Phone Samra Soni Primary Care Physician [phone] Encounter [facility] [id number] Date(s): 03/19/24 - 03/19/24 [facility] [place] [facility] [id number], [place] [address]- [phone] Discharge Disposition: Home or Self Care Attending [...] twice a day for 30 days, Pharmacy: [facility] Start Date: 04/07/23 Status: Ordered Lasix 20 mg oral tablet Start: 02/20/24 4:19:00 PM EST, 1 tab, PO, Daily, Disp# 7 tab, [facility] Start Date: 02/20/24 Stop Date: 02/27/24 [...] Daily, Disp# 90 tab, Refills: 0, Pharmacy: [facility] Start Date: 02/20/24 Stop Date: 05/20/24 Status: Ordered NovoLOG 100 units/mL injectable solution Start: 03/12/24 11:19:00 AM EST, See Instructions, Disp# 30 mL, Refills: 4, USE 1 UNIT PER 15 GRAMS OF CARBS, INJECTING UP TO 6 TIMES PER DAY NEEDED - using 30 units per day - 90 day supply, Pharmacy: [facility] Start Date: 03/12/24 Status: Ordered One Touch Delica Plus (33G) Lancets Start: 05/07/22 8:18:00 AM EST, See Instructions, Disp# 100 each, Refills: 3, use for blood glucose testing up to 8x/day, Pharmacy: [facility] Start Date: 05/07/22 Status: Ordered One Touch Verio Flex Glucose Monitor Start: 08/24/23 7:58:00 AM EDT, See Instructions, Disp# 1 each, Refills: 0, test up to 8x/daily as directed for Type 1 DM, Note to Pharmacy: Pt aware insurance may not cover since it was replaced 2022. He would pay out of pocket if cheap enough, Pharmacy: [facility] Start Date: 08/24/23 Status: Ordered One Touch Verio Test Strips Start: 03/14/24 8:02:00 AM EST, See Instructions, Disp# 800 each, Refills: 3, test up to 8x/day as needed for Type 1 DM, Pharmacy: [facility] Start Date: 03/14/24 Status: Ordered ONETOUCH VERIO TEST STRIP Start: 03/14/24 8:05:00 AM EST, ONETOUCH VERIO TEST STRIP, See Instructions, Disp# 800 strip, Refills: 0, TEST UP TO 8 TIMES DAILY NEEDED, Pharmacy [facility] Start Date: 03/14/24 Status: Ordered Pyridium 200 mg oral tablet Start: 09/02/23 8:28:00 AM EDT, 1 tab, PO, tid, Disp# 6 tab, PRN: as needed for urinary discomfort, Pharmacy: [facility] Start Date: 09/02/23 Stop Date: 09/04/23 Status: Ordered Pyridium 200 mg oral tablet Start: 01/03/24 4:30:00 PM EDT, 1 tab, PO, tid, Disp# 6 tab, Refills: 0, PRN: as needed for urinary discomfort, Pharmacy: [facility] [place] Start Date: 01/03/24 Stop Date: 01/05/24 Status: Ordered Semglee (Vial) 100 units/mL subcutaneous solution Start: 03/12/24 11:19:00 AM EST, 20 unit =, subQ, Daily, Disp# 30 mL, Refills: 3, Pharmacy: [facility] Start Date: 03/12/24 Stop Date: 03/07/25 Status: Ordered Senna Start: 07/26/22 12:43:00 PM EDT, 8.6 mg =, PO, 2 tabs by mouth daily, PRN: as needed for constipation Start Date: 07/26/22 Status: Ordered Synthroid 125 mcg (0.125 mg) oral tablet Start: 03/12/24 11:19:00 AM EST, 1 tab, PO, Daily, Disp# 90 tab, Refills: 3, Pharmacy: [facility] Start Date: 03/12/24 Status: Ordered Syringe MIS 0.3/31gauge Start: 03/12/24 11:19:00 AM EST, Syringe MIS 0.3/31gauge, eRx Product Type: Supply, See Instructions, Disp# 500 each, Refills: 3, Pt uses 6 syringes daily. E11.9, Pharmacy [facility] Start Date: 03/12/24 Status: Ordered Syringe MIS 0.3/31gauge Start: 01/01/22 10:03:00 AM EDT, Syringe MIS 0.3/31gauge, eRx Product Type: Supply, See Instructions, Disp# 500 each, Refills: 3, Pt uses 6 syringes daily. E11.9, Pharmacy [facility] Start Date: 01/01/22 Status: Ordered tamsulosin 0.4 mg oral capsule Start: 03/18/23 5:38:00 PM EST, 1 cap, PO, Daily, Disp# 90 cap, Refills: 3, take at night for stent discomfort, Pharmacy: [id number] Start Date: 03/18/23 Stop Date: 03/12/24 Status: Ordered Vitamin B12 1000 mcg oral tablet Start: 10/24/23 10:35:00 AM EDT, 1 tab, PO, Daily, Disp# 90 tab, Refills: 0, Pharmacy: [facility] Start Date: 10/24/23 Stop [...] AM) Lymph% 7.2 % (03/19/24 8:18 AM) Mingo% 8.9 % (03/19/24 8:18 AM) Baso% 0.3 % (03/19/24 8:18 AM) Eos% 6.5 % (03/19/24 8:18 AM) Immat Gran, Abs [0-0.4 K/uL] 0.04 K/uL (03/19/24 8:18 AM) Neut, Abs [2.0-7.7 K/uL] 8.05 K/uL *HI* (03/19/24 8:18 AM) Lymph, Abs [1.0-3.4 K/uL] 0.75 K/uL *LOW* (03/19/24 8:18 AM) Mingo, Abs [0-1.0 K/uL] 0.93 K/uL (03/19/24 8:18 [...] Safety Implantable Status Assigning Authority Unknown Unknown [id number] Unknown 09/16/26 Unknown Unknown Active Unknown Unknown Unknown [id number] Unknown 09/28/25 Unknown Unknown Active Unknown Procedure Provider Procedure Date Device Type Site Unknown Unknown 09/02/23 Unknown Unknown Device Identifier Serial Number Lot or Batch Number Manufacturing Date Expiration Date Distinct Identification Code MRI Safety Implantable Status Assigning Authority Unknown Unknown [id number] Unknown 10/29/24 Unknown Unknown Active Unknown Unknown Unknown [id number] Unknown 09/28/25 Unknown Unknown Active Unknown Procedure Provider Procedure Date Device Type Site Unknown Unknown 03/16/23 Unknown Unknown Device Identifier Serial Number Lot or Batch Number Manufacturing Date Expiration Date Distinct Identification Code MRI Safety Implantable Status Assigning Authority Unknown Unknown [id number] Unknown 01/14/25 Unknown Unknown Active Unknown Unknown Unknown [id number] Unknown 09/02/25 Unknown Unknown Active Unknown Patient Care team information Care Team Personnel Name: Constantin Del Toro Kimberly Position: Pharmacist BCMA Member Role: Pharmacy - Lifetime Address: [place] [address] [place] Name: MD Kitchen Raymond J Position: Physician - Hem/Onc Member Role: Lifetime Relationship Address: [address] [place] [address] [place] Name: Constantin Ferreira Matthew Position: Pharmacist Member Role: Pharmacy - Lifetime Name: Mame Perez RPh, William Position: Pharmacist Member Role: Pharmacy - Lifetime Name: MD Zachariah, Samra Cano Position: Physician Member Role: Primary Care Provider Address: [address] [place] [address] [place] Care Team Related Persons Name: BRUNO YOO
--- OUTSIDE RECORDS SUMMARY | 2024-07-09 08:45 | External Medical Summary | Continuity of Care Document ---
Author Name Unknown Organization [facility] Address [address] JOSIE ANDERSON [id number] Care Team Providers Care Supervisor [place] House Name Role Phone Samra Soni Primary Care Physician [phone] Encounter [facility] [id number] Date(s): 01/16/24 - 01/16/24 [facility] [place] [facility] [address] [place] [address]- [phone] Discharge Disposition: Home or Self Care Attending Physician: MD Kitchen Raymond J Referring Physician: MD Soni Ravishankar E Allergies, Adverse Reactions, Alerts Substance Criticality Severity Reaction Reaction Severity Status Percodan Rash Active Medications Allergy Relief Start: 12/26/23 9:30:00 AM EDT Start Date: 12/26/23 Status: Ordered Avastin 25 mg/mL intravenous solution [...] twice a day for 30 days, Pharmacy: [id number] Start Date: 04/07/23 [...] Daily, Disp# 90 tab, Refills: 0, Pharmacy: [facility] Start Date: 10/24/23 Stop Date: 01/22/24 Status: Ordered NovoLOG 100 units/mL injectable solution Start: 03/31/23 9:41:00 AM EST, See Instructions, Disp# 30 mL, Refills: 4, USE 1 UNIT PER 15 GRAMS OF CARBS, INJECTING UP TO 6 TIMES PER DAY NEEDED - using 30 units per day - 90 day supply, Pharmacy: [facility] Start Date: 03/31/23 Status: Ordered One Touch Delica Plus (33G) Lancets Start: 05/07/22 8:18:00 AM EST, See Instructions, Disp# 100 each, Refills: 3, use for blood glucose testing up to 8x/day, Pharmacy: [facility] Start Date: 05/07/22 Status: Ordered One Touch Verio Flex Glucose Monitor Start: 08/24/23 7:58:00 AM EDT, See Instructions, Disp# 1 each, Refills: 0, test up to 8x/daily as directed for Type 1 DM, Note to Pharmacy: Pt aware insurance may not cover since it was replaced 2022. He would pay out of pocket if cheap enough, Pharmacy: [facility] Start Date: 08/24/23 Status: Ordered One Touch Verio Test Strips Start: 05/07/22 8:16:00 AM EST, See Instructions, Disp# 800 each, Refills: 3, test up to 8x/day as needed for Type 1 DM, Pharmacy: [facility] Start Date: 05/07/22 Status: Ordered Pyridium 200 mg oral tablet Start: 09/02/23 8:28:00 AM EDT, 1 tab, PO, tid, Disp# 6 tab, PRN: as needed for urinary discomfort, Pharmacy: [facility] Start Date: 09/02/23 Stop Date: 09/04/23 Status: Ordered Pyridium 200 mg oral tablet Start: 01/03/24 4:30:00 PM EDT, 1 tab, PO, tid, Disp# 6 tab, Refills: 0, PRN: as needed for urinary discomfort, Pharmacy: [facility] [place] Start Date: 01/03/24 Stop Date: 01/05/24 Status: Ordered Semglee (Vial) 100 units/mL subcutaneous solution Start: 05/09/23 1:53:00 PM EST, 20 unit =, subQ, Daily, Disp# 30 mL, Refills: 3, Pharmacy: [facility] Start Date: 05/09/23 Stop Date: 05/03/24 Status: Ordered Senna Start: 07/26/22 12:43:00 PM EDT, 8.6 mg =, PO, 2 tabs by mouth daily, PRN: as needed for constipation Start Date: 07/26/22 Status: Ordered Synthroid 125 mcg (0.125 mg) oral tablet Start: 12/24/22 8:01:00 AM EDT, 1 tab, PO, Daily, Disp# 90 tab, Refills: 3, Pharmacy: [facility] Start Date: 12/24/22 Status: Ordered Syringe MIS 0.3/31gauge Start: 01/01/22 10:03:00 AM EDT, Syringe MIS 0.3/31gauge, eRx Product Type: Supply, See Instructions, Disp# 500 each, Refills: 3, Pt uses 6 syringes daily. E11.9, Pharmacy [facility] Start Date: 01/01/22 Status: Ordered Syringe MIS 0.3/31gauge Start: 12/24/22 8:02:00 AM EDT, Syringe MIS 0.3/31gauge, eRx Product Type: Supply, See Instructions,Disp# 500 each, Refills: 3, Pt uses 6 syringes daily. E11.9, Pharmacy [facility] Start Date: 12/24/22 Status: Ordered tamsulosin 0.4 mg oral capsule Start: 03/18/23 5:38:00 PM EST, 1 cap, PO, Daily, Disp# 90 cap, Refills: 3, take at night for stent discomfort, Pharmacy: [id number] Start Date: 03/18/23 Stop Date: 03/12/24 Status: Ordered Vitamin B12 1000 mcg oral tablet Start: 10/24/23 10:35:00 AM EDT, 1 tab, PO, Daily, Disp# 90 tab, Refills: 0, Pharmacy: [facility] Start Date: 10/24/23 Stop Date: 01/22/24 Status: Ordered Problem List Condition Confirmation Course [...] exchange- bilateral Results Laboratory List Name Date Protein, Urine, Random (PROTEIN, RD URIN E) 01/16/24 Most recent to oldest [Reference Range]: 1 Protein (u) ran [<26 mg/dL] 260 mg/dL *HI* (01/16/24 10:23 AM) Social History Social History Type Response [...] Safety Implantable Status Assigning Authority Unknown Unknown [id number] Unknown 09/16/26 Unknown Unknown Active Unknown Unknown Unknown [id number] Unknown 09/28/25 Unknown Unknown Active Unknown Procedure Provider Procedure Date Device Type Site Unknown Unknown 09/02/23 Unknown Unknown Device Identifier Serial Number Lot or Batch Number Manufacturing Date Expiration Date Distinct Identification Code MRI Safety Implantable Status Assigning Authority Unknown Unknown [id number] Unknown 10/29/24 Unknown Unknown Active Unknown Unknown Unknown [id number] Unknown 09/28/25 Unknown Unknown Active Unknown Procedure Provider Procedure Date Device Type Site Unknown Unknown 03/16/23 Unknown Unknown Device Identifier Serial Number Lot or Batch Number Manufacturing Date Expiration Date Distinct Identification Code MRI Safety Implantable Status Assigning Authority Unknown Unknown [id number] Unknown 01/14/25 Unknown Unknown Active Unknown Unknown Unknown [id number] Unknown 09/02/25 Unknown Unknown Active Unknown Patient Care team information Care Team Personnel Name: Constantin Del Toro Kimberly Position: Pharmacist BCMA Member Role: Pharmacy - Lifetime Address: [address] [address] [place] Name: MD Kitchen Raymond J Position: Physician - Hem/Onc Member Role: Lifetime Relationship Address: [address] [place] [address] [place] Name: Constantin Ferreira Matthew Position: Pharmacist Member Role: Pharmacy - Lifetime Name: JOHN Winslow Judy Position: Provider - Terminated Member Role: Lifetime Relationship Address: [address] [place] [id number] Name: Mame Perez RPh, William Position: Pharmacist Member Role: Pharmacy - Lifetime Name: MD Zachariah, Samra Cano Position: Physician Member Role: Primary Care Provider Address: [address] [place] [address] Care Team Related Persons Name: BRUNO YOO
--- OUTSIDE RECORDS SUMMARY | 2024-07-09 08:45 | External Medical Summary | Continuity of Care Document ---
Author Name Unknown Organization [facility] Address [address] [place] [address] JOSIE ANDERSON [id number] Care Team Providers Care Electrical Subcontractor Name Role Phone Samra Soni Primary Care Physician [phone] Encounter [facility] [id number] Date(s): 01/16/24 - 01/16/24 [facility] [id number], [place] [address]- [phone] Encounter Diagnosis Encounter for chemotherapy management(Discharge Diagnosis) - 01/16/24 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 Patient Number: [id number] : 1960 Date of Service: 01/16/2024 Chief Complaint: follow up OV for metastatic colon cancer, currently on palliative currently on bevacizumab, presents for treatment. History of Present Illness: Today Berny is scheduled to receive his cycle 23 of bevacizumab and capecitabine. Since we saw patient last he had stent exchange completed for bilateral extrinsic ureteral obstruction. CEA has been up trending. Most recent imaging in [place] showed disease progression per patient, requested scan results be scanned into the system. He is willing to try anti- body therapy again. Will request Panitumumab infusion for patient in 3 weeks time. Will follow up in 3 weeks times for labs, OV and possible treatment. Patient denies any fever, chills, SOB, chest pain, palpiations, abdominal pain, nausea, vomitting, dyuria, abnormal bleeding, hematochezia, melena, headache, dizziness, neurological changes, or skin changes. Review of Systems All other ROS is negative except what is mentioned in HPI. Current Home Meds: (Last Updated 01/13 17:20) amLODIPine (Norvasc 10 mg oral tablet) 10 mg PO Daily bevacizumab (Avastin 25 mg/mL intravenous solution) infused over 30 minutesevery 3 weeks cannabis (Medical Marijuana) 1 inh inhaled capecitabine (capecitabine 500 mg oral tablet) 500 mg PO bid for 14 days, followed by 7 days off of each 21 day cycle. cyanocobalamin (Vitamin B12 1000 mcg oral tablet) [...] to exceed 3 applications in 24 hours loratadine (Allergy Relief) morphine (morphine 30 mg (24 HR) oral [...] deficiency Tobacco user OBJECTIVE Vitals: Last Updated 01/03/24 17:28 Date Temp BP Location Pulse RR SpO2 Pain 01/03/24 36.7 169/84 Right Arm 67 18 99 6 01/03/24 36 149/88 71 17 98 01/03/24 149/88 71 17 98 7 Vital Signs are the last 3 documented. No Orthostatic Data Available Height and Weight: Last Updated 01/03/24 11:21 Date BMI Wt(kg) Wt(lb) Method Ht(cm) (ft-in) Method 01/03/24 19.72 57 125 Standing Scale 170 5-7 Patient stated 12/26/23 23.35 65.9 145 Standing Scale 168 5-6 Standing 12/05/23 63.6 140 Standing Scale Heights and Weights are the last 3 documented. Physical Exam _ General:Alert, conversant, and answering questions appropriately; in [...] to palpation. Normoactive bowel sounds are present. Extremities:No peripheral edema. No erythema or swelling to joints. Neuro:Alert and oriented x3. No focal deficits noted. Skin:Warm, dry, no lesions or rashes noted. 30 Day Labs: 01/03/24 1410 Blood Glucose 180 H Blood Glucose Ref Range [70 - 120 mg/dl] 09/24/24 1403 Gluc Meter 180 H H Pain Score/Distress Inventory: Assessment: 63 y/o male with metastatic colon cancer on palliative chemotherapy with capecitabine and Avastin. Plan Metastatic colon cancer - Multifocal pulmonary [...] is his baseline. - 01/05/24 scans at [facility]- per patient show disease progression. Will hold Avastin therapy given elevated protein urea; will do 24 hour urine with next ov in 3 weeks. Will consider Panitumumab as additional agent given disease progression, this is requested for 3 weeks from now. Multifocal pulmonary metastasis/ chronic smoker -Upon review of his CT chest as noted above he will plan to continue with his treatment as planned. -He was encouraged to make efforts in smoking cessation. Hypothyroidism -Continue on Synthroid 125 mcg Anemia -His hemoglobin remains 8 which is stable for him and he remains asymptomatic -Continue to monitor labs per chemotherapy protocol DM-1/ Diabetic foot neuropathy/ Brittle toenails - patient was told to f/u injection molding supervisor for basic diabetic foot care from his [...] feet.- rec Goldbond lotion Hypomagnesemia- OTC supplements Dispo: Patient will return in 3 weeks time for OV, labs, and treatment. The patient was seen and examined with Dr. Bronson Kitchen, the attending of record, is in agreement with the above assessment and plan. Attending: I performed all the medical decision making, which is the substantive portion of this visit. Bronson Kitchen M.D., Ph.D. Medications Allergy Relief Start: 12/26/23 9:30:00 AM [...] Daily, Disp# 90 tab, Refills: 0, Pharmacy: [facility] Start Date: 10/24/23 Stop Date: 01/22/24 Status: Ordered NovoLOG 100 units/mL injectable solution Start: 03/31/23 9:41:00 AM EST, See Instructions, Disp# 30 mL, Refills: 4, USE 1 UNIT PER 15 GRAMS OF CARBS, INJECTING UP TO 6 TIMES PER DAY NEEDED - using 30 units per day - 90 day supply, Pharmacy: [facility] Start Date: 03/31/23 Status: Ordered One Touch Delica Plus (33G) Lancets Start: 05/07/22 8:18:00 AM EST, See Instructions, Disp# 100 each, Refills: 3, use for blood glucose testing up to 8x/day, Pharmacy: [facility] Start Date: 05/07/22 Status: Ordered One Touch Verio Flex Glucose Monitor Start: 08/24/23 7:58:00 AM EDT, See Instructions, Disp# 1 each, Refills: 0, test up to 8x/daily as directed for Type 1 DM, Note to Pharmacy: Pt aware insurance may not cover since it was replaced 2022. He would pay out of pocket if cheap enough, Pharmacy: [facility] Start Date: 08/24/23 Status: Ordered One Touch Verio Test Strips Start: 05/07/22 8:16:00 AM EST, See Instructions, Disp# 800 each, Refills: 3, test up to 8x/day as needed for Type 1 DM, Pharmacy: [facility] Start Date: 05/07/22 Status: Ordered Pyridium 200 mg oral tablet Start: 09/02/23 8:28:00 AM EDT, 1 tab, PO, tid, Disp# 6 tab, PRN: as needed for urinary discomfort, Pharmacy: [facility] Start Date: 09/02/23 Stop Date: 09/04/23 Status: Ordered Pyridium 200 mg oral tablet Start: 01/03/24 4:30:00 PM EDT, 1 tab, PO, tid, Disp# 6 tab, Refills: 0, PRN: as needed for urinary discomfort, Pharmacy: [facility] Start Date: 01/03/24 Stop Date: 01/05/24 Status: Ordered Semglee (Vial) 100 units/mL subcutaneous solution Start: 05/09/23 1:53:00 PM EST, 20 unit =, subQ, Daily, Disp# 30 mL, Refills: 3, Pharmacy: [facility] Start Date: 05/09/23 Stop Date: 05/03/24 Status: Ordered Senna Start: 07/26/22 12:43:00 PM EDT, 8.6 mg =, PO, 2 tabs by mouth daily, PRN: as needed for constipation Start Date: 07/26/22 Status: Ordered Synthroid 125 mcg (0.125 mg) oral tablet Start: 12/24/22 8:01:00 AM EDT, 1 tab, PO, Daily, Disp# 90 tab, Refills: 3, Pharmacy: [facility] Start Date: 12/24/22 Status: Ordered Syringe MIS 0.3/31gauge Start: 01/01/22 10:03:00 AM EDT, Syringe MIS 0.3/31gauge, eRx Product Type: Supply, See Instructions, Disp# 500 each, Refills: 3, Pt uses 6 syringes daily. E11.9, Pharmacy [facility] Start Date: 01/01/22 Status: Ordered Syringe MIS 0.3/31gauge Start: 12/24/22 8:02:00 AM EDT, Syringe MIS 0.3/31gauge, eRx Product Type: Supply, See Instructions,Disp# 500 each, Refills: 3, Pt uses 6 syringes daily. E11.9, Pharmacy [facility] Start Date: 12/24/22 Status: Ordered tamsulosin 0.4 mg oral capsule Start: 03/18/23 5:38:00 PM EST, 1 cap, PO, Daily, Disp# 90 cap, Refills: 3, take at night for stent discomfort, Pharmacy: [id number] Start Date: 03/18/23 Stop Date: 03/12/24 Status: Ordered Vitamin B12 1000 mcg oral tablet Start: 10/24/23 10:35:00 AM EDT, 1 tab, PO, Daily, Disp# 90 tab, Refills: 0, Pharmacy: [facility] Start Date: 10/24/23 Stop Date: 01/22/24 Status: Ordered Mental Status 01/16/24 Barriers to Learning one year None evide nt Mandatory Health Literacy Documentation Yes Communication Barrier Present No Health Literacy Communication Barriers N ever Primary Language Northern Irish Problem List Condition Confirmation Course Effective Dates [...] Effective Dates Health Status Clinical Service Informant Routine adult health maintenance Discharge Diagnosis 01/16/24 Non-Specified 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 Discharge Diagnosis 01/16/24 Non-Specified Encounter for chemotherapy management Discharge Diagnosis 01/16/24 Non-Specified Primary colorectal adenocarcinoma Discharge Diagnosis 01/16/24 Non-Specified Procedures Procedure Date Related Diagnosis Body [...] Laboratory List Name Date Carcinoembryonic Antigen (CEA) 01/16/24 Complete Blood Count w Differential (CBC ,DIFFH) 01/16/24 Comprehensive Metabolic Panel (COMP META B PANEL) 01/16/24 Folic Acid Level (FOLIC ACID) 01/16/24 Magnesium Level (MAGNESIUM) 01/16/24 Phosphorus Level (PHOSPHORUS) 01/16/24 Thyroid Stimulating Hormone (TSH) 4 Vitamin B12 Level (VITAMIN B12) 01/16/24 Most recent to oldest [Reference Range]: 1 eGFR CKD-EPI [>60 mL/min/1.73 m2] >90 mL /min/1.73 m2 (01/16/24 9:49 AM) Estimated CrCl 71.72 mL/min (01/16/24 10:55 AM) MPV [9.0-12.2 fL] 9.8 fL (01/16/24 9:49 AM) Immature Gran% 0.2 % (01/16/24 9:49 AM) Neut% 68.5 % (01/16/24 9:49 AM) Lymph% 8.9 % (01/16/24 9:49 AM) Luna% 11.0 % (01/16/24 9:49 AM) Baso% 0.5 % (01/16/24 9:49 AM) Eos% 10.9 % (01/16/24 9:49 AM) Immat Gran, Abs [0-0.4 K/uL] 0.02 K/uL (01/16/24 9:49 AM) Neut, Abs [2.0-7.7 K/uL] 6.38 K/uL (01/16/24 9:49 AM) Lymph, Abs [1.0-3.4 K/uL] 0.83 K/uL *LOW* (01/16/24 9:49 AM) Luna, Abs [0-1.0 K/uL] 1.03 K/uL *HI* (01/16/24 9:49 AM) Baso, Abs [0-0.1 K/uL] 0.05 K/uL (01/16/24 9:49 AM) Eos, Abs [0-0.5 K/uL] 1.02 K/uL *HI* (01/16/24:49 AM) Type of Diff: AUTO *Unknown* (01/16/24:49 AM) RDW [11.5-14.2 %] 14.4 % *HI* (01/16/24 9:49 AM) Anion Gap [5-14 mmol/L] 10 mmol/L (01/16/2449 AM) Alb [3.5-5.2 g/dL] 3.5 g/dL (01/16/24 9:49 AM) Alk Phos [40-130 unit/L] 161 unit/L 1 *HI* (01/16/24:49 AM) ALT [0-41 unit/L] 6 unit/L (01/16/24 9:49 AM) AST [0-40 unit/L] 12 unit/L (01/16/24 9:49 AM) B12 [211-946 pg/mL] 1596 pg/mL *HI* (01/16/24 9:49 AM) BUN [6-23 mg/dL] 11 mg/dL (01/16/24 9:49 AM) Ca [8.4-10.2 mg/dL] 8.5 mg/dL (01/16/24 9:49 AM) CEA [<4.8 ng/mL] 1919.0 ng/mL 2 *HI* (01/16/24 9:49 AM) Cl- [98-107 mmol/L] 100 mmol/L (01/16/24 9:49 AM) HCO3 [22-29 mmol/L] 28 mmol/L (01/16/24 9:49 AM) Cret [0.70-1.30 mg/dL] 0.85 mg/dL (01/16/24 9:49 AM) Folate [>7.2 ng/mL] 7.9 ng/mL (01/16/24 9:49 AM) Glu [74-109 mg/dL] 189 mg/dL 3 *HI* (01/16/24:49 AM) Hct [39-48 %] 36.1 % *LOW* (01/16/24:49 AM) Hgb [13.0-17.0 g/dL] 11.7 g/dL *LOW* (01/16/24:49 AM) K [3.5-5.1 mmol/L] 4.3 mmol/L (01/16/24 9:49 AM) MCH [28-33 pg] 27.9 pg *LOW* (01/16/24:49 AM) MCHC [32-36 g/dL] 32.4 g/dL (01/16/24:49 AM) MCV [81-96 fL] 86.2 fL (01/16/24:49 AM) Mg [1.6-2.6 mg/dL] 1.5 mg/dL *LOW* (01/16/24:49 AM) Na [136-145 mmol/L] 138 mmol/L (01/16/24 9:49 AM) PO4 [2.5-4.5 mg/dL] 2.7 mg/dL (01/16/24 9:49 AM) Plts [150-350 K/uL] 319 K/uL (01/16/24 9:49 AM) RBC [4.40-5.60 M/uL] 4.19 M/uL *LOW* (01/16/24:49 AM) T Bili [0.0-1.2 mg/dL] 0.7 mg/dL (01/16/24 9:49 AM) Prot [6.4-8.3 g/dL] 6.6 g/dL (01/16/24 9:49 AM) TSH [0.30-4.20 uIU/mL] 1.24 uIU/mL (01/16/24 9:49 AM) WBC [4.0-10.4 K/uL] 9.33 K/uL (01/16/24 9:49 AM) 1Result Comment: Low levels of ALKP [...] to oldest [Reference Range]: 1 Patient Weight 65 kg 1 (01/16/24 11:21 AM) Temperature [36.5-37.9 DegC] 35.7 DegC *LOW* (01/16/24 11:21 AM) Heart Rate 65 bpm (01/16/24 11:21 AM) Respiratory Rate 20 br/min (01/16/24 11:21 AM) Blood Pressure 133/69mmHg (01/16/24 11:21 AM) Mean Blood Pressure 88 mmHg (01/16/24 11:21 AM) Cuff Pulse Pressure 64 mmHg (01/16/24 11:21 AM) BP Location # 1 Right Arm (01/16/24 11:21 AM) 1Result Comment: w/ shoes on Social [...] Safety Implantable Status Assigning Authority Unknown Unknown [id number] Unknown 09/16/26 Unknown Unknown Active Unknown Unknown Unknown [id number] Unknown 09/28/25 Unknown Unknown Active Unknown Procedure Provider Procedure Date Device Type Site Unknown Unknown 09/02/23 Unknown Unknown Device Identifier Serial Number Lot or Batch Number Manufacturing Date Expiration Date Distinct Identification Code MRI Safety Implantable Status Assigning Authority Unknown Unknown [id number] Unknown 10/29/24 Unknown Unknown Active Unknown Unknown Unknown [id number] Unknown 09/28/25 Unknown Unknown Active Unknown Procedure Provider Procedure Date Device Type Site Unknown Unknown 03/16/23 Unknown Unknown Device Identifier Serial Number Lot or Batch Number Manufacturing Date Expiration Date Distinct Identification Code MRI Safety Implantable Status Assigning Authority Unknown Unknown [id number] Unknown 01/14/25 Unknown Unknown Active Unknown Unknown Unknown [id number] Unknown 09/02/25 Unknown Unknown Active Unknown Hematology/Oncology Outpt Note * CASIE Sorenson Peter V: PERFORM, MODIFY CASIE Sorenson Peter V: MODIFY, MODIFY CASIE Sorenson Peter V: MODIFY, MODIFY CASIE Sorenson Peter V: MODIFY MD Fidelina, Bronson Russo: MODIFY Event Display: Hematology/Oncology Outpt Note Authored Date: [id number] HEMATOLOGY ONCOLOGY OUTPATIENT NOTE Name: BERNY RUBIO Jr. Patient Number: [id number] : 1960 Date of Service: 01/16/2024 Chief Complaint: follow up OV for metastatic colon cancer, currently on palliative currently on bevacizumab, presents for treatment. History of Present Illness: Today Berny is scheduled to receive his cycle 23 of bevacizumab and capecitabine. Since we saw patient last he had stent exchange completed for bilateral extrinsic ureteral obstruction. CEA has been up trending. Most recent imaging in [place] showed disease progression per patient, requested scan results be scanned into the system. He is willing to try anti-bodytherapy again. Will request Panitumumab infusion for patient in 3 weeks time. Will follow up in 3 weeks times for labs, OV and possible treatment. Patient denies any fever, chills, SOB, chest pain, palpiations, abdominal pain, nausea, vomitting, dyuria, abnormal bleeding, hematochezia, melena, headache, dizziness, neurological changes, or skin changes. Review of Systems All other ROS is negative except what is mentioned in HPI. Current Home Meds: (Last Updated 01/13 17:20) amLODIPine (Norvasc 10 mg oral tablet) 10 mg PO Daily bevacizumab (Avastin 25 mg/mL intravenous solution) infused over 30 minutesevery 3 weeks cannabis (Medical Marijuana) 1 inh inhaled capecitabine (capecitabine 500 mg oral tablet) 500 mg PO bid for 14 days, followed by 7 days off ofeach 21 day cycle. cyanocobalamin (Vitamin B12 1000 mcg oral tablet) [...] to exceed 3 applications in 24 hours loratadine (Allergy Relief) morphine (morphine 30 mg (24 HR) oral [...] deficiency Tobacco user OBJECTIVE Vitals: Last Updated 01/03/24 17:28 Date Temp BP Location Pulse RR SpO2 Pain 01/03/24 36.7 169/84 Right Arm 67 18 99 6 01/03/24 36 149/88 71 17 98 01/03/24 149/88 71 17 98 7 Vital Signs are the last 3 documented. No Orthostatic Data Available Height and Weight: Last Updated 01/03/24 11:21 Date BMI Wt(kg) Wt(lb) Method Ht(cm) (ft-in) Method 01/03/24 19.72 57 125 Standing Scale 170 5-7 Patient stated 12/26/23 23.35 65.9 145 Standing Scale 168 5-6 Standing 12/05/23 63.6 140 Standing Scale Heights and Weights are the last 3 documented. Physical Exam _ General:Alert, conversant, and answering questions appropriately; in [...] to palpation. Normoactive bowel sounds are present. Extremities:No peripheral edema. No erythema or swelling to joints. Neuro:Alert and oriented x3. No focal deficits noted. Skin:Warm, dry, no lesions or rashes noted. 30 Day Labs: 01/03/24 1410 Blood Glucose 180 H Blood Glucose Ref Range [70 - 120 mg/dl] 01/03/24 1403 Gluc Meter 180 H H Pain Score/Distress Inventory: Assessment: 63 y/o male with metastatic colon cancer on palliative chemotherapy with capecitabine and Avastin. Plan Metastatic colon cancer - Multifocal pulmonary [...] is his baseline. - 01/05/24 scans at [facility]- per patient show disease progression. Will hold Avastin therapy given elevated protein urea; will do 24 hour urine with next ov in 3 weeks. Will consider Panitumumab as additional agent given disease progression, this is requested for 3 weeks from now. Multifocal pulmonary metastasis/ chronic smoker -Upon review of his CT chest as noted above he will plan to continue with his treatment as planned. -He was encouraged to make efforts in smoking cessation. Hypothyroidism -Continue on Synthroid 125 mcg Anemia -His hemoglobin remains 8 which is stable for him and he remains asymptomatic -Continue to monitor labs per chemotherapy protocol DM-1/ Diabetic foot neuropathy/ Brittle toenails - patient was told to f/u injection molding supervisor for basic diabetic foot care from his [...] feet.- rec Goldbond lotion Hypomagnesemia- OTC supplements Dispo: Patient will return in 3 weeks time for OV, labs, and treatment. [...] by: Bronson Kitchen MD Cosigner Signature Dt/Tm: 01/16/2024 03:18 PM Division of Hematology Oncology [facility] Patient Care team information Care Team Personnel Name: Constantin Del Toro Kimberly Position: Pharmacist BCMA Member Role: Pharmacy - Lifetime Address: [place] [address] [place] Name: MD Fidelina, Bronson Russo Position: Physician - Hem/Onc Member Role: Lifetime Relationship Address: [address] [place] [address] [place] Name: Constantin Ferreira Matthew Position: Pharmacist Member Role: Pharmacy - Lifetime Name: JOHN Winslow Judy Position: Provider - Terminated Member Role: Lifetime Relationship Address: [address] [place] [address] [place] Name: Mame Perez RPh, William Position: Pharmacist Member Role: Pharmacy - Lifetime Name: MD Zachariah, Samra Cano Position: Physician Member Role: Primary Care Provider Address: [address] Care Team Related Persons Name: BRUNO YOO
[2024-07-09] MEDS: DEXTROSE 50% 50 ML SYRINGE IV ONE (08:48)
[2024-07-09] MEDS: SODIUM CHLORIDE 0.9% 1,000 ML IV ONE (08:49)
--- NOTE | 2024-07-09 08:49 | XRay Report ---
XR chest 1V portable CLINICAL HISTORY: Sepsis. COMPARISON STUDY: Chest CT January 05, 2024. FINDINGS: Lung volumes are normal. No pneumothorax or pleural effusion is present. Cardiomediastinal silhouette is normal. Innumerable pulmonary lesions are again noted. These are obscured by apparent s uperimposed airspace opacities. IMPRESSION: Airspace opacities throughout the lungs. The findings raise the possibility of pneumonia superimposed upon metastatic disease. Pulmonary edema could appear similar although is considered le ss likely. Radiographic follow-up is recommended. ACT 112: Negative or not required by law. Electronically signed by: Aristides Drummond M.D. 07/09/2024 8:47 AM
[2024-07-09 08:50] LABS: Basophils # (auto) 0.04 K/uL (0.00-0.20); Basophils % (auto) 0.3 %; Eosinophils # (auto) 0.13 K/uL (0.00-0.50); Eosinophils % (auto) 0.9 %; Hematocrit (blood only) 31.2 % (42.0-52.0); Hemoglobin 9.9 g/dl (14.0-18.0); Immature Granulocytes # (auto) 0.07 K/uL (0.01-0.20); Immature Granulocytes % (auto) 0.5 %; Lymphocytes # (auto) 1.07 K/uL (1.20-3.40); Lymphocytes % (auto) 7.8 %; Mean Corpuscular Hemoglobin 25.8 pg (25.0-34.0); Mean Corpuscular Hgb Conc 31.7 g/dL (32.0-36.0); Mean Corpuscular Volume 81.3 fL (80.0-100.0); Mean Platelet Volume 10.7 fL (9.4-12.4); Monocytes # (auto) 0.71 K/uL (0.11-0.59); Monocytes % (auto) 5.2 %; Neutrophils % (auto) 85.3 %; Platelet Count 419 K/uL (130-400); RDW Coefficient of Variation 15.4 % (11.5-14.5); RDW Standard Deviation 45.2 fL (36.4-46.3); Red Blood Count 3.84 M/uL (4.70-6.10); White Blood Count 13.72 K/ul (4.8-10.8)
[2024-07-09 09:02] LABS: Albumin Level 3.1 gm/dl (3.4-5.0); BUN Creatinine Ratio 16.1 (10-20); Bilirubin Direct 0.2 mg/dl (0-0.2); Bilirubin,Total 0.6 mg/dl (0.2-1.0); Calcium 7.4 mg/dl (8.6-10.3); Creatinine Clr Calc Pharmacy 46.8 ml/min; Potassium 3.9 mmol/L (3.5-5.1); Total Protein 7.1 gm/dl (6.0-8.3)
[2024-07-09 09:05] LABS: Appearance Urine Cloudy (Clear); Bacteria Urine Automated 2+ (None Seen); Bilirubin Urine Negative (Negative); Blood Urine 1+ (Negative); Color Urine Dark Yellow; Epithelial Cell Urine Auto 0-2 /hpf (0-2); Glucose Urine UA Negative (Negative); Granular Casts Urine Present /lpf (None Prsent); Ketones Urine Negative (Negative); Leukocyte Esterase Urine 2+ (Negative); Nitrite Urine Positive (Negative); Protein Urine 2+ (Negative); Specific Gravity Urine 1.011 (1.000-1.030); Urobilinogen Urine Negative (Negative); pH Urine 5.5 (4.5-7.5)
[2024-07-09 09:07] LABS: Troponin I High Sensitivity 8.3 pg/ml (0-20)
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
[2024-07-09 09:48] LABS: Adenovirus PCR Not Detected (NotDetected); Bordetella parapertussis PCR Not Detected (NotDetected); Bordetella pertussis PCR Not Detected (NotDetected); Chlamydia pneumoniae PCR Not Detected (NotDetected); Coronavirus 229E PCR Not Detected (NotDetected); Coronavirus CoV-2 (COVID19)PCR Not Detected (NotDetected); Coronavirus HKU1 PCR Not Detected (NotDetected); Coronavirus NL63 PCR Not Detected (NotDetected); Coronavirus OC43PCR Not Detected (NotDetected); Human Metapneumovirus PCR Not Detected (NotDetected); Influenza A PCR Not Detected (NotDetected); Influenza B PCR Not Detected (NotDetected); Mycoplasma pneumoniae PCR Not Detected (NotDetected); Parainfluenza Virus 1 PCR Not Detected (NotDetected); Parainfluenza Virus 2 PCR Not Detected (NotDetected); Parainfluenza Virus 3 PCR Not Detected (NotDetected); Parainfluenza Virus 4 PCR Not Detected (NotDetected); Respiratory Syncytial VirusPCR Not Detected (NotDetected); Rhinovirus/Enterovirus PCR Not Detected (NotDetected)
[2024-07-09 10:25] LABS: HCO3 VBG 16 mmol/L; Oxygen Saturation VBG 77.8 %; PCO2 VBG 43 mmHg (38-50); PO2 VBG 52 mmHg; pH VBG 7.18 (7.36-7.41)
[2024-07-09] MEDS: OPTIRAY 320 125ml IV ONE (10:36)
--- NOTE | 2024-07-09 11:10 | CT Scan Report ---
CT angio chest PE protocol CT DOSE: 1627.81 mGy.cm HISTORY: 64 years-old Male with PE, h/o met cancer, resp distress. Acute shortness of breath in a p atient with history of metastatic colon cancer TECHNIQUE: Multiple CTA images of the chest were obtained after the intravenous administration of 112 ml Optiray. Coronal and sagittal MIPS were obtained from the axial data set and were submitted for review. All measurements were obtained according to NASCET criteria. A dose lowering technique was u tilized adhering to the principles of ALARA. COMPARISON: Chest radiograph of same day, chest CT 01/05/2024 FINDINGS: CTA: Heart is normal in size. No pericardial effusion. Moderate coronary artery calcifications. No thoraci c aortic aneurysm or dissection. No pulmonary emboli identified. CT CHEST: No thyroid nodules identified. Pathologic mediastinal lymphadenopathy with subtle calcifications is g enerally stable from prior. This includes a right paratracheal lymph node on image 50 series 6 measur ing 2.0 x 1.5 cm. Small pleural effusions. Emphysema with interlobular septal thickening with intermi xed groundglass densities. Multifocal pulmonary metastasis again noted. This includes a centrally cav itary metastatic focus within the left lung apex on image 174 series 6 measuring 4.1 x 3.6 cm, previo usly 3.9 x 3.4 cm. Stable 2.5 cm metastatic lesion of the right upper lobe on image 154. Stable index 2.5 cm lesion of the right middle lobe on image 100 series 6. Patchy and nodular bilateral airspace opacities, right greater than left are new/progressed. Central airways are patent. CT abdomen and pelvis dictated separately. Hepatic and peritoneal metastasis again noted. Mesenteric and body wall edema. Partially imaged right nephrostomy catheter. Degenerative changes of the spine a nd shoulders. Probable Schmorl's node endplate of T12. IMPRESSION: 1. No pulmonary emboli identified. 2. Cardiomegaly with interstitial pulmonary edema and small pleural effusions. 3. Patchy consolidative opacities likely represent a combination of pulmonary edema with superimposed pneumonia. 4. Metastatic mediastinal lymphadenopathy with pulmonary metastasis redemonstrated, not significantly changed compared to the 01/05/2024 study. 5. Hepatic and peritoneal metastatic disease redemonstrated, further discussed on the CT abdomen and pelvis study of same day. ACT 112: Negative or not required by law. The above report was generated using voice recognition software. It may contain grammatical, syntax o r spelling errors. Electronically signed by: Colton Rudolph M.D. 07/09/2024 11:07 AM
--- NOTE | 2024-07-09 11:14 | CT Scan Report ---
CT OF THE ABDOMEN AND PELVIS WITHOUT CONTRAST CLINICAL HISTORY: Abdominal distention. Metastatic disease. COMPARISON STUDY: CT of the abdomen and pelvis January 05, 2024. TECHNIQUE: Axial images of the abdomen and pelvis were obtained without IV contrast. Images were revi ewed in the axial, sagittal, and coronal planes. Automated exposure control was utilized for the delilah dy. A dose lowering technique was utilized adhering to the principles of ALARA. FINDINGS: Numerous ill-defined pulmonary lesions consistent with metastases are better depicted on th e chest CT. There is also interlobular septal thickening and groundglass opacities within the lung ba ses. Evaluation of the abdomen and pelvis is suboptimal on unenhanced examination. No pneumatosis, fr ee air or portal venous gas is present. Multiple hepatic lesions are again noted. Although suboptimal ly assessed on unenhanced exam, several appear to have increased in size since prior CT of January 05, 2024. A right hepatic lobe lesion on image 50 measures 4.1 cm, previously 2.9 cm. Calcified mesen teric and retroperitoneal lymphadenopathy is similar to prior CT. The bladder is distended. Left uret eral stent is in place. There is no hydronephrosis. There is a percutaneous right-sided nephrostomy t ube. Peritoneal implants have mildly increased in size since CT of January 05, 2024. These measure up to 1.9 x 1.6 cm. The ascending colon is moderately distended and fluid-filled. Possible transition point within the proximal hepatic flexure on image 118 of 373 is noted. The transverse colon is rela tively decompressed. The left colon and rectum are fluid-filled. No suspicious osseous lesions are pr esent. Unenhanced images of the spleen, adrenal glands and pancreas are unremarkable. Body wall edema is present. IMPRESSION: 1. Moderately distended, fluid filled ascending colon with possible transition point within the hepat ic flexure of the colon. Although not definitive, the findings raise the possibility of a colonic obs truction which could be due to a colonic lesion or peritoneal implants. 2. Mild progression of hepatic metastases and peritoneal implants since prior CT. No significant shirley ge in retroperitoneal and mesenteric lymphadenopathy. 3. Pulmonary metastases, pulmonary edema and possible superimposed pneumonia better depicted on the c hest CT which will be reported separately. 4. Percutaneous right nephrostomy and left ureteral stent in place. No hydronephrosis. Distended blad guera. 5. Difficult study to interpret given paucity of intra-abdominal fat and lack of contrast. ACT 112: Negative or not required by law. Electronically signed by: Aristides Drummond M.D. 07/09/2024 11:13 AM
[2024-07-09] MEDS ORDERED: GLUCOSE 10 TAB/TUBE PO PRN (11:32)
[2024-07-09] MEDS ORDERED: GLUCOSE 40% GEL 15 GM TUBE PO PRN (11:32)
[2024-07-09] MEDS ORDERED: GLUCAGON FOR INJ 1 MG VIAL SQ PRN (11:32)
[2024-07-09] MEDS ORDERED: CARBOHYDRATES FOR HYPOGLYCEMIA PO PRN (11:32)
[2024-07-09] MEDS: D5W AND LACTATED RINGERS 1,000 ML IV SCH ×2 (11:49→17:34)
[2024-07-09] MEDS: INSULIN ASPART PER UNIT CHARGE SC SCH (11:50)
[2024-07-09] MEDS: PIPERACILLIN/TAZOBACTAM 4.5 GM/100 ML BAG IV SCH (13:03)
[2024-07-09] MEDS: HEPARIN SOD 5,000 UNIT/0.5 ML VIAL SQ SCH (13:11)
[2024-07-09] MEDS: MoRPHine SULFATE 2 MG/ML CARP IV PRN (14:16)
[2024-07-09] MEDS: DEXTROSE 50% 50 ML SYRINGE IV PRN (16:48)
[2024-07-09] MEDS: GLUCAGON FOR INJ 1 MG VIAL SQ STA (17:34)
[2024-07-09] MEDS: SENNA 8.6 MG TAB PO SCH (20:51)
[2024-07-10] MEDS: LEVOTHYROXINE SODIUM 125 MCG TABLET PO SCH (05:45)
[2024-07-10 06:20] LABS: Hematocrit (blood only) 23.8 % (42.0-52.0); Hemoglobin 7.9 g/dl (14.0-18.0); Mean Corpuscular Hemoglobin 26.1 pg (25.0-34.0); Mean Corpuscular Hgb Conc 33.2 g/dL (32.0-36.0); Mean Corpuscular Volume 78.5 fL (80.0-100.0); Mean Platelet Volume 11.3 fL (9.4-12.4); Platelet Count 305 K/uL (130-400); RDW Coefficient of Variation 15.4 % (11.5-14.5); RDW Standard Deviation 44.1 fL (36.4-46.3); Red Blood Count 3.03 M/uL (4.70-6.10); White Blood Count 14.75 K/ul (4.8-10.8)
[2024-07-10 06:51] LABS: BUN Creatinine Ratio 15.6 (10-20); Calcium 6.9 mg/dl (8.6-10.3); Creatinine Clr Calc Pharmacy 55.2 ml/min; Potassium 3.8 mmol/L (3.5-5.1)
[2024-07-10 08:01] LABS: Estimated Average Glucose 177 mg/dl; Hemoglobin A1C 7.8 % (4.5-5.6)
--- NOTE | 2024-07-10 08:46 | Hospitalist Progress Note ---
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 Patient presents with concern for concern for sepsis at this time source unknown. Initiated on Zosyn therapy. #Sepsis fluid support in lieu of pressors but will use pressors if blood pressure drops. Continue Zosyn therapy following cultures. His urine in his nephrostomy tube bag looks to be orange from his Pyridium but otherwise clear. Patient has known intermittent partial bowel obstruction due to an apple core lesion which sounds to be at his hepatic flexure. On presentation has distended tympanitic abdomen with hyperactive bowel sounds. Obtaining CT scan of chest abdomen pelvis on presentation. Patient has acute respiratory failure requiring BiPAP for support. Will attempt to taper this as soon as possible. Will continue BiPAP support at this time, BioFire is negative on presentation MRSA swab is pending #Metastatic disease. 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 Patient with typically taking Avastin and Xeloda these are on hold he follows with [facility]. Certainly his malignancy places him at risk for possible pulmonary embolism Additionally the patient is on chronic opioid therapy of MS Contin 60 every 12 and MS IR 30 every 4 as needed. Blood pressures improved with volume resuscitation will have morphine available if pain is significant. does not believe he took any additional pain medications over 1 dose of 30 mg in the afternoon on 07/08. Patient sees Winnie Friedman for palliative care in the [facility] system #Diabetes. Patient is type 1 diabetes since age 5, patient ate an evening meal the day prior to presentation. Took his long-acting insulin also. is unclear if he took any short acting. He is hypoglycemic in the emergency department will be instituted on a glucose containing fluid hold any long-acting insulin and provide a sliding scale for short acting insulin coverage. Patient is n.p.o. due to respiratory depression at this time # anemia concern for acute blood loss, could also be dilutional, will have on bid ppi in case gi source He will continue on Synthroid therapy. DVT prevention will be heparin therapy at this time Goals of care discussion we had on admission, patient is seeing palliative care and is a DNR/DNI but the states that any short-term measures that can be performed other than intubation and defibrillation CPR would be allowable. Offered pastoral care support at this time patient says she is fine Admission and Anticipated Discharge Date Admission Date: July 09, 2024 Results & Data Results & Data Vital Signs (Past 12 Hours) Vital Signs Temp Pulse Pulse Resp BP Pulse Ox O2 Del Method 07/10/24 07:47 98.4 F 80 22 125/68 98 BiPAP 07/10/24 03:54 80 27 H 96 07/10/24 03:10 99.0 F 84 20 117/65 97 BiPAP 07/09/24 23:30 84 16 96 07/09/24 22:34 98.4 F 84 16 113/65 98 BiPAP 07/09/24 21:43 81 07/09/24 21:00 BiPAP FiO2 07/10/24 07:47 30 07/10/24 03:54 30 07/10/24 03:10 07/09/24 23:30 30 07/09/24 22:34 07/09/24 21:43 07/09/24 21:00 PG Care Time/CCT Total # of Minutes Spent Total Time Spent with Patient: Total time spent is greater than 50% in coordination of care (as documented) at patient's floor/unit and/or counseling patient: Coding Diagnoses Sepsis A41.9 Metastatic adenocarcinoma C79.9 Diabetes mellitus type 1 E10.9 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
[2024-07-10] MEDS: MoRPHine SULFATE CR 60 MG TABCR PO SCH (10:49)
[2024-07-10 11:04] VITALS: RESP 20; TEMP 97.9; O2SAT 96
[2024-07-10] MEDS: PANTOprazole 40 MG/10 ML SYR IV SCH (11:24)
--- NOTE | 2024-07-10 13:41 | Discharge Summary ---
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 Patient presents with concern for concern for sepsis suspected to be pulmonary source. Initiated on Zosyn therapy. blood cultures negative, urine shows frank and pt has ch neprostomy tube, will be treated for pneumonia, pt requests to go home 07/10/24 #Sepsis, CT scan of chest abdomen pelvis shows patchy consolidative processes consistent with pneumonia multiple mediastinal lymphadenopathy with pulmonary metastasis are redemonstrated, not significantly progressed from January 02. Hepatic and peritoneal metastatic disease redemonstrated. Patient has acute respiratory failure requiring BiPAP for support. He was able to be tapered to room air BioFire is negative on presentation patient was discharged on 2-week course of levofloxacin at the request of his when negative prolonged course for infection #Metastatic disease. 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 Patient with typically taking Avastin and Xeloda, he follows with [facility]. Additionally the patient is on chronic opioid therapy of MS Contin 60 every 12 and MS IR 30 every 4 as needed. Blood pressures improved with volume resuscitation Patient sees Winnie Friedman for palliative care in the [facility] system #Diabetes. Patient is type 1 diabetes since age 5, patient ate an evening meal the day prior to presentation. Took his long-acting insulin also. Prolonged hypoglycemic episode patient will be discharged on 50% his long-acting insulin containing a sliding scale insulin with close outpatient follow-up # anemia this has been stable since admission slight drop which could be delusional from volume resuscitation for sepsis no obvious source of blood loss He will continue on Synthroid therapy. Goals of care discussion we had on admission, patient is seeing palliative care and is a DNR/DNI but the states that any short-term measures that can be performed other than intubation and defibrillation CPR would be allowable. Notes For Next Care Provider Patient's insulin management will need to be adjusted as he was profoundly hypoglycemic. Additionally Frank grew from his urine which could be a chronic colonizer as he has no symptoms at this time. Admission HPI Per Admitting Provider 64-year-old male who suffers from metastatic adenocarcinoma originating in his colon. He has mets to static disease known to his liver and lung. He presents after period of unresponsiveness by his at home. She was initially worried about hypoglycemia. Patient is brought to the emergency department and is evaluated for sepsis. He was volume resuscitated. Poss tensional sources include pulmonary and also urology. Patient has a percutaneous nephrostomy tube with dirty urine. Time the patient is profoundly hypoxic and BiPAP dependent. His ABG however did support significant hypoxia. The Emergency Department after volume resuscitation patient was given antibiotics of Zosyn therapy and cultures were obtained. Per the ER physician family feels the patient should not be intubated but did want other resuscitative measures. Discharge Exam Patient seen in the presence of his pulse oximetry showed the patient to be in the 90% range on room air his lungs had some coarse breath sounds consistent with his metastatic disease he had a loose nonproductive cough. Discharge Plan Discharge Items Patient Disposition: Home - Self-Care Reason For Visit: SEPSIS, METASTATIC CANCER Discharge Diagnosis: sepsis from pulmonary source low blood glucose level metastatic cancer Activity: Resume your previous activity Non-emergency contact: Primary Care Provider Call non-emergency contact if: your symptoms worsen Follow-up/Referrals: Deanna Soni MD [Primary Care Provider] - Diet: Regular Addtl Attending Provider Instructions: you did have concerns of a serious infection, suspected to be pneumonia, please continue your antibiotic and have a primary care follow up, usually in one week your blood glucose was low and difficult to raise, please hold your long acting insulin for a day and continue control with sliding scale insulin and restart your long acting insulin at 1/2 your usual dose. please have close follow up with your primary care provider you did have a fungus grow from your urine, this is usually considered not to be infectious and is not treated unless you have urinary symptoms, including frequency of urine, loss of continence, difficulty voiding or burning when you urinate, if you have these symptoms please contact your primary care provider Pending Studies at Discharge: Yes Studies:: blood cultures Stand-Alone Forms: My [employer], Smoking Cessation Medications and DC Order Prescriptions: New levofloxacin 750 mg tablet 750 mg PO DAILY 14 Days Qty: 14 0RF Continued levothyroxine 125 mcg Tablet 125 mcg PO QAM insulin aspart U-100 [Novolog U-100 Insulin aspart] 100 unit/mL Solution 1 sliding scale dose SUBCUT USEASDIRECTD morphine 60 mg Tablet Extended Release 60 mg PO Q12H Medical Marijuana 1 dose PO DIRECTED phenazopyridine [Pyridium] 200 mg tablet 200 mg PO Q8H PRN (Reason: pain) Qty: 10 0RF capecitabine [Xeloda] 500 mg Tablet 500 mg PO BID morphine 30 mg Tablet 30 mg PO Q4H PRN (Reason: Pain) lisinopril 5 mg Tablet 10 mg PO PM cetirizine [Zyrtec] 10 mg Tablet 10 mg PO DAILY cyanocobalamin (vitamin B-12) 1,000 mcg Tablet 1,000 mcg PO DAILY albuterol sulfate 90 mcg/actuation HFA aerosol inhaler 1 puff INHALATION DIRECTED PRN (Reason: sob) potassium chloride 20 mEq tablet extended release 20 meq PO DAILY magnesium 2 tab PO BID Changed insulin glargine-yfgn [Semglee(insulin glargine-yfgn)] 100 unit/mL solution 5 unit SUBCUT HS Qty: 0 0RF Discharge Orders: Discharge Order (Routine); Ordered 07/10/24 Ordered By: Devonte Escobar/Other Patient Handouts: Managing Type 1 Diabetes Admission Data Admit Date/Time: 07/09/24 09:56 Attending Provider: Devonte Hernandez Admit Provider: Devonte Hernandez Primary Care Provider: Deanna Soin Other Providers: Devonte Hernandez Hospital Stay Data Consultations 07/09/24 09:11 ED Decision to Admit Stat Diagnostic Imagining Performed 07/09/24 09:57 CT Abd and Pelvis [CT abd pelvis wo con] Stat CT angio chest PE protocol Stat Pending Results Patient Have Any Pending Studies at Discharge: Yes Discharge Instructions Given to Patient (Per Discharging Provider) you did have concerns of a serious infection, suspected to be pneumonia, please continue your antibiotic and have a primary care follow up, usually in one week your blood glucose was low and difficult to raise, please hold your long acting insulin for a day and continue control with sliding scale insulin and restart your long acting insulin at 1/2 your usual dose. please have close follow up with your primary care provider you did have a fungus grow from your urine, this is usually considered not to be infectious and is not treated unless you have urinary symptoms, including frequency of urine, loss of continence, difficulty voiding or burning when you urinate, if you have these symptoms please contact your primary care provider Total Time Total Time Spent Total Time Spent (In Minutes): It required greater than 30 minutes to prepare this patient for discharge. 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
[2024-07-10 14:14] VITALS: BP 104/64; PULSE 82
== END 2024-07-10 15:04 | disposition home or self-care (01) | DRG 871 ==
LOC: ED 08:08 → 2S 09:56

== ENCOUNTER 2024-07-19 06:56 | Inpatient (IN) ==
--- OUTSIDE RECORDS SUMMARY | 2024-07-19 07:11 | External Medical Summary | Continuity of Care Document ---
Author Name Unknown Organization [facility] Address [address] [place] [address] JOSIE ANDERSON [id number] Care Team Providers Care Linderman Operator Name Role Phone Samra Soni Primary Care Physician [phone] Encounter [facility] [id number] Date(s): 07/16/24 - 07/16/24 [facility] [place] [facility] [address] JOSIE Barton [phone] Discharge Disposition: Home or Self Care Attending Physician: MD Kitchen Raymond J Referring Physician: MD Kitchen Raymond J Encounter Type: [facility] [place] Allergies, Adverse Reactions, Alerts Substance Criticality Severity Reaction Reaction Severity Status Percodan Rash Active Functional Status 07/16/24 Gait Unsteady, Other: low BP at times Immunizations Given and Recorded Vaccine Date Status Refusal Reason SARS-CoV-2 (COVID-19) mRNA BNT-162b2 vax 12/10/20 Recorded SARS-CoV-2 (COVID-19) mRNA BNT-162b2 vax 11/09/20 Recorded Medications Albuterol (Eqv-ProAir HFA) 90 mcg/inh inhalation aerosol Start: 07/12/24 1:32:00 PM EDT, 2 inh, inhaled, q4h, Disp# 8 g, Refills: 0, PRN: as needed for shortness of breath or wheezing, Pharmacy: [id number] Start Date: 07/12/24 Status: Ordered Quantity: 8.0 Unit: g Repeat number: 1 capecitabine 500 mg oral tablet Start: 05/08/24 2:44:00 PM EST, 1 tab, PO, bid, Disp# 28 tab, Refills: 5, for 14 days, followed by 7days off of each 21 day cycle., Pharmacy: [facility] Start Date: 05/08/24 Status: Ordered Quantity: 28.0 Unit: tab Repeat number: 6 Gold Gutierrez Healing cream Start: 07/16/24 8:57:00 AM EDT, 1 appl, topical, Daily Start Date: 07/16/24 Status: Ordered Repeat number: 1 Gold Gutierrez [...] Quantity: 133.0 Unit: g Repeat number: 1 levoFLOXacin 750 mg oral tablet Start: 07/12/24 12:52:00 PM EDT, 1 tab, PO, Daily Start Date: 07/12/24 Status: Ordered Repeat number: 1 lisinopril 5 mg oral tablet Start: 07/02/24 9:16:00 AM EDT, 1 tab, PO, bid, Disp# 60 tab, Refills: 1, Pharmacy: [id number] Start Date: 07/02/24 Status: [...] 60 syringes x refills x 3, Pharmacy: [facility] [place] Start Date: 05/28/24 Status: Ordered Quantity: [...] per day - 90 day supply, Pharmacy: [facility] Start Date: 03/12/24 Status: Ordered Quantity: 30.0 Unit: mL Repeat number: 5 NovoLOG 100 units/mL injectable solution Start: 07/16/24 8:55:00 AM EDT, See Instructions, Inject 2 units per 15 grams of carbs. Injecting up to 6 times per day PRN Start Date: 07/16/24 Status: Ordered Repeat number: 1 One Touch Delica Plus (33G) Lancets Start: 05/07/22 8:18:00 AM EST, See Instructions, Disp# 100 each, Refills: 3, use for blood glucose testing up to 8x/day, Pharmacy: [facility] Start Date: 05/07/22 Status: [...] out of pocket if cheap enough, Pharmacy: [facility] Start Date: 08/24/23 Status: Ordered Quantity: 1.0 Unit: each Repeat number: 1 Indication: Type 1 diabetes mellitus with unspecified complications One Touch Verio Test Strips Start: 03/14/24 8:02:00 AM EST, See Instructions, Disp# 800 each, Refills: 3, test up to 8x/day as needed for Type 1 DM, Pharmacy: [facility] Start Date: 03/14/24 Status: Ordered Quantity: 800.0 Unit: each Repeat number: 4 Indication: Type 1 diabetes mellitus with unspecified complications ONETOUCH VERIO TEST STRIP Start: 2/27/25 8:48:00 AM EST, ONETOUCH VERIO TEST STRIP, See Instructions, Disp# 800 strip, Refills: 0, TEST UP TO 8 TIMES DAILY NEEDED, Pharmacy [facility] Start Date: 06/07/24 Status: Ordered Quantity: 800.0 Unit: Repeat number: 1 ONETOUCH VERIO TEST STRIP Start: 03/14/24 8:05:00 AM EST, ONETOUCH VERIO TEST STRIP, See Instructions, Disp# 800 strip, Refills: 0, TEST UP TO 8 TIMES DAILY NEEDED, Pharmacy [facility] Start Date: 03/14/24 Status: Ordered Quantity: 800.0 Unit: Repeat number: 1 panitumumab Start: 07/16/24 9:03:00 AM EDT, IV, s3cvyam Start Date: 07/16/24 Status: Ordered Repeat number: 1 Potassium Chloride (Eqv-K-Tab) 20 [...] for urinary discomfort, Pharmacy: [facility] [place] Start Date: 05/04/24 Stop Date: 05/06/24 Status: Ordered Quantity: 6.0 Unit: tab Repeat number: 1 Semglee (Vial) 100 units/mL subcutaneous solution Start: 03/12/24 11:19:00 AM EST, 20 unit =, subQ, Daily, Disp# 30 mL, Refills: 3, Pharmacy: [facility] Start Date: 03/12/24 Stop Date: 03/07/25 Status: Ordered Quantity: 30.0 Unit: mL Repeat number: 4 Slow-Mag 71.5 mg-119 mg oral delayed release tablet Start: 06/28/24 12:57:00 PM EDT, 2 tab, PO, bid, Disp# 120 tab, Refills: 3, Pharmacy: [id number] Start Date: 06/28/24 Stop Date: 10/26/24 Status: Ordered Quantity: 120.0 Unit: tab Repeat number: 4 Synthroid 125 mcg (0.125 mg) oral tablet Start: 03/12/24 11:19:00 AM EST, 1 tab, PO, Daily, Disp# 90 tab, Refills: 3, Pharmacy: [facility] Start Date: 03/12/24 Status: Ordered Quantity: 90.0 Unit: tab Repeat number: 4 Syringe MIS 0.3/31gauge Start: 03/12/24 11:19:00 AM EST, Syringe MIS 0.3/31gauge, eRx Product Type: Supply, See Instructions, Disp# 500 each, Refills: 3, Pt uses 6 syringes daily. E11.9, Pharmacy [facility] Start Date: 03/12/24 Status: Ordered Quantity: 500.0 Unit: each Repeat number: 4 Syringe MIS 0.3/31gauge Start: 01/01/22 10:03:00 AM EDT, Syringe MIS 0.3/31gauge, eRx Product Type: Supply, See Instructions, Disp# 500 each, Refills: 3, Pt uses 6 syringes daily. E11.9, Pharmacy [facility] Start Date: 01/01/22 Status: Ordered Quantity: 500.0 Unit: each Repeat number: 4 Vitamin B12 1000 mcg oral tablet Start: 10/24/23 10:35:00 AM EDT, 1 tab, PO, Daily, Disp# 90 tab, Refills: 0, Pharmacy: [facility] Start Date: 10/24/23 Stop [...] recent to oldest [Reference Range]: 1 2 Temperature [36.5-37.9 DegC] 37.4 DegC (07/16/24 11:30 AM) 36.9 DegC (07/16/24 10:05 AM) Heart Rate 86 bpm (07/16/24 11:30 AM) 93 bpm (07/16/24 10:05 AM) Respiratory Rate 18 br/min (07/16/24 11:30 AM) 18 br/min (07/16/24 10:05 AM) Blood Pressure 95/54mmHg (07/16/24 11:30 AM) 105/62mmHg (07/16/24 10:05 AM) Cuff Pulse Pressure 41 mmHg (07/16/24 11:30 AM) BP Location # 1 Right Arm (07/16/24 11:30 AM) Social History Social History Type Response [...] Safety Implantable Status Assigning Authority Unknown Unknown [id number] Unknown 06/15/26 Unknown Unknown Active Unknown Procedure Provider Procedure Date Device Type Site Unknown Unknown 01/03/24 Unknown Unknown Device Identifier Serial Number Lot or Batch Number Manufacturing Date Expiration Date Distinct Identification Code MRI Safety Implantable Status Assigning Authority Unknown Unknown [id number] Unknown 09/16/26 Unknown Unknown Active Unknown Unknown Unknown [id number] Unknown 09/28/25 Unknown Unknown Active Unknown Procedure Provider Procedure Date Device Type Site Unknown Unknown 09/02/23 Unknown Unknown Device Identifier Serial Number Lot or Batch Number Manufacturing Date Expiration Date Distinct Identification Code MRI Safety Implantable Status Assigning Authority Unknown Unknown [id number] Unknown 10/29/24 Unknown Unknown Active Unknown Unknown Unknown [id number] Unknown 09/28/25 Unknown Unknown Active Unknown Procedure Provider Procedure Date Device Type Site Unknown Unknown 03/16/23 Unknown Unknown Device Identifier Serial Number Lot or Batch Number Manufacturing Date Expiration Date Distinct Identification Code MRI Safety Implantable Status Assigning Authority Unknown Unknown [id number] Unknown 01/14/25 Unknown Unknown Active Unknown Unknown Unknown [id number] Unknown 09/02/25 Unknown Unknown Active Unknown Patient Care team information Care Team Personnel Name: Constantin Del Toro Kimberly Position: Pharmacist BCMA Member Role: Pharmacy - Lifetime Address: [address] Name: MD Kitchen Raymond J Position: Physician - Hem/Onc Member Role: Lifetime Relationship Address: [address] [place] [address] Telecom: [phone] Name: Constantin Ferreira Matthew Position: Pharmacist Member Role: Pharmacy - Lifetime Name: Mame Perez RPh, William Position: Pharmacist Member Role: Pharmacy - Lifetime Name: MD Soni Ravishankar E Position: Physician Member Role: Primary Care Provider Address: [address] [place] [address] Telecom: [phone] Care Team Related Persons Name: BRUNO YOO Insurance Providers Guarantor name: BERNY Justice [facility] [employer] [facility] Information #: 1 Payer: [employer] [facility] Member Number: [id number] Policy Number: NA Group Number: [id number] Health Plan Information #: 2 Payer: [facility] Member Number: [id number] Policy Number: NA Group Number: NA Health Plan Information #: 3 Payer: [employer] PCP ONLY Member Number: NA Policy Number: NA Group Number: NA
--- OUTSIDE RECORDS SUMMARY | 2024-07-19 07:11 | External Medical Summary | Continuity of Care Document ---
Author Name Unknown Organization [facility] Address [address] [place] [address] JOSIE ANDERSON [phone] Care Team Providers Care Food Mobile Driver Name Role Phone Samra Soni Primary Care Physician [phone] Encounter [facility] [id number] Date(s): 07/16/24 - 07/16/24 [facility] [id number], [place] [address]- [phone] Encounter Diagnosis Carcinoma of colon metastatic to liver(Discharge Diagnosis) - 07/16/24 Hypotension(Discharge Diagnosis) - 07/16/24 Dizziness(Discharge Diagnosis) - 07/16/24 Weakness(Discharge Diagnosis) - 07/16/24 Discharge Disposition: Home or Self Care Attending Physician: MD Kitchen Raymond J Referring Physician: MD Soni Ravishankar E Encounter Type: [facility] [place] Allergies, Adverse Reactions, Alerts Substance Criticality Severity Reaction Reaction Severity Status Percodan Rash Active Assessment and Plan Extracted from: Title:Oncology Office Visit Note Author:Gianni Woodall Annie Date:07/16/24 64 y/o male with metastatic colon cancer on [...] dose on 02/06/24, presents for dose #7 today. Tolerating well so far. - CT scan again reviewed with patient. Discussed small increasing pulmonary nodules. Recommend continuing treatment as planned as patient does not wish to have traditional chemotherapy due to side effects. - CEA decreasing - reviewed with patient. Will proceed with treatment today and plan for again in 2 weeks. - 06/18/24: CEA 808.1 - 07/02/24: CEA 607.9 - Plan is to continue treatment with Capecitabine 500 mg BID 2 weeks on, 1 week off and Panitumumab Infusions q2 weeks. However, will hold treatment today to allow patient to recover from pneumonia. - Will give IV hydration today instead for hypotension. - We will assess CEA again at next followup - Will obtain re-imaging in July 2024 - ordered for 07/30/24. 2. Shortness of breath concerning for Pneumonia Patient had an episode of SOB and Fatigue, given Doxycyline (5 days) and Amoxcilllin 7 day course at the ED. First dose was 06/29/24. - Continued with hypoxia. Was admitted 07/09/24 at [facility]. - Continues on levofloxacin. - Will hold treatment this week and allow patient time to recover. Will see him back in 2 weeks to assess symtoms prior to next treatment. 3. Multifocal pulmonary metastasis/ chronic smoker -Upon review of his CT chest as noted above he will plan to continue with his treatment as planned. -He was encouraged to make efforts in smoking cessation. 4. Hypothyroidism -Continue on Synthroid 125 mcg 5. Anemia -Continue to monitor labs per chemotherapy protocol -His hemoglobin low today at 7.9 g/dL. - Reviewed s/s of anemia. Aware if he develops any to go to ED as he will likely need blood transfusion. - Will check labs next week at [facility]. 6. 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 - rec Goldbond lotion 9.Hypomagnesemia- OTC supplements - Reviewed mag level today. Patient does not wish to stay for IV Magnesium infusion. - Continue PO Mag. 10. Hypokalemia and hypocalcemia: - Improving. - Continue PO K+. 11. Proteinuria and BLE edma - Likely secondary to Avastin and amlodipine. Patient has since d/c Amlodipine and continues on the Lisinopril 10 mg Daily - Lisinopril changed to 5 mg BID given concerns for hypotension (lightheadedness). - PT evaluation for lymphedema - Resume lisinopril for HTN and d/c amlodipine per nephro. - 24 hour creatinine clearance results reviewed and improving. - 07/14/24 lisinopril stopped by patient due to hypotension. - Continue to hold lisinopril and monitor BP. 12. Acneform rash to face- stable - Continue with benzyl peroxide ointment. - Can consider derm referral if ongoing. 13. Hypotension Lisinopril is on hold. Will give IV fluids today. Had fall 2 days ago. Discussed going to ED for imaging. Patient declined. Dispo: Patient will return in 2 weeks time for labs, treatment and OV to monitor swelling, pneumonia, and review scan. Next visit, will move OV to every 4 weeks unless needing to see more frequently . I managed this serious disease longitudinally in this complex patient. Immunizations Given and Recorded Vaccine Date Status Refusal Reason SARS-CoV-2 (COVID-19) mRNA BNT-162b2 vax 12/10/20 Recorded SARS-CoV-2 (COVID-19) mRNA BNT-162b2 vax 11/09/20 Recorded Medications Albuterol (Eqv-ProAir HFA) 90 mcg/inh inhalation aerosol Start: 07/12/24 1:32:00 PM EDT, 2 inh, inhaled, q4h, Disp# 8 g, Refills: 0, PRN: as needed for shortness of breath or wheezing, Pharmacy: [id number] Start Date: 07/12/24 Status: [...] bid, Disp# 60 tab, Refills: 1, Pharmacy: [id number] Start Date: 07/02/24 [...] 60 syringes x refills x 3, Pharmacy: [facility] Start Date: 05/28/24 Status: Ordered Quantity: 1.0 [...] per day - 90 day supply, Pharmacy: [facility] Start Date: 03/12/24 Status: Ordered [...] blood glucose testing up to 8x/day, Pharmacy: [facility] Start Date: 05/07/22 Status: Ordered [...] out of pocket if cheap enough, Pharmacy: [facility] Start Date: 08/24/23 Status: Ordered Quantity: 1.0 Unit: each Repeat number: 1 Indication: Type 1 diabetes mellitus with unspecified complications One Touch Verio Test Strips Start: 03/14/24 8:02:00 AM EST, See Instructions, Disp# 800 each, Refills: 3, test up to 8x/day as needed for Type 1 DM, Pharmacy: [facility] Start Date: 03/14/24 Status: Ordered Quantity: 800.0 Unit: each Repeat number: 4 Indication: Type 1 diabetes mellitus with unspecified complications ONETOUCH VERIO TEST STRIP Start: 06/07/24 8:48:00 AM EST, ONETOUCH VERIO TEST STRIP, See Instructions, Disp# 800 strip, Refills: 0, TEST UP TO 8 TIMES DAILY NEEDED, Pharmacy [facility] Start Date: 06/07/24 Status: Ordered Quantity: 800.0 Unit: Repeat number: 1 ONETOUCH VERIO TEST STRIP Start: 03/14/24 8:05:00 AM EST, ONETOUCH VERIO TEST STRIP, See Instructions, Disp# 800 strip, Refills: 0, TEST UP TO 8 TIMES DAILY NEEDED, Pharmacy [facility] Start Date: 03/14/24 Status: Ordered Quantity: 800.0 Unit: Repeat number: 1 panitumumab Start: 07/16/24 9:03:00 AM EDT, IV, [id number] Start Date: 07/16/24 Status: Ordered Repeat number: 1 Potassium Chloride (Eqv-K-Tab) 20 mEq oral tablet, extended release Start: 04/16/24 2:24:00 PM EST, 1 tab, PO, Daily, Disp# 30 tab, Refills: 0, Pharmacy: [id number] Start Date: 04/16/24 Status: Ordered Quantity: 30.0 Unit: tab Repeat number: 1 Pyridium 200 mg oral tablet Start: 05/04/24 3:01:00 PM EST, 1 tab, PO, tid, Disp# 6 tab, PRN: as needed for urinary discomfort, Pharmacy: [facility] [place] Start Date: 05/04/24 Stop Date: 05/06/24 Status: Ordered Quantity: 6.0 Unit: tab Repeat number: 1 Semglee (Vial) 100 units/mL subcutaneous solution Start: 03/12/24 11:19:00 AM EST, 20 unit =, subQ, Daily, Disp# 30 mL, Refills: 3, Pharmacy: [facility] Start Date: 03/12/24 Stop Date: 03/07/25 Status: Ordered Quantity: 30.0 Unit: mL Repeat number: 4 Slow-Mag 71.5 mg-119 mg oral delayed release tablet Start: 06/28/24 12:57:00 PM EDT, 2 tab, PO, bid, Disp# 120 tab, Refills: 3, Pharmacy: [id number] Start Date: 06/28/24 Stop Date: 10/26/24 Status: Ordered Quantity: 120.0 Unit: tab Repeat number: 4 Synthroid 125 mcg (0.125 mg) oral tablet Start: 03/12/24 11:19:00 AM EST, 1 tab, PO, Daily, Disp# 90 tab, Refills: 3, Pharmacy: [facility] Start Date: 03/12/24 Status: Ordered Quantity: 90.0 Unit: tab Repeat number: 4 Syringe MIS 0.3/31gauge Start: 03/12/24 11:19:00 AM EST, Syringe MIS 0.3/31gauge, eRx Product Type: Supply, See Instructions, Disp# 500 each, Refills: 3, Pt uses 6 syringes daily. E11.9, Pharmacy [facility] Start Date: 03/12/24 Status: Ordered Quantity: 500.0 Unit: each Repeat number: 4 Syringe MIS 0.3/31gauge Start: 01/01/22 10:03:00 AM EDT, Syringe MIS 0.3/31gauge, eRx Product Type: Supply, See Instructions, Disp# 500 each, Refills: 3, Pt uses 6 syringes daily. E11.9, Pharmacy [facility] Start Date: 01/01/22 Status: Ordered Quantity: 500.0 Unit: each Repeat number: 4 Vitamin B12 1000 mcg oral tablet Start: 10/24/23 10:35:00 AM EDT, 1 tab, PO, Daily, Disp# 90 tab, Refills: 0, Pharmacy: [facility] Start Date: 10/24/23 Stop Date: 01/22/24 Status: Ordered Quantity: 90.0 Unit: tab Repeat number: 1 ZyrTEC Start: 02/06/24 8:29:00 AM EDT, PO, Daily Start Date: 02/06/24 Status: Ordered Repeat number: 1 Mental Status 07/16/24 Barriers to Learning one year None evide nt Mandatory Health Literacy Documentation Yes Communication Barrier Present No Health Literacy Communication Barriers N ever Primary Language Yakut Problem List Condition Confirmation Course Effective Dates [...] Effective Dates Health Status Clinical Service Informant Carcinoma of colon metastatic to liver Discharge Diagnosis 07/16/24 Non-Specified Hypotension Discharge Diagnosis 07/16/24 Dizziness Discharge Diagnosis 07/16/24 Weakness Discharge Diagnosis 07/16/24 Procedures Procedure Date Related Diagnosis Body Site [...] Complete Blood Count w Differential (CBC ,DIFFH) 07/16/24 Comprehensive Metabolic Panel (COMP META B PANEL) 07/16/24 Magnesium Level (MAGNESIUM) 07/16/24 Most recent to oldest [Reference Range]: 1 eGFR CKD-EPI [>60 mL/min/1.73 m2] 45 mL/ min/1.73 m2 *LOW* (07/16/24 8:16 AM) Estimated CrCl 39.97 mL/min (07/16/24 8:16 AM) MPV [9.0-12.2 fL] 10.0 fL (07/16/24 8:16 AM) Immature Gran% 0.6 % (07/16/24 8:16 AM) Neut% 79.4 % (07/16/24 8:16 AM) Lymph% 9.3 % (07/16/24 8:16 AM) [place]% 7.4 % (07/16/24 8:16 AM) Baso% 0.2 % (07/16/24 8:16 AM) Eos% 3.1 % (07/16/24 8:16 AM) Immat Gran, Abs [0-0.4 K/uL] 0.07 K/uL (07/16/24 8:16 AM) Neut, Abs [2.0-7.7 K/uL] 8.67 K/uL *HI* (07/16/24 8:16 AM) Lymph, Abs [1.0-3.4 K/uL] 1.02 K/uL (07/16/24 8:16 AM) [place], Abs [0-1.0 K/uL] 0.81 K/uL (07/16/24 8:16 AM) Baso, Abs [0-0.1 K/uL] 0.02 K/uL (07/16/24 8:16 AM) Eos, Abs [0-0.5 K/uL] 0.34 K/uL (07/16/24 8:16 AM) Type of Diff: AUTO *Unknown* (07/16/24 8:16 AM) RDW [11.5-14.2 %] 15.9 % *HI* (07/16/24 8:16 AM) Anion Gap [5-14 mmol/L] 10 mmol/L (07/16/24 8:16 AM) Alb [3.5-5.2 g/dL] 2.9 g/dL *LOW* (07/16/24 8:16 AM) Alk Phos [40-130 unit/L] 112 unit/L 1 (07/16/24 8:16 AM) ALT [0-41 unit/L] 21 unit/L (07/16/24 8:16 AM) AST [0-40 unit/L] 41 unit/L *HI* (07/16/24 8:16 AM) BUN [6-23 mg/dL] 25 mg/dL *HI* (07/16/24 8:16 AM) Ca [8.4-10.2 mg/dL] 7.5 mg/dL *LOW* (07/16/24 8:16 AM) Cl- [98-107 mmol/L] 102 mmol/L (07/16/24 8:16 AM) HCO3 [22-29 mmol/L] 21 mmol/L *LOW* (07/16/24 8:16 AM) Cret [0.70-1.30 mg/dL] 1.69 mg/dL *HI* (07/16/24 8:16 AM) Glu [74-109 mg/dL] 196 mg/dL 2 *HI* (07/16/24 8:16 AM) Hct [39-48 %] 24.6 % *LOW* (07/16/24 8:16 AM) Hgb [13.0-17.0 g/dL] 7.9 g/dL *LOW* (07/16/24 8:16 AM) K [3.5-5.1 mmol/L] 4.6 mmol/L (07/16/24 8:16 AM) MCH [28-33 pg] 25.6 pg *LOW* (07/16/24 8:16 AM) MCHC [32-36 g/dL] 32.1 g/dL (07/16/24 8:16 AM) MCV [81-96 fL] 79.9 fL *LOW* (07/16/24 8:16 AM) Mg [1.6-2.6 mg/dL] 0.6 mg/dL *LOW* (07/16/24 8:16 AM) Na [136-145 mmol/L] 133 mmol/L *LOW* (07/16/24 8:16 AM) Plts [150-350 K/uL] 297 K/uL (07/16/24 8:16 AM) RBC [4.40-5.60 M/uL] 3.08 M/uL *LOW* (07/16/24 8:16 AM) T Bili [0.0-1.2 mg/dL] 0.4 mg/dL (07/16/24 8:16 AM) Prot [6.4-8.3 g/dL] 6.3 g/dL *LOW* (07/16/24 8:16 AM) WBC [4.0-10.4 K/uL] 10.93 K/uL *HI* (07/16/24 8:16 AM) 1Result Comment: Low levels of ALKP may indicate a deficiency in zinc, magnesium, or malnutritionbutcan also be an indicator of a rare genetic disease hypophosphatasia (HPP). 2Result Comment: ADA recommendation for FASTING Serum/Plasma Glucose: Normal: 70-100 mg/dL Prediabetes: 100-125 mg/dL Diabetes: 126 mg/dL or higher Vital Signs Most recent to oldest [Reference Range]: 1 Patient Weight 62.7 kg 1 (07/16/24 9:05 AM) Temperature [36.5-37.9 DegC] 36.6 DegC (07/16/24 9:05 AM) Heart Rate 84 bpm (07/16/24 9:05 AM) Respiratory Rate 16 br/min (07/16/24 9:05 AM) Blood Pressure 104/56mmHg (07/16/24 9:05 AM) Mean Blood Pressure 67 mmHg (07/16/24 9:05 AM) Cuff Pulse Pressure 48 mmHg (07/16/24 9:05 AM) BP Location # 1 Right Arm (07/16/24 9:05 AM) 1Result Comment: w/ shoes on Social [...] Safety Implantable Status Assigning Authority Unknown Unknown [id number] Unknown 06/15/26 Unknown Unknown Active Unknown Procedure Provider Procedure Date Device Type Site Unknown Unknown 01/03/24 Unknown Unknown Device Identifier Serial Number Lot or Batch Number Manufacturing Date Expiration Date Distinct Identification Code MRI Safety Implantable Status Assigning Authority Unknown Unknown [id number] Unknown 09/16/26 Unknown Unknown Active Unknown Unknown Unknown [id number] Unknown 09/28/25 Unknown Unknown Active Unknown Procedure Provider Procedure Date Device Type Site Unknown Unknown 09/02/23 Unknown Unknown Device Identifier Serial Number Lot or Batch Number Manufacturing Date Expiration Date Distinct Identification Code MRI Safety Implantable Status Assigning Authority Unknown Unknown [id number] Unknown 10/29/24 Unknown Unknown Active Unknown Unknown Unknown [id number] Unknown 09/28/25 Unknown Unknown Active Unknown Procedure Provider Procedure Date Device Type Site Unknown Unknown 03/16/23 Unknown Unknown Device Identifier Serial Number Lot or Batch Number Manufacturing Date Expiration Date Distinct Identification Code MRI Safety Implantable Status Assigning Authority Unknown Unknown [id number] Unknown 01/14/25 Unknown Unknown Active Unknown Unknown Unknown [id number] Unknown 09/02/25 Unknown Unknown Active Unknown Hematology/Oncology Outpt Note * CASIE Woodall Annie: PERFORM, MODIFY, MODIFY, MODIFY, MODIFY, MODIFY, MODIFY, MODIFY Event Display: Hematology/Oncology Outpt Note Authored Date: [id number] Chief Complaint 2 week f/u visit. Patient also stated that his balance has been off lately, and he has been feelinglight headed and dizzy. BP has been running low as well. History of Present Illness 64-year-old gentleman, chronic smoker, DM-1 since age 5 y/[address] to Dr Kitchen clinic on 04/08/2022 for evaluation [...] metastasis tethering the distal ureters bilaterally. 03/22/2022: Diagnosis (Verified) A. Colon, hepatic flexure, biopsy (35-S 02/03/22):- Colonic mucosa with focal high-grade dysplasia. B. Colon, transverse, polypectomy ( -S 02/03/22):- Tubular adenoma. C. Colon, sigmoid, biopsy sigmoid colitis (-S 02/03/22):- No pathological ulceration. D. Rectum, polypectomy (-S 02/03/22)":- Fragments of tubular adenoma. 2 Liver, side unspecified (core needle biopsy) (-5563-S 02/18/22): - Metastatic moderately differentiated adenocarcinoma. - Focal dystrophic calcification. COMMENT: Immunostain shows tumor cells positive for CK20, CDX2, Negative for CK7, TTF1 consistentwith colonic origin. MMR intact in part A. 07/19/2022: Interpretation (Verified) 1 Liver, Right, Fine Needle Aspiration: Positive for malignant cells consistent with metastatic colorectal adenocarcinoma. 2 Liver, Right, Cores: Positive for malignant cells consistent with metastatic colorectal adenocarcinoma. Comment: Immunostains were performed on a prior specimen. Abundant tumor is available in block 2Afor molecular testing if clinically requested. He was initially seen by Dr. Sparks in a [facility] who recommended surgical bypass because of the risk of obstruction. He was not interested in standard chemotherapy but was interested in immunotherapy. Initially, we had recommended the addition of a Avastin to capecitabine however the patient was incredibly reluctant to be treated with a Avastin. He cites multiple cardiovascular events and immediate family members and was concerned of the thrombotic and hemorrhagic complications. We then did discuss the possibility of giving him oxaliplatin him along with the capecitabine. He wasagreeable to Avastin along with capecitabine 1800 mg BID 14 days on/ 1 week off on a 3 week cycle. On 07/26/22, 1st cycle of bevacizumab ( AVSTIN) was started. On 12/20/22, 1st cetuximab ( ERBITUX) was started Caris result showed K-joe and NRAS mutation not detected. This suggests that cetuximab or panitumumab may be of use. 02/10/2023 CT Chest/ Abdomen and Pelvis [...] 03/16/2023:Cystoscopy, bilateral retrograde pyelograms with radiographic interpretation, bilateral ureteral stent exchange. 06/13/23 CT C/A/P CHEST Pleura [...] lesions are mildly decreased in size. [1] Recent History 64 y/o male with metastatic colon cancer on [...] His symptoms comes and goes. It was worse when he was previously on the Avastin with the Cepecitabine (and the cetuximab). They stopped the cetuximab and eased down on the cepecitabine. 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 He was previously also on Avastin which could contribute to nephrotic syndrome. He is back on Lisinopril 10 mg daily, though he does feel some lightheadedness when he takes it. He requested changing dose to 5 mg BID. Patient continues to feel fatigue, he's frustrated with his lack of ability to be active as he wants. Interval History 07/16/2024 Patient returns today for FU. He continues on panitumumab and capecitabine. Tolerating treatment OK. However, developed pneumonia and has been being treated for this. Was on antibiotic and developed SOB and hypoxia last week. Was hospitalized at [facility] on Tuesday07/09/24. Currently levofloxacin. Denies CP or SOB. Feels breathing is improving. Denies fevers or cough. Reports he felt dizzy 2 days ago. Got up to go to the bathroom in the middle of night and lost balance and fell on back on head. Denies LOC. Did not go to ER. Said he had just gotten out of hospital and did not want to go back. Denies headache or change in vision today. Still has muscle pain in neck from fall. reports BPs have been 70s/40s. Stopped lisinopril 2 days ago. Intermittent Diarrhea / Constipation, does not see blood in stool. Does see blood in urine (Ureteric stents Kidneys to Bladder (the edema was closing the veins off and tumor). To have stent replaced 07/31. Eating 1 good meal daily. Hydrating well. Noted 2.9lb weight loss since last week. Edema in legs has gotten worse since hospitalization last week. Elevating legs at home is helping. Continues taking PO mag at home. Review of Systems A complete 14 point review of systems was performed and was negative exceptive as noted above in HPI. Physical Exam Vital Signs and Measurements This Visit - Last 24 Hours T: 36.6 °C HR: 84 (Monitored) RR: 16 BP: 104/56 SpO2: 95% WT: 62.7 kg WT: 62.700 kg (Dosing) General: Chronically-ill appearing in no apparent acute distress. HEENT: Head normocephalic, atraumatic, sclera clear, conjunctiva pink. Cardiac: Regular Rate and Rhythm, no murmurs, rubs or gallops. 2+ pulses bilaterally in upper and lower extremity. Lungs: Clear to auscultation bilaterally, no wheezes, rales, or rhonchi, Abdomen: Normoactive bowel sounds, firm, diffusely tender to palpation in all four quadrants. Extremities: 3+ Pitting Edema in bilateral lower extremities. Neuro: Alert and oriented to person, time, place and situation. Skin: Warm and dry, with no apparent discoloration or rashes. Performance Scales and Status ECOG Performance Status: 2 (07/16/24) ECOG Performance Status: 2 (07/02/24) ECOG Performance Status: 1 (06/18/24) Pain Score: 6 Patient Declined Assessment on: 07/16/2024 09:03 Distress Inventory Not Completed Reason: [ _ ] Medical Contraindication: _ [ _ ] Functional Capacity [ _ ] Patient Refusal [ _ ] Other: _ Oncology Regimens Oncology Chemo Regimens: Regimen: ONCR panitumumab (2 weeks) Colorectal Adult (</= 165 kg) (Started) Intent of Therapy: Advanced/palliative Line of Therapy: Third Order Dt/Tm: 01/16/24 11:54 Assessment/Plan 64 y/o male with metastatic colon cancer on [...] dose on 02/06/24, presents for dose #7 today. Tolerating well so far. - CT scan again reviewed with patient. Discussed small increasing pulmonary nodules. Recommend continuing treatment as planned as patient does not wish to have traditional chemotherapy due to side effects. - CEA decreasing - reviewed with patient. Will proceed with treatment today and plan for again in 2weeks. - 06/18/24: CEA 808.1 - 07/02/24: CEA 607.9 - Plan is to continue treatment with Capecitabine 500 mg BID 2 weeks on, 1 week off and Panitumumab Infusions q2 weeks. However, will hold treatment today to allow patient to recover from pneumonia. - Will give IV hydration today instead for hypotension. - We will assess CEA again at next followup - Will obtain re-imaging in July 2024 - ordered for 07/30/24. 2. Shortness of breath concerning for Pneumonia Patient had an episode of SOB and Fatigue, given Doxycyline (5 days) and Amoxcilllin 7 day course at the ED. First dose was 06/29/24. - Continued with hypoxia. Was admitted 07/09/24 at [facility]. - Continues on levofloxacin. - Will hold treatment this week and allow patient time to recover. Will see him back in 2 weeks to assess symtoms prior to next treatment. 3. Multifocal pulmonary metastasis/ chronic smoker -Upon review of his CT chest as noted above he will plan to continue with his treatment as planned. -He was encouraged to make efforts in smoking cessation. 4. Hypothyroidism -Continue on Synthroid 125 mcg 5. Anemia -Continue to monitor labs per chemotherapy protocol -His hemoglobin low today at 7.9 g/dL. - Reviewed s/s of anemia. Aware if he develops any to go to ED as he will likely need blood transfusion. - Will check labs next week at [facility]. 6. 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 - rec Goldbond lotion 9.Hypomagnesemia- OTC supplements - Reviewed mag level today. Patient does not wish to stay for IV Magnesium infusion. - Continue PO Mag. 10. Hypokalemia and hypocalcemia: - Improving. - Continue PO K+. 11. Proteinuria and BLE edma - Likely secondary to Avastin and amlodipine. Patient has since d/c Amlodipine and continues on the Lisinopril 10 mg Daily - Lisinopril changed to 5 mg BID given concerns for hypotension (lightheadedness). - PT evaluation for lymphedema - Resume lisinopril for HTN and d/c amlodipine per nephro. - 24 hour creatinine clearance results reviewed and improving. - 07/14/24 lisinopril stopped by patient due to hypotension. - Continue to hold lisinopril and monitor BP. 12. Acneform rash to face- stable - Continue with benzyl peroxide ointment. - Can consider derm referral if ongoing. 13. Hypotension Lisinopril is on hold. Will give IV fluids today. Had fall 2 days ago. Discussed going to ED for imaging. Patient declined. Dispo: Patient will return in 2 weeks time for labs, treatment and OV to monitor swelling, pneumonia, and review scan. Next visit, will move OV to every 4 weeks unless needing to see more frequently. I managed this serious disease longitudinally in this complex patient. Staging Information No information available Problem List/Past Medical History Ongoing Bilateral ureteral obstruction. 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 Vitamin D deficiency Weight disorder Resolved Routine adult health maintenance Procedure/Surgical History •Stent replacement| Service Date: 10/04/2022•Cystoscopy| Service Date: 10/04/2022•Cystoscopy|Service Date: 04/22/2022•Colonoscopy and tattooing| Service Date: 02/03/2022•Abdominal| ServiceDate: 01/25/2022•Shave biopsy and cauterization of skin| Service Date: 04/09/2021•Examination of eye| Service Date: 05/04/2017•Amputation finger-complicated| Service Date: 1998•Knee meniscus|Service Date: 1997•Vitrectomy, mechanical, pars plana approach; with endolaser panretinal photocoagulation| Service Date: 1983•Hernia repair| Service Date: 1981•Cystoscopy and retrograde pyelography•Cystoscopy, bilateral retrograde pyelograms with radiographic interpretation, bilateral [...] oral tablet), 5 mg= 1 tab, PO, bid, 1 refills morphine, 60 mg, [...] medication(ONETOUCH VERIO TEST STRIP), See Instructions Allergies Percodan Rash Social History Smoking Status Current some day [...] mRNA BNT-162b2 vax 11/09/2020 Recorded Labs Na: 133 mmol/L Low (07/16/24 08:16:00) K: 4.6 mmol/L (07/16/24 08:16:00) Cl-: 102 mmol/L (07/16/24 08:16:00) BUN: 25 mg/dL High (07/16/24 08:16:00) Cret: 1.69 mg/dL High (07/16/24 08:16:00) Glu: 196 mg/dL High (07/16/24 08:16:00) Ca: 7.5 mg/dL Low (07/16/24 08:16:00) M.6 mg/dL Low (07/16/24 08:16:00) WBC: 10.93 K/uL High (07/16/24 08:16:00) Hgb: 7.9 g/dL Low (07/16/24 08:16:00) Hct: 24.6 % Low (07/16/24 08:16:00) MCV: 79.9 fL Low (07/16/24 08:16:00) Plts: 297 K/uL (07/16/24 08:16:00) Neut%: 79.4 % (07/16/24 08:16:00) Baso%: 0.2 % (07/16/24 08:16:00) Neut, Abs: 8.67 K/uL High (07/16/24 08:16:00) Lymph, Abs: 1.02 K/uL (07/16/24 08:16:00) ALT: 21 unit/L (07/16/24 08:16:00) T Bili: 0.4 mg/dL (07/16/24 08:16:00) Alk Phos: 112 unit/L (07/16/24 08:16:00) AST: 41 unit/L High (07/16/24 08:16:00) [1] Oncology Office Visit Note; MD Kitchen Raymond J 07/02/2024 08:50 EDT Electronic Signature on File Electronically Reviewed/Signed by: CASIE Loco Author Signature Dt/Tm:07/16/2024 10:47 AM Division of Hematology Oncology Electronically Reviewed/Signed by: CASIE Loco Cosigner Signature Dt/Tm: 07/16/2024 11:00 AM Division of Hematology Oncology Electronically Reviewed/Signed by: CASIE Loco Cosigner Signature Dt/Tm: 07/16/2024 03:01 PM Division of Hematology Oncology Electronically Reviewed/Signed by: Bronson Kitchen MD Cosigner Signature Dt/Tm: 07/17/2024 08:35 AM Division of Hematology Oncology AC Patient Care team information Care Team Personnel Name: Constantin Del Toro Kimberly Position: Pharmacist BCMA Member Role: Pharmacy - Lifetime Address: [address] Name: MD Kitchen Raymond J Position: Physician - Hem/Onc Member Role: Lifetime Relationship Address: [address] [place] [address] Telecom: [phone] Name: Constantin Ferreira Matthew Position: Pharmacist Member Role: Pharmacy - Lifetime Name: Mame Perez RPh, William Position: Pharmacist Member Role: Pharmacy - Lifetime Name: MD Soni Ravishankar E Position: Physician Member Role: Primary Care Provider Address: [address] [place] [address] Telecom: [phone] Care Team Related Persons Name: BRUNO YOO Insurance Providers Guarantor name: BERNY RUBIO Health Plan Information #: 1 Payer: [employer] Member Number: [id number] Policy Number: NA Group Number: [id number] Health Plan Information #: 2 Payer: [employer] Member Number: [id number] Policy Number: NA Group Number: NA Health Plan Information #: 3 Payer: [employer] PCP ONLY Member Number: NA Policy Number: NA Group Number: NA
--- OUTSIDE RECORDS SUMMARY | 2024-07-19 07:11 | External Medical Summary | Continuity of Care Document ---
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 Hospital discharge follo w-up 2. Multifocal pneumonia Improving - continue levofloxacin until completed - Recommend follow-up if symptoms worsen or return after completion of antibiotic 3. 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 - Discussed that short acting insulin should only be used with meals and he should not be using every couple of hours without food. Recommend follow-up if not improving or if symptoms worsen. Time: 40 mins 10_ - pre-visit chart review 22 - visit, inclusive of history, exam, and discussion of assessment/plan 8_ - post-visit documentation/orders/coordination of care Disclaimer: This documentation was prepared (fully or partially) utilizing [employer] Speech Recognition software. No method of documentation is perfect. Grammatical errors, random word insertions, pronoun errors and incomplete sentences are occasional consequences of the system due to software/hardware limitations and/or ambient noise. Effort is given to identify and correct these errors during the course of the documentation but it is not always able to capture every error. Any questions or concerns about the context contained within this documentation should be directed to the provider for clarification through [employer] or via our office. Immunizations Given and Recorded Vaccine Date Status Refusal Reason SARS-CoV-2 (COVID-19) mRNA BNT-162b2 vax 12/10/20 Recorded SARS-CoV-2 (COVID-19) mRNA BNT-162b2 vax 11/09/20 Recorded Medications Albuterol (Eqv-ProAir HFA) 90 mcg/inh inhalation aerosol Start: 07/12/24 1:32:00 PM EDT, 2 inh, inhaled, q4h, Disp# 8 g, Refills: 0, PRN: as needed for shortness of breath or wheezing, Pharmacy: [id number] Start Date: 07/12/24 Status: [...] mg oral tablet Start: 07/12/24 12:52:00 PM EDT Start Date: 07/12/24 Status: Ordered Repeat number: 1 lisinopril 5 mg oral tablet Start: 07/02/24 9:16:00 AM EDT, 1 tab, PO, bid, Disp# 60 tab, Refills: 1, Pharmacy: [id number] Start Date: 07/02/24 [...] 60 syringes x refills x 3, Pharmacy: [facility] Start Date: 05/28/24 Status: Ordered Quantity: 1.0 [...] Pharmacy: [facility] Start Date: 03/12/24 Status: Ordered [...] Pharmacy: [facility] Start Date: 03/14/24 Status: Ordered Quantity: 800.0 Unit: each Repeat number: 4 Indication: Type 1 diabetes mellitus with unspecified complications ONETOUCH VERIO TEST STRIP Start: 06/07/24 8:48:00 AM EST, ONETOUCH VERIO TEST STRIP, See Instructions, Disp# 800 strip, Refills: 0, TEST UP TO 8 TIMES DAILY NEEDED, Pharmacy [facility] Start Date: 06/07/24 Status: Ordered Quantity: 800.0 Unit: Repeat number: 1 ONETOUCH VERIO TEST STRIP Start: 03/14/24 8:05:00 AM EST, ONETOUCH VERIO TEST STRIP, See Instructions, Disp# 800 strip, Refills: 0, TEST UP TO 8 TIMES DAILY NEEDED, Pharmacy [facility] Start Date: 03/14/24 Status: Ordered Quantity: 800.0 Unit: Repeat number: 1 Potassium Chloride (Eqv-K-Tab) 20 mEq oral tablet, extended release Start: 04/16/24 2:24:00 PM EST, 1 tab, PO, Daily, Disp# 30 tab, Refills: 0, Pharmacy: [id number] Start Date: 04/16/24 Status: Ordered Quantity: 30.0 Unit: tab Repeat number: 1 Pyridium 200 mg oral tablet Start: 05/04/24 3:01:00 PM EST, 1 tab, PO, tid, Disp# 6 tab, PRN: as needed for urinary discomfort, Pharmacy: [facility] Start Date: 05/04/24 Stop Date: 05/06/24 Status: Ordered Quantity: 6.0 Unit: tab Repeat number: 1 Semglee (Vial) 100 units/mL subcutaneous solution Start: 03/12/24 11:19:00 AM EST, 20 unit =, subQ, Daily, Disp# 30 mL, Refills: 3, Pharmacy: [facility] Start Date: 03/12/24 Stop Date: [...] bid, Disp# 120 tab, Refills: 3, Pharmacy: [id number] Start Date: 06/28/24 Stop Date: 10/26/24 Status: Ordered Quantity: 120.0 Unit: tab Repeat number: 4 Synthroid 125 mcg (0.125 mg) oral tablet Start: 03/12/24 11:19:00 AM EST, 1 tab, PO, Daily, Disp# 90 tab, Refills: 3, Pharmacy: [facility] Start Date: 03/12/24 Status: Ordered Quantity: 90.0 Unit: tab Repeat number: 4 Syringe MIS 0.3/31gauge Start: 03/12/24 11:19:00 AM EST, Syringe MIS 0.3/31gauge, eRx Product Type: Supply, See Instructions, Disp# 500 each, Refills: 3, Pt uses 6 syringes daily. 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 Discharge Diagnosis 07/13/24 Non-Specified Multifocal pneumonia Discharge Diagnosis 07/13/24 Non-Specified Procedures Procedure Date Related Diagnosis Body [...] to oldest [Reference Range]: 1 Patient Weight 64 kg (07/12/24 12:56 PM) Heart Rate 87 bpm (07/12/24 12:56 PM) Respiratory Rate 20 br/min (07/12/24 12:56 PM) Blood Pressure 125/65mmHg (07/12/24 12:56 PM) Social History Social History Type Response [...] Safety Implantable Status Assigning Authority Unknown Unknown [id number] Unknown 06/15/26 Unknown Unknown Active Unknown Procedure Provider Procedure Date Device Type Site Unknown Unknown 01/03/24 Unknown Unknown Device Identifier Serial Number Lot or Batch Number Manufacturing Date Expiration Date Distinct Identification Code MRI Safety Implantable Status Assigning Authority Unknown Unknown [id number] Unknown 09/16/26 Unknown Unknown Active Unknown Unknown Unknown [id number] Unknown 09/28/25 Unknown Unknown Active Unknown Procedure Provider Procedure Date Device Type Site Unknown Unknown 09/02/23 Unknown Unknown Device Identifier Serial Number Lot or Batch Number Manufacturing Date Expiration Date Distinct Identification Code MRI Safety Implantable Status Assigning Authority Unknown Unknown [id number] Unknown 10/29/24 Unknown Unknown Active Unknown Unknown Unknown [id number] Unknown 09/28/25 Unknown Unknown Active Unknown Procedure Provider Procedure Date Device Type Site Unknown Unknown 03/16/23 Unknown Unknown Device Identifier Serial Number Lot or Batch Number Manufacturing Date Expiration Date Distinct Identification Code MRI Safety Implantable Status Assigning Authority Unknown Unknown [id number] Unknown 01/14/25 Unknown Unknown Active Unknown Unknown Unknown [id number] Unknown 09/02/25 Unknown Unknown Active Unknown FCM Outpt Note * DO Bhatt Mehwish: PERFORM Event Display: FCM Outpt Note Authored Date: [id number] Assessment/Plan 1. Hospital discharge follow-up 2. Multifocal pneumonia Improving - continue levofloxacin until completed - Recommend follow-up if symptoms worsen or return after completion of antibiotic 3. 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 - Discussed that short acting insulin should only be used with meals and he should not be using every couple of hours without food. Recommend follow-up if not improving or if symptoms worsen. Time: 40 mins 10_ - pre-visit chart review 22 - visit, inclusive of history, exam, and discussion of assessment/plan 8_ - post-visit documentation/orders/coordination of care Disclaimer: This documentation was prepared (fully or partially) utilizing [employer] Speech Recognition software. No method of documentation is perfect. Grammatical errors, random word insertions, pronoun errors and incomplete sentences are occasional consequences of the system due to software/hardware limitations and/or ambient noise. Effort is given to identify and correct these errors duringthe course of the documentation but it is not always able to capture every error. Any questions or concerns about the context contained within this documentation should be directed to the provider for clarification through [employer] or via our office. Chief Complaint TCM - on levofloxacin outpt, having discomfort with urination, reports some shortness of breath History of Present Illness Berny is a 64yo male seen for TCM visit after recent hospital discharge. Hospital admission for sepsis secondary to multifocal pneumonia. Medical history includes metastatic adenocarcinoma, T1DM, hypothyroidism. Presented to ED after a period of unresponsiveness. requiring bipap. Currently finishing course of levofloxacin. Discharged with 1 week of levofloxacin. Still has a fewdays left. Using an OTC for urinary symptoms. Breathing has improved. Still has some MASSEY. T1DM- has been using short acting insulin q2 hours because elevated readings in 300s. Physical Exam Vitals & Measurements HR: 87 (Monitored) RR: 20 BP: 125/65 SpO2: 95% WT: 64.000 kg (Dosing) WT: 64 kg PHQ2 Data (Data Documented on:07/12/2024 12:53) Emotional health assessment NEGATIVE GENERAL APPEARANCE: The patient is alert, oriented and in no acute distress. VITALS: As above. HEENT: Head is normocephalic/atraumatic. CARDIOVASCULAR: Regular rate and rhythm LUNGS: Left CTA. RLL, RML diminished breath sounds, mild rales- no wheezing. Problem List/Past Medical History Ongoing Bilateral ureteral [...] albuterol(Albuterol (Eqv-ProAir HFA) 90 mcg/inh inhalation aerosol), 180 mcg= 2 inh, inhaled, q4h, PRN calcium carbonate-magnesium chloride(Slow-Mag 71.5 mg-119 mg oral [...] solution), 20 unit, subQ, Daily, 3 refills levoFLOXacin(levoFLOXacin 750 mg oral tablet) levothyroxine(Synthroid 125 mcg (0.125 mg) oral tablet), [...] Intake (IView) Smoking History Cigarette smoker: Current some day light smoker Tobacco Product Use: Former other tobacco use, quit > than 1 year How many total years have you smoked: 40 Total pack years: 40 What is avg daily use when smokin pk (20 cigarettes) Family History Family history is negative Immunizations Vaccine Date Status SARS-CoV-2 (COVID-19) mRNA BNT-162b2 vax 12/10/2020 Recorded SARS-CoV-2 (COVID-19) mRNA BNT-162b2 vax 11/09/2020 Recorded Recommendations Health Maintenance Pending (in the next year) OverDue Lipid Screening due 06/06/18 and every 1826 day Diabetic Eye Exam due 05/12/19 and every 366 day Diabetes Management A1c due 06/15/23 and every 366 day Adult Influenza Vaccine due 10/10/23 and every 1 year Due Adult Social Determinants of Health Screening due 07/13/24 Unknown Frequency Adult Tdap/Td Vaccine due 07/13/24 Unknown Frequency Pneumococcal Vaccine Adults and Adolescents with Chronic Illness due 07/13/24 One-time only Seasonal COVID 19 Vaccine due 07/13/24 Unknown Frequency Shingles Vaccine due 07/13/24 One-time only Satisfied (in the past 1 year) Satisfied Body Mass Index on 05/04/24. Satisfied by KARL Roth, [facility] Evaluation on 07/02/24. Satisfied by [employer], [employer] Electronic Signature on File CC: Samra Soni MD [address] [id number] Electronically Reviewed/Signed by: Kaur Bhatt DO Author Signature Dt/Tm:07/13/2024 07:20 PM Division of Sports Medicine MM Patient Care team information Care Team Personnel Name: Constantin Del Toro Kimberly Position: Pharmacist BCMA Member Role: Pharmacy - Lifetime Address: [address] [address] [place] Name: MD Kitchen Raymond J Position: Physician - Hem/Onc Member Role: Lifetime Relationship Address: [address] [place] [address] Telecom: [phone] Name: Levit, RPh, Hugh Position: Pharmacist Member Role: Pharmacy - Lifetime Name: Mame Perez RPh, William Position: Pharmacist Member Role: Pharmacy - Lifetime Name: MD Zachariah, Samra Cano Position: Physician Member Role: Primary Care Provider Address: [address] [place] [address] Telecom: [phone] Care Team Related Persons Name: BRUNO YOO Insurance Providers Guarantor name: BERNY Justice [facility] Health Plan Information #: 1 Payer: [employer] Member Number: [id number] Policy Number: NA Group Number: [id number] Health Plan Information #: 2 Payer: [facility] Member Number: [id number] Policy Number: NA Group Number: NA Health Plan Information #: 3 Payer: [employer] PCP ONLY Member Number: NA Policy Number: NA Group Number: [id number]"
--- NOTE | 2024-07-19 07:20 | Emergency Department Note ---
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 well pneumatized. Orbits: The bony orbits are grossly intact. IMPRESSION: 1. No acute intracranial findings. 2. No intracranial metastases identified on unenhanced exam. ACT 112: Negative or not required by law. Electronically signed by: Aristides Drummond M.D. 07/19/2024 9:40 AM Discharge Plan Visit Data Chief Complaint: Cardiac Assessment Stated Complaint: RAPID HR,CHEST PAIN,SOB ED Provider: Yash Corral Discharge Problem: Hypoxia, Metastatic adenocarcinoma, Chest pain, PNA (pneumonia) Patient Disposition: Being Evaluated by Hospitalist Forms Stand Alone Forms: My [facility] Prescriptions Prescriptions: No Action levothyroxine 125 mcg Tablet 125 mcg PO QAM insulin aspart U-100 [Novolog U-100 Insulin aspart] 100 unit/mL Solution 1 sliding scale dose SUBCUT USEASDIRECTD morphine 60 mg Tablet Extended Release 60 mg PO Q12H Medical Marijuana 1 dose PO DIRECTED phenazopyridine [Pyridium] 200 mg tablet 200 mg PO Q8H PRN (Reason: pain) Qty: 10 0RF capecitabine [Xeloda] 500 mg Tablet 500 mg PO BID morphine 30 mg Tablet 30 mg PO Q4H PRN (Reason: Pain) lisinopril 5 mg Tablet 10 mg PO PM cetirizine [Zyrtec] 10 mg Tablet 10 mg PO DAILY cyanocobalamin (vitamin B-12) 1,000 mcg Tablet 1,000 mcg PO DAILY albuterol sulfate 90 mcg/actuation HFA aerosol inhaler 1 puff INHALATION DIRECTED PRN (Reason: sob) potassium chloride 20 mEq tablet extended release 20 meq PO DAILY magnesium 2 tab PO BID levofloxacin 750 mg tablet 750 mg PO DAILY 14 Days Qty: 14 0RF insulin glargine-yfgn [Semglee(insulin glargine-yfgn)] 100 unit/mL solution 5 unit SUBCUT HS Qty: 0 0RF Referrals Referrals: Deanna Soni MD [Primary Care Provider] -
--- NOTE | 2024-07-19 08:29 | XRay Report ---
EXAM: XR chest 1V portable CLINICAL HISTORY: Chest pain, nonspecific TECHNIQUE: An X-ray image of the chest is obtained in AP projection. COMPARISON: CR 07/09/2024. FINDINGS: Pulmonary Parenchyma: OBX.5.1OBX.5.1.1 Interval progression of the previously noted bilateral scattered patchy abnormal air space /OBX.5.1.1OBX.5.1.2 nodular opacities were noted more coalescent at the left upper and middle lung zones, as well as still noted few cystic changes./OBX.5.1.2/OBX.5.1 No evidence of pleural effusion or pleural thickening. Heart and Mediastinum: Heart size and shape are normal. No mediastinal widening or masses. No hilar or mediastinal lymphadenopathy. Bony Thorax: Mild spondlosis of the thoracic spine. The bony thorax appears intact without fractures or deformities. Soft Tissues: Soft tissues overlying the chest wall are unremarkable. IMPRESSION: OBX.5.1OBX.5.1.1Interval progression of the previously noted bilateral scattered patchy abnormal air space /OBX.5.1.1OBX.5.1.2 nodular opacities as well as still noted few cystic changes. Further follow-up is advised./OBX.5.1.2/OBX.5.1 Electronically signed by Wilbert Dodge 07-19-2024 08:29 AM
[2024-07-19 09:00] LABS: Hematocrit (blood only) 24.2 % (42.0-52.0); Mean Corpuscular Hemoglobin 25.8 pg (25.0-34.0); Mean Corpuscular Hgb Conc 33.1 g/dL (32.0-36.0); Mean Corpuscular Volume 78.1 fL (80.0-100.0); Mean Platelet Volume 10.5 fL (9.4-12.4); Nucleated RBC # (auto) 0.02 K/uL (0.00-0.12); Nucleated RBC % (auto) 0.1 %; Platelet Count 191 K/uL (130-400); RDW Coefficient of Variation 16.1 % (11.5-14.5); RDW Standard Deviation 45.5 fL (36.4-46.3); White Blood Count 16.59 K/ul (4.8-10.8)
[2024-07-19 09:04] LABS: INR 1.4 (0.9-1.1); Partial Thromboplastin Ratio 0.9; Partial Thromboplastin Time 23 Seconds (21-31); Prothrombin Time 14.6 Seconds (9.0-12.0)
[2024-07-19] MEDS: OPTIRAY 320 100ml IV ONE (09:04)
[2024-07-19 09:05] LABS: iSTAT Creatinine 1.2 mg/dl (0.6-1.3); iSTAT Hemoglobin 8.5 g/dl (14.0-18.0); iSTAT Ionized Calcium 1.06 mmol/l (1.12-1.32); iSTAT Potassium 4.3 mmol/L (3.3-5.0)
[2024-07-19 09:16] LABS: Anion Gap 5 (3-11); BUN Creatinine Ratio 25.2 (10-20); Blood Urea Nitrogen 27 mg/dl (6-23); Calcium 7.5 mg/dl (8.6-10.3); Carbon Dioxide 23 mmol/L (21-32); Chloride 108 mmol/L (98-107); Creatinine Clr Calc Pharmacy 65.2 ml/min; Glucose 200 mg/dl (70-99(Fasting)); Potassium 4.4 mmol/L (3.5-5.1); Sodium 136 mmol/L (136-145)
[2024-07-19 09:22] LABS: Troponin I High Sensitivity 18.6 pg/ml (0-20)
[2024-07-19 09:28] LABS: Basophils # (auto) 0.02 K/uL (0.00-0.20); Basophils % (auto) 0.1 %; Echinocytes 1+; Eosinophils # (auto) 0.01 K/uL (0.00-0.50); Eosinophils % (auto) 0.1 %; Immature Granulocytes # (auto) 0.15 K/uL (0.01-0.20); Immature Granulocytes % (auto) 0.9 %; Lymphocytes # (auto) 0.38 K/uL (1.20-3.40); Lymphocytes % (auto) 2.3 %; Monocytes # (auto) 0.55 K/uL (0.11-0.59); Monocytes % (auto) 3.3 %; Neutrophils # (auto) 15.48 K/uL (1.40-6.50); Neutrophils % (auto) 93.3 %
[2024-07-19 09:33] LABS: Alanine Aminotransferase 17 U/L (7-52); Albumin Globulin Ratio 0.7 (0.9-2); Albumin Level 2.5 gm/dl (3.4-5.0); Alkaline Phosphatase 97 U/L (34-104); Aspartate Aminotransferase 19 U/L (13-39); Bilirubin,Total 0.8 mg/dl (0.2-1.0); Globulin 3.4 gm/dl (2.5-4.0); Lipase < 3 U/L (11-82); Total Protein 5.9 gm/dl (6.0-8.3)
--- NOTE | 2024-07-19 09:42 | CT Scan Report ---
CT SCAN OF THE BRAIN WITHOUT IV CONTRAST CLINICAL HISTORY: Colon cancer. COMPARISON STUDY: Head CT T and CTA of the head September 03, 2018. TECHNIQUE: Unenhanced axial CT scan of the brain was performed from the vertex to the skull base. A dose lowering technique was utilized adhering to the principles of ALARA. FINDINGS: Brain parenchyma: No acute intracranial hemorrhage, midline shift or mass effect is present. Roasles-whi te matter differentiation is preserved. There are no extra-axial fluid collections. There are no find ings to suggest acute dural sinus thrombosis or acute territorial infarct. No intracranial lesions ar e identified on unenhanced exam. Ventricles, sulci, cisterns: There is no hydrocephalus. The basal cisterns are patent. Calvarium: Unremarkable. Sinuses and mastoids: The visualized paranasal sinuses are clear. The mastoid air cells are well pneu matized. Orbits: The bony orbits are grossly intact. IMPRESSION: 1. No acute intracranial findings. 2. No intracranial metastases identified on unenhanced exam. ACT 112: Negative or not required by law. Electronically signed by: Aristides Drummond M.D. 07/19/2024 9:40 AM
--- NOTE | 2024-07-19 09:47 | CT Scan Report ---
CT angio chest PE protocol CT DOSE: 1763 HISTORY: Chest Pain, eval for PE, recent pna. TECHNIQUE: Multiple CTA images of the chest were obtained after the intravenous administration of 80 ml Optiray. Coronal and sagittal MIPS were obtained from the axial data set and were submitted for r eview. All measurements were obtained according to NASCET criteria. A dose lowering technique was ut ilized adhering to the principles of ALARA. COMPARISON STUDY: 07/09/2024 FINDINGS: There are trace pleural effusions, stable. There are numerous scattered masses and pulmonar y nodules throughout both lungs, largest in the left upper lobe cavitary mass measures 6 cm, stable. There is scattered patchy groundglass pulmonary opacity. There is a moderate-sized area of patchy con solidation at the right lower lung lobe. No pneumothorax. Stable mediastinal adenopathy. No pericardi al effusion. Multiple masses are again seen at the partially visualized liver. There are diffuse kenia nary artery calcifications. There is no thoracic aortic dissection or aneurysm. No pulmonary embolism . No acute osseous findings. IMPRESSION: 1. No pulmonary embolism seen. 2. Multiple scattered masses and nodules throughout both lungs are grossly stable, consistent with ma lignancy/metastatic disease. 3. There is grossly stable superimposed pneumonia most prominent at the right lower lung lobe. 4. Stable hepatic metastatic disease. ACT 112: Negative or not required by law. The above report was generated using voice recognition software. It may contain grammatical, syntax o r spelling errors. Electronically signed by: Peter Malin M.D. 07/19/2024 9:45 AM
--- NOTE | 2024-07-19 09:54 | CT Scan Report ---
CT cervical spine wo con CT DOSE: 1762.99 mGy.cm CLINICAL HISTORY: fall sore on left. COMPARISON: None TECHNIQUE: Multiple axial CT images of the cervical spine were obtained without contrast. Sagittal a nd coronal reconstructions were done. A dose lowering technique was utilized adhering to the principl es of HENRY. FINDINGS: There is no evidence of a fracture or traumatic malalignment. The odontoid and atlantoaxial articulation are intact. There is no prevertebral soft tissue swelling. There is multilevel cervical spondylosis most pronounced at C5-6 where there is bilateral foraminal n arrowing. The pulmonary apices demonstrate the multiple bilateral pulmonary nodules/masses and there are thick walled cavities with nodular margins identified in the left pulmonary apex. Mediastinal lymphadenopat hy is present. There are no metastatic bone lesions are identified. IMPRESSION: No acute traumatic cervical spine injury identified. Multiple pulmonary masses and cavities suspicious for either metastatic disease with necrosis or a gr anulomatous process such as TB or Aspergillus. ACT 112: Negative or not required by law. The above report was generated using voice recognition software. It may contain grammatical, syntax o r spelling errors. Electronically signed by: Betty Mak M.D. 07/19/2024 9:51 AM
[2024-07-19] MEDS ORDERED: VANCOMYCIN CONSULT ACTIVE PRN (10:03)
[2024-07-19] MEDS: PIPERACILLIN/TAZOBACTAM 4.5 GM/100 ML BAG IV ONE (10:25)
[2024-07-19 10:49] LABS: Adenovirus PCR Not Detected (NotDetected); Bordetella parapertussis PCR Not Detected (NotDetected); Bordetella pertussis PCR Not Detected (NotDetected); Chlamydia pneumoniae PCR Not Detected (NotDetected); Coronavirus 229E PCR Not Detected (NotDetected); Coronavirus CoV-2 (COVID19)PCR Not Detected (NotDetected); Coronavirus HKU1 PCR Not Detected (NotDetected); Coronavirus NL63 PCR Not Detected (NotDetected); Coronavirus OC43PCR Not Detected (NotDetected); Human Metapneumovirus PCR Not Detected (NotDetected); Influenza A PCR Not Detected (NotDetected); Influenza B PCR Not Detected (NotDetected); Mycoplasma pneumoniae PCR Not Detected (NotDetected); Parainfluenza Virus 1 PCR Not Detected (NotDetected); Parainfluenza Virus 2 PCR Not Detected (NotDetected); Parainfluenza Virus 3 PCR Not Detected (NotDetected); Parainfluenza Virus 4 PCR Not Detected (NotDetected); Respiratory Syncytial VirusPCR Not Detected (NotDetected); Rhinovirus/Enterovirus PCR Not Detected (NotDetected)
[2024-07-19] MEDS: VANCOMYCIN HCL 1,250 MG in SODIUM CHLORIDE 0.9% 500 ML IV ONE (11:04)
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
[2024-07-19 14:24] LABS: Hematocrit (blood only) 26.6 % (42.0-52.0); Hemoglobin 8.9 g/dl (14.0-18.0)
--- NOTE | 2024-07-19 14:33 | Urology Consultation ---
<Statement entered by Venkata Zabala MD - 07/20/24 07:04> I agree with the above documentation. 64-year-old male with metastatic colon cancer with right-sided nephrostomy tube and left ureteral stent. Nephrostomy tube is draining well, with as well, to be done at [facility]. Bleeding seems to be coming from the level of the bladder. As long as he is voiding, I would hold off any urologic intervention at this time, as he reports this tends to cause more hematuria. Would be reasonable to transfuse if needed. Conversion to left nephrostomy tube may also help decrease bleeding. He can follow-up with his primary urologist as an outpatient. Please call with any questions or concerns. -Venkata Zabala MD. Date of Consultation July 19, 2024 Assessment & Plan (1) Metastatic disease: (2) Hematuria: (3) Nephrostomy present: (4) Ureteral stent present: 64-year-old male with past medical history of metastatic colon cancer and hydronephrosis managed with right percutaneous nephrostomy tube and left ureteral stent (exchanged at [facility]) who presented to the ED today for evaluation of shortness of breath, chest pain and tachycardia admitted for RLL pneumonia and acute hypoxic respiratory failure. Urology is consulted for chronic right percutaneous nephrostomy tube, left ureteral stent placement and ongoing hematuria Patient afebrile, hemodynamically stable, oxygen saturations improved with supplemental oxygen Labs reviewedcreatinine 1.07, WBC 16.59, hemoglobin [address] on 07/09 shows right nephrostomy tube and left ureteral stent appropriately positioned Patient has been undergoing right nephrostomy tube exchanges and left ureteral stent exchanges through [facility] and he is scheduled next week for next exchange Right nephrostomy tube is draining clear yellow urine Voided urine with hematuria per patient, which may be due to irritation from left ureteral stent He reports upcoming plan is for placement of left nephrostomy tube; exchange of right neph tube No acute intervention planned at this time He is voiding spontaneously at present Recommend monitor for void, collect UA/culture Can check renal/bladder ultrasound to evaluate for any significant clot within the bladder that may warrant intervention Continue supportive care and medical management per hospital medicine service Recommend patient follow-up at [facility] for nephrostomy tube exchange/placement when medically stable will follow peripherally, contact our service with any additional questions, concerns or changes in clinical status History of Present Illness Reason for Consultation: Chronic stent + R nephrostomy; ongoing hematuria Attending Physician: Dr. Arana History of Present Illness This is a 64-year-old male with past medical history of metastatic colon cancer, hydronephrosis managed with right percutaneous nephrostomy tube and left ureteral stent placement, type 1 diabetes, and multifocal pneumonia who presented to the ED today for evaluation of shortness of breath, chest pain and tachycardia. Recently was admitted 07/09 through 07/10 for sepsis of suspected pulmonary origin. On arrival to ED, patient afebrile, tachycardic with oxygen saturation at 75% on room air, which improved to 94% with supplemental oxygen. Lab work showed WBC 16.59, hemoglobin 8.0, creatinine 1.07, magnesium 0.7, lactate 2.0, Troponin 18.6. Bio fire PCR panel negative. Chest CTA showed superimposed pneumonia at the right lower lobe. Multiple masses and nodules throughout both lungs consistent with metastatic disease. Patient was admitted to hospital medicine service for pneumonia and acute hypoxic respiratory failure. Urology is consulted for evaluation of right nephrostomy tube, left ureteral stent, ongoing hematuria. Patient previously followed with [facility] urology and was undergoing bilateral stent exchanges with Dr. Hahn. Patient seen and examined in the emergency department with Dr. Zabala. Patient is resting in litter, eating lunch. He reports right nephrostomy tube has been draining appropriately with clear yellow urine. He reports voided urine is typically a kendra color with intermittent clots. Voiding spontaneously. Reports some difficulty urinating at times. He is now following with urology at [facility] where he follows with oncology. He reports he is scheduled for exchange of his nephrostomy tube/stent next week pending clinical course. He reports possible left nephrostomy tube placement is planned. Allergies Allergy/AdvReac Type Severity Reaction Status Date / Time oxycodone [From Percodan] Allergy Severe ITCHING TO Verified 10/04/22 06:54 PERONEAL AREA grapefruit Allergy Mild PRICKLY Verified 10/04/22 06:54 FEELING MOUTH Home Medications Medication Instructions Recorded Confirmed Type levothyroxine 125 mcg tablet 125 mcg PO QAM 09/02/18 07/19/24 History insulin aspart U-100 100 unit/mL 1 sliding scale dose subcut 01/29/22 07/19/24 History subcutaneous solution (Novolog USEASDIRECTD U-100 Insulin aspart) lisinopril 5 mg tablet 10 mg PO PM 04/16/22 07/19/24 History morphine 30 mg immediate release 30 mg PO Q4H PRN Pain 04/16/22 07/19/24 History tablet Medical Marijuana 1 dose PO DIRECTED 06/28/22 07/19/24 History morphine 60 mg tablet,extended 60 mg PO Q12H 06/28/22 07/19/24 History release phenazopyridine 200 mg tablet 200 mg PO Q8H PRN pain #10 tabs 07/05/22 07/19/24 Rx (Pyridium) capecitabine 500 mg tablet (Xeloda) 500 mg PO BID 09/22/22 07/19/24 History albuterol sulfate 90 mcg/actuation 1 puff inhalation DIRECTED PRN 07/09/24 07/19/24 History aerosol inhaler sob cetirizine 10 mg tablet (Zyrtec) 10 mg PO DAILY 07/09/24 07/19/24 History cyanocobalamin (vitamin B-12) 1,000 mcg PO DAILY 07/09/24 07/19/24 History 1,000 mcg tablet magnesium 2 tab PO BID 07/09/24 07/19/24 History potassium chloride 20 mEq 20 meq PO DAILY 07/09/24 07/19/24 History tablet,extended release insulin glargine-yfgn 100 unit/mL 5 unit (0.05 mL) subcut HS #0 mL 07/10/24 07/19/24 Rx subcutaneous solution (Semglee (insulin glargine-yfgn)) levofloxacin 750 mg tablet 750 mg PO DAILY 14 days #14 tabs 07/10/24 07/19/24 Rx Patient History Medical History Insulin-requiring or dependent type II diabetes mellitus Status post chemotherapy currently on avastin infusion q 3 weeks will have another infusion 09/27 and on oral chemo Xeloda daily History of anesthesia reaction Per patient- at age 5, had sodium pentothal for a dental procedure, had severe reaction three days after procedure (had to possibly be revived). 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 RP and ureteral stent placements H/O hernia repair Right inguinal hernia S/P biopsy Shave biopsy and cauterization of skin on 04/09/21 History of arthroscopy Left KNEE - Meniscus 1997 History of eye surgery R/L VITRECTOMY History of esophagogastroduodenoscopy (EGD) Family History Mother , 82yo Rheumatic fever Skin cancer Father No problems noted. Brother No problems noted. Brother Fatty liver Sister No problems noted. Sister No problems noted. Son No problems noted. Daughter No problems noted. Daughter No problems noted. Other Family history non-contributory Social History Smoking Status: Unknown if ever smoked Tobacco Type: Cigarettes Cigarettes Per Day: 30 per day- advised; Second Hand Exposure: No; Do You Dip or Chew Tobacco: No; Hx Alcohol Use: No Hx Substance Use: Yes Last Used Substance Other:: tea/vape-daily use Substance Use Type Other:: medical card Preferred Language: French Communication Ability: Effective Visual Impairment: No Limitations Hearing Ability: Normal Graphite Pan Drier Tender Required: No Beliefs That Will Affect Care: None marital status: Current Living Situation: Significant Other Current Living Situation Comment: [facility] current occupational status: retired How many Children do You have: 3 Feels Safe at Home: Yes Diet: regular caffeine: Yes (2 cups/day) during the past year weight has: decreased > 10 lbs Assistive Devices: None Review of Systems Review of Systems: All systems reviewed & are unremarkable except as noted in HPI & below Physical Exam Constitutional: + thin; no acute distress chronically ill appearing Respiratory: no respiratory distress and no labored breathing supplemental oxygen in place Neurologic: moves all extremities and awake Psychiatric: Orientation: alert and oriented x 3 Genitourinary: Right nephrostomy tube with clear yellow urine Results & Data Vital Signs (Past 12 Hours) Vital Signs Temp Pulse Pulse Resp BP BP Pulse Ox 07/19/24 14:29 92 H 19 127/87 94 07/19/24 13:00 79 14 120/67 94 07/19/24 11:00 80 15 126/67 95 07/19/24 09:30 87 19 124/71 93 07/19/24 09:30 88 21 124/71 94 07/19/24 09:00 90 18 119/71 96 07/19/24 08:45 92 H 17 106/72 94 07/19/24 08:30 90 21 120/75 97 07/19/24 08:15 95 H 12 99/72 L 96 07/19/24 07:45 99 H 18 94/63 L 95 07/19/24 07:30 102 H 21 113/71 96 07/19/24 07:13 07/19/24 07:12 07/19/24 07:11 116 H 07/19/24 07:09 110 H 17 128/75 94 07/19/24 07:06 36.6 C 121 H 30 H 96/57 L 75 L O2 Del Method O2 Flow Rate 07/19/24 14:29 Nasal Cannula 3 07/19/24 13:00 Oxymask 3 07/19/24 11:00 Nasal Cannula 3 07/19/24 09:30 Nasal Cannula 2 07/19/24 09:30 Nasal Cannula 3 07/19/24 09:00 Nasal Cannula 3 07/19/24 08:45 Nasal Cannula 3 07/19/24 08:30 Nasal Cannula 3 07/19/24 08:15 Nasal Cannula 3 07/19/24 07:45 Nasal Cannula 5 07/19/24 07:30 Nasal Cannula 5 07/19/24 07:13 Nasal Cannula 5 07/19/24 07:12 Nasal Cannula 07/19/24 07:11 07/19/24 07:09 Nasal Cannula 5 07/19/24 07:06 Room Air PG Care Time/CCT Total # of Minutes Spent Total Time Spent with Patient: Total time spent is greater than 50% in coordination of care (as documented) at patient's floor/unit and/or counseling patient: Coding Level of Care Code 66565 IN/OBS CONSULT LVL 4,60M Diagnoses Metastatic disease C79.9 Area of secondary neoplastic involvement: lymph node Hematuria R31.9 Nephrostomy present Z93.6 Ureteral stent present Z96.0 (1) Metastatic disease Area of secondary neoplastic involvement: lymph node
[2024-07-19] MEDS ORDERED: GLUCAGON FOR INJ 1 MG VIAL SQ PRN (15:20)
[2024-07-19] MEDS ORDERED: GLUCOSE 40% GEL 15 GM TUBE PO PRN (15:20)
[2024-07-19] MEDS ORDERED: DEXTROSE 50% 50 ML SYRINGE IV PRN (15:20)
[2024-07-19] MEDS ORDERED: GLUCOSE 10 TAB/TUBE PO PRN (15:20)
[2024-07-19] MEDS: MAGNESIUM SULFATE / D5W 1 GM/100 ML BAG IV SCH (15:22)
[2024-07-19] MEDS: MoRPHine SULFATE IR 15 MG TAB (IMMEDIATE RELEASE) PO PRN (15:37)
[2024-07-19] MEDS: ALBUT/IPRATROP 3MG/0.5MG NEB 3 ML VIAL INH SCH (15:53)
--- NOTE | 2024-07-19 15:59 | Pulmonary Consultation ---
Date of Consultation July 19, 2024 Assessment & Plan (1) Acute hypoxic respiratory failure: (2) Abnormal CT scan of lung: (3) Metastatic disease: Area of secondary neoplastic involvement: lymph node Plan Impression: 64-year-old male with widely metastatic colon cancer including pulmonary mets. He is on immune therapy and was admitted with progressive hypoxemia and CT scan showing progression of multifocal airspace opacities. The differential would include progression of malignancy, progression of infection, or potentially ICI related pulmonary toxicity. The patient has been on immunotherapy for over 6 months. Recommendations: 1. Had a long discussion with the patient and his at bedside. We reviewed the current implications and diagnostic dilemma. Ideally, could consider bronchoscopy with BAL and transbronchial biopsies however I suspect there is at least a component somewhere of progression of his underlying malignancy. Infection seems less likely given the fact that the patient was on broad- spectrum antibiotics for the last 2 weeks however his white blood cell count is slightly elevated today with a procalcitonin which is borderline at 0.43. At this point in time would recommend treating all potentially reversible causes and if the patient fails to respond, this likely may indicate end-stage metastatic disease. 2. Recommend placing the patient on high-dose steroids for possible ICI related pulmonary toxicity 3. Agree with empiric antibiotics for now. Continue therapy and follow procalcitonin, white blood cell count, and fever curve. If the patient is able to produce phlegm, respiratory cultures would be warranted. 4. Recommend checking BNP. The patient does not have an echocardiogram in our system. If the BNP were significantly elevated, consideration for an echo would be appropriate however the radiographic pattern does not appear consistent with atypical pulmonary. 5. Discussed with patient and spouse at bedside potential need for hospice/palliative care. Advised them that we have medications available to treat symptoms of end-stage respiratory involvement with metastatic disease to include benzodiazepines and higher doses of narcotics. The patient expressed understanding and is thankful with this information. He would like to see how he responds but he acknowledges that he has end-stage advanced cancer which is going to take his life. He is engaged with palliative care in the outpatient but could consider inpatient palliative care depending on his clinical course. We reviewed his CODE STATUS and he and his are both in agreement that they do not want to pursue intubation, mechanical ventilation, or ACLS interventions which is entirely appropriate. Total time for todays visit is 45 minutes of critical care time including end-of-life discussions in a patient with advanced metastatic colon cancer discussing prognosis and potential end-of-life issues History of Present Illness Attending Physician: Prosper Mascorro MD History of Present Illness Asked by hospitalist to assist in evaluation management of this patient with hypoxemic respiratory failure, metastatic colon cancer, and progressive airspace opacities on CT scan. History is obtained from discussion with the patient as well as with his at bedside as well as review of the electronic medical record. Patient is a 64-year-old male with a history of metastatic adenocarcinoma the colon. He has had obstructive nephropathy and multiple pulmonary mets. He was admitted the end of June for "sepsis". He was discharged on Levaquin. He needed oxygen and was on BiPAP initially but then was assessed for supplemental oxygen and apparently did not qualify at the time of discharge. He is followed primarily at [facility] for his medical oncology although he is engaged with palliative care locally and is on narcotics for symptom management. The patient was brought to the emergency room now with progressive shortness of breath as well as chest discomfort. He had a CT scan performed which revealed progression of the multifocal airspace opacities compared to prior CT. He was initiated on Zosyn and vancomycin in the emergency room and admitted to hospital service. The patient has been on immune therapy for approximately 6 months. Apparently there was some concern about pulmonary toxicity previously although the medication was never stopped. He has had some chronic swelling of his lower extremities. Allergies Allergy/AdvReac Type Severity Reaction Status Date / Time oxycodone [From Percodan] Allergy Severe ITCHING TO Verified 10/04/22 06:54 PERONEAL AREA grapefruit Allergy Mild PRICKLY Verified 10/04/22 06:54 FEELING MOUTH Home Medications Medication Instructions Recorded Confirmed Type levothyroxine 125 mcg tablet 125 mcg PO QAM 09/02/18 07/19/24 History insulin aspart U-100 100 unit/mL 1 sliding scale dose subcut 01/29/22 07/19/24 History subcutaneous solution (Novolog USEASDIRECTD U-100 Insulin aspart) lisinopril 5 mg tablet 10 mg PO PM 04/16/22 07/19/24 History morphine 30 mg immediate release 30 mg PO Q4H PRN Pain 04/16/22 07/19/24 History tablet Medical Marijuana 1 dose PO DIRECTED 06/28/22 07/19/24 History morphine 60 mg tablet,extended 60 mg PO Q12H 06/28/22 07/19/24 History release phenazopyridine 200 mg tablet 200 mg PO Q8H PRN pain #10 tabs 07/05/22 07/19/24 Rx (Pyridium) capecitabine 500 mg tablet (Xeloda) 500 mg PO BID 09/22/22 07/19/24 History albuterol sulfate 90 mcg/actuation 1 puff inhalation DIRECTED PRN 07/09/24 07/19/24 History aerosol inhaler sob cetirizine 10 mg tablet (Zyrtec) 10 mg PO DAILY 07/09/24 07/19/24 History cyanocobalamin (vitamin B-12) 1,000 mcg PO DAILY 07/09/24 07/19/24 History 1,000 mcg tablet magnesium 2 tab PO BID 07/09/24 07/19/24 History potassium chloride 20 mEq 20 meq PO DAILY 07/09/24 07/19/24 History tablet,extended release insulin glargine-yfgn 100 unit/mL 5 unit (0.05 mL) subcut HS #0 mL 07/10/24 07/19/24 Rx subcutaneous solution (Semglee (insulin glargine-yfgn)) levofloxacin 750 mg tablet 750 mg PO DAILY 14 days #14 tabs 07/10/24 07/19/24 Rx Patient History Medical History Insulin-requiring or dependent type II diabetes mellitus Status post chemotherapy currently on avastin infusion q 3 weeks will have another infusion 09/27 and on oral chemo Xeloda daily History of anesthesia reaction Per patient- at age 5, had sodium pentothal for a dental procedure, had severe reaction three days after procedure (had to possibly be revived). 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 RP and ureteral stent placements H/O hernia repair Right inguinal hernia S/P biopsy Shave biopsy and cauterization of skin on 04/09/21 History of arthroscopy Left KNEE - Meniscus 1998 History of eye surgery R/L VITRECTOMY History of esophagogastroduodenoscopy (EGD) Family History Mother , 82yo Rheumatic fever Skin cancer Father No problems noted. Brother No problems noted. Brother Fatty liver Sister No problems noted. Sister No problems noted. Son No problems noted. Daughter No problems noted. Daughter No problems noted. Other Family history non-contributory Social History Smoking Status: Former smoker Tobacco Type: Cigarettes Cigarettes Per Day: 30 per day- advised; Second Hand Exposure: Yes; Do You Dip or Chew Tobacco: No; Tobacco Cessation Education Requested by Patient: No Hx Alcohol Use: No Hx Substance Use: Yes Last Used Substance Other:: tea/vape-daily use Substance Use Type Other:: medical card Preferred Language: Setswana Communication Ability: Effective Visual Impairment: No Limitations Hearing Ability: Normal Fractionating Still Operator Required: No Beliefs That Will Affect Care: None marital status: Current Living Situation: Spouse Current Living Situation Comment: [facility] current occupational status: retired How many Children do You have: 3 Other Information That Helps Us Care for You: No Feels Safe at Home: Yes Safety Concerns: Feels Safe At This Time Diet: regular caffeine: Yes (2 cups/day) during the past year weight has: decreased > 10 lbs Assistive Devices: Oxygen - Continuous Review of Systems Review of Systems: Please refer to admission H&P. No additions or deletions Physical Exam Constitutional: + thin; no acute distress chronically ill appearing Respiratory: no respiratory distress and no labored breathing supplemental oxygen in place Cardiovascular: Rate/Rhythm: regular rate Heart Sounds: normal S1, normal S2 and + murmur Extremities: + edema Gastrointestinal (Abdomen): normal bowel sounds, soft, nontender, no hepatosplenomegaly Neurologic: moves all extremities and awake Psychiatric: Orientation: alert and oriented x 3 Genitourinary: Right nephrostomy tube with clear yellow urine Results & Data Results & Data Vital Signs (Past 12 Hours) Vital Signs Temp Pulse Pulse Resp BP BP Pulse Ox 07/19/24 15:20 94 07/19/24 15:01 07/19/24 15:01 36.6 C 111 H 28 H 131/64 88 L 07/19/24 14:29 92 H 19 127/87 94 07/19/24 13:00 79 14 120/67 94 07/19/24 11:00 80 15 126/67 95 07/19/24 09:30 87 19 124/71 93 07/19/24 09:30 88 21 124/71 94 07/19/24 09:00 90 18 119/71 96 07/19/24 08:45 92 H 17 106/72 94 07/19/24 08:30 90 21 120/75 97 07/19/24 08:15 95 H 12 99/72 L 96 07/19/24 07:45 99 H 18 94/63 L 95 07/19/24 07:30 102 H 21 113/71 96 07/19/24 07:13 07/19/24 07:12 07/19/24 07:11 116 H 07/19/24 07:09 110 H 17 128/75 94 07/19/24 07:06 36.6 C 121 H 30 H 96/57 L 75 L O2 Del Method O2 Flow Rate 07/19/24 15:20 Oxymask 07/19/24 15:01 Oxymask 4 07/19/24 15:01 Oxymask 6 07/19/24 14:29 Nasal Cannula 3 07/19/24 13:00 Oxymask 3 07/19/24 11:00 Nasal Cannula 3 07/19/24 09:30 Nasal Cannula 2 07/19/24 09:30 Nasal Cannula 3 07/19/24 09:00 Nasal Cannula 3 07/19/24 08:45 Nasal Cannula 3 07/19/24 08:30 Nasal Cannula 3 07/19/24 08:15 Nasal Cannula 3 07/19/24 07:45 Nasal Cannula 5 07/19/24 07:30 Nasal Cannula 5 07/19/24 07:13 Nasal Cannula 5 07/19/24 07:12 Nasal Cannula 07/19/24 07:11 07/19/24 07:09 Nasal Cannula 5 07/19/24 07:06 Room Air Critical Care Results & Data Vital Signs (Past 12 Hours) Vital Signs Temp Pulse Pulse Resp BP BP Pulse Ox 07/19/24 15:20 94 07/19/24 15:01 07/19/24 15:01 36.6 C 111 H 28 H 131/64 88 L 07/19/24 14:29 92 H 19 127/87 94 07/19/24 13:00 79 14 120/67 94 07/19/24 11:00 80 15 126/67 95 07/19/24 09:30 87 19 124/71 93 07/19/24 09:30 88 21 124/71 94 07/19/24 09:00 90 18 119/71 96 07/19/24 08:45 92 H 17 106/72 94 07/19/24 08:30 90 21 120/75 97 07/19/24 08:15 95 H 12 99/72 L 96 07/19/24 07:45 99 H 18 94/63 L 95 07/19/24 07:30 102 H 21 113/71 96 07/19/24 07:13 07/19/24 07:12 07/19/24 07:11 116 H 07/19/24 07:09 110 H 17 128/75 94 07/19/24 07:06 36.6 C 121 H 30 H 96/57 L 75 L O2 Del Method O2 Flow Rate 07/19/24 15:20 Oxymask 07/19/24 15:01 Oxymask 4 07/19/24 15:01 Oxymask 6 07/19/24 14:29 Nasal Cannula 3 07/19/24 13:00 Oxymask 3 07/19/24 11:00 Nasal Cannula 3 07/19/24 09:30 Nasal Cannula 2 07/19/24 09:30 Nasal Cannula 3 07/19/24 09:00 Nasal Cannula 3 07/19/24 08:45 Nasal Cannula 3 07/19/24 08:30 Nasal Cannula 3 07/19/24 08:15 Nasal Cannula 3 07/19/24 07:45 Nasal Cannula 5 07/19/24 07:30 Nasal Cannula 5 07/19/24 07:13 Nasal Cannula 5 07/19/24 07:12 Nasal Cannula 07/19/24 07:11 07/19/24 07:09 Nasal Cannula 5 07/19/24 07:06 Room Air Lab & Micro Results (Past 24 Hours) RBC 3.10 M/uL (4.70-6.10) L 07/19/24 WBC 16.59 K/ul (4.8-10.8) H 07/19/24 Hgb 8.9 g/dl (14.0-18.0) L 07/19/24 Hct 26.6 % (42.0-52.0) L 07/19/24 MCV 78.1 fL (80.0-100.0) L 07/19/24 MCH 25.8 pg (25.0-34.0) 07/19/24 MCHC 33.1 g/dL (32.0-36.0) 07/19/24 RDW Standard Deviation 45.5 fL (36.4-46.3) 07/19/24 RDW Coefficient of Variation 16.1 % (11.5-14.5) H 07/19/24 Plt Count 191 K/uL (130-400) 07/19/24 MPV 10.5 fL (9.4-12.4) 07/19/24 Nucleated Red Blood Cells % (auto) 0.1 % 07/19 Nucleated RBC Absolute Count (auto) 0.02 K/uL (0.00-0.12) 0 07/19/24 Neutrophils (%) (Auto) 93.3 % 07/19/24 Lymphocytes (%) (Auto) 2.3 % 07/19/24 Monocytes # (Auto) 0.55 K/uL (0.11-0.59) 07/19/24 Eosinophils # (Auto) 0.01 K/uL (0.00-0.50) 07/19/24 Immature Granulocyte % (Auto) 0.9 % 07/19/24 Neutrophils # (Auto) 15.48 K/uL (1.40-6.50) H 07/19/24 Lymphocytes # (Auto) 0.38 K/uL (1.20-3.40) L 07/19/24 Monocytes # (Auto) 0.55 K/uL (0.11-0.59) 07/19/24 Eosinophils # (Auto) 0.01 K/uL (0.00-0.50) 07/19/24 Basophils # (Auto) 0.02 K/uL (0.00-0.20) 07/19/24 Immature Granulocyte # (Auto) 0.15 K/uL (0.01-0.20) 5 Echinocytes 1+ 07/19/24 Na 136 mmol/L (136-145) 07/19/24 K 4.4 mmol/L (3.5-5.1) 07/19/24 Cl 108 mmol/L (98-107) H 07/19/24 CO2 23 mmol/L (21-32) 07/19/24 Anion Gap 5 (3-11) 07/19/24 BUN 27 mg/dl (6-23) H 07/19/24 Creatinine 1.07 mg/dl (0.6-1.4) 07/19/24 BUN/Creatinine Ratio 25.2 (10-20) H 07/19/24 Glu 200 mg/dl (70-99(Fasting)) H 07/19/24 Ca 7.5 mg/dl (8.6-10.3) L 07/19/24 Total Bilirubin 0.8 mg/dl (0.2-1.0) 07/19/24 AST 19 U/L (13-39) 07/19/24 ALT 17 U/L (7-52) 07/19/24 Alkaline Phosphatase 97 U/L (34-104) 07/19/24 TP 5.9 gm/dl (6.0-8.3) L 07/19/24 Albumin 2.5 gm/dl (3.4-5.0) L 07/19/24 Globulin 3.4 gm/dl (2.5-4.0) 07/19/24 Albumin/Globulin Ratio 0.7 (0.9-2) L 07/19/24 Mg 0.7 mg/dl (1.7-2.4) L* 07/19/24 08:57 Calcium Level 7.5 mg/dl (8.6-10.3) L 07/19/24 08:44 Prothromb Time International Ratio 1.4 (0.9-1.1) H 07/19/24 08 :44 Diagnostic Findings (Past 24 Hours) Cervical Spine CT 07/19/24 07:13 CT cervical spine wo con CT DOSE: 1762.99 mGy.cm CLINICAL HISTORY: fall sore on left. COMPARISON: None TECHNIQUE: Multiple axial CT images of the cervical spine were obtained without contrast. Sagittal and coronal reconstructions were done. A dose lowering technique was utilized adhering to the principles of ALARA. FINDINGS: There is no evidence of a fracture or traumatic malalignment. The odontoid and atlantoaxial articulation are intact. There is no prevertebral soft tissue swelling. There is multilevel cervical spondylosis most pronounced at C5-6 where there is bilateral foraminal narrowing. The pulmonary apices demonstrate the multiple bilateral pulmonary nodules/masses and there are thick walled cavities with nodular margins identified in the left pulmonary apex. Mediastinal lymphadenopathy is present. There are no metastatic bone lesions are identified. IMPRESSION: No acute traumatic cervical spine injury identified. Multiple pulmonary masses and cavities suspicious for either metastatic disease with necrosis or a granulomatous process such as TB or Aspergillus. ACT 112: Negative or not required by law. The above report was generated using voice recognition software. It may contain grammatical, syntax or spelling errors. Electronically signed by: Betty Mak M.D. 07/19/2024 9:51 AM Chest CTA 07/19/24 07:13 CT angio chest PE protocol CT DOSE: 1763 HISTORY: Chest Pain, eval for PE, recent pna. TECHNIQUE: Multiple CTA images of the chest were obtained after the intravenous administration of 80 ml Optiray. Coronal and sagittal MIPS were obtained from the axial data set and were submitted for review. All measurements were obtained according to NASCET criteria. A dose lowering technique was utilized adhering to the principles of ALARA. COMPARISON STUDY: 07/09/2024 FINDINGS: There are trace pleural effusions, stable. There are numerous scattered masses and pulmonary nodules throughout both lungs, largest in the left upper lobe cavitary mass measures 6 cm, stable. There is scattered patchy groundglass pulmonary opacity. There is a moderate-sized area of patchy consolidation at the right lower lung lobe. No pneumothorax. Stable mediastinal adenopathy. No pericardial effusion. Multiple masses are again seen at the partially visualized liver. There are diffuse coronary artery calcifications. There is no thoracic aortic dissection or aneurysm. No pulmonary embolism. No acute osseous findings. IMPRESSION: 1. No pulmonary embolism seen. 2. Multiple scattered masses and nodules throughout both lungs are grossly stable, consistent with malignancy/metastatic disease. 3. There is grossly stable superimposed pneumonia most prominent at the right lower lung lobe. 4. Stable hepatic metastatic disease. ACT 112: Negative or not required by law. The above report was generated using voice recognition software. It may contain grammatical, syntax or spelling errors. Electronically signed by: Peter Malin M.D. 07/19/2024 9:45 AM Chest X-Ray 07/19/24 07:13 EXAM: XR chest 1V portable CLINICAL HISTORY: Chest pain, nonspecific TECHNIQUE: An X-ray image of the chest is obtained in AP projection. COMPARISON: CR 07/09/2024. FINDINGS: Pulmonary Parenchyma: [id number] Interval progression of the previously noted bilateral scattered patchy abnormal air space /OBX.5.1.1OBX.5.1.2 nodular opacities were noted more coalescent at the left upper and middle lung zones, as well as still noted few cystic changes./OBX.5.1.2/OBX.5.1 No evidence of pleural effusion or pleural thickening. Heart and Mediastinum: Heart size and shape are normal. No mediastinal widening or masses. No hilar or mediastinal lymphadenopathy. Bony Thorax: Mild spondlosis of the thoracic spine. The bony thorax appears intact without fractures or deformities. Soft Tissues: Soft tissues overlying the chest wall are unremarkable. IMPRESSION: OBX.[id number].5.1.1Interval progression of the previously noted bilateral scattered patchy abnormal air space /OBX.5.1.1OBX.5.1.2 nodular opacities as well as still noted few cystic changes. Further follow-up is advised./OBX.5.1.2/OBX.5.1 Electronically signed by Wilbert Dodge 07-19-2024 08:[address] 07/19/24 07:13 CT SCAN OF THE BRAIN WITHOUT IV CONTRAST CLINICAL HISTORY: Colon cancer. COMPARISON STUDY: Head CT T and CTA of the head September 03, 2018. TECHNIQUE: Unenhanced axial CT scan of the brain was performed from the vertex to the skull base. A dose lowering technique was utilized adhering to the principles of ALARA. FINDINGS: Brain parenchyma: No acute intracranial hemorrhage, midline shift or mass effect is present. Rosales-white matter differentiation is preserved. There are no extra-axial fluid collections. There are no findings to suggest acute dural sinus thrombosis or acute territorial infarct. No intracranial lesions are identified on unenhanced exam. Ventricles, sulci, cisterns: There is no hydrocephalus. The basal cisterns are patent. Calvarium: Unremarkable. Sinuses and mastoids: The visualized paranasal sinuses are clear. The mastoid air cells are well pneumatized. Orbits: The bony orbits are grossly intact. IMPRESSION: 1. No acute intracranial findings. 2. No intracranial metastases identified on unenhanced exam. ACT 112: Negative or not required by law. Electronically signed by: Aristides Drummond M.D. 07/19/2024 9:40 AM I & O Totals 24 Hours 07/18/24 07/19/24 07/20/24 06:59 06:59 06:59 Intake Total 625 / 625 Balance 625 / 625 Cumulative 07/19/24 06:56 thru 07/19/24 15:01 Intake Total 625 Balance 625 RT Ventilator Mngmt (Last Documented) Ventilator Ordered Settings Respiratory Rate 28 07/19/24 15:01 Ventilator - PT Measurements Respiratory Rate 28 PG Care Time/CCT Total # of Minutes Spent Total Time Spent with Patient: Total time spent is greater than 50% in coordination of care (as documented) at patient's floor/unit and/or counseling patient: Coding Level of Care Code 61630 CRITICAL CARE 1ST 30-74M Diagnoses Acute hypoxic respiratory failure J96.[address] scan of lung R91.8 Metastatic disease C79.9 Area of secondary neoplastic involvement: lymph node
[2024-07-19] MEDS ORDERED: methylPREDNISolone 10 mg/mL (For Ped Dose < 7mg) IV SCH (16:15)
[2024-07-19] MEDS: PIPERACILLIN/TAZOBACTAM 4.5 GM/100 ML BAG IV SCH (17:29)
[2024-07-19] MEDS: methylPREDNISolone 40 MG in SYRINGE 0 ML IV SCH (17:30)
[2024-07-19] MEDS: ACETAMINOPHEN 325 MG TAB PO PRN (17:37)
[2024-07-19] MEDS: INSULIN ASPART PER UNIT CHARGE SC SCH (17:37)
[2024-07-19] MEDS: MoRPHine SULFATE CR 60 MG TABCR PO SCH (20:36)
[2024-07-19] MEDS: guaiFENesin 600 MG TABCR PO SCH (20:37)
[2024-07-19] MEDS: LANTUS PER UNIT CHARGE SQ SCH (20:40)
[2024-07-19] MEDS ORDERED: MAGNESIUM PO SCH (21:00)
[2024-07-19] MEDS ORDERED: MAGNESIUM OXIDE 400 MG TAB PO SCH (21:00)
--- NOTE | 2024-07-19 22:48 | Electrocardiogram Report ---
Test Reason : Blood Pressure : */* mmHG Vent. Rate : 116 BPM Atrial Rate : 116 BPM P-R Int : 122 ms QRS Dur : 86 ms QT Int : 320 ms P-R-T Axes : 64 -11 14 degrees QTcB Int : 444 ms Sinus tachycardia Low voltage QRS Possible Inferior infarct (cited on or before 09-Jul-2024) Cannot rule out Anterior infarct (cited on or before 18-Jan-2022) Abnormal ECG When compared with ECG of 09-Jul-2024 08:17, No significant change Confirmed by Bhanu Gomez ([id number]) on 07/19/2024 10:48:39 PM Referred By: REFERRED SELF Confirmed By: Bhanu Gomez
[2024-07-19 23:12] LABS: HCO3 VBG 20 mmol/L; Oxygen Saturation VBG < 60.0 %; PCO2 VBG 43 mmHg (38-50); PO2 VBG 20 mmHg; pH VBG 7.27 (7.36-7.41)
[2024-07-19] MEDS: INSULIN ASPART PER UNIT CHARGE SC ONE (23:21)
[2024-07-19 23:31] LABS: BUN Creatinine Ratio 25.7 (10-20); Creatinine Clr Calc Pharmacy 61.7 ml/min; Potassium 4.4 mmol/L (3.5-5.1)
[2024-07-20] MEDS: INSULIN ASPART PER UNIT CHARGE SC ONE (01:31)
[2024-07-20] MEDS: LEVOTHYROXINE SODIUM 125 MCG TABLET PO SCH (06:25)
[2024-07-20] MEDS: LANTUS PER UNIT CHARGE SQ SCH (08:10)
[2024-07-20] MEDS: CETIRIZINE HCL 10 MG TABLET PO SCH (08:17)
[2024-07-20] MEDS: MAGNESIUM OXIDE 400 MG TAB PO SCH (08:19)
[2024-07-20 08:21] LABS: Hematocrit (blood only) 25.5 % (42.0-52.0); Hemoglobin 8.7 g/dl (14.0-18.0); Mean Corpuscular Hemoglobin 25.9 pg (25.0-34.0); Mean Corpuscular Hgb Conc 34.1 g/dL (32.0-36.0); Mean Corpuscular Volume 75.9 fL (80.0-100.0); Mean Platelet Volume 10.2 fL (9.4-12.4); Nucleated RBC # (auto) 0.02 K/uL (0.00-0.12); Nucleated RBC % (auto) 0.1 %; Platelet Count 206 K/uL (130-400); RDW Coefficient of Variation 16.1 % (11.5-14.5); RDW Standard Deviation 44.5 fL (36.4-46.3); Red Blood Count 3.36 M/uL (4.70-6.10); White Blood Count 19.28 K/ul (4.8-10.8)
[2024-07-20] MEDS: POTASSIUM CHLORIDE CRTAB 20 MEQ TABCR PO SCH (08:21)
[2024-07-20 08:36] LABS: BUN Creatinine Ratio 24.2 (10-20); Calcium 7.6 mg/dl (8.6-10.3); Creatinine Clr Calc Pharmacy 70.3 ml/min; Magnesium 1.1 mg/dl (1.7-2.4); Potassium 4.5 mmol/L (3.5-5.1)
[2024-07-20 08:49] LABS: Basophils # (auto) 0.03 K/uL (0.00-0.20); Basophils % (auto) 0.2 %; Echinocytes 2+; Immature Granulocytes # (auto) 0.15 K/uL (0.01-0.20); Immature Granulocytes % (auto) 0.8 %; Lymphocytes # (auto) 0.36 K/uL (1.20-3.40); Lymphocytes % (auto) 1.9 %; Monocytes # (auto) 0.26 K/uL (0.11-0.59); Monocytes % (auto) 1.3 %; Neutrophils # (auto) 18.48 K/uL (1.40-6.50); Neutrophils % (auto) 95.8 %; Polychromasia 1+
--- NOTE | 2024-07-20 08:53 | Pulmonology Progress Note ---
Date of Service July 20, 2024 Assessment & Plan (1) Acute hypoxic respiratory failure: (2) Abnormal CT scan of lung: (3) Metastatic disease: Area of secondary neoplastic involvement: lymph node Plan Impression: 64-year-old male with widely metastatic colon cancer including pulmonary mets. He was on immune therapy and was admitted with progressive hypoxemia and CT scan showing progression of multifocal airspace opacities. The differential would include progression of malignancy, progression of infection, or potentially ICI related pulmonary toxicity. The patient has been on immunotherapy for over 6 months. After extensive discussion with the patient and his we elected to pursue empiric therapy to cover infection, inflammation, and fluid overload with diuretics, steroids, and antibiotics. He is clinically stable this morning Recommendations: 1. Potential ICI toxicity: Continue Solu-Medrol at this point in time. If he has a favorable response, consider tapering his steroids over 6 to 8 weeks 2. Agree with empiric antibiotics for now. Continue therapy and follow procalcitonin, white blood cell count, and fever curve. Await repeat procalcitonin 3. BNP borderline elevated. Would recommend echocardiogram and continue diuretics with attention to kidney function 4. Patient will require more aggressive glycemic control while he is on steroids as this will likely exacerbate his diabetes. Management per primary service. Will continue to follow Admission and Anticipated Discharge Date Admission Date: July 19, 2024 Subjective Patient seen and examined. EMR reviewed. The patient reports he feels better today. He is oxygen has been weaned to a nasal cannula. He he was able to tolerate a diet. Not surprisingly, his glucose levels were significantly elevated with initiation of steroids and the patient was somewhat frustrated by inability to receive insulin last evening. He has responded well in the past to Lantus. The patient is not coughing or expectorating phlegm. His chest pain is better. Review of Systems 2 Review of Systems: All systems reviewed & are unremarkable except as noted in Subjective Physical Exam 2 Constitutional: + thin; no acute distress Respiratory: no respiratory distress and no labored breathing Cardiovascular: Rate/Rhythm: regular rate Heart Sounds: normal S1, normal S2 and + murmur Extremities: + edema Gastrointestinal (Abdomen): normal bowel sounds, soft, nontender, no hepatosplenomegaly Neurologic: moves all extremities and awake Psychiatric: Orientation: alert and oriented x 3 Results & Data Results & Data Vital Signs (Past 12 Hours) Vital Signs Temp Pulse Pulse Resp BP Pulse Ox O2 Del Method 07/20/24 07:51 36.5 C 89 20 115/74 96 Nasal Cannula 07/20/24 07:35 99 H 18 96 Oxymask 07/20/24 03:07 36.3 C L 83 18 107/60 94 Room Air 07/20/24 00:09 86 19 97 Oxymask 07/19/24 22:44 36.5 C 88 18 104/59 L 96 Nasal Cannula 07/19/24 21:39 116 H 07/19/24 21:00 Oxymask O2 Flow Rate 07/20/24 07:51 8 07/20/24 07:35 4 07/20/24 03:07 07/20/24 00:09 5 07/19/24 22:44 9 07/19/24 21:39 07/19/24 21:00 8 Laboratory Results 07/20/24 07:41 07/20/24 07:41 Procalcitonin pending Diagnostic Findings No new imaging PG Care Time/CCT Total # of Minutes Spent Total Time Spent with Patient: Total time spent is greater than 50% in coordination of care (as documented) at patient's floor/unit and/or counseling patient: Coding Level of Care Code 78302 SUB INP/OBS CARE 2/35MIN Diagnoses Acute hypoxic respiratory failure J96.[address] scan of lung R91.8 Metastatic disease C79.9 Area of secondary neoplastic involvement: lymph node
[2024-07-20] MEDS: MAGNESIUM SULFATE / D5W 1 GM/100 ML BAG IV SCH (09:29)
--- NOTE | 2024-07-20 11:37 | XCELERA ---
[id number] \\[email or web address]\[id number]
[2024-07-20] MEDS: MUPIROCIN 2% OINT 22 GM TUBE EXT SCH (13:51)
[2024-07-20] MEDS: INSULIN HUMAN REGULAR PER UNIT 10 UNITS in SYRINGE 9.9 ML IV ONE (16:43)
[2024-07-20] MEDS: NovoLIN-R INSULIN PER UNIT CHARGE IV STA (17:17)
[2024-07-20] MEDS ORDERED: INSULIN PROTOCOL GOAL RANGE ONE (18:07)
[2024-07-20] MEDS ORDERED: PHARMACY GLYCEMIC MGMT CONSULT PRN (18:07)
[2024-07-20] MEDS ORDERED: STAT IV Infusion **Titration per Protocol STA (18:07)
[2024-07-20] MEDS ORDERED: SEVERE STRESS LEVEL ONE (18:07)
--- NOTE | 2024-07-20 19:58 | Hospitalist Progress Note ---
Date of Service July 20, 2024 Assessment & Plan (1) PNA (pneumonia): (2) Acute hypoxic respiratory failure: (3) Diabetes mellitus type 1: (4) Colon carcinoma metastatic to multiple sites: (5) Hematuria: (6) Hypomagnesemia: (7) Carcinomatosis: (8) Ureteral stent present: (9) Nephrostomy present: Plan 64yo male with stage 4 colon ca, mets to lungs/liver/peritoneum/etc - receiving chemo/immunotherapy via [facility] & palliative care via [facility] system - presented with acute hypoxic resp failure as below. #Pneumonia - Although he recently had 10+ days of IV/PO abx for pneumonia will cont zosyn for now with how ill he was when he returned to hospital yesterday Both procal & WBC count are elevated Follow blood cx's, CBC, etc. #Acute hypoxic respiratory failure SpO2 75% on RA at ER presentation Cont NC O2 - keep sats low 90s Multifactorial - infectious pneumonia +/- immunotherapy induced pneumonitis + extensive pulm mets from his colon ca; can't rule out pulm edema but echo today returned normal and he doesn't examine in pulm edema #Chest pain Left-sided chest pain on the morning of 07/19 Troponin WNL on arrival, repeat also negative Patient did have a recent fall onto his left side; could be due to such Can't rule out the intra-thoracic pulmonary parenchymal issues causing such as well #Type I diabetes Last A1c at 7.8% on 07/10/2024 UNCONTROLLED - due to high-dose steroids Immediately this am I increased his lantus to 10 units BID Made at least 3 adjustments to his novolog parameters today without success Late in the day gave regular insulin IV bolus (10 units) x 1 Then instituted insulin infusion & consulted pharmacy for glycemic recs updated multiple times today about glycemic control plan #Stage IV colon cancer Follows with [facility] - [facility] / Bronson Kitchen MD Last infusion of Panitumumab 07/02; receives it every 2 weeks, but skipped 07/16 due to infection Last capecitabine on 07/17; told to hold Continue to hold capecitabine in the setting of acute infection Continue home pain regimen with morphine q12h + additional morphine for breakthrough pain #Hematuria/acute blood loss anemia Hgb 8.0 on arrival Ongoing hematuria; may be secondary to urinary stent; urine in right nephrostomy tube is clear Hold chemical DVT PPx for now but if H/H remain stable then will need chemical DVT proph as he is at very high risk of VTE with his advanced cancer and immobility #Hypomagnesemia Magnesium critically low at 0.7 on arrival Magnesium sulfate 1 g IV x 4 without significant improvement Gave 4 additional grams TODAY with repeat mag level scheduled for tonight Per patient his has been a chronic problem for some time Continue p.o. mag supplementation BID #hypothyroidism cont synthroid check a TSH while here updated multiple times at bedside throughout the day care d/w Dr Cook from pulmonary care d/w nursing numerous times throughout the day care d/w pharmacy very complex care coordination - about 85 min spent on care activities including numerous bedside visits, discussions w/ patient and his , discussions with consultants & care team members, glycemic management, etc. Admission and Anticipated Discharge Date Admission Date: July 19, 2024 Subjective events of overnight noted tele - NSR last pm he was seen by pulmonary - high-dose IV solumedrol started (40mg q8h) shortly after developed significant hyperglycemia requiring multiple doses of extra insulin and frequent BSG checks early this am I was contacted by his nurse that he and his were concerned by his ongoing hyperglycemia and upset about how it was being managed on rounds he reported that his breathing was more comfortable than yesterday still requiring high amount of NC O2 gets dyspneic still with minimal exertion we discussed his DM and the need for titration of his insulins in light of the recently started steroids told him we would likely have to make several adjustments as the day was going on later in the am I circled back to his room as there was ongoing concern from pt/pt's about the hyperglycemia again discussed that the high-dose steroids were at play in this and that we would cont to make additional adjustments discussed possibility of needing insulin drip at one point he & his asked if they could bring his novolog from home but told them the short-acting insulin we were using was indeed novolog; thus no need to bring in they also asked if they could manage all of his SC injections by themselves discouraged such because at home he does not use any specific scale or calculation to determine insulin needs and due to the lability of his BSGs we knee to be methodical about the insulin amounts late in the day I went back again to his room and, given ongoing high BSGs, recommended we start insulin drip he was agreeable to such and subsequently I placed orders for the drip; I also spoke with pharmacy about his insulins Review of Systems Review of Systems: gen - no fevers cv - no chest pain today, no orthopnea GI - heartburn this afternoon when his sugar was high but he declined any PPI or H2 mark no vomiting pulm - ongoing dyspnea Physical Exam Physical Exam: gen - agitated at times, awake/alert, mild tachypnea when moving about in the bed neck - no JVD mouth - MMM, no thrush heart - RRR, s1 s2 lungs - mild b/l basilar rales - similar to yesterday; no wheeze; airation fair- good abd - soft NT ND BS+ ext - pulses 2+ b/l feet, no edema Results & Data Results & Data Vital Signs (Past 12 Hours) Vital Signs Temp Pulse Resp BP Pulse Ox Pulse Ox O2 Del Method 07/20/24 15:19 36.6 C 70 18 111/63 96 Oxymask 07/20/24 14:12 105 H 23 92 Oxymask 07/20/24 14:06 94 07/20/24 11:30 36.6 C 90 18 125/78 97 Nasal Cannula 07/20/24 10:16 89 07/20/24 09:18 Oxymask O2 Flow Rate O2 Flow Rate 07/20/24 15:19 9 07/20/24 14:12 10 07/20/24 14:06 10 07/20/24 11:30 8 07/20/24 10:16 07/20/24 09:18 5 Laboratory Results Laboratory Results - last 24 hr 07/19/24 07/19/24 07/19/24 20:12 20:15 22:29 WBC RBC Hgb Hct MCV MCH MCHC RDW Std Deviation RDW Coeff of Sarahi Plt Count MPV Immature Gran % (Auto) Neut % (Auto) Lymph % (Auto) Swain % (Auto) Eos % (Auto) Baso % (Auto) Neut # (Auto) Lymph # (Auto) Swain # (Auto) Eos # (Auto) Baso # (Auto) Immature Gran # (Auto) Absolute Nucleated RBC Nucleated RBC % (auto) Polychromasia Echinocytes VBG pH VBG pCO2 VBG pO2 VBG HCO3 VBG O2 Saturation VBG Base Excess Sodium Potassium Chloride Carbon Dioxide Anion Gap BUN Creatinine Est Cr Clr Drug Dosing eGFR BUN/Creatinine Ratio Glucose POC Glucose 320 H* 340 H* 318 H* Calcium Magnesium Procalcitonin 07/19/24 07/20/24 07/20/24 23:00 00:07 01:08 WBC RBC Hgb Hct MCV MCH MCHC RDW Std Deviation RDW Coeff of Sarahi Plt Count MPV Immature Gran % (Auto) Neut % (Auto) Lymph % (Auto) Swain % (Auto) Eos % (Auto) Baso % (Auto) Neut # (Auto) Lymph # (Auto) Swain # (Auto) Eos # (Auto) Baso # (Auto) Immature Gran # (Auto) Absolute Nucleated RBC Nucleated RBC % (auto) Polychromasia Echinocytes VBG pH 7.27 L VBG pCO2 43 VBG pO2 20 VBG HCO3 20 VBG O2 Saturation < 60.0 VBG Base Excess -7.0 Sodium 132 L Potassium 4.4 Chloride 104 Carbon Dioxide 23 Anion Gap 5 BUN 29 H Creatinine 1.13 Est Cr Clr Drug Dosing 61.7 eGFR 72.58 BUN/Creatinine Ratio 25.7 H Glucose 286 H POC Glucose 253 H 257 H Calcium 7.0 L Magnesium Procalcitonin 07/20/24 07/20/24 07/20/24 03:00 06:29 07:37 WBC RBC Hgb Hct MCV MCH MCHC RDW Std Deviation RDW Coeff of Sarahi Plt Count MPV Immature Gran % (Auto) Neut % (Auto) Lymph % (Auto) Swain % (Auto) Eos % (Auto) Baso % (Auto) Neut # (Auto) Lymph # (Auto) Swain # (Auto) Eos # (Auto) Baso # (Auto) Immature Gran # (Auto) Absolute Nucleated RBC Nucleated RBC % (auto) Polychromasia Echinocytes VBG pH VBG pCO2 VBG pO2 VBG HCO3 VBG O2 Saturation VBG Base Excess Sodium Potassium Chloride Carbon Dioxide Anion Gap BUN Creatinine Est Cr Clr Drug Dosing eGFR BUN/Creatinine Ratio Glucose POC Glucose 234 H 233 H 292 H Calcium Magnesium Procalcitonin 07/20/24 07/20/24 07/20/24 07:41 11:47 11:48 WBC 19.28 H RBC 3.36 L Hgb 8.7 L Hct 25.5 L MCV 75.9 L MCH 25.9 MCHC 34.1 RDW Std Deviation 44.5 RDW Coeff of Sarahi 16.1 H Plt Count 206 MPV 10.2 Immature Gran % (Auto) 0.8 Neut % (Auto) 95.8 Lymph % (Auto) 1.9 Swain % (Auto) 1.3 Eos % (Auto) 0.0 Baso % (Auto) 0.2 Neut # (Auto) 18.48 H Lymph # (Auto) 0.36 L Swain # (Auto) 0.26 Eos # (Auto) 0.00 Baso # (Auto) 0.03 Immature Gran # (Auto) 0.15 Absolute Nucleated RBC 0.02 Nucleated RBC % (auto) 0.1 Polychromasia 1+ Echinocytes 2+ VBG pH VBG pCO2 VBG pO2 VBG HCO3 VBG O2 Saturation VBG Base Excess Sodium 132 L Potassium 4.5 Chloride 104 Carbon Dioxide 22 Anion Gap 6 BUN 24 H Creatinine 0.99 Est Cr Clr Drug Dosing 70.3 eGFR 85.07 BUN/Creatinine Ratio 24.2 H Glucose 245 H POC Glucose 333 H* 369 H* Calcium 7.6 L Magnesium 1.1 L Procalcitonin 0.57 H PG Care Time/CCT Total # of Minutes Spent Total Time Spent with Patient: Total time spent is greater than 50% in coordination of care (as documented) at patient's floor/unit and/or counseling patient: Prolonged Care Time Prolonged Care Time: Yes Total Prolonged Care Time: 85 Coding Level of Care Code 02292 SUB INP/OBS CARE 3/50MIN (25 - SIGNIFICANT, SEPARATELY IDENTIFIABLE ) Diagnoses PNA (pneumonia) J18.9 Acute hypoxic respiratory failure J96.01 Diabetes mellitus type 1 E10.9 Colon carcinoma metastatic to multiple sites C18.9 Hematuria R31.9 Hypomagnesemia E83.42 Carcinomatosis C80.0 Ureteral stent present Z96.0 Nephrostomy present Z93.6 Additional Codes Prolonged Care Time - Prolonged Care Time: Yes ([id number])
[2024-07-20] MEDS ORDERED: PENDING NSS+20mEq KCL IVF SCH (20:00)
[2024-07-20] MEDS: INSULIN REGULAR 250 UNITS in SODIUM CHLORIDE 0.9% 247.5 ML IV SCH (20:06)
[2024-07-20] MEDS: methylPREDNISolone 40 MG in SYRINGE 0 ML IV SCH (20:10)
[2024-07-20] MEDS: CARBOHYDRATES FOR HYPOGLYCEMIA PO PRN (22:26)
[2024-07-20 23:03] LABS: Calcium 7.6 mg/dl (8.6-10.3); Magnesium 1.6 mg/dl (1.7-2.4); Potassium 4.1 mmol/L (3.5-5.1)
[2024-07-20 23:09] LABS: BUN Creatinine Ratio 26.9 (10-20); Creatinine Clr Calc Pharmacy 66.9 ml/min; Phosphorus 2.2 mg/dl (2.5-4.9)
[2024-07-21] MEDS: MAGNESIUM SULFATE / D5W 1 GM/100 ML BAG IV SCH (00:18)
[2024-07-21] MEDS ORDERED: SODIUM PHOSPHATE 3 MMOL/1 ML INFUSION IV STA (00:51)
[2024-07-21] MEDS: SODIUM PHOSPHATE 15 MMOL in SODIUM CHLORIDE 0.9% 250 ML IV ONE (02:24)
[2024-07-21 04:32] LABS: Calcium 7.1 mg/dl (8.6-10.3); Magnesium 1.8 mg/dl (1.7-2.4); Potassium 4.5 mmol/L (3.5-5.1)
[2024-07-21 04:43] LABS: BUN Creatinine Ratio 30.4 (10-20); Creatinine Clr Calc Pharmacy 68.2 ml/min; Phosphorus 3.5 mg/dl (2.5-4.9)
--- NOTE | 2024-07-21 08:28 | Pulmonology Progress Note ---
Date of Service July 21, 2024 Assessment & Plan (1) Acute hypoxic respiratory failure: (2) Abnormal CT scan of lung: (3) Metastatic disease: Area of secondary neoplastic involvement: lymph node Plan Impression: 64-year-old male with widely metastatic colon cancer including pulmonary mets. He was on immune therapy and was admitted with progressive hypoxemia and CT scan showing progression of multifocal airspace opacities. The differential would include progression of malignancy, progression of infection, or potentially ICI related pulmonary toxicity. The patient has been on immunotherapy for over 6 months. After extensive discussion with the patient and his we elected to pursue empiric therapy to cover infection, inflammation, and fluid overload with diuretics, steroids, and antibiotics. He is clinically stable this morning Recommendations: 1. Potential ICI toxicity: Continue Solu-Medrol at this point in time. If he has a favorable response, consider tapering his steroids over 6 to 8 weeks 2. Agree with empiric antibiotics for now. Continue therapy and follow procalcitonin, white blood cell count, and fever curve. Await repeat procalcitonin 3. Echo reviewed. Pulmonary hypertension identified. Not to surprising given the degree of parenchymal involvement of his metastatic disease. Continue diuresis. 4. Will place the patient on senna and oral magnesium to see if we can alleviate his GI complaints. Long-term management per primary service Will continue to follow Admission and Anticipated Discharge Date Admission Date: July 19, 2024 Subjective Patient seen and examined. EMR reviewed. Discussed with patient and at bedside. The patient is focused today on abdominal discomfort and distention. He feels very constipated. He has had issues in the past but has responded favorably to senna and magnesium. He requested these be restarted. He initially requested that the steroids be discontinued however after discussion with he and his it appears that he is more fixated on his abdominal complaints and if these can be readdressed, he would like to continue with the steroids. Review of Systems Review of Systems: All systems reviewed & are unremarkable except as noted in Subjective Physical Exam Constitutional: + thin; no acute distress Respiratory: no respiratory distress and no labored breathing Cardiovascular: Rate/Rhythm: regular rate Heart Sounds: normal S1, normal S2 and + murmur Extremities: + edema Gastrointestinal (Abdomen): normal bowel sounds, soft, nontender, no hepatosplenomegaly Neurologic: moves all extremities and awake Psychiatric: Orientation: alert and oriented x 3 Results & Data Results & Data Vital Signs (Past 12 Hours) Vital Signs Temp Pulse Pulse Resp BP Pulse Ox O2 Del Method 07/21/24 07:25 79 20 88 L Oxymask 07/21/24 07:00 36.7 C 100 H 20 109/69 89 L Oxymask 07/21/24 03:09 Oxymask 07/21/24 03:04 87 07/21/24 02:47 36.2 C L 83 18 131/75 90 Nasal Cannula 07/20/24 23:10 36.5 C 89 18 115/70 90 Nasal Cannula O2 Flow Rate 07/21/24 07:25 10 07/21/24 07:00 10 07/21/24 03:09 5 07/21/24 03:04 07/21/24 02:47 10 07/20/24 23:10 10 PG Care Time/CCT Total # of Minutes Spent Total Time Spent with Patient: Total time spent is greater than 50% in coordination of care (as documented) at patient's floor/unit and/or counseling patient: Coding Level of Care Code 63054 SUB INP/OBS CARE 2/35MIN Diagnoses Acute hypoxic respiratory failure J96.[address] scan of lung R91.8 Metastatic disease C79.9 Area of secondary neoplastic involvement: lymph node
[2024-07-21] MEDS: INSULIN ASPART PER UNIT CHARGE SC SCH (08:47)
[2024-07-21] MEDS: SENNA 8.6 MG TAB PO SCH ×2 (08:47→21:51)
[2024-07-21] MEDS: LANTUS PER UNIT CHARGE SQ SCH (08:48)
[2024-07-21] MEDS: HEPARIN SOD 5,000 UNIT/0.5 ML VIAL SQ SCH (11:25)
--- NOTE | 2024-07-21 14:26 | Pharmacy Report ---
Pharmacy Glycemic Short Note 2 - Date of Service July 21, 2024 - Glycemic Short BSG Results (Last 24 hours): 07/20/24 07/20/24 07/20/24 15:44 19:24 21:32 Glucose POC Glucose 372 H* 173 H 98 07/20/24 07/20/24 07/20/24 22:01 22:19 22:35 Glucose 129 H POC Glucose 60 L* 50 L* 07/20/24 07/21/24 07/21/24 22:43 00:52 02:47 Glucose POC Glucose 114 H 78 102 H 07/21/24 07/21/24 07/21/24 04:03 04:49 06:43 Glucose 101 H POC Glucose 112 H 132 H 07/21/24 07/21/24 07:05 11:09 Glucose POC Glucose 156 H 262 H OUTPATIENT ANTIDIABETIC REGIMEN: * Glargine 5 units SQ qHS * Novolog A1c = 7.8% ASSESSMENT: * Milton is a 64 yo male with metastatic colon cancer who presented with acute respiratory failure. He has been started on high dose IV steroids (currently SM 40 mg IV q12h). Yesterday, he experienced severe hyperglycemia despite multiple titrations to SQ insulin dosing. He was started on an IV insulin infusion. Per discussion with nursing, infusion was held around 2200 d/t hypoglycemia. BSG remained at or below goal overnight with insulin drip on hold, therefore Hospitalist gave approval to d/c the infusion 4/12 AM. * Will resume Lantus at ~17% increase compared to home dose. * Tighten carb coverage due to post prandial hyperglycemia. PLAN FOR INPATIENT GLYCEMIC CONTROL: * Basal insulin * Lantus 6 units SQ daily * Bolus insulin * NovoLog per scale ACHS or Q6hrs while NPO * Goal Range: Low 120 mg/dL - High 150 mg/dL * Correction Factor: 35 mg/dL/unit * Nutritional / Prandial insulin per carb ratio of 1 unit per 8 grams CHO consumed
[2024-07-21] MEDS: LANTUS PER UNIT CHARGE SC ONE (17:59)
[2024-07-21] MEDS: FUROSEMIDE 20 MG TAB PO ONE (18:20)
--- NOTE | 2024-07-21 18:29 | XRay Report ---
EXAM: XR KUB/Abdomen 1 view CLINICAL HISTORY: known colon ca, abd pain, ?obstruction TECHNIQUE: X-ray images of the abdomen were obtained in supine positions. COMPARISON: No prior X ray chest studies available for comparison. FINDINGS: Gas Pattern: Gas pattern within the abdomen is normal. No evidence of bowel obstruction or distention. Soft Tissues: Soft tissues faint calcification overlying the right hypochondrium likely corresponds to calcified hepatic lesion. Calcifications in the left paraspinal region of the abdomen could correspond to the calcified retroperitoneal LN. Left side DJ catheter and right side nephrostomy are noted. Patchy air space areas of consolidation seen in the lung bases more in the left side seen in previous CT. IMPRESSION: No acute abnormalities were identified. Electronically signed by Wilbert Dodge 07-21-2024 6:29 PM
--- NOTE | 2024-07-21 18:35 | XRay Report ---
EXAM: XR chest 1V portable CLINICAL HISTORY: resp failure, interval change TECHNIQUE: An X-ray image of the chest is obtained in AP projection. COMPARISON: CT chest dated 07/19/2024 FINDINGS: Pulmonary Parenchyma: [id number].5.1OBX.5.1.1No significant interval changes of the previously noted bilateral scattered patchy abnormal air space /OBX.5.1.1OBX.5.1.2 nodular opacities were noted more./OBX.5.1.2/OBX.5.1 Coalescent at the left upper and middle lung zones, as well as still noted few cystic changes. No evidence of pleural effusion or pleural thickening. Heart and Mediastinum: Heart size and shape are normal. No mediastinal widening or masses. No hilar or mediastinal lymphadenopathy. Bony Thorax: Mild spondlosis of the thoracic spine. Chronic healed fracture of right 6th rib. Soft Tissues: Soft tissues overlying the chest wall are unremarkable. IMPRESSION: No signficant interval changes of the previously noted bilateral scattered patchy abnormal air space and nodular opacities, likley infections. Electronically signed by Wlibert Dodge 07-21-2024 6:35 PM
--- NOTE | 2024-07-21 21:27 | Hospitalist Progress Note ---
Date of Service July 21, 2024 Assessment & Plan (1) PNA (pneumonia): (2) Acute hypoxic respiratory failure: (3) Diabetes mellitus type 1: (4) Colon carcinoma metastatic to multiple sites: (5) Hematuria: (6) Hypomagnesemia: (7) Carcinomatosis: (8) Ureteral stent present: (9) Nephrostomy present: Plan 64yo male with advanced stage 4 colon ca, mets to lungs/liver/peritoneum/etc - receiving chemo/immunotherapy via [facility] - presented with acute hypoxic resp failure as below. #Pneumonia - Although he recently had 10+ days of IV/PO abx for pneumonia (was admitted to [facility] 07/09 and 07/10 for pneumonia) will cont zosyn Both procal & WBC count have been elevated Follow blood cx's, CBC, etc. Today is day #3 of zosyn #Acute hypoxic respiratory failure Severe SpO2 75% on RA at ER presentation Cont NC O2 or oxymask - keep sats low 90s Multifactorial - infectious pneumonia +/- immunotherapy induced pneumonitis + extensive pulm mets from his colon ca; can't rule out pulm edema but given the severity of his infiltrates on chest x-ray and the pulmonary HTN on echo will give him lasix 20mg po x 1 and re-eval tomorrow #Chest pain Left-sided chest pain on the morning of 07/19 Troponin WNL on arrival, repeat also negative Patient did have a recent fall onto his left side; could be due to such Can't rule out the intra-thoracic pulmonary parenchymal issues causing such as well He remains on morphine ER BID + morphine IR prn Add morphine IV prn for refractory pain Other option would be use of ENVIRONMENTAL FIELD OFFICE MANAGER morphine - I did mention this to him & his today #Type I diabetes Last A1c at 7.8% on 07/10/2024 UNCONTROLLED - due to high-dose steroids Resorted to IV insulin drip late yesterday BSGs indeed corrected overnight and into this am Pharmacy is on glycemic consult They have transitioned him back to SC injections Appreciate their assistance #Stage IV colon cancer Follows with [facility] - CASIE Loco / Bronson Kitchen MD Follows with Dr Trina Friedman - [facility] Palliative care in [place] Last infusion of Panitumumab 07/02; receives it every 2 weeks, but skipped 07/16 due to infection Last capecitabine on 07/17; remains on hold Continue home pain regimen with morphine q12h + additional morphine for breakthrough pain Add IV morphine prn Consider ENVIRONMENTAL FIELD OFFICE MANAGER morphine Prognosis is very poor in light of how advanced his cancer is in the setting of his respiratory failure #Hematuria/acute blood loss anemia Hgb 8.0 on arrival Ongoing hematuria; may be secondary to urinary stent; urine in right nephrostomy tube has been clear #Hypomagnesemia Magnesium critically low at 0.7 on arrival Magnesium sulfate 1 g IV x 4 without significant improvement Gave additional IV mag yesterday and mag level finally wnl Per patient his has been a chronic problem for some time Continue p.o. mag supplementation BID #hypothyroidism cont synthroid #abdominal distension, difficulty with bowel movements although he is passing flatus I am most concerned his cancer is causing significant bowel issues the original tumor site was the colon in the hepatic flexure he had CT a/p in late June and this showed ?partial obstruction with transition point in the hepatic flexure -- again very worrisome the original cancer tumor has grown I obtained KUB x-ray this afternoon - there is air to the rectum, and loops of bowel look normal, but [id number] at high risk of obstruction cont senna + miralax if any worsening of GI symptoms then repeat CT a/p updated at bedside again today Admission and Anticipated Discharge Date Admission Date: July 19, 2024 Subjective tele overnight w/o dysrhythmia today he has had issues with his bowels he is passing flatus but has not had a BM in several days he typically takes senna at home twice a day, but recently slacked off some before admission he mentions that sometimes he actually pushes on his abdomen to get the stool to move he hasn't vomited, but has poor appetite, and some stomach upset at times continues to have dyspnea with minimal exertion and is on 10L via oxymask sugars were significantly improved overnight (off the insulin drip), but slowly have climbed thru the day today during the visit I asked if he wanted to use morphine IV prn for pain he reports he has been on morphine for about 3 years worst pain is the left chest wall and the abdomen confirms he never had colonic resection of the primary colon cancer site years ago - they were told it was inoperable Review of Systems Review of Systems: gen - weak, fatigued, poor appetite cv - no central chest pain, but has pain L side of chest (more towards the axillary area) pulm - minimal cough, ongoing dyspnea GI - nausea, pain, bloating, distension, no stools Physical Exam Physical Exam: gen - lying in bed, tachypneic - but able to speak in full sentences; thin neck - no obvious JVD mouth - MMM, no thrush heart - RRR, s1 s2, no murmur lungs - mild b/l basilar rales; no wheeze; airation fair at best today abd - mildly distended, BS+, no peritoneal signs ext - pulses 2+ b/l feet, no edema psych - anxious, but a/o x 3 Results & Data Results & Data Vital Signs (Past 12 Hours) Vital Signs Temp Pulse Pulse Resp BP Pulse Ox O2 Del Method 07/21/24 19:43 101 H 20 89 L Oxymask 07/21/24 19:17 36.7 C 85 18 114/71 93 Oxymask 07/21/24 15:38 20 94 Nasal Cannula 07/21/24 15:23 99 H 07/21/24 15:00 36.7 C 96 H 22 97/62 L 90 Oxymask 07/21/24 12:38 95 H 18 95 Oxymask 07/21/24 11:14 36.6 C 96 H 18 132/73 92 Oxymask 07/21/24 10:45 92 H 20 92 Oxymask O2 Flow Rate 07/21/24 19:43 9 07/21/24 19:17 10 07/21/24 15:38 10 07/21/24 15:23 07/21/24 15:00 07/21/24 12:38 12 07/21/24 11:14 07/21/24 10:45 10 Laboratory Results Laboratory Results - last 24 hr 07/20/24 07/20/24 07/20/24 21:32 22:01 22:19 VBG pH Sodium Potassium Chloride Carbon Dioxide Anion Gap BUN Creatinine Est Cr Clr Drug Dosing eGFR BUN/Creatinine Ratio Glucose POC Glucose 98 60 L* 50 L* Calcium Phosphorus Magnesium 07/20/24 07/20/24 07/21/24 22:35 22:43 00:52 VBG pH 7.36 Sodium 132 L Potassium 4.1 Chloride 104 Carbon Dioxide 23 Anion Gap 5 BUN 28 H Creatinine 1.04 Est Cr Clr Drug Dosing 66.9 eGFR 80.18 BUN/Creatinine Ratio 26.9 H Glucose 129 H POC Glucose 114 H 78 Calcium 7.6 L Phosphorus 2.2 L Magnesium 1.6 L 07/21/24 07/21/24 07/21/24 02:47 04:03 04:49 VBG pH 7.37 Sodium 132 L Potassium 4.5 Chloride 105 Carbon Dioxide 22 Anion Gap 5 BUN 31 H Creatinine 1.02 Est Cr Clr Drug Dosing 68.2 eGFR 82.07 BUN/Creatinine Ratio 30.4 H Glucose 101 H POC Glucose 102 H 112 H Calcium 7.1 L Phosphorus 3.5 D Magnesium 1.8 07/21/24 07/21/24 07/21/24 06:43 07:05 11:09 VBG pH Sodium Potassium Chloride Carbon Dioxide Anion Gap BUN Creatinine Est Cr Clr Drug Dosing eGFR BUN/Creatinine Ratio Glucose POC Glucose 132 H 156 H 262 H Calcium Phosphorus Magnesium 07/21/24 07/21/24 16:19 20:07 VBG pH Sodium Potassium Chloride Carbon Dioxide Anion Gap BUN Creatinine Est Cr Clr Drug Dosing eGFR BUN/Creatinine Ratio Glucose POC Glucose 290 H 248 H Calcium Phosphorus Magnesium PG Care Time/CCT Total # of Minutes Spent Total Time Spent with Patient: Total time spent is greater than 50% in coordination of care (as documented) at patient's floor/unit and/or counseling patient: Coding Level of Care Code 86987 SUB INP/OBS CARE 3/50MIN Diagnoses PNA (pneumonia) J18.9 Acute hypoxic respiratory failure J96.01 Diabetes mellitus type 1 E10.9 Colon carcinoma metastatic to multiple sites C18.9 Hematuria R31.9 Hypomagnesemia E83.42 Carcinomatosis C80.0 Ureteral stent present Z96.0 Nephrostomy present Z93.6
[2024-07-21] MEDS: POLYETHYLENE (MIRALAX) 17 GM PACK PO SCH (21:51)
[2024-07-22] MEDS: MoRPHine SULFATE 2 MG/ML CARP IV PRN (02:40)
[2024-07-22] MEDS: ALUMINUM/MAGNESIUM/SIMETH (MAALOX MAX) 30 ML UDC PO PRN (03:38)
[2024-07-22] MEDS ORDERED: SIMETHICONE 40 MG/0.6 ML 30ML PO PRN (03:47)
[2024-07-22] MEDS: FAMOTIDINE 40 MG TABLET PO ONE (04:21)
--- NOTE | 2024-07-22 04:49 | XRay Report ---
EXAM: XR chest 1V portable CLINICAL HISTORY: Hypoxia TECHNIQUE: An X-ray image of the chest is obtained in AP projection. COMPARISON: CR 07/19/2024 FINDINGS: Pulmonary Parenchyma: Bilateral scattered patchy abnormal air space and nodular opacities were noted more, coalescent at the left upper and middle lung zones, as well as still noted a few cystic changes. No evidence of pleural effusion or pleural thickening. Heart and Mediastinum: Heart size and shape are normal. No mediastinal widening or masses. Bony Thorax: Mild spondylosis of the thoracic spine. Chronic healed fracture of the right 6th rib. Soft Tissues: Soft tissues overlying the chest wall are unremarkable. IMPRESSION: [id number] significant interval changes of the previously noted bilateral scattered patchy abnormal air space /[id number] nodular opacities were noted more, coalescent at the left upper and middle lung zones, as well as still noted few cystic changes./OBX.5.1.2/OBX.5.1 Electronically signed by Wilbert Dodge 07-22-2024 04:49 AM
[2024-07-22] MEDS: ALBUT/IPRATROP 3MG/0.5MG NEB 3 ML VIAL INH SCH (07:37)
[2024-07-22 08:24] LABS: Calcium 7.9 mg/dl (8.6-10.3); Creatinine Clr Calc Pharmacy 63.2 ml/min; Magnesium 1.3 mg/dl (1.7-2.4); Potassium 4.6 mmol/L (3.5-5.1)
--- NOTE | 2024-07-22 08:37 | Pulmonology Progress Note ---
Date of Service July 22, 2024 Assessment & Plan (1) Acute hypoxic respiratory failure: (2) Abnormal CT scan of lung: (3) Metastatic disease: Area of secondary neoplastic involvement: lymph node Plan Impression: 64-year-old male with widely metastatic colon cancer including pulmonary mets. He was on immune therapy and was admitted with progressive hypoxemia and CT scan showing progression of multifocal airspace opacities. The differential would include progression of malignancy, progression of infection, or potentially ICI related pulmonary toxicity. The patient has been on immunotherapy for over 6 months. After extensive discussion with the patient and his we elected to pursue empiric therapy to cover infection, inflammation, and fluid overload with diuretics, steroids, and antibiotics. Unfortunately despite aggressive measures for all potentially reversible courses, the patient is declining clinically with progressive issues related to steroid administration as well as increasing oxygen requirement. Recommendations: 1. A long discussion with the patient his at bedside. Advised him that despite our best efforts to treat all reversible causes, he continues to decline physically. As I discussed previously, this may represent progression of his disease including lymphangitic spread of his cancer. He and his are both somber but expressed understanding that they knew that this was coming. The patient's desire is to not in the hospital and to pass away at home if at all possible. Advised him that given his significant oxygen requirement currently, that may not be achievable however we would look to see what our options are by engaging palliative care here as well as his palliative care team at home and case management. 2. We discussed with the patient that steroids at this point in time can be continued if the patient feels they are beneficial however if he feels they are causing more problems, I have no problems discontinuing them at this point in time. I feel the same about antibiotics. Diuretics may be beneficial. 3. Recommended we reevaluate his dyspnea management with palliative care. Escalation of his medications may be required. Unfortunately not much else to offer from a pulmonary standpoint at this point in time as the patient will likely transition to comfort measures. Feel free to reach out to us if we can be of additional assistance Admission and Anticipated Discharge Date Admission Date: July 19, 2024 Subjective Patient seen and examined. EMR reviewed. Discussed with patient and at bedside. The patient continues to decline physically. He is on an escalating amount of oxygen. He is continuing to have issues with his bowels and blood sugars. The patient is both understand that he is likely dying. They have exceeded all projected survival expectations based on his oncology status. He has requested to not in the hospital if at all possible. Review of Systems 2 Review of Systems: All systems reviewed & are unremarkable except as noted in Subjective Per hospitalist note Physical Exam 2 Constitutional: + thin; no acute distress Respiratory: + labored breathing and + tachypneic; no respiratory distress Auscultation: + crackles, + rales and + rhonchi Cardiovascular: Rate/Rhythm: regular rate Heart Sounds: normal S1, normal S2 and + murmur Extremities: + edema Gastrointestinal (Abdomen): normal bowel sounds, soft, nontender, no hepatosplenomegaly Neurologic: moves all extremities and awake Psychiatric: Orientation: alert and oriented x 3 Results & Data Results & Data Vital Signs (Past 12 Hours) Vital Signs Temp Pulse Pulse Resp BP Pulse Ox O2 Del Method 07/22/24 08:00 99 H 07/22/24 07:37 22 89 L Oxymask 07/22/24 07:13 36.7 C 114 H 18 105/64 07/22/24 02:54 36.7 C 107 H 20 126/80 87 L Oxymask 07/22/24 01:40 Oxymask 07/22/24 01:40 97 H 07/21/24 22:56 36.5 C 98 H 18 122/72 93 Oxymask O2 Flow Rate 07/22/24 08:00 07/22/24 07:37 10 07/22/24 07:13 07/22/24 02:54 15 07/22/24 01:40 5 07/22/24 01:40 07/21/24 22:56 6 Laboratory Results 07/20/24 07:41 07/22/24 07:56 PG Care Time/CCT Total # of Minutes Spent Total Time Spent with Patient: Total time spent is greater than 50% in coordination of care (as documented) at patient's floor/unit and/or counseling patient: Coding Level of Care Code 41464 SUB INP/OBS CARE 3/50MIN Diagnoses Acute hypoxic respiratory failure J96.[address] scan of lung R91.8 Metastatic disease C79.9 Area of secondary neoplastic involvement: lymph node
[2024-07-22] MEDS: PANTOprazole 40 MG/10 ML SYR IV SCH (08:45)
[2024-07-22] MEDS ORDERED: LANTUS PER UNIT CHARGE SQ SCH (09:00)
[2024-07-22] MEDS: LANTUS PER UNIT CHARGE SQ SCH (09:48)
[2024-07-22] MEDS: MAGNESIUM SULFATE / D5W 1 GM/100 ML BAG IV SCH (10:57)
[2024-07-22] MEDS: FUROSEMIDE 20 MG TAB PO ONE (17:42)
--- NOTE | 2024-07-22 19:36 | Hospitalist Progress Note ---
Date of Service July 22, 2024 Assessment & Plan (1) PNA (pneumonia): (2) Acute hypoxic respiratory failure: (3) Diabetes mellitus type 1: (4) Colon carcinoma metastatic to multiple sites: (5) Hematuria: (6) Hypomagnesemia: (7) Carcinomatosis: (8) Ureteral stent present: (9) Nephrostomy present: Plan 64yo male with advanced stage 4 colon ca, mets to lungs/liver/peritoneum/etc - receiving chemo/immunotherapy via [facility] & palliative care via [facility] system - presented with acute hypoxic resp failure as below. Patient continues to decline globally and, in particular, pulmonary still despite maximal medical efforts including IV abx, IV steroids, O2, nebs, diuresis, etc. #Pneumonia - Although he recently had 10+ days of IV/PO abx for pneumonia (was admitted to [facility] 07/09 and 07/10 for pneumonia) will cont zosyn Both procal & WBC count have been elevated Follow blood cx's, CBC, etc. Today is day #4 of zosyn #Acute hypoxic respiratory failure Severe Worsening clinically & radiographically SpO2 75% on RA at ER presentation Multifactorial - infectious pneumonia +/- immunotherapy induced pneumonitis + extensive pulm mets from his colon ca; can't rule out pulm edema but given the severity of his infiltrates on chest x-ray and the pulmonary HTN on echo gave lasix yesterday; give another dose today cont nebs cont whatever combination of O2 to maintain sats at least 88% (wall-mounted HFNC, oxymask, combination, etc) may need standard HFNC if he can't stay comfortable and can't keep sats as above #Chest pain Left-sided chest pain on the morning of 07/19 Troponin WNL on arrival, repeat also negative Patient did have a recent fall onto his left side; could be due to such Can't rule out the intra-thoracic pulmonary parenchymal issues causing such as well He remains on morphine ER BID + morphine IR prn Add morphine IV prn for refractory pain Other option would be use of KNIFE SETTER morphine #Type I diabetes Last A1c at 7.8% on 07/10/2024 UNCONTROLLED - due to high-dose steroids Needed IV insulin briefly on 07/20 BSGs corrected/improved Pharmacy is on glycemic consult They have transitioned him back to SC injections Appreciate their assistance #Stage IV colon cancer Follows with [facility] - CASIE Loco / Bronson Kitchen MD Follows with Dr Trina Friedman - [facility] Palliative care in [place] Last infusion of Panitumumab 07/02; receives it every 2 weeks, but skipped 07/16 due to infection Last capecitabine on 07/17; remains on hold Continue home pain regimen with morphine q12h + additional morphine for breakthrough pain Add IV morphine prn Consider KNIFE SETTER morphine Discussed his care today with Dr Friedman by phone Discussed his care with Dr Cook from pulmonary Place formal palliative care consult with our palliative care team I am concerned he may not make it home due to high o2 requirements and ongoing worsening told him & his that ability to transition home will hinge on o2 requirements #Hematuria/acute blood loss anemia Hgb 8.0 on arrival Ongoing hematuria; may be secondary to urinary stent; urine in right nephrostomy tube has been clear #Hypomagnesemia Magnesium critically low at 0.7 on arrival has received copious IV mag while here without consistent correction; suggests renal wasting #hypothyroidism cont synthroid #abdominal distension, difficulty with bowel movements although not completely obstructed (he is passing flatus/stool) I suspect he probably has low-grade partial obstruction from his primary colon ca site in the hepatic flexure cont bowel maintenance with senna + miralax updated extensively at bedside again today plan formal palliative care consult tomorrow suspect we will be pursuing CRO soon when that happens d/c tele and move to med/surg appreciate Dr Cook's assistance with likely transition to CRO soon will stop checking labs Admission and Anticipated Discharge Date Admission Date: July 19, 2024 Subjective patient had issues overnight with oxygenation, ultimately requiring wall-mounted HFNC along with superimposed oxymask in addition, was having stomach upset and multiple abdominal symptoms related to not being able to have a BM ultimately did have a BM and his stomach felt better required acid reducers this am Dr Cook from pulmonary met with pt & his Dr Cook outlined that his chances of recovering from his pulmonary disease is unlikely pt & his acknowledge that he is in the dying process and they are accepting of this pt's goal, however, is to return home with hospice rather than dying in the hospital I called & spoke with pt's primary palliative care physician, Dr Trina Friedman she sees him in the [place] palliative care office she has treated him for about 3 years she hopes to call him tomorrow on 07/23 pt & his are willing to speak with our palliative care team here we briefly discussed potentially using KNIFE SETTER morphine during my visit with him he took off his oxymask and dropped quickly to the 70s despite having 10+ liters in place via high-flow NC Review of Systems Review of Systems: pulm - dyspnea with any movement CV - no central cp GI - abd discomfort improved this am following a couple bowel movements Physical Exam Physical Exam: gen - lying in bed, tachypneic, looks ill, looks tired neck - ? mild JVD mouth - MMM, no thrush heart - RRR, s1 s2, no murmur lungs - worsening b/l rales; mild exp wheezes b/l; airation poor; tachypneic abd - mildly distended, nontender, BS+, no peritoneal signs ext - pulses 2+ b/l feet, no edema psych - a/o x 3 skin - severely dry skin (generalized) Results & Data Results & Data Vital Signs (Past 12 Hours) Vital Signs Temp Pulse Pulse Resp BP Pulse Ox O2 Del Method 07/22/24 19:31 123 H Nasal Cannula 07/22/24 16:39 105 H 07/22/24 16:18 36.8 C 102 H 18 114/65 90 Oxymask 07/22/24 12:43 103 H 24 Oxymask 07/22/24 11:15 36.9 C 110 H 18 107/64 91 Nasal Cannula 07/22/24 08:00 Oxymask 07/22/24 08:00 99 H 07/22/24 07:37 22 89 L Oxymask O2 Flow Rate 07/22/24 19:31 15 07/22/24 16:39 07/22/24 16:18 12 07/22/24 12:43 15 07/22/24 11:15 15 07/22/24 08:00 12 07/22/24 08:00 07/22/24 07:37 10 Laboratory Results Laboratory Results - last 24 hr 07/21/24 07/22/24 07/22/24 20:07 03:21 03:59 Sodium Potassium Chloride Carbon Dioxide Anion Gap BUN Creatinine Est Cr Clr Drug Dosing eGFR BUN/Creatinine Ratio Glucose POC Glucose 248 H 62 L* 76 Calcium Magnesium 07/22/24 07/22/2425 07:35 07:56 09:59 Sodium 134 L Potassium 4.6 Chloride 103 Carbon Dioxide 25 Anion Gap 6 BUN 33 H Creatinine 1.10 Est Cr Clr Drug Dosing 63.2 eGFR 74.96 BUN/Creatinine Ratio 30.0 H Glucose 99 POC Glucose 106 H 99 Calcium 7.9 L Magnesium 1.3 L 07/22/24 07/22/24 11:35 16:27 Sodium Potassium Chloride Carbon Dioxide Anion Gap BUN Creatinine Est Cr Clr Drug Dosing eGFR BUN/Creatinine Ratio Glucose POC Glucose 107 H 196 H Calcium Magnesium PG Care Time/CCT Total # of Minutes Spent Total Time Spent with Patient: Total time spent is greater than 50% in coordination of care (as documented) at patient's floor/unit and/or counseling patient: Coding Level of Care Code 49568 SUB INP/OBS CARE 3/50MIN Diagnoses PNA (pneumonia) J18.9 Acute hypoxic respiratory failure J96.01 Diabetes mellitus type 1 E10.9 Colon carcinoma metastatic to multiple sites C18.9 Hematuria R31.9 Hypomagnesemia E83.42 Carcinomatosis C80.0 Ureteral stent present Z96.0 Nephrostomy present Z93.6
[2024-07-22 23:50] VITALS: BP 130/81
[2024-07-23] MEDS: ALBUT/IPRATROP 3MG/0.5MG NEB 3 ML VIAL NEB PRN (02:02)
[2024-07-23 07:55] VITALS: TEMP 97.7
[2024-07-23] MEDS: MoRPHine SULFATE 2 MG/ML CARP IV PRN (09:35)
[2024-07-23] MEDS ORDERED: ONDANSETRON INJ 2 MG/ML 2 ML VIAL IV PRN (09:56)
[2024-07-23] MEDS ORDERED: ONDANSETRON 4 MG OD TAB SL PRN (09:56)
[2024-07-23] MEDS: LORazepam 2 MG/1 ML VIAL IV PRN ×3 (10:00→20:04)
[2024-07-23] MEDS ORDERED: SENNA 8.6 MG TAB PO PRN (10:06)
[2024-07-23] MEDS ORDERED: POLYETHYLENE (MIRALAX) 17 GM PACK PO PRN (10:06)
[2024-07-23] MEDS: HYDROmorphone INJ 0.5 MG/0.5 ML SYR IV PRN (10:38)
--- NOTE | 2024-07-23 11:06 | Electrocardiogram Report ---
Test Reason : Blood Pressure : */* mmHG Vent. Rate : 100 BPM Atrial Rate : 100 BPM P-R Int : 132 ms QRS Dur : 80 ms QT Int : 338 ms P-R-T Axes : 49 13 12 degrees QTcB Int : 436 ms Normal sinus rhythm Normal ECG When compared with ECG of 19-Jul-2024 07:07, Fusion complexes are no longer Present Minimal criteria for Anterior infarct are no longer Present T wave amplitude has increased in Anterior leads Confirmed by Demetrio Mcbride ([id number] on 07/23/2024 11:05:46 AM Referred By: REFERRED SELF Confirmed By: Demetrio Mcbride
--- NOTE | 2024-07-23 11:11 | Hospitalist Progress Note ---
Date of Service July 23, 2024 Assessment & Plan (1) Comfort measures only status: (2) PNA (pneumonia): (3) Acute hypoxic respiratory failure: (4) Diabetes mellitus type 1: (5) Colon carcinoma metastatic to multiple sites: (6) Hematuria: (7) Hypomagnesemia: (8) Carcinomatosis: (9) Ureteral stent present: (10) Nephrostomy present: Plan 64yo male with advanced stage 4 colon ca, mets to lungs/liver/peritoneum/etc - receiving chemo/immunotherapy via [facility] & palliative care via [facility] - presented with acute hypoxic resp failure as below. Patient has had worsening resp failure despite maximal medical efforts. He is now on maxed out high-flow NC settings - 50-60 L, 100% FiO2. Despite such he remains in respiratory distress. #PATTERN REPAIR PERSON status - * appreciate palliative care assistance by eMg Gonzalez here at [facility] and Dr Friedman his outpatient palliative care physician * transition to PATTERN REPAIR PERSON now * begin dilaudid infusion * ativan prn * he is having extreme agitation - may even need antipsychotic; could try zyprexa ODT if needed * scop patch, atropine drips, robinul for secretions * commercial litigation paralegal consult * gave support to pt & his at bedside * anticipate pt's passing in the next 24 hours #Pneumonia - stop zosyn transition to PATTERN REPAIR PERSON #Acute hypoxic respiratory failure - severe, significant deterioration in the last 48 hours and again overnight now on maxed out HFNC settings transitioning to PATTERN REPAIR PERSON status SpO2 75% on RA at ER presentation Multifactorial - infectious pneumonia +/- immunotherapy induced pneumonitis + extensive pulm mets from his colon ca; can't rule out pulm edema but given the severity of his infiltrates on chest x-ray and the pulmonary HTN on echo #Chest pain - dilaudid infusion #Type I diabetes Last A1c at 7.8% on 07/10/2024 stop BSGs and insulin UNLESS pt/pt's wish to continue glycemic control encouraged them to d/c such #Stage IV colon cancer Follows with [facility] - CASIE Loco / Bronson Kitchen MD Follows with Dr Trina Friedman - [facility] in [place] Last infusion of Panitumumab 07/02 Last capecitabine on 07/17 #Hematuria/acute blood loss anemia Hgb 8.0 on arrival Ongoing hematuria; may be secondary to urinary stent; urine in right nephrostomy tube has been clear #Hypomagnesemia Magnesium critically low at 0.7 on arrival s/p copious IV mag while here suspect renal wasting as cause of such #hypothyroidism stop synthroid transition to PATTERN REPAIR PERSON #abdominal distension, difficulty with bowel movements although not completely obstructed (he is passing flatus/stool) I suspect he probably had low-grade partial obstruction from his primary colon ca site in the hepatic flexure transition to PATTERN REPAIR PERSON this am appreciate palliative care assistance Admission and Anticipated Discharge Date Admission Date: July 19, 2024 Subjective was notified by staff this am that pt was now on maxed out settings of HFNC - 100% FIO2, 50-60 L contacted his outside palliative care physician, Dr Friedman contacted our palliative care team at [facility] we met with the patient & his about 0930 everyone was in agreement to transition quickly to PATTERN REPAIR PERSON status patient was in respiratory distress and ativan/morphine IV were given for the distress palliative care advised institution of dilaudid infusion given the extreme respiratory distress patient stated "he was ready" to pass Physical Exam Physical Exam: gen - severe respiratory distress with tachypnea, retractions, accessory muscle use, etc; breathless while trying to talk heart - tachy, s1 s2, no murmur lungs - diffuse b/l rales; diffuse wheezes b/l; respiratory distress abd - mildly distended, nontender, BS+ ext - pulses 2+ b/l feet, no edema psych - alert, able to answer questions Results & Data Results & Data Vital Signs (Past 12 Hours) Vital Signs Temp Pulse Pulse Resp BP Pulse Ox O2 Del Method 07/23/24 10:59 114 H 24 96 High Flow Nasal Cannula 07/23/24 07:52 36.5 C 134 H 26 H 95 Oxymask, High Flow Nasal Cannula 07/23/24 07:40 130 H 34 H 85 L High Flow Nasal Cannula 07/23/24 07:38 130 H 34 H 85 L High Flow Nasal Cannula 07/23/24 03:12 113 H 26 H 90 High Flow Nasal Cannula 07/23/24 02:03 112 H 30 H 100 High Flow Nasal Cannula 07/23/24 01:00 Nasal Cannula, Oxymask 07/23/24 00:58 100 H 07/22/24 23:46 36.7 C 109 H 20 130/81 90 Oxymask, High Flow Nasal Cannula O2 Flow Rate FiO2 07/23/24 10:59 50 100 07/23/24 07:52 10 07/23/24 07:40 60 100 07/23/24 07:38 60 100 07/23/24 03:12 40 07/23/24 02:03 50 07/23/24 01:00 15 07/23/24 00:58 07/22/24 23:46 15 PG Care Time/CCT Total # of Minutes Spent Total Time Spent with Patient: Total time spent is greater than 50% in coordination of care (as documented) at patient's floor/unit and/or counseling patient: Coding Level of Care Code None Diagnoses Comfort measures only status Z51.5 PNA (pneumonia) J18.9 Acute hypoxic respiratory failure J96.01 Diabetes mellitus type 1 E10.9 Colon carcinoma metastatic to multiple sites C18.9 Hematuria R31.9 Hypomagnesemia E83.42 Carcinomatosis C80.0 Ureteral stent present Z96.0 Nephrostomy present Z93.6
[2024-07-23] MEDS ORDERED: ALBUT/IPRATROP 3MG/0.5MG NEB 3 ML VIAL INH PRN (11:39)
--- NOTE | 2024-07-23 14:38 | Palliative Care Consultation ---
Date of Consultation July 23, 2024 Assessment & Plan (1) Palliative care encounter: Met with pt and his at bedside. Introduced Palliative Medicine and explained our role in advanced care planning, symptom management and navigation through the progression of life limiting disease. Patient and/or family were receptive to palliative services for goals of care discussions. Reviewed we are different from hospice, a home health nurse visiting service. Patient currently has decisional capacity based on the ability to convey understanding of personal PMHx, current medical condition, treatment options nor the risks / benefits of those options, and lack of ability to make decisions based on such knowledge. Hospital does not have written documentation of patient wishes concerning his chosen proxy for medical decisions. Per PA [id number], in absence of written documentation of patient wishes, pt's proxy for medical decisions would be his . Pt does not currently require a proxy for medical decisions. (2) Counseling regarding advanced directives and goals of care: ACP meeting held with pt and his from 09:35 - 10:10. Pt shared that he does not wish to suffer any longer, he c/o profound MASSEY even with minimal exertion or even talking. He shared that he is "done struggling to breath, and am dying". He and his shared understanding that pt has become dependent on HFNC/Bipap and his oxygen requirements will preclude him from leaving the hospital. Pt shared that his father and brother were going to visit later today and that he "hopefully will be ded before they get here". He request transition to [facility] at this time. Anticipatory guidance offered. Discussed changes pt may move through in the dying process including but not limited to sleeping more, disorientation when awake, restlessness, diminished senses/inability to respond to stimulus although ability to be aware of them remains intact longer, and changes in body temperatures, skin changes/mottling/cyanosis, respiratory pattern changes, and oral secretions. Family verbalized understanding. The goal is to assure a peaceful . EOL Rally: When a person facing the end of life rallies, they seem to become "more stable" - may want to talk or even begin taking PO; this phenomenon is usually seen as a sudden burst of energy before . This period of perking up can be accompanied by such a notable change in mental clarity that is often referred to as terminal lucidity. This change in cognition and behavior goes against everything families learn about the physical signs that the end of life is near. It is important to note that evidence-based data is elusive, if nonexistent. Theories support that it may be a search for a final, strong connection. Also, as organs shut down, they can release a steroid like compound that briefly rouses the body - in the specific case of brain tumors, swelling occurs in the confined space of the skull. The edema shrinks as EOL care patients are weaned off food and drink, waking up the brain a bit. Families and caregivers may grasp at what seems to be a turnaround in a loved ones health, however, the EOL Rally is a hallmark pre- sign. It is not uncommon for patients to show improvement before : they may want to talk while others may become restless or act as if they need to start preparing for a trip. Some patients will become more relaxed yet remain tuned in to what is going on around them, others will show signs of physical stability when, seconds before, they seemed on the verge of letting go. A rally can last for a few moments or even days. Short or long, these temporary improvements can have a profound effect on loved ones who are keeping santiago. Like a moment of clarity for someone who has dementia, a rally is one last opportunity to connect with a loved one. Each persons experience is unique and impossible to predict with total accuracy. Life is full of questions, and some of them simply are not meant to be answered. Oxygen at EOL: For patients at the end of life, oxygen delivered by a nasal cannula provides no additional symptomatic benefit for relief of refractory dyspnea in patients with life-limiting illness compared with room air: there's a point at which that the oxygen level gets so low that it's no longer compatible with life. By providing supplemental oxygen, the dying process will be unnecessarily prolonged. Please use less burdensome but more effective strategies such as comfort care meds, oscillating fan, massage, repositioning, etc. (Vanessa AP, Jorge CF, Cecilio PA, et al. Effect of palliative oxygen versus room air in relief of breathlessness in patients with refractory dyspnoea: a double-blind, randomised controlled trial. Lancet. 2010;376(5297):614-793. doi:10.1016/N3418-9460075-8022(41)76795-4). Discussed hospice benefit: an interdisciplinary program offered by nurses, nurses aides, social workers, chaplains and a medical technician assistant for patients with a terminal condition and a life expectancy of less than 6 months. This is covered by Medicare at 100%/no out of pocket expense to patient and all meds/supplies needed by patient for the reason they are on hospice are paid for/covered by hospice. The goal is assure quality of life of the patient in their home setting (home, long term, inpatient hospice setting) by providing symptoms management, psychosocial and spiritual support. However, they cannot offer 24 hours care and if the family is unable to provide that care, they will have to consider personal care with out of pocket cost vs. long term placement. We discussed the goals of hospice as a patient service and the goals of care; we discussed EOL trajectories and transitions maria the emotional impact of realizing mortality as a concrete reality from prior abstract considerations. Pt was reassured that no matter where they are along this trajectory, they are not alone - their medical team will remain by their side through their journey. Discussed the pros/cons of accepting help when especially weakened and d istressed by pain-which would also help provide relief/decrease caregiver burden/strain. (3) Comfort measures only status: Pt and his are both in agreement to transition to comfort directed care today. Attending team NÉSTOR Acevedo, [facility]. [facility] orders entered, CM to place referral for [facility] hospice evaluation. (4) Need for comfort care: EOL Symptom manamgement: Continue steroids and taper per primary Pain/dyspnea/tachypnea dilaudid 0.5mg IVP PRN [id number] Consider titratable dilaudid drip if pt requires >3 PRN doses in under two consecutive hours. Nausea/vomitting zofran 4mg IVP q4h PRN Agitation ativan 0.5mg IVP q4h PRN Hyperactive delirium haldol 5mg IVP q6h PRN Secretions - if repositioning not effective robinul 0.4mg IV q4h PRN atropine SL 3 drops Q1h PRN Nursing care: Discontinue all medications not directed towards comfort. Detether pt from IV tubing, monitor cables, and check vitals once per shift. Please continue HFNC and titrate down as able for patient comfort. Use medications above PRN for dyspnea/tachypnea and do not increase oxygen once titrated down. Assess q1h for pain/dyspnea and treat accordingly. Plan as above History of Present Illness Reason for Consultation: goals of care Requesting Physician: Prosper Mascorro MD Attending Physician: Prosper Mascorro MD History of Present Illness Mr. Byrne is a 64-year-old male with PMH of stage IV colon cancer, right sided percutaneous nephrostomy tube, type I diabetes, hypothyroidism, and multifocal pneumonia. He presented to ED 07/19 for SOB, chest pain, and tachycardia. Recent [facility] admission 07/09 - 07/10 for sepsis of unclear origin (suspected pulmonary). Patient was doing well for about a week post discharge home until he developed SOB and productive cough. He normally takes morphine every 12 hours for pain prior to admit. Pt has had progressively worsening hypoxia with bipap dependence. Palliaitive care was consulted to assist with goals of care. Allergies Allergy/AdvReac Type Severity Reaction Status Date / Time oxycodone [From Percodan] Allergy Severe ITCHING TO Verified 10/04/22 06:54 PERONEAL AREA grapefruit Allergy Mild PRICKLY Verified 10/04/22 06:54 FEELING MOUTH Home Medications Medication Instructions Recorded Confirmed Type levothyroxine 125 mcg tablet 125 mcg PO QAM 09/02/18 07/19/24 History insulin aspart U-100 100 unit/mL 1 sliding scale dose subcut 01/29/22 07/19/24 History subcutaneous solution (Novolog USEASDIRECTD U-100 Insulin aspart) lisinopril 5 mg tablet 10 mg PO PM 04/16/22 07/19/24 History morphine 30 mg immediate release 30 mg PO Q4H PRN Pain 04/16/22 07/19/24 History tablet Medical Marijuana 1 dose PO DIRECTED 06/28/22 07/19/24 History morphine 60 mg tablet,extended 60 mg PO Q12H 06/28/22 07/19/24 History release phenazopyridine 200 mg tablet 200 mg PO Q8H PRN pain #10 tabs 07/05/22 07/19/24 Rx (Pyridium) capecitabine 500 mg tablet (Xeloda) 500 mg PO BID 09/22/22 07/19/24 History albuterol sulfate 90 mcg/actuation 1 puff inhalation DIRECTED PRN 07/09/24 07/19/24 History aerosol inhaler sob cetirizine 10 mg tablet (Zyrtec) 10 mg PO DAILY 07/09/24 07/19/24 History cyanocobalamin (vitamin B-12) 1,000 mcg PO DAILY 07/09/24 07/19/24 History 1,000 mcg tablet magnesium 2 tab PO BID 07/09/24 07/19/24 History potassium chloride 20 mEq 20 meq PO DAILY 07/09/24 07/19/24 History tablet,extended release insulin glargine-yfgn 100 unit/mL 5 unit (0.05 mL) subcut HS #0 mL 07/10/24 07/19/24 Rx subcutaneous solution (Semglee (insulin glargine-yfgn)) levofloxacin 750 mg tablet 750 mg PO DAILY 14 days #14 tabs 07/10/24 07/19/24 Rx Patient History Medical History Insulin-requiring or dependent type II diabetes mellitus Status post chemotherapy currently on avastin infusion q 3 weeks will have another infusion 09/27 and on oral chemo Xeloda daily History of anesthesia reaction Per patient- at age 5, had sodium pentothal for a dental procedure, had severe reaction three days after procedure (had to possibly be revived). 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 RP and ureteral stent placements H/O hernia repair Right inguinal hernia S/P biopsy Shave biopsy and cauterization of skin on 04/09/21 History of arthroscopy Left KNEE - Meniscus 1997 History of eye surgery R/L VITRECTOMY History of esophagogastroduodenoscopy (EGD) Family History Mother , 82yo Rheumatic fever Skin cancer Father No problems noted. Brother No problems noted. Brother Fatty liver Sister No problems noted. Sister No problems noted. Son No problems noted. Daughter No problems noted. Daughter No problems noted. Other Family history non-contributory Social History Smoking Status: Former smoker Tobacco Type: Cigarettes Cigarettes Per Day: 30 per day- advised; Second Hand Exposure: Yes; Do You Dip or Chew Tobacco: No; Tobacco Cessation Education Requested by Patient: No Hx Alcohol Use: No Hx Substance Use: Yes Last Used Substance Other:: tea/vape-daily use Substance Use Type Other:: medical card Preferred Language: Montenegrin Communication Ability: Effective Visual Impairment: No Limitations Hearing Ability: Normal Cycle Specialist Required: No Beliefs That Will Affect Care: Spiritual marital status: Current Living Situation: Spouse Current Living Situation Comment: [facility] current occupational status: retired How many Children do You have: 3 Other Information That Helps Us Care for You: No Feels Safe at Home: Yes Safety Concerns: Feels Safe At This Time Diet: regular caffeine: Yes (2 cups/day) during the past year weight has: decreased > 10 lbs Assistive Devices: Cane Review of Systems Review of Systems: All systems reviewed & are unremarkable except as noted in HPI & below Respiratory: + cough, + dyspnea, + dyspnea on exertio n and + pain on inspiration Musculoskeletal: + muscle weakness Physical Exam Constitutional: + thin; no acute distress chronically ill appearing Respiratory: no respiratory distress and no labored breathing supplemental oxygen in place Cardiovascular: Rate/Rhythm: regular rate Heart Sounds: normal S1, normal S2 and + murmur Extremities: + edema Gastrointestinal (Abdomen): normal bowel sounds, soft, nontender, no hepatosplenomegaly Neurologic: moves all extremities and awake Psychiatric: Orientation: alert and oriented x 3 Genitourinary: Right nephrostomy tube with clear yellow urine Results & Data Vital Signs (Past 12 Hours) Vital Signs Temp Pulse Pulse Resp Pulse Ox O2 Del Method O2 Flow Rate 07/23/24 10:59 114 H 24 96 High Flow Nasal Cannula 50 07/23/24 09:00 Oxymask, High Flow Nasal Cannula 60 07/23/24 08:00 94 H 07/23/24 07:52 36.5 C 134 H 26 H 95 Oxymask, High Flow Nasal Cannula 10 07/23/24 07:40 130 H 34 H 85 L High Flow Nasal Cannula 60 07/23/24 07:38 130 H 34 H 85 L High Flow Nasal Cannula 60 07/23/24 03:12 113 H 26 H 90 High Flow Nasal Cannula 40 FiO2 07/23/24 10:59 100 07/23/24 09:00 90 07/23/24 08:00 07/23/24 07:52 07/23/24 07:40 100 07/23/24 07:38 100 07/23/24 03:12 Laboratory Results Abnormal lab results 07/22/24 07/22/24 07/23/24 Range/Units 16:27 20:22 07:50 POC Glucose 196 H 166 H 147 H (70-99) mg/dl 07/23/24 Range/Units 12:41 POC Glucose 225 H (70-99) mg/dl Diagnostic Findings Cervical Spine CT 07/19/24 07:13 CT cervical spine wo con CT DOSE: 1762.99 mGy.cm CLINICAL HISTORY: fall sore on left. COMPARISON: None TECHNIQUE: Multiple axial CT images of the cervical spine were obtained without contrast. Sagittal and coronal reconstructions were done. A dose lowering technique was utilized adhering to the principles of ALARA. FINDINGS: There is no evidence of a fracture or traumatic malalignment. The odontoid and atlantoaxial articulation are intact. There is no prevertebral soft tissue swelling. There is multilevel cervical spondylosis most pronounced at C5-6 where there is bilateral foraminal narrowing. The pulmonary apices demonstrate the multiple bilateral pulmonary nodules/masses and there are thick walled cavities with nodular margins identified in the left pulmonary apex. Mediastinal lymphadenopathy is present. There are no metastatic bone lesions are identified. IMPRESSION: No acute traumatic cervical spine injury identified. Multiple pulmonary masses and cavities suspicious for either metastatic disease with necrosis or a granulomatous process such as TB or Aspergillus. ACT 112: Negative or not required by law. The above report was generated using voice recognition software. It may contain grammatical, syntax or spelling errors. Electronically signed by: Betty Mak M.D. 07/19/2024 9:51 AM Chest CTA 07/19/24 07:13 CT angio chest PE protocol CT DOSE: 1763 HISTORY: Chest Pain, eval for PE, recent pna. TECHNIQUE: Multiple CTA images of the chest were obtained after the intravenous administration of 80 ml Optiray. Coronal and sagittal MIPS were obtained from the axial data set and were submitted for review. All measurements were obtained according to NASCET criteria. A dose lowering technique was utilized adhering to the principles of ALARA. COMPARISON STUDY: 07/09/2024 FINDINGS: There are trace pleural effusions, stable. There are numerous scattered masses and pulmonary nodules throughout both lungs, largest in the left upper lobe cavitary mass measures 6 cm, stable. There is scattered patchy groundglass pulmonary opacity. There is a moderate-sized area of patchy consolidation at the right lower lung lobe. No pneumothorax. Stable mediastinal adenopathy. No pericardial effusion. Multiple masses are again seen at the partially visualized liver. There are diffuse coronary artery calcifications. There is no thoracic aortic dissection or aneurysm. No pulmonary embolism. No acute osseous findings. IMPRESSION: 1. No pulmonary embolism seen. 2. Multiple scattered masses and nodules throughout both lungs are grossly stable, consistent with malignancy/metastatic disease. 3. There is grossly stable superimposed pneumonia most prominent at the right lower lung lobe. 4. Stable hepatic metastatic disease. ACT 112: Negative or not required by law. The above report was generated using voice recognition software. It may contain grammatical, syntax or spelling errors. Electronically signed by: Peter Malin M.D. 07/19/2024 9:[address] 07/19/24 07:13 CT SCAN OF THE BRAIN WITHOUT IV CONTRAST CLINICAL HISTORY: Colon cancer. COMPARISON STUDY: Head CT T and CTA of the head September 03, 2018. TECHNIQUE: Unenhanced axial CT scan of the brain was performed from the vertex to the skull base. A dose lowering technique was utilized adhering to the principles of ALARA. FINDINGS: Brain parenchyma: No acute intracranial hemorrhage, midline shift or mass effect is present. Rosales-white matter differentiation is preserved. There are no extra- axial fluid collections. There are no findings to suggest acute dural sinus thrombosis or acute territorial infarct. No intracranial lesions are identified on unenhanced exam. Ventricles, sulci, cisterns: There is no hydrocephalus. The basal cisterns are patent. Calvarium: Unremarkable. Sinuses and mastoids: The visualized paranasal sinuses are clear. The mastoid air cells are well pneumatized. Orbits: The bony orbits are grossly intact. IMPRESSION: 1. No acute intracranial findings. 2. No intracranial metastases identified on unenhanced exam. ACT 112: Negative or not required by law. Electronically signed by: Aristides Drummond M.D. 07/19/2024 9:40 AM KUB X-Ray 07/21/24 16:31 EXAM: XR KUB/Abdomen 1 view CLINICAL HISTORY: known colon ca, abd pain, ?obstruction TECHNIQUE: X-ray images of the abdomen were obtained in supine positions. COMPARISON: No prior X ray chest studies available for comparison. FINDINGS: Gas Pattern: Gas pattern within the abdomen is normal. No evidence of bowel obstruction or distention. Soft Tissues: Soft tissues faint calcification overlying the right hypochondrium likely corresponds to calcified hepatic lesion. Calcifications in the left paraspinal region of the abdomen could correspond to the calcified retroperitoneal LN. Left side DJ catheter and right side nephrostomy are noted. Patchy air space areas of consolidation seen in the lung bases more in the left side seen in previous CT. IMPRESSION: No acute abnormalities were identified. Electronically signed by Wilbert Dodge 07-21-2024 6:29 PM Chest X-Ray 07/22/24 03:39 EXAM: XR chest 1V portable CLINICAL HISTORY: Hypoxia TECHNIQUE: An X-ray image of the chest is obtained in AP projection. COMPARISON: CR 07/19/2024 FINDINGS: Pulmonary Parenchyma: Bilateral scattered patchy abnormal air space and nodular opacities were noted more, coalescent at the left upper and middle lung zones, as well as still noted a few cystic changes. No evidence of pleural effusion or pleural thickening. Heart and Mediastinum: Heart size and shape are normal. No mediastinal widening or masses. Bony Thorax: Mild spondylosis of the thoracic spine. Chronic healed fracture of the right 6th rib. Soft Tissues: Soft tissues overlying the chest wall are unremarkable. IMPRESSION: [id number] significant interval changes of the previously noted bilateral scattered patchy abnormal air space /[id number] nodular opacities were noted more, coalescent at the left upper and middle lung zones, as well as still noted few cystic changes./OBX.5.1.2/OBX.5.1 Electronically signed by Wilbert Dodge 07-22-2024 04:49 AM Medications Administered Current Inpatient Medications Al Hydrox/Mg Hydrox/Simethicone (Aluminum/Magnesium/Simeth (Maalox Max) 30 Ml Udc) 15 ml PO Q6H PRN PRN Reason: Constipation Stop: 08/20/24 08:17 Last Admin: 07/22/24 03:38 Dose: 15 ml Albuterol (Albut/Ipratrop 3mg/0.5mg Neb 3 Ml Vial) 3 ml NEB Q4H PRN; Protocol PRN Reason: Shortness Of Breath Or Wheezing Stop: 08/21/24 02:36 Last Admin: 07/23/24 02:02 Dose: 3 ml Albuterol (Albut/Ipratrop 3mg/0.5mg Neb 3 Ml Vial) 3 ml INH Q6RWA PRN PRN Reason: Shortness Of Breath Or Wheezing Stop: 08/21/24 06:59 Cetirizine HCl (Cetirizine Hcl 10 Mg Tablet) 10 mg PO DAILY [facility] Stop: 08/19/24 08:59 Last Admin: 07/23/24 09:50 Dose: Not Given Glycopyrrolate (Glycopyrrolate 0.2 Mg/Ml Vial) 0.4 mg IV Q4H PRN PRN Reason: Rattling Secretions or Pulm Congestion Stop: 08/22/24 09:55 Hydromorphone HCl (Hydromorphone Bolus From Bag) 0.5 mg IV Q15M PRN PRN Reason: If dyspnea or pain (5-10) Stop: 08/06/24 14:05 Hydromorphone HCl (Dilaudid) 100 mg in 100 mls @ 0.5 mls/hr IV .Q96H TAINA; Protocol Stop: 08/06/24 14:14 Insulin Aspart (Insulin Aspart Per Unit Charge) 0 units SC ACHS [facility] Stop: 08/20/24 08:29 Last Admin: 07/23/24 11:46 Dose: Not Given Insulin Glargine (Lantus Per Unit Charge) 5 units SQ QAM TAINA Stop: 08/21/24 09:29 Last Admin: 07/23/24 09:48 Dose: Not Given Lorazepam (Lorazepam 2 Mg/1 Ml Vial) 0.5 mg IV Q4H PRN PRN Reason: Anxiety/Agitation Stop: 08/22/24 09:55 Mupirocin (Mupirocin 2% Oint 22 Gm Tube) 1 appln EXT BID TAINA Stop: 08/19/24 13:24 Last Admin: 07/23/24 09:37 Dose: 1 appln Ondansetron HCl (Ondansetron Inj 2 Mg/Ml 2 Ml Vial) 4 mg IV Q4H PRN PRN Reason: Nausea &/or Vomiting Stop: 08/22/24 09:55 Ondansetron HCl (Ondansetron 4 Mg Od Tab) 4 mg SL Q4H PRN PRN Reason: Nausea &/or Vomiting Stop: 08/22/24 09:55 Polyethylene Glycol (Polyethylene (Miralax) 17 Gm Pack) 17 gm PO BID PRN PRN Reason: constipation Stop: 08/20/24 20:59 Sennosides (Senna 8.6 Mg Tab) 17.2 mg PO BID PRN PRN Reason: constipation Stop: 08/20/24 20:59 Simethicone (Simethicone 40 Mg/0.6 Ml 30ml) 80 mg PO Q6H PRN PRN Reason: Flatulence Stop: 08/21/24 03:46 PG Care Time/CCT Total # of Minutes Spent Total Time Spent with Patient: Total time spent is greater than 50% in coordination of care (as documented) at patient's floor/unit and/or counseling patient: Advanced Care Planning 26518 Advanced Care Planning 30 [place] [address] IN/OBS CONSULT LVL 5,80M Patient Type New History Expanded Problem Focused Exam Expanded Problem Focused Medical Decision Making Moderate Complexity Diagnoses Palliative care encounter Z51.5 Counseling regarding advanced directives and goals of care Z71.89 Comfort measures only status Z51.5 Need for comfort care Additional Codes Advanced Care Planning - 92249 Advanced Care Planning 30 Min: 42616 Advanced Care Planning 30 Min ([id number])
[2024-07-23] MEDS: HYDROmorphone 100 MG/100 ML BAG IV SCH (14:49)
[2024-07-23] MEDS: STAT IV Infusion **Titration per Protocol STA (15:34)
[2024-07-23] MEDS: HYDROmorphone BOLUS from BAG IV PRN (17:57)
[2024-07-23] MEDS ORDERED: OLANZapine ZYDIS 5 MG ORALLY DIS. TAB PO PRN (18:24)
[2024-07-23] MEDS ORDERED: ATROPINE SULFATE 1% OP SOLN 5 ML BTL SL PRN (18:27)
[2024-07-23] MEDS: GLYCOPYRROLATE 0.2 MG/ML VIAL IV PRN (18:29)
[2024-07-23 19:49] VITALS: PULSE 122; RESP 14; O2SAT 89
[2024-07-23] MEDS: SCOPOLAMINE 1 MG/72 HR TDSY PATCH TD SCH (19:56)
--- NOTE | 2024-07-23 23:38 | Death Pronouncement Note ---
Date of Service July 23, 2024 Pronouncement Note Admission Date July 19, 2024 Preliminary Cause of (1) Colon carcinoma metastatic to multiple sites: (2) Acute hypoxic respiratory failure: (3) RLL pneumonia: Summary I was called to pronounce the of Milton Byrne Jr ( 1960) by Pham Talamantes, KARL Upon entering the room, patient was found to be in a terminal state. They were unresponsive to, and did not withdraw from, verbal or tactile stimuli such as sternal rub. They were unresponsive to corneal, pupillary, and oculocephalic reflexes. On cardiopulmonary exam, they were found to be without detectable carotid pulses, and without spontaneous heart tones or respirations. Time of was pronounced by me on 07/23/2024 on 23:08. Attending physician was notified. at bedside. Additional Data Attending physician: Prosper Mascorro MD Resident Activity Tracking Resident Involvement: Resident Care Provided Care Provided: Adult [facility]
[2024-07-24] MEDS ORDERED: CHECK SCOPOLAMINE PATCH PLACEMENT SCH
--- NOTE | 2024-07-24 05:37 | Discharge Summary ---
Discharge Summary Date of Service date of admission - July 19, 2024 date of - July 23, 2024 time of - 23:08 Principal Dx & Hospital Course #1 = Principal Diagnosis (1) Comfort measures only status: (2) PNA (pneumonia): (3) Acute hypoxic respiratory failure: (4) Chemotherapy induced pulmonary toxicity: (5) Diabetes mellitus type 1: (6) Colon carcinoma metastatic to multiple sites: (7) Hematuria: (8) Hypomagnesemia: (9) Carcinomatosis: (10) Ureteral stent present: (11) Nephrostomy present: (12) Tobacco dependence: Plan 64yo male with advanced stage 4 colon ca, mets to lungs/liver/peritoneum/etc - receiving chemo/immunotherapy (capecitabine & Panitumumab, respectively) via [facility] palliative care via [facility] - presented with acute hypoxic resp failure as below. Patient developed worsening respiratory failure despite maximal medical efforts including broad-spectrum IV antibiotics, high-dose IV steroids, diuretics, etc. He ultimately required maxed-out high-flow NC settings - 50-60 L, 100% FiO2. Just prior to transitioning to comfort care measures he had significant respiratory distress despite the above. 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 the AM of 07/23/24 * [facility] palliative care provided assistance with comfort meds & dilaudid infusion * patient passed peacefully late in the day on 07/23/24 #Acute hypoxic respiratory failure - severe * likely a combination of infectious pneumonia +/- immunotherapy induced pneumonitis + extensive pulmonary mets from his colon ca; couldn't rule out pulmonary edema given the severity of his infiltrates on chest x-ray and the pulmonary HTN on echo * initially only on 3-5 liters of NC O2 on 07/19/24, but he gradually worsened throughout the stay despite IV antibiotics, IV steroids, diuretics, bronchodilators, supportive care * ultimately required high-flow NC at extremely high settings including 100% FiO2 #Chest pain - multifactorial - * dilaudid infusion needed on his last day of life #Type I diabetes - * long-standing, diagnosed at age 3 * was uncontrolled early in the admission due to high-dose steroids, requiring an insulin drip temporarily #Stage IV colon cancer - * had been following with [facility] - CASIE Loco / Bronson Kitchen MD * had been following with Dr Trina [facility] in [place] * Last infusion of Panitumumab 07/02/24 * possibly contributed to his acute hypoxic resp failure -- he may have had immunotherapy induced pneumonitis * Last capecitabine on 07/17/24 #Hematuria/acute blood loss anemia * Hgb 8.0 on arrival * Ongoing hematuria; may have been secondary to left-sided ureteral stent; urine in right nephrostomy tube was clear #Hypomagnesemia - * Magnesium critically low at 0.7 on arrival * s/p copious IV mag while here * suspect he had renal wasting as cause of such #hypothyroidism #abdominal distension, difficulty with bowel movements - * although not completely obstructed (he was passing flatus/stool) I suspect he probably had low-grade partial obstruction from his primary colon ca site in the hepatic flexure Admission HPI Per Admitting Provider Milton Alejandro is a 64-year-old male with PMH of stage IV colon cancer, right sided percutaneous nephrostomy tube, type I diabetes, hypothyroidism, and mult ifocal pneumonia. He presented on 07/19 for SOB, chest pain, and tachycardia. Recent [place] admission 07/09 - 07/10 for sepsis - likely pulmonary in etiology. Patient reports he was feeling well when he left the hospital. Then a couple days ago, he started developing SOB and productive cough again. This morning, he woke up around 4 AM with his heart racing, and chest pounding; patient thought he was initially having a heart attack. No prior history of MD. He endorses SOB both at rest and with exertion. His chest pain is left-sided, and he rates it 6/10 at present; constant. Patient normally takes morphine every 12 hours for pain, but did not take it this morning. Other than that, patient took all his regular morning medicine today. Took his regular Lantus last night. Patient is currently on a course of levofloxacin since being discharged from the hospital, and he reports good compliance with this. Only recent change in medications was that his lisinopril was decreased from 10 mg to 5 mg as patient's blood pressure has been low on home BP cuff; down to 80/50. He also had a fall over the weekend, and landed on his left side; head strike; no LOC; no blood thinners; patient has felt dizzy/unsteady on his feet since. Patient has been on chemotherapy for the past 3 years. His last infusion was on 07/02, which he gets every 2 weeks. Additionally, he was told to stop taking the capecitabine BID due to his recurrence of URI symptoms; last took this on Monday 07/17. Patient does not use supplemental oxygen at baseline; no CPAP at night. No prior history of DVT/PE. He is a former tobacco cigarette smoker; quit 2 weeks ago. Prior to that, he was smoking 1.5 PPD. Additionally, patient has had ongoing hematuria; chronic stent that is replaced every 3 months. Patient's SpO2 was 95% on 3L NC at time of admission; vitals otherwise stable. ED course: Zosyn 4.5 g IV Vancomycin 1250 mg IV ROS: Patient endorses night-sweats, chills, feeling off balance, falls, chest pain, SOB and rest and with exertion, productive cough (dark yellow), chest palpitations, abdominal pain, intermittent diarrhea / soft stool, hematuria due to stent, dysuria, and neuropathy in the arms and legs. Patient denied fever, chills, dizziness, headache, nausea, vomiting, hemoptysis, melena, or blood in the stool. Discharge Exam at time of - pupils fixed/dilated; no response to pain/voice; no audible heart tones; no palpable pulse; no spontaneous respiratory effort Discharge Plan Discharge Items Patient Disposition: Other Date/Time: 07/23/24 23:08 Hospital Stay Data Consultations Consult Pulmonology Consult Urology Consult Palliative Care Consult Pharmacy Glycemic Team Procedures Performed Echocardiogram Diagnostic Imagining Performed CT angio chest PE protocol Stat CT cervical spine wo con Stat CT head/brain wo con Stat Total Time Total Time Spent Total Time Spent (In Minutes): 45 Coding Level of Care Code 02395 INP/OBS DISCH >30 MIN Diagnoses Comfort measures only status Z51.5 PNA (pneumonia) J18.9 Acute hypoxic respiratory failure J96.01 Chemotherapy induced pulmonary toxicity J98.4; T45.1X5A Diabetes mellitus type 1 E10.9 Colon carcinoma metastatic to multiple sites C18.9 Hematuria R31.9 Hypomagnesemia E83.42 Carcinomatosis C80.0 Ureteral stent present Z96.0 Nephrostomy present Z93.6 Tobacco dependence F17.200
== END 2024-07-23 23:08 | disposition expired | DRG 205 ==
LOC: ED 06:56 → 2S 12:22
DX: Z87.891 Personal history of nicotine dependence; Z91.018 Allergy to other foods; Z93.6 Other artificial openings of urinary tract status; E03.9 Hypothyroidism, unspecified; W19.XXXA Unspecified fall, initial encounter; Z96.0 Presence of urogenital implants; Z79.891 Long term (current) use of opiate analgesic; C78.01 Secondary malignant neoplasm of right lung; E83.42 Hypomagnesemia; Z79.631 Long term (current) use of antimetabolite agent; I27.20 Pulmonary hypertension, unspecified; Z79.899 Other long term (current) drug therapy; Y73.2 Prosthetic and other implants, materials and accessory gastroenterology and urology devices associated with adverse incidents; Z51.5 Encounter for palliative care; C78.6 Secondary malignant neoplasm of retroperitoneum and peritoneum; C18.3 Malignant neoplasm of hepatic flexure; Z66 Do not resuscitate; T49.0X5A Adverse effect of local antifungal, anti-infective and anti-inflammatory drugs, initial encounter; C77.3 Secondary and unspecified malignant neoplasm of axilla and upper limb lymph nodes; T83.83XA Hemorrhage due to genitourinary prosthetic devices, implants and grafts, initial encounter; C78.7 Secondary malignant neoplasm of liver and intrahepatic bile duct; Z79.890 Hormone replacement therapy; R07.9 Chest pain, unspecified; Z79.4 Long term (current) use of insulin; Z88.5 Allergy status to narcotic agent; J96.01 Acute respiratory failure with hypoxia; C78.02 Secondary malignant neoplasm of left lung; K56.690 Other partial intestinal obstruction; D62 Acute posthemorrhagic anemia; E10.65 Type 1 diabetes mellitus with hyperglycemia; T45.AX5A Adverse effect of immune checkpoint inhibitors and immunostimulant drugs, initial encounter; J70.4 Drug-induced interstitial lung disorders, unspecified